=== PATIENT | female | born 1960 | race Caucasian/White ===

== ENCOUNTER → 2016-10-18 | Outpatient (CLI) | payer BC ==
[~2016-10-18] MED LIST: MULT-506 PO; PROZAC PO; RITALIN PO; WELLBUTRIN
--- NOTE | 2016-10-18 13:47 | DIAGNOSTIC IMAGING REPORT ---
PA CHEST WITH LEFT-SIDED RIB SERIES CLINICAL HISTORY: Left chest wall pain. FINDINGS: A PA chest radiograph with 4 additional views may left-sided rib series is obtained. No prior studies are available for comparison at the time of dictation. The cardiomediastinal silhouette is unremarkable. The lungs and pleural spaces are clear. No pneumothorax is seen. The skeletal structures are osteopenic. There is no radiographic evidence of left-sided rib fracture on the rib series. The remainder of the bony thorax is grossly intact. IMPRESSION: 1. The lungs are clear. 2. There is no radiographic evidence of left-sided rib fracture as clinically queried. Electronically signed by: Bradley Fuentes M.D. 10/18/2016 1:46 PM Dictated Date/Time: 10/18/2016 1:44 PM
== END | disposition home or self-care (01) ==
LOC: C.RAD1850 13:10
PROVIDERS: ATTEND Nurse Practitioner
DX: R07.81 Pleurodynia (principal)

== ENCOUNTER → 2016-11-17 | Outpatient (CLI) | payer BC ==
--- NOTE | 2016-11-17 12:23 | MAMMOGRAPHY REPORT ---
BILATERAL DIGITAL DIAGNOSTIC MAMMOGRAM TOMOSYNTHESIS WITH CAD: 11/17/2016 CLINICAL HISTORY: The patient reports that she had left inferior breast/rib pain a few weeks ago whic h has since resolved. She denies any palpable lump or other complaints. TECHNIQUE: Breast tomosynthesis in addition to standard 2D mammography was performed. Current study was also evaluated with a Computer Aided Detection (CAD) system. Bilateral CC and MLO 2-D and tomosy nthesis images were obtained. COMPARISON: Comparison is made to exams dated: 11/28/2013 mammogram - [facility], , and 05/11/2011 mammogram - [facility]. BREAST COMPOSITION: The tissue of both breasts is heterogeneously dense, which may obscure small mas ses. FINDINGS: There are no suspicious masses, calcifications, or areas of architectural distortion noted in either breast. There has been no significant interval change compared to prior exams. Scattered bilateral benign-appearing calcifications are not significantly changed. As the pain has resolved, u ltrasound was not performed. IMPRESSION: ACR BI-RADS CATEGORY 2: BENIGN There is no mammographic evidence of malignancy in either breast. A 1 year screening mammogram is rec ommended. Also recommend clinical follow-up for left breast/rib pain which has since resolved. The patient has been verbally notified of the results. Approximately 10% of breast cancers are not detected with mammography. A negative mammographic report should not delay biopsy if a clinically suggestive mass is present. Jazmine Calix M.D. /:11/17/2016 09:43:27 Coding Clerk: Danica MENDOZA(Rachel)([place]), [facility] letter sent: Normal 1/2 BI-RADS Code: ACR BI-RADS Category 2: Benign
== END | disposition home or self-care (01) ==
LOC: C.MAMM 09:04
PROVIDERS: ATTEND Nurse Practitioner
DX: Z12.31 Encounter for screening mammogram for malignant neoplasm of breast (principal); N64.4 Mastodynia

== ENCOUNTER 2017-05-19 09:25 | Emergency (ER) | payer OTHER ==
[~2017-05-19] VITALS: Ht 162.6 cm; Wt 91.2 kg
[2017-05-19 09:32] VITALS: Ht 162.6 cm; Wt 91.2 kg
[2017-05-19 09:58] VITALS: BP 147/97; PULSE 103; TEMP 36.3; O2SAT 97
[2017-05-19] MEDS ORDERED: WLLSR150 PO (10:02)
[2017-05-19] MEDS ORDERED: METH1TAB15 PO (10:02)
[2017-05-19] MEDS ORDERED: FLUO20CA36 PO (10:02)
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
== END 2017-05-19 09:55 | disposition home or self-care (01) ==
LOC: C.EDB 09:26 → C.EDA 09:55
DX: M54.5 Low back pain (principal); M25.562 Pain in left knee; V87.7XXA Person injured in collision between other specified motor vehicles (traffic), initial encounter; F32.9 Major depressive disorder, single episode, unspecified; Z79.899 Other long term (current) drug therapy

== ENCOUNTER 2022-05-12 07:39 | Inpatient (IN) ==
--- NOTE | 2022-05-12 14:35 | Surgery Consultation ---
Date of Consultation May 12, 2022 Assessment & Plan (1) Diffuse large B cell lymphoma: This is a 61yF with a PMH of depression, stress incontinence who presents to the [facility] on 05/12/22 as a direct admission from the [facility] to start inpatient chemotherapy. Of note she has been dealing with R shoulder pain over last year, then suddenly developed a R sided mass between her R neck and shoulder region, which was biopsied at [place] for diffuse large b cell lymphoma. We have been asked to place a port this admission for chemotherapy by Dr. Donahue at the [facility] who has been following the patient. Dr. Brar is planning on performing the procedure tomorrow morning. She is agreeable with the plan. Please keep NPO at midnight and hold blood thinners. Labs and Covid are all pending. Dr. Brar will obtain surgical consent tomorrow. Supervising Physician Co-Signing Physician Notes As per Gena Chávez physician speech language pathologist assistant I visited the patient this morning and discussed with her the procedure including risk and complication such as bleeding pneumothorax and longstanding care of the port she agrees to proceed with surgery we will have her sign her surgery permit in the preop area All question answered History of Present Illness Attending Physician: Sang Donahue MD History of Present Illness This is a 61yF with a PMH of depression, stress incontinence who presents to the [facility] on 05/12/22 as a direct admission from the [facility] to start inpatient chemotherapy. We have been consulted for placement of a port this admission. Of note the patient has been having R shoulder pain over the last year or so. In the beginning of April (04/12) she noted a sudden onset of a mass off to the R side of her neck/shoulder region. Since then she went to her PCP who ordered imaging which revealed a "large and heterogeneously enhancing mass lesion centered in the right shoulder musculature/supraclavicular region as detailed above. This causes permeative destruction of the adjacent scapula and there are enlarged surrounding nodules/lymph nodes. This is pathologically indeterminant, and could represent a primary soft tissue sarcoma, metastatic disease, or possibly lymphoma." Patient states she then went to [place] for tissue biopsy that revealed diffuse large B cell lymphoma. She has since been seen by our oncologist Dr. Donahue last week and yesterday, who ultimately referred her for admission to start inpatient chemotherapy. Patient denies any fevers/chills, n/v, change in bowel habits, or weight loss. Reports some night sweats since the mass appeared. Has some shoulder pain, no limitations to her range of motion. No previous history of port placement. Allergies Allergy/AdvReac Type Severity Reaction Status Date / Time No Known Drug Allergies Allergy Unknown Verified 04/14/22 15:56 Home Medications Medication Instructions Recorded Confirmed Type fexofenadine 180 mg tablet 180 mg PO DAILY 06/10/21 05/12/22 History (Gay Allergy) budesonide-formoterol HFA 160 2 puff inhalation BID PRN seasonal 09/10/21 05/12/22 History mcg-4.5 mcg/actuation aerosol allergies wheezing inhaler (Symbicort) hydrochlorothiazide 25 mg tablet 25 mg PO DAILY #90 tabs 11/13/21 05/12/22 Rx fluoxetine 40 mg capsule (Prozac) 40 mg PO DAILY #90 caps 11/16/21 05/12/22 Rx albuterol sulfate 90 mcg/actuation 2 puff inhalation .COMPLEX PRN 01/25/22 05/12/22 Rx aerosol inhaler (ProAir HFA) shortness of breath or wheezing #8.5 grams inhalational spacing device #1 ea 01/25/22 05/12/22 Rx mupirocin 2 % topical ointment 1 applic topical BID #15 grams 03/15/22 05/12/22 Rx Patient History Medical History Asthma Menopausal and perimenopausal disorder Vaginal wall prolapse Surgical History History of tonsillectomy and adenoidectomy History of wisdom tooth extraction Family History Mother Stroke Environmental allergies Grandmother (Maternal) Lung cancer smoker Brain cancer Brother Giant cell tumor Other Diabetes No family history of adverse response to anesthesia No family history of bleeding disorder Denies family history of Ovarian cancer Prostate cancer Myocardial infarction Breast cancer Colorectal cancer Social History Smoking Status: Never smoker Second Hand Exposure: No; Hx Alcohol Use: Yes Alcohol type: beer, wine and hard liquor Alcohol Intake Frequency: 2-3 x/Week Hx Substance Use: No Preferred Language: German Communication Ability: Effective Visual Impairment: No Limitations Hearing Ability: Normal Turn Out Worker Required: No Beliefs That Will Affect Care: None marital status: Current Living Situation: Spouse current occupational status: employed 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 How many Children do You have: 2 Other Information That Helps Us Care for You: No Feels Safe at Home: Yes Safety Concerns: Feels Safe At This Time Childhood Exposure to Second-Hand Smoke: No Diet Comment: regular caffeine: Yes Dental Care, Regularly: Yes Physical Activity Frequency: 1-2 Times per Week Seatbelt Use: always Sunscreen Use: Yes Assistive Devices: Glasses Assistive Devices Comment: reading glasses Review of Systems Constitutional: + sweats (some night sweats); no fever, no chills, no anorexia and no weight loss Respiratory: no dyspnea Gastrointestinal: no abdominal pain, no nausea, no vomiting and no change in bowel habits Musculoskeletal: mass at the base of the R neck/superior shoulder region Physical Exam Physical Exam: awake/alert, no distress Constitutional: well developed and well nourished; no acute distress Neck: large firm mass, non tender, at the base of the R neck and superior shoulder region. no overlying skin changes Respiratory: normal respiratory effort Results & Data ([facility]) Diagnostic Findings US soft tissue head and neck CLINICAL HISTORY: Right neck mass. COMPARISON STUDY: No previous studies for comparison. TECHNIQUE: Sonography of the right lower neck at site of palpable abnormality was performed pre- FINDINGS: There is a complex mixed echogenicity right supraclavicular mass-like abnormality which measures 8 x 6.4 x 4.2 cm and corresponds to the palpable abnormality. This is predominantly echogenic and contains multiple hypoechoic spaces. Color flow is noted within this finding. IMPRESSION: 8 x 6.4 x 4.2 cm complex right supraclavicular mass-like abnormality which corresponds to the palpable lump. This contains color flow and therefore a neoplastic etiology cannot be excluded. A CT of the neck with IV contrast is recommended for further evaluation. ACT 112: Positive. There are findings on this exam that require communication between the performing entity and the patient following Patient Test Result Information Act ([place] Act 112) guidelines. Electronically signed by: Andriy Guillory M.D. 04/14/2022 12:[address] SCAN OF THE NECK WITH IV CONTRAST CLINICAL HISTORY: Right-sided neck mass. COMPARISON STUDY: Ultrasound of the neck 04/14/2022. TECHNIQUE: Following the IV administration of 87 cc of Optiray 3 degenerative uptake, CT scan of the soft tissues of the neck was performed from the skull base to the upper chest. Images are reviewed in the axial, sagittal, and coronal planes. IV contrast was administered without complication. A dose lowering technique was utilized adhering to the principles of ALARA. CT DOSE: 501.04 mGy.cm FINDINGS: Soft tissues: There is a large and heterogeneously enhancing infiltrative soft tissue mass in the centered in the right shoulder musculature/supraclavicular region. This is best seen on image #286 and measures approximately 5 x 7 x 6.5 cm. This appears to invade the adjacent shoulder musculature, and causes permeative destruction of the right scapula. The inferior aspect of this lesion approaches the right axilla. There is an adjacent nodules/ component of the lesion within the right paraspinous musculature on image #316 measuring 4.0 x 2.9 cm. Pharynx: The pharyngeal soft tissues are normal as visualized. The pharyngeal airway is widely patent. There is no evidence of mass lesion. The vocal cords are symmetric. The parapharyngeal fat is well maintained. The prevertebral/retropharyngeal soft tissues are within normal limits. The epiglottis is normal. Lymphadenopathy: Enlarged left supraclavicular node adjacent to mass lesion seen on image #321 measures 1.5 x 1.2 cm. A prominent right axillary node on image #339 measures 1.4 x 0.8 cm. There are prominent right lower cervical chain nodes. A node on image #20 of 43 measures 1.1 x 0.6 cm. An enlarged right subpectoral node on image #382 measures 1.3 x 1.1 cm. Thyroid: Normal in size and attenuation. Salivary glands: The parotid and submandibular glands are within normal limits. Brain parenchyma: The visualized brain parenchyma at the skull base is normal in appearance. Vascular structures: The carotid arteries and jugular veins are patent. Skeletal structures: Imaged portions of the calvarium at the skull base are within normal limits. The cervical spine appears intact noting mild multilevel spondylosis. There is permeative destruction of the right scapula. No additional lytic or blastic lesions are seen. Orbits: The bony orbits are intact. Orbital contents are normal as visualized. Sinuses and mastoids: The paranasal sinuses are clear. The mastoid air cells are well pneumatized. Lung apices: Visualized apical lung parenchyma is clear. IMPRESSION: 1. There is a large and heterogeneously enhancing mass lesion centered in the right shoulder musculature/supraclavicular region as detailed above. This causes permeative destruction of the adjacent scapula and there are enlarged surrounding nodules/lymph nodes. This is pathologically indeterminant, and could represent a primary soft tissue sarcoma, metastatic disease, or possibly lymphoma. Tissue sampling is recommended. 2. The pharyngeal soft tissues are normal in appearance. 3. The upper lobe lung parenchyma is clear. ACT 112: Positive. There are findings on this exam that require communication between the performing entity and the patient following Patient Test Result Information Act ([place] Act 112) guidelines. Electronically signed by: Bradley Fuentes M.D. 04/14/2022 3:23 PM PG Care Time/CCT Total # of Minutes Spent Total Time Spent with Patient: Total time spent is greater than 50% in coordination of care (as documented) at patient's floor/unit and/or counseling patient: Coding Level of Care Code INP/OBS CONSULT LVL 3, 45 MIN Diagnoses Diffuse large B cell lymphoma C83.30
--- NOTE | 2022-05-12 15:24 | History & Physical Report ---
Date of Service May 12, 2022 Assessment & Plan (1) Diffuse large B cell lymphoma: Plan: Diffuse large B-cell lymphoma Diagnosed 1 month ago, patient with large palpable mass without ulceration/erythema overlying right superior shoulder. Patient has had night s weats, denies other B-cell symptoms - CT-H/N: 1. There is a large and heterogeneously enhancing mass lesion centered in the right shoulder musculature/supraclavicular region as detailed above. This causes permeative destruction of the adjacent scapula and there are enlarged surrounding nodules/lymph nodes. This is pathologically indeterminant, and could represent a primary soft tissue sarcoma, metastatic disease, or possibly lymphoma. Tissue sampling is recommended.2. The pharyngeal soft tissues are normal in appearance.3. The upper lobe lung parenchyma is clear. Biopsy pathology results not available in [facility], per discussion with oncology NHL: DLBCL Patient direct admitted for port placement and initiation of CHOP therapy Hematology oncology consulted and following. Anticipate CHOP therapy initiation tomorrow with every 4 hours labs for monitoring of tumor lysis Base labs ordered on admission including CBC, BMP, mag, Phos, uric acid, and coags No signs of vena cava syndrome - Echo: EF 60-65%, no valvular pathology Surgery consulted, anticipate port placement morning of 05/13. N.p.o. midnight. (2) Hypercalcemia: Plan: Calcium 12.2 on 05/11/2022, suspect 2/2 malignancy Zometa 4 mg ordered Continue Normosol IV FM Trend daily (3) Asthma: Plan: Seasonal, intermittent No daily inhalers, no wheezing on admission May use home inhalers as needed if wheezing develops, not indicated at this time (4) Depression: Plan: Continue home fluoxetine 40 mg (5) Anemia: Plan: Historic, patient denies any recent bleeding or symptoms of anemia including lightheadedness/dizziness/palpitations CBC yesterday with hemoglobin 13.5, MCV 92.3 No signs of active bleeding, coags pending Plan DVT prophylaxis: SCDs, pharmacal prophylaxis deferred pending port placement. May +Lovenox post procedure Diet: Heart healthy, n.p.o. at midnight. IV FM continued for hypercalcemia Disposition: Medical/surgical, no cardiac history, no arrhythmia. 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 In early April discovered cancer, diffuse large B cell lymphoma by Oncology. Advanced in several spots/mets. Has been seeing Dr. Donahue. Starting aggressive chemotherapy as soon as possible. Was direct admitted for port placing and for the first round of chemo and monitoring of tumor lysis syndrome. She is starting CHOP therapy 'without the R' the first time. Her presention symptoms were a large lump on the R shoulder in April. No other lumps. +night sweats, no fever or chills no shortness of breath, no cough, no sputum production Voiding normally, no burning with urination No nausea, vomiting, diarrhea, or constipation No history of heart disease. No chest pain. Easily go up at least 3 flights of stairs before getting winded at the office, no angina/chest pain/chest pressure. No hx of lung disease History of asthma, seasonal. Does not use daily inhaler. Symbicort + Albuterol seasonally PRN. Medical History: Reviewed. 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 On hydroxychloroquine which was stopped 1 day ago. Denies other medical history FHX: No FHX of [place], strokes. DM in PGM, MGM. No FHx thyroid disease, no first degree relatives with cancer. Medications: Reviewed Surgical History: Reviewed Allergies: Reviewed. NKDA Social History: No tobacco product use. Social alcohol use occasional, not daily. No medical/rec marijuana or recreational drugs Code Status: Jose Maria Bales [phone] would be surrogate DM. Full Code Allergies Allergy/AdvReac Type Severity Reaction Status Date / Time No Known Drug Allergies Allergy Unknown Verified 04/14/22 15:56 Home Medications Medication Instructions Recorded Confirmed Type fexofenadine 180 mg tablet 180 mg PO DAILY 06/10/21 05/12/22 History (Gay Allergy) budesonide-formoterol HFA 160 2 puff inhalation BID PRN seasonal 09/10/21 05/12/22 History mcg-4.5 mcg/actuation aerosol allergies wheezing inhaler (Symbicort) hydrochlorothiazide 25 mg tablet 25 mg PO DAILY #90 tabs 11/13/21 05/12/22 Rx fluoxetine 40 mg capsule (Prozac) 40 mg PO DAILY #90 caps 11/16/21 05/12/22 Rx albuterol sulfate 90 mcg/actuation 2 puff inhalation .COMPLEX PRN 01/25/22 05/12/22 Rx aerosol inhaler (ProAir HFA) shortness of breath or wheezing #8.5 grams inhalational spacing device #1 ea 01/25/22 05/12/22 Rx mupirocin 2 % topical ointment 1 applic topical BID #15 grams 03/15/22 05/12/22 Rx Past Med/Surg History Medical History Asthma Menopausal and perimenopausal disorder Vaginal wall prolapse Surgical History History of tonsillectomy and adenoidectomy History of wisdom tooth extraction Family History Mother Stroke Environmental allergies Grandmother (Maternal) Lung cancer smoker Brain cancer Brother Giant cell tumor Other Diabetes No family history of adverse response to anesthesia No family history of bleeding disorder Denies family history of Ovarian cancer Prostate cancer Myocardial infarction Breast cancer Colorectal cancer Social History Smoking Status: Never smoker Second Hand Exposure: No; Hx Alcohol Use: Yes Alcohol type: beer, wine and hard liquor Alcohol Intake Frequency: 2-3 x/Week Hx Substance Use: No Preferred Language: Czech Communication Ability: Effective Visual Impairment: No Limitations Hearing Ability: Normal Can Reconditioner Required: No Beliefs That Will Affect Care: None marital status: Current Living Situation: Spouse current occupational status: employed 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 NAD. Cooperative. HEENT: Atraumatic. No increased color/tone of head/neck Skin: Right superior medial shoulder with large diffuse swelling/mass, without erythema/tenderness/ulceration/discharge. Palpable right axillary lymph node is present. No left axillary node palpable. No cervical chain adenopathy palpable Pulm: CTAB A&P. -wheezes, -rales, -rhonchi. Symmetrical chest rise. No increased work of breathing. No respiratory distress. Cardiac: RRR, -mrg. Radial pulses intact and symmetrical. Abdominal: Nontender, nondistended, soft. BS present. Extremities: Warm, dry. No edema. Sensation to soft touch intact in hands and feet, moving all extremities equally and walking easily around the room Results & Data Results & [facility] ([facility]) Vital Signs (Past 12 Hours) Vital Signs Pulse Resp BP Pulse Ox O2 Del Method 05/12/22 14:49 89 18 129/86 97 Room Air 05/12/22 14:47 89 18 129/86 97 Room Air Code Status & VTE Plan VTE Prophylaxis Plan VTE Prophylaxis will be ordered: Yes PG Care Time/CCT Total # of Minutes Spent Total Time Spent with Patient: Total time spent is greater than 50% in coordination of care (as documented) at patient's floor/unit and/or counseling patient: Coding Level of Care Code 32188 INT INP/OBS CARE 2/55MIN Diagnoses Diffuse large B cell lymphoma C83.30 Hypercalcemia E83.52 Asthma J45.909 Depression F32.9 Anemia D64.9
[2022-05-12] MEDS ORDERED: ZOLEDRONIC ACID 4 MG in 0.9 % SODIUM CHLORIDE 100 ML IV ONE (15:30)
[2022-05-12] MEDS ORDERED: ALBUTEROL HFA 8 GM INHALER INH PRN ×2 (15:46→16:06)
[2022-05-12 15:54] LABS: Basophils # (auto) 0.03 K/uL (0-0.2); Basophils % (auto) 0.4 %; Eosinophils # (auto) 0.06 K/uL (0-0.50); Eosinophils % (auto) 0.7 %; Hematocrit (blood only) 43.6 % (37.0-47.0); Hemoglobin 14.8 g/dl (12.0-16.0); Immature Granulocytes # (auto) 0.06 K/uL (0.01-0.20); Immature Granulocytes % (auto) 0.7 %; Lymphocytes # (auto) 3.24 K/uL (1.2-3.4); Lymphocytes % (auto) 38.4 %; Mean Corpuscular Hemoglobin 31.5 pg (25.0-34.0); Mean Corpuscular Hgb Conc 33.9 g/dL (32.0-36.0); Mean Corpuscular Volume 92.8 fL (80.0-100.0); Mean Platelet Volume 9.1 fL (9.4-12.4); Monocytes # (auto) 0.64 K/uL (0.11-0.59); Monocytes % (auto) 7.6 %; Neutrophils # (auto) 4.41 K/uL (1.40-6.50); Neutrophils % (auto) 52.2 %; Platelet Count 369 K/uL (130-400); RDW Coefficient of Variation 12.9 % (11.5-14.5); RDW Standard Deviation 43.9 fL (36.4-46.3); White Blood Count 8.44 K/ul (4.8-10.8)
[2022-05-12 16:11] LABS: BUN Creatinine Ratio 23.2 (10-20); Creatinine Clr Calc Pharmacy 78.8 ml/min; Est GFR (African American) 90.8 ml/min; Est GFR (Non-African American) 78.3 ml/min; Magnesium 2.1 mg/dl (1.7-2.4); Phosphorus 3.4 mg/dl (2.5-4.9); Potassium 3.5 mmol/L (3.5-5.1); Uric Acid 7.8 mg/dl (2.6-7.2)
[2022-05-12] MEDS: NORMOSOL-R 1,000 ML IV SCH (16:11)
[2022-05-13] MEDS: NORMOSOL-R 1,000 ML IV SCH ×3 (00:32→20:10)
[2022-05-13] MEDS ORDERED: HYDROCORTISONE SOD SUCCINATE 100 MG/2 ML VIAL IV PRN (06:00)
[2022-05-13 06:47] LABS: Basophils # (auto) 0.03 K/uL (0-0.2); Basophils % (auto) 0.6 %; Eosinophils # (auto) 0.03 K/uL (0-0.50); Eosinophils % (auto) 0.6 %; Hematocrit (blood only) 36.3 % (37.0-47.0); Hemoglobin 12.2 g/dl (12.0-16.0); Immature Granulocytes # (auto) 0.02 K/uL (0.01-0.20); Immature Granulocytes % (auto) 0.4 %; Lymphocytes # (auto) 1.99 K/uL (1.2-3.4); Lymphocytes % (auto) 36.5 %; Mean Corpuscular Hemoglobin 31.1 pg (25.0-34.0); Mean Corpuscular Hgb Conc 33.6 g/dL (32.0-36.0); Mean Corpuscular Volume 92.6 fL (80.0-100.0); Monocytes # (auto) 0.55 K/uL (0.11-0.59); Monocytes % (auto) 10.1 %; Neutrophils # (auto) 2.83 K/uL (1.40-6.50); Neutrophils % (auto) 51.8 %; Platelet Count 285 K/uL (130-400); RDW Coefficient of Variation 13.2 % (11.5-14.5); RDW Standard Deviation 44.3 fL (36.4-46.3); Red Blood Count 3.92 M/uL (4.20-5.40); White Blood Count 5.45 K/ul (4.8-10.8)
--- NOTE | 2022-05-13 06:49 | History & Physical Bridge Note ---
Date of Service May 13, 2022 History & Physical Bridge Note I have examined the patient, reviewed the History & Physical and in the interval since the performance of the History & Physical I have noted the following changes of clinical significance: no changes noted As per my notes from the consultation that was done yesterday and completed this morning the patient is agreeable to proceed with port placement all question answered We will have her sign permit in the preop area
[2022-05-13 06:58] LABS: INR 1.1 (0.9-1.1); Partial Thromboplastin Ratio 0.9; Partial Thromboplastin Time 23.7 Seconds (21.0-31.0); Prothrombin Time 11.4 Seconds (9.0-12.0)
[2022-05-13] MEDS ORDERED: PALONOSETRON 0.25 MG in SYRINGE 0 ML IV SCH (08:00)
[2022-05-13] MEDS ORDERED: diphenhydrAMINE 50 MG/ML VIAL IV SCH (08:00)
[2022-05-13] MEDS ORDERED: ACETAMINOPHEN 325 MG TAB PO SCH (08:00)
[2022-05-13] MEDS ORDERED: FAMOTIDINE 20 MG in SYRINGE 3 ML IV PRN (08:00)
[2022-05-13] MEDS ORDERED: methylPREDNISolone 125 MG in SYRINGE 0 ML IV PRN (08:00)
[2022-05-13] MEDS ORDERED: FOSAPREPITANT DIMEGLUMINE 150 MG in SODIUM CHLORIDE 0.9% 145 ML IV SCH (08:00)
[2022-05-13] MEDS ORDERED: diphenhydrAMINE 50 MG/ML VIAL IV PRN (08:00)
[2022-05-13] MEDS ORDERED: EPINEPHrine INJ 1 MG/ML AMP IM PRN (08:00)
--- NOTE | 2022-05-13 08:00 | Consultation ---
Date of Consultation May 13, 2022 Assessment & Plan (1) Diffuse large B cell lymphoma: Aggressive onset diffuse large B-cell lymphoma with direct invasion of the right scapula and as well the thoracic spine. Pain is reasonably well controlled and she has no immediate neurological compromise. With the aggressive histology and large mass, she is at high risk for tumor lysis syndrome. She is also already showing some elements of hypercalcemia. 1. Because of the likelihood of high response just with chemotherapy we will be starting today with CHOP. This will transition as an outpatient to either [facility] or, if she proves to have a double hit lymphoma, possible [facility]. She has already received 5 days of prednisone leading up to this admission and will be administered doxorubicin/vincristine/cyclophosphamide later today. 2. Hypercalcemia - she received a dose of Zometa yesterday we will need to continue with good hydration and monitoring 3. She is on allopurinol and at high risk for TLS. She should continue with vigorous hydration and I will arrange for periodic checks of electrolytes and uric acid as soon as we know the scheduling of her actual chemotherapy 4. Port-A-Cath is to be placed this morning and accessed from the operating room 5. I requested consultations from both orthopedics and radiation oncology. In terms of cytoreduction, chemotherapy may be as or more effective than radiation but input from these disciplines will help assess both immediately and wrt the coming weeks any stability concerns and the need, if any, for supplemental intervention beyond chemotherapy to assure continued stability. 6. Even with this aggressive presentation, there is a very high rate of complete and durable remission with large B-cell lymphoma. Nevertheless, palliative care involvement both specifically to00 help in management of symptomatology but also more generally dealing with the emotional and logistical challenges the situation would be worthwhile. Plan As above -starting chemotherapy today with ongoing treatment for and monitoring of hypercalcemia tumor lysis syndrome. We will seek radiation oncology, orthopedics, and palliative care input. History of Present Illness Reason for Consultation: Patient with newly diagnosed aggressive diffuse large B-cell lymphoma with direct invasion of the right scapular and thoracic spine admitted with hypercalcemia and for acute chemotherapy and close monitoring for high risk for tumor lysis syndrome Attending Physician: Sang Donahue MD History of Present Illness I will have my office notes from May 06 and scanned to [facility] for more complete review. Patient with a longstanding history of moderate back pain with acute exacerbation recently and identification of a large right upper thoracic mass with an extension into the supraclavicular fossa and invasion of the scapula. Further imaging also shows a metastasis in the a thoracic spine and additional pathologic adenopathy in the chest and abdomen. She is admitted for initiation of chemotherapy and stabilization of acute hypercalcemia. Currently pain is reasonably well controlled and she has no neurological compromise in her lower extremities Allergies Allergy/AdvReac Type Severity Reaction Status Date / Time No Known Drug Allergies Allergy Unknown Verified 04/14/22 15:56 Home Medications Medication Instructions Recorded Confirmed Type fexofenadine 180 mg tablet 180 mg PO DAILY 06/10/21 05/12/22 History (Gay Allergy) budesonide-formoterol HFA 160 2 puff inhalation BID PRN seasonal 09/10/21 05/12/22 History mcg-4.5 mcg/actuation aerosol allergies wheezing inhaler (Symbicort) hydrochlorothiazide 25 mg tablet 25 mg PO DAILY #90 tabs 11/13/21 05/12/22 Rx fluoxetine 40 mg capsule (Prozac) 40 mg PO DAILY #90 caps 11/16/21 05/12/22 Rx albuterol sulfate 90 mcg/actuation 2 puff inhalation .COMPLEX PRN 01/25/22 05/12/22 Rx aerosol inhaler (ProAir HFA) shortness of breath or wheezing #8.5 grams inhalational spacing device #1 ea 01/25/22 05/12/22 Rx mupirocin 2 % topical ointment 1 applic topical BID #15 grams 03/15/22 05/12/22 Rx Patient History Medical History Asthma Menopausal and perimenopausal disorder Vaginal wall prolapse Surgical History History of tonsillectomy and adenoidectomy History of wisdom tooth extraction Family History Mother Stroke Environmental allergies Grandmother (Maternal) Lung cancer smoker Brain cancer Brother Giant cell tumor Other Diabetes No family history of adverse response to anesthesia No family history of bleeding disorder Denies family history of Ovarian cancer Prostate cancer Myocardial infarction Breast cancer Colorectal cancer Social History Smoking Status: Never smoker Second Hand Exposure: No; Hx Alcohol Use: Yes Alcohol type: beer, wine and hard liquor Alcohol Intake Frequency: 2-3 x/Week Hx Substance Use: No Preferred Language: Syriac Communication Ability: Effective Visual Impairment: No Limitations Hearing Ability: Normal Guidance Adviser Required: No Beliefs That Will Affect Care: None marital status: Current Living Situation: Spouse current occupational status: employed 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 How many Children do You have: 2 Other Information That Helps Us Care for You: No Feels Safe at Home: Yes Safety Concerns: Feels Safe At This Time Childhood Exposure to Second-Hand Smoke: No Diet Comment: regular caffeine: Yes Dental Care, Regularly: Yes Physical Activity Frequency: 1-2 Times per Week Seatbelt Use: always Sunscreen Use: Yes Assistive Devices: Glasses Assistive Devices Comment: reading glasses Physical Exam 2 Physical Exam: Persistent mass in the right supraclavicular fossa, otherwise relatively stable exam including good strength in lower extremities Results & Data ([facility]) Vital Signs (Past 12 Hours) Vital Signs Temp Pulse Resp BP Pulse Ox O2 Del Method 05/12/22 22:21 37.1 C 86 16 115/74 92 Room Air PG Care Time/CCT Total # of Minutes Spent Total Time Spent with Patient: Total time spent is greater than 50% in coordination of care (as documented) at patient's floor/unit and/or counseling patient: Coding Level of Care Code INP/OBS CONSULT LVL 3, 45 MIN Diagnoses Diffuse large B cell lymphoma C83.30
--- NOTE | 2022-05-13 08:09 | Radiation OncologyConsultation ---
Date of Consultation May 13, 2022 Assessment & Plan (1) Diffuse large B cell lymphoma: Assessment: Ms. Bales is a 61-year-old female who presented with right back and scapular pain. She was found to have a large enhancing lesion involving the scapula and supraclavicular regions with destruction as well as involvement of the T8 vertebral body. Biopsy at [place] confirmed large B-cell lymphoma. Patient is scheduled to initiate systemic chemotherapy and is admitted today for placement of a port and initiation of chemotherapy. Treatment Options: 1. Initiation of systemic chemotherapy as recommended by Dr. Donahue. 2. Role of radiation will potentially consist of consolidation as appropriate. Recommendations: The patient is to start systemic chemotherapy as recommended by Dr. Donahue. Plan: 1. Port placement scheduled for today. 2. Initiation of systemic chemotherapy. 3. Review of CT scan of the chest performed. 4. MRI to be placed into PACS for review. 5. No acute role for radiation at this time. Rationale/Explanation of Treatment: This patient has a B-cell lymphoma that is fairly extensive involving the right supraclavicular and scapular area with destruction of the scapula. There is also involvement of T8. I have reviewed the CT scan and MRI encompassing the T8 vertebral body. There is approximately 30 to 40% loss of height. There is evidence of some extra thoracic soft tissue extension greater on the left than right. There is also some posterior extension of tumor which is mild to moderate but no evidence of cord compression. The posterior elements are intact. Radiology felt that the stability of the vertebral body is well-maintained. For this reason I do not see any immediate role for radiation to the vertebral body at this time. The pa tient should respond well to systemic chemotherapy. The role of radiation will be consolidation as appropriate. Follow-up CT or PET CT scans will evaluate the response to systemic chemotherapy. We will continue to follow and be available to see the patient in the future as requested. The patient had multiple questions which were answered to her full satisfaction. Thank you for allowing us to participate in the care of this patient. This chart was completed in part utilizing [employer] Voice Recognition software. Grammatical errors, random word insertions, pronoun errors and incomplete sentences are occasional consequence of this system due to software limitations, ambient noise and hardware issues. Any formal questions or concerns about the content, text or information contained within the body of this dictation should be directly addressed to the provider for clarification. Hernando Ball MD Department of Radiation Oncology [facility] and [facility] History of Present Illness Reason for Consultation: Potential role of radiation. Requesting Physician: Dr. Sang Donahue. Attending Physician: Sang Donahue MD History of Present Illness Ms. Bales is a 61-year-old female with a history of diffuse large B-cell lymphoma. 04/14/2022. Patient undergoes CT of the neck following development of a acute swelling of the right supraclavicular fossa with increasing scapular area pain and discomfort. This showed a large and heterogeneously enhancing mass lesion centered in the right shoulder musculature/supraclavicular region. This was causing permeative destruction of the adjacent scapula with enlarged surrounding nodules/lymph nodes. These were felt to be pathologically indeterminate possibly representing a primary soft tissue sarcoma, metastatic disease or possibly thymoma. Biopsy was recommended. 04/14/2022. Labs were taken and patient was urgently transferred to [facility] for additional imaging and biopsy. 04/23/2022. Patient undergoes CT of the chest. This showed a large soft tissue mass deep to the right scapula and trapezius muscle measuring 7.2 x 7.1 cm. A 4.1 x 2.2 cm right axillary lymph node was noted consistent with metastatic disease. There is destruction of the right scapula from the lesion. An enlarged retroperitoneal lymph node was noted measuring 4.6 x 3.9 cm consistent with metastatic disease. A lytic lesion was noted at T8 vertebral body with mild compression deformity and a mild compression fracture of 30 to 40%. 04/23/2022. MRI of the chest with and without contrast was performed. This showed an infiltrative right scapular Lasch supraclavicular mass with characteristics favoring lymphoma measuring 9.6 x 11.7 x 12.3 cm with a separate subpectoral mass in the superior axilla measuring 3.4 x 4.1 x 4.3 cm. Again noted was metastatic involvement of T8 with associated pathologic fracture, soft tissue mass and left-sided spinal cord compression. Fine-needle aspiration biopsy was recommended. 04/27/2022. Patient undergoes FNA and core biopsy of the right supraclavicular node. This revealed atypical cells suspicious for lymphoma. Core biopsy was consistent with a diffuse large B-cell lymphoma non-germinal center B-cell type. The lesion was positive for CD20, BCL6 and MUM1. The lesion was negative for CD10, Bcl-2 and MYC. FISH studies for "double hit" were performed. Flow cytometry revealed a minor typical But positive B-cell population consistent with a B-cell lymphoma. 05/06/2022. Patient was seen in consultation by Dr. Jaren Jaquez (medical oncology) who evaluated the patient and recommended additional evaluation and discussed treatment options. He was concerned about the T8 vertebral body wanting to rule out potential structural instability. He started the patient on high-dose steroids with prednisone 100 mg daily for 5 days and plan work-up for cardiac status and placement of a port. 05/11/2022. Patient was seen in follow-up by Dr. Jaren Jaquez. He was noted to have tolerated and responded to the high-dose prednisone and her status remained stable. His recommendation was to proceed with 6 cycles of R-CHOP unless the patient was shown to have a double hit disease. 05/12/2022. Patient was admitted and seen by surgery for placement of a port. 05/13/2022. Dr. Brar has the patient scheduled for port placement. Patient was also seen by Dr. Donahue. He requested both orthopedic and radiation oncology referral. He felt the patient should respond well with cytoreduction to systemic chemotherapy and would likely respond more rapidly than with radiation. He was concerned about stability given the T8 lesion. 05/13/2022. Patient seen in referral by radiation oncology for evaluation and discussion of the role of radiation and evaluation of the T8 vertebral body stability. This chart was completed in part utilizing [employer] Voice Recognition software. Grammatical errors, random word insertions, pronoun errors and incomplete sentences are occasional consequence of this system due to software limitations, ambient noise and hardware issues. Any formal questions or concerns about the content, text or information contained within the body of this dictation should be directly addressed to the provider for clarification. Hernando Ball MD Department of Radiation Oncology [facility] Wilberto Garza [facility] Allergies Allergy/AdvReac Type Severity Reaction Status Date / Time No Known Drug Allergies Allergy Unknown Verified 04/14/22 15:56 Home Medications Medication Instructions Recorded Confirmed Type fexofenadine 180 mg tablet 180 mg PO DAILY 06/10/21 05/12/22 History (Gay Allergy) budesonide-formoterol HFA 160 2 puff inhalation BID PRN seasonal 09/10/21 05/12/22 History mcg-4.5 mcg/actuation aerosol allergies wheezing inhaler (Symbicort) hydrochlorothiazide 25 mg tablet 25 mg PO DAILY #90 tabs 11/13/21 05/12/22 Rx fluoxetine 40 mg capsule (Prozac) 40 mg PO DAILY #90 caps 11/16/21 05/12/22 Rx albuterol sulfate 90 mcg/actuation 2 puff inhalation .COMPLEX PRN 01/25/22 05/12/22 Rx aerosol inhaler (ProAir HFA) shortness of breath or wheezing #8.5 grams inhalational spacing device #1 ea 01/25/22 05/12/22 Rx mupirocin 2 % topical ointment 1 applic topical BID #15 grams 03/15/22 05/12/22 Rx Patient History Medical History Asthma Menopausal and perimenopausal disorder Vaginal wall prolapse Surgical History History of tonsillectomy and adenoidectomy History of wisdom tooth extraction Family History Mother Stroke Environmental allergies Grandmother (Maternal) Lung cancer smoker Brain cancer Brother Giant cell tumor Other Diabetes No family history of adverse response to anesthesia No family history of bleeding disorder Denies family history of Ovarian cancer Prostate cancer Myocardial infarction Breast cancer Colorectal cancer Social History Smoking Status: Never smoker Second Hand Exposure: No; Hx Alcohol Use: Yes Alcohol type: beer, wine and hard liquor Alcohol Intake Frequency: 2-3 x/Week Hx Substance Use: No Preferred Language: Spanish Communication Ability: Effective Visual Impairment: No Limitations Hearing Ability: Normal 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 Beam 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 Required: No Beliefs That Will Affect Care: None marital status: Current Living Situation: Spouse current occupational status: employed 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 This is negative other than chronic headache. She has had this for many years. This is typically at a low grade level and is unchanged. Physical Exam Constitutional: WD/WN, vitals as above Eyes: EOM intact bilaterally ENMT: Ears: no hearing impairment Neck: trachea midline, no thyromegaly Large raised mass of the right supraclavicular area. With palpation this is approximately 8 x 7 cm. It is raised 5 cm. There are no changes to overlying skin. This is nontender. Mass is firm and fixed. Respiratory: normal respiratory effort, lungs clear to auscultation Cardiovascular: RRR, no murmur, no edema Gastrointestinal (Abdomen): normal bowel sounds, soft, nontender, no hepatosplenomegaly Skin: no rashes, warm and dry Neurologic: Normal strength and coordination. Psychiatric: A+Ox3, euthymic affect Lymphatic: + subclavicular lymphadenopathy (Large supraclavicular mass on the right.) Results (Rad Onc) Laboratory Results: were reviewed and pertinent findings noted in HPI Pathology Results: were reviewed and pertinent findings noted in HPI Imaging Studies: were reviewed and pertinent findings noted in HPI Time Spent Attending This documentation has been prepared in full or in part by Cecelia JIMENEZ acting as a scribe under my direction. I, Dr. Ball personally reviewed the services described and have reviewed the documentation to ensure its accuracy. I spent 15 minutes with direct face to face interaction with the patient which included obtaining clinical information, recommending a plan of action and answering questions. I spent 30 minutes reviewing the patient's chart, scans with radiology and communication with Dr. Donahue and completion of this document. TAZ
[2022-05-13] MEDS ORDERED: DOXORUBICIN HCL IV SCH (08:30)
[2022-05-13 08:36] LABS: BUN Creatinine Ratio 20.6 (10-20); Est GFR (Non-African American) 95.7 ml/min; Potassium 3.5 mmol/L (3.5-5.1)
[2022-05-13] MEDS ORDERED: MIDAZOLAM HCL 1 MG/ML 2ML VIAL ONE (08:53)
[2022-05-13] MEDS ORDERED: ONDANSETRON INJ 2 MG/ML 2 ML VIAL ONE (08:53)
[2022-05-13] MEDS ORDERED: fentaNYL citrate 100 MCG/2 ML VIAL ONE (08:53)
[2022-05-13] MEDS ORDERED: PROPOFOL IV EMULSION 10 MG/ML 20 ML VIAL IV ONE (08:53)
[2022-05-13] MEDS ORDERED: LIDOCAINE 2% MPF LOCAL 5 ML VIAL INFIL ONE (08:53)
[2022-05-13] MEDS ORDERED: ENOXAPARIN INJ 40 MG/0.4 ML SYR SQ SCH (09:00)
[2022-05-13] MEDS ORDERED: LIDOCAINE 1% LOCAL 20 ML VIAL ONE (09:07)
[2022-05-13] MEDS ORDERED: HEPARIN 100 UNIT/ML 5ML FLUSH ONE (09:07)
--- NOTE | 2022-05-13 09:08 | Anesthesiology Consultation ---
Date of Service May 13, 2022 Assessment & Plan (1) Encounter for pre-operative examination: Chart Review Chart Review: Acceptable Risk for Surgery and Patient NOT seen in Pre Admission Testing Consults Requested none History Surgery Operation Date: 05/13/22 09:25 Proposed Procedures p Mediport Placement - Avery Brar MD, FACS Height/Weight Height: 5 ft 3 in Weight: 90.265 kg Allergies Allergy/AdvReac Type Severity Reaction Status Date / Time No Known Drug Allergies Allergy Unknown Verified 04/14/22 15:56 Medications Home Medications Medication Instructions Recorded Confirmed Last Taken fexofenadine 180 mg tablet 180 mg PO DAILY 06/10/21 05/12/22 05/12/22 (Gay Allergy) budesonide-formoterol HFA 160 2 puff inhalation BID PRN seasonal 09/10/21 05/12/22 Unknown mcg-4.5 mcg/actuation aerosol allergies wheezing inhaler (Symbicort) hydrochlorothiazide 25 mg tablet 25 mg PO DAILY #90 tabs 11/13/21 05/12/22 05/12/22 fluoxetine 40 mg capsule (Prozac) 40 mg PO DAILY #90 caps 11/16/21 05/12/22 0 05/12/22 albuterol sulfate 90 mcg/actuation 2 puff inhalation .COMPLEX PRN 01/25/22 05/12/22 Unknown aerosol inhaler (ProAir HFA) shortness of breath or wheezing #8.5 grams inhalational spacing device #1 ea 01/25/22 05/12/22 Unknown mupirocin 2 % topical ointment 1 applic topical BID #15 grams 03/15/22 05/12/22 05/10/22 Active Medications Generic Name Dose Route Start Last Admin Trade Name Freq PRN Reason Stop Dose Admin Parenteral Electrolytes 1,000 mls @ 120 mls/hr 05/12/22 15:00 05/13/22 00:32 Normosol-R IV 06/11/22 14:59 120 mls/hr .[id number] SHAYY Administration NPO Date Last Intake of Fluids: 05/12/22 Time Last Intake of Fluids: 23:00 Date Last Intake of Solids: 05/12/22 Past Medical History Medical History Asthma Menopausal and perimenopausal disorder Vaginal wall prolapse Past Family History Family History Mother Stroke Environmental allergies Grandmother (Maternal) Lung cancer smoker Brain cancer Brother Giant cell tumor Other Diabetes No family history of adverse response to anesthesia No family history of bleeding disorder Denies family history of Ovarian cancer Prostate cancer Myocardial infarction Breast cancer Colorectal cancer Past Surgical History Surgical History History of tonsillectomy and adenoidectomy History of wisdom tooth extraction Social History Smoking Status: Never smoker Hx Alcohol Use: Yes Alcohol type: beer, wine and hard liquor Hx Substance Use: No Physical Exam Vital Signs Last Vital Signs Temp 97.9 F 05/13/22 07:50 Pulse 99 H 05/13/22 07:50 Resp 17 05/13/22 07:50 BP 128/79 05/13/22 07:50 Pulse Ox 94 05/13/22 07:50 O2 Del Method 05/13/22 07:50 Testing Laboratory Results 05/13/22 06:30 05/13/22 06:30 PT 11.4 Seconds (9.0-12.0) 05/13/22 06:30 INR 1.1 (0.9-1.1) 05/13/22 06:30 APTT 23.7 Seconds (21.0-31.0) 05/13/22 06:30
[2022-05-13] MEDS ORDERED: ONDANSETRON INJ 2 MG/ML 2 ML VIAL IV PRN (09:23)
[2022-05-13] MEDS ORDERED: ePHEDrine sulfate 50 MG/ML AMP IV PRN (09:23)
[2022-05-13] MEDS ORDERED: ATROPINE SULFATE 0.1 MG/ML 10ML SYR IV PRN (09:23)
[2022-05-13] MEDS ORDERED: fentaNYL citrate 100 MCG/2 ML VIAL IV PRN (09:23)
[2022-05-13] MEDS ORDERED: CYCLOPHOSPHAMIDE IV SCH (09:30)
[2022-05-13] MEDS ORDERED: SODIUM CHLORIDE 0.9% IV SCH (09:30)
[2022-05-13] MEDS ORDERED: ceFAZolin 330 MG/ML 1 GM VIAL ONE (09:40)
[2022-05-13] MEDS ORDERED: ceFAZolin 2000MG 2,000 MG/15 ML SYR IV ONE (09:56)
--- NOTE | 2022-05-13 10:09 | Hospitalist Progress Note ---
Date of Service May 13, 2022 Assessment & Plan (1) Diffuse large B cell lymphoma: Plan: Diffuse large B-cell lymphoma Diagnosed 1 month ago, patient with large palpable mass without ulceration/erythema overlying right superior shoulder. Patient has had night s weats, denies other B-cell symptoms - CT-H/N: 1. There is a large and heterogeneously enhancing mass lesion centered in the right shoulder musculature/supraclavicular region as detailed above. This causes permeative destruction of the adjacent scapula and there are enlarged surrounding nodules/lymph nodes. This is pathologically indeterminant, and could represent a primary soft tissue sarcoma, metastatic disease, or possibly lymphoma. Tissue sampling is recommended.2. The pharyngeal soft tissues are normal in appearance.3. The upper lobe lung parenchyma is clear. Biopsy [facility], per discussion with oncology NHL: DLBCL Patient direct admitted for port placement and initiation of CHOP therapy this afternoon. May transition to R-CHOP or REPOCH as outpatient based on heme-onc review, appreciate recommendations Hematology oncology consulted and following. High risk for TLS. Currently sodium 141, potassium 3.5, uric acid 7.8, calcium normalized after Zometa/fluids to 9.0 on 05/13, Phos 3.4, mag 2.1. If uric acid uptrends and labs show developing TLS will +rasburicase 6mg IV at that time. Deferred for now. No hx g6pd Continue aggressive hydration Orthopedic/radiation oncology consulted given lesion involving scapula/supraclavicular region/T8 vertebral body. [facility] note reviewed, no role for radiation therapy today but will follow chemo response and continue to reassess Port in place, okay to use this afternoon per surgery (2) Hypercalcemia: Plan: Calcium 12.2 on 05/11/2022, suspect 2/2 malignancy Zometa 4 mg ordered 05/12 Continue Normosol IV FM Calcium normalized 2/2, continue to trend (3) Asthma: Plan: Seasonal, intermittent No daily inhalers, no wheezing on admission May use home inhalers as needed if wheezing develops, not indicated at this time (4) Depression: Plan: Continue home fluoxetine 40 mg (5) Anemia: Plan: Historic, patient denies any recent bleeding or symptoms of anemia including lightheadedness/dizziness/palpitations CBC prior to admission with hemoglobin 13.5, MCV 92.3 No signs of active bleeding, coags normal Plan DVT prophylaxis: SCDs, pharmacal prophylaxis deferred pending port placement. May +Lovenox post procedure Diet: Heart healthy, n.p.o. at midnight. IV FM continued for hypercalcemia Disposition: Medical/surgical, no cardiac history, no arrhythmia. May move to telemetry for close monitoring if concern for tumor lysis rises after initiation of chemotherapy CODE STATUS: Full code Admission and Anticipated Discharge Date Admission Date: May 12, 2022 Leslye Weaver is seen at the bedside following port placement. She feels well postprocedure. No fever, chills, sweats, chest pain, chest pressure, lightheadedness, dizziness, difficulty breathing, shortness of breath. She is eager to get the neck steps of her treatment started, and did see Dr. Donahue this morning who answered most of her questions, she reports she is only wondering what time her treatments will get started and is aware that they are being prepared for this afternoon. Otherwise no questions/concerns. Review of Systems Review of Systems: All systems reviewed & are unremarkable except as noted in Subjective Physical Exam Physical Exam: General: A&Ox3. NAD. Cooperative. HEENT: Atraumatic. No increased color/tone of head/neck Skin: Right superior medial shoulder with large diffuse swelling/mass, without erythema/tenderness/ulceration/discharge. Unchanged from prior. Left port in place, C/C/I, no surrounding swelling/hematoma/erythema/discharge Pulm: CTAB A&P. -wheezes, -rales, -rhonchi. Symmetrical chest rise. No increased work of breathing. No respiratory distress. Cardiac: RRR, -mrg. Radial pulses intact and symmetrical. Abdominal: Nontender, nondistended, soft. BS present. Extremities: Warm, dry. No edema. Sensation to soft touch intact in hands and feet, moving all extremities equally and walking easily around the room Results & Data Results & Data ([facility]) Vital Signs (Past 12 Hours) Vital Signs Temp Pulse Resp BP Pulse Ox O2 Del Method 05/13/22 09:14 36.9 C 100 H 20 147/93 H 96 Room Air 05/13/22 07:50 36.6 C 99 H 17 128/79 94 Room Air 05/12/22 22:21 37.1 C 86 16 115/74 92 Room Air PG Care Time/CCT Total # of Minutes Spent Total Time Spent with Patient: Total time spent is greater than 50% in coordination of care (as documented) at patient's floor/unit and/or counseling patient: Coding Level of Care Code 50327 SUB INP/OBS CARE 3/50MIN Diagnoses Diffuse large B cell lymphoma C83.30 Hypercalcemia E83.52 Asthma J45.909 Depression F32.9 Anemia D64.9
--- NOTE | 2022-05-13 10:18 | Post Operative Brief Note ---
Immediate Post Op Note v1 Date of Surgery May 13, 2022 Pre & Post Diagnosis Operation Date: 05/13/22 09:25 Pre-Op Diagnosis: Large B Cell Lyphoma Post-Op Diagnosis: Large B Cell Lyphoma I identified the patient and participated in the time-out.: Yes Procedure Operation Date: 05/13/22 09:25 Actual Procedures p Mediport Placement Left Internal Jugular(Left) - Avery Brar MD, FACS Surgeon Avery Brar MD, FACS Assembly Technician k walk Estimated Blood Loss 5 Findings Consistent with Post-Op Diagnosis
--- NOTE | 2022-05-13 10:37 | Operative Report ---
PG Post Operative Report Pre & Post Diagnosis Operation Date: 05/13/22 09:25 Pre-Op Diagnosis: Large B Cell Lyphoma Post-Op Diagnosis: Large B Cell Lyphoma I identified the patient and participated in the time-out.: Yes Procedure Operation Date: 05/13/22 09:25 Actual Procedures p Mediport Placement Left Internal Jugular(Left) with fluoroscopic guidance- Carlee Brar MD, FACS Patient was brought into the operating theater IV sedation given roll placed underneath her shoulder blades the left neck left chest was prepped Betadine scrub solution properly draped systemic antibiotics on board timeout was had patient identified this point Trendelenburg position use about 3 cc of 1% Xylocaine plain to infiltrate the angle of the left clavicle achieving anesthetic level followed by larger needle we were unable to access the vein on the single passage without withdrawn any air therefore I aborted this procedure more local was used between the 2 heads of sternocleidal muscle access the vein 19-gauge needle followed by larger needles followed by the guidewire fluoroscopically we are able to place superior vena cava right atrium at this point more local was used 2 fingerbreadths below the left clavicle incision about 3 cm long was made freeing up the subcutaneous tissue inferiorly dissected out that we could create a pocket that could accommodate the reservoir which we tested and it was easily palpable we at this point then enlarged the neck incision with 11 blade placed an introducer and fluoroscopically positioned the catheter in superior vena cava there was a little kink noted we withdrew the catheter back and then aligned up fine and went to the right atrial area without any difficulty at this point we then used a tunneler to pass the catheter to the previously made incision and pocket above the left breast we reimaged the system black bolster was placed the catheter was in the right superior vena cava right atrial area cut it appropriately and placed into the reservoir fashion the black bolster at this point aspirated and flushed quite easily and placed the catheter in the previously made pocket with 2-0 Prolene was used to suture the catheter to subcutaneous tissue once this was completed we aspirated and flushed again and without any difficulty we closed the pocket with 2-0 Vicryl sutures and 4-0 Monocryl reimaged the whole system there was no kinking and the catheter appeared to be in good position Steri-Strips was applied to the incision both in the neck and above the reservoir 2 x 2 was used to elevate the access needle with was placed without any difficulty and an OpSite was placed to cover the needle over the port and the 2 of 2 gauze we accessed and flushed the port without any difficulty patient tolerated procedure well was taken recovery in good condition estimated blood loss 5 cc addendum the reservoir was accessed and can be used today in anticipation for chemotherapy addendum spoke by phone to Ollie patient's spouse at [phone] Surgeon Avery Brar MD, FACS Tread Cutter joey rebollar Estimated Blood Loss 5 Findings Consistent with Post-Op Diagnosis Large B-cell lymphoma Specimens None Complications None Indications MRI port for chemo Description of Procedure merda I attest to the content of the Intraoperative Record and any orders documented therein. Any exceptions are noted below.
--- NOTE | 2022-05-13 10:44 | Anesthesiology Progress Note ---
Date of Service May 13, 2022 Anesthesia Post Procedure Vital Signs Vital Signs: Temp Pulse Pulse Resp BP Pulse Ox O2 Del Method 05/13/22 10:30 84 12 123/69 95 Room Air 05/13/22 10:40 97.5 F L 86 14 128/77 94 Room Air 05/13/22 10:24 96.8 F L 90 22 126/72 95 Room Air 05/13/22 09:14 98.4 F 100 H 20 147/93 H 96 Room Air 05/13/22 07:50 97.9 F 99 H 17 128/79 94 Room Air 05/12/22 22:21 98.8 F 86 16 115/74 92 Room Air 05/12/22 14:49 89 18 129/86 97 Room Air 05/12/22 14:47 89 18 129/86 97 Room Air Transfer of Care Handoff Completed per policy Notes Mental Status: alert / awake / arousable and participated in evaluation Patient Amnestic to Procedure: Yes Nausea / Vomiting: adequately controlled Pain: adequately controlled Airway Patency, RR, SpO2: stable & adequate BP & HR: stable & adequate Hydration State: stable & adequate Anesthetic Complications: no major complications apparent and Pt Satisfied with anesthetic care
--- NOTE | 2022-05-13 10:54 | XRay Report ---
XR chest 1V portable HISTORY: s/p mediport COMPARISON: Chest 07/31/2021. FINDINGS: Interval placement left-sided Port-A-Cath which terminates in the distal SVC. No pneumothor ax. No pleural effusions. The heart is normal in size. Small linear scarlike density within the left lower lobe. Otherwise, the lungs are clear. IMPRESSION: Left-sided Port-A-Cath which terminates at the distal SVC. No pneumothorax. ACT 112: Negative or not required by law. Electronically signed by: Andres Barry M.D. 05/13/2022 10:52 AM
[2022-05-13] MEDS ORDERED: ACETAMINOPHEN 325 MG TAB PO PRN (11:16)
[2022-05-13] MEDS: FLUoxetine HCL 20 MG CAP PO SCH (11:43)
[2022-05-13 21:49] LABS: BUN Creatinine Ratio 17.3 (10-20); Calcium 8.4 mg/dl (8.5-10.1); Creatinine Clr Calc Pharmacy 58.7 ml/min; Est GFR (African American) 63.6 ml/min; Est GFR (Non-African American) 54.9 ml/min; Potassium 3.6 mmol/L (3.5-5.1)
[2022-05-14] MEDS ORDERED: HEPARIN 100 UNIT/ML 5ML FLUSH FLUSH PRN (00:03)
[2022-05-14] MEDS: NORMOSOL-R 1,000 ML IV SCH ×3 (04:21→20:44)
[2022-05-14 06:30] LABS: Albumin Globulin Ratio 1.7 (0.9-2); Albumin Level 3.3 gm/dl (3.4-5.0); Bilirubin,Total 0.5 mg/dl (0.2-1.0); Calcium 8.2 mg/dl (8.5-10.1); Creatinine Clr Calc Pharmacy 99.4 ml/min; Est GFR (African American) 112.6 ml/min; Est GFR (Non-African American) 97.2 ml/min; Potassium 3.6 mmol/L (3.5-5.1); Total Protein 5.3 gm/dl (6.0-8.3); Uric Acid 6.1 mg/dl (2.6-7.2)
[2022-05-14] MEDS: ACETAMINOPHEN 325 MG TAB PO PRN ×3 (07:20→15:25)
[2022-05-14] MEDS: FLUoxetine HCL 20 MG CAP PO SCH (09:31)
--- NOTE | 2022-05-14 11:26 | Orthopedic Consultation ---
Date of Consultation May 14, 2022 Assessment & Plan (1) Diffuse large B cell lymphoma: At this time the patient is comfortable. We discussed possible kyphoplasty of the T8 vertebral body if she were struggling with pain. This point she would not be interested in any procedure she is undergoing chemotherapy. I agree with this plan. She understands if there is any change in her status neurologically she would require an urgent MRI of the thoracic spine. She is comfortable with observation. History of Present Illness Reason for Consultation: Metastasis to T8 vertebral body. Attending Physician: Jesus Yen MD History of Present Illness This is a very pleasant 61-year-old female that has been diagnosed with B-cell lymphoma. There is evidence of metastasis and bony involvement at T8. At this morning she denies any thoracic back pain she states she does have a history of some rib discomfort but this is improved over the course of the treatment. She denies any balance issues or neurologic deficits to the lower extremity. Allergies Allergy/AdvReac Type Severity Reaction Status Date / Time No Known Drug Allergies Allergy Unknown Verified 04/14/22 15:56 Home Medications Medication Instructions Recorded Confirmed Type fexofenadine 180 mg tablet 180 mg PO DAILY 06/10/21 05/12/22 History (Gay Allergy) budesonide-formoterol HFA 160 2 puff inhalation BID PRN seasonal 09/10/21 05/12/22 History mcg-4.5 mcg/actuation aerosol allergies wheezing inhaler (Symbicort) hydrochlorothiazide 25 mg tablet 25 mg PO DAILY #90 tabs 11/13/21 05/12/22 Rx fluoxetine 40 mg capsule (Prozac) 40 mg PO DAILY #90 caps 11/16/21 05/12/22 Rx albuterol sulfate 90 mcg/actuation 2 puff inhalation .COMPLEX PRN 01/25/22 05/12/22 Rx aerosol inhaler (ProAir HFA) shortness of breath or wheezing #8.5 grams inhalational spacing device #1 ea 01/25/22 05/12/22 Rx mupirocin 2 % topical ointment 1 applic topical BID #15 grams 03/15/22 05/12/22 Rx Patient History Medical History (Updated 05/13/22 @ 12:55 by Mary Grace Valencia RN) Asthma Menopausal and perimenopausal disorder Vaginal wall prolapse Surgical History (Updated 05/13/22 @ 12:55 by Mary Grace Valencia RN) History of tonsillectomy and adenoidectomy History of wisdom tooth extraction Port-A-Cath in place (05/13/22) Mediport Placement Left Internal Jugular(Left) with fluoroscopic guidance- Avery Brar MD, FACS Family History Mother Stroke Environmental allergies Grandmother (Maternal) Lung cancer smoker Brain cancer Brother Giant cell tumor Other Diabetes No family history of adverse response to anesthesia No family history of bleeding disorder Denies family history of Ovarian cancer Prostate cancer Myocardial infarction Breast cancer Colorectal cancer Social History Smoking Status: Never smoker Second Hand Exposure: No; Hx Alcohol Use: Yes Alcohol type: beer, wine and hard liquor Alcohol Intake Frequency: 2-3 x/Week Hx Substance Use: No Preferred Language: Brazilian Communication Ability: Effective Visual Impairment: No Limitations Hearing Ability: Normal Curriculum Developer Required: No Beliefs That Will Affect Care: None marital status: Current Living Situation: Spouse current occupational status: employed 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 She is comfortable. She has no pain to palpation or percussion across the thoracic spine. She is neurologically intact to testing. Results & Data ([facility]) Vital Signs (Past 12 Hours) Vital Signs Temp Pulse Resp BP Pulse Ox O2 Del Method 05/14/22 11:12 37 C 94 H 18 115/78 93 Room Air 05/14/22 04:20 37 C 87 16 119/76 93 Room Air
--- NOTE | 2022-05-14 12:54 | Hospitalist Progress Note ---
Date of Service May 14, 2022 Assessment & Plan (1) Diffuse large B cell lymphoma: Plan: Doing quite well. Modest increase in creatinine has already returned to her baseline, calcium and uric acid are both in good range. Headache seems to be a reawakening of a previous headache syndrome and does not really suggest meningeal or MEDICAL ADMINISTRATOR involvement. However, I have suggested that MEDICAL ADMINISTRATOR imaging should be performed today to be sure we do not see more concerning changes there. Otherwise, if MEDICAL ADMINISTRATOR imaging is stable she can probably be discharged with close follow-up at home. Emphasized the need to stay well-hydrated and reminded her that I am immediately available fire and explosion investigator throughout the weekend for any concerns or questions. We will arrange for allopurinol to continue for 6 more days after today with a prescription sent in for them to fill at home. I will plan to see her on May 20 in my office. Plan MEDICAL ADMINISTRATOR imaging as above and if that is stable she can be discharged with close follow-up at home. Admission and Anticipated Discharge Date Admission Date: May 12, 2022 Subjective Overall do quite well with chemotherapy though she has had some moderate to severe paroxysmal frontal headache. This is unassociated with vision or other neurological changes. Physical Exam Physical Exam: Vital signs are stable. She is completely alert without meningismus or any new/focal neurological changes Lung and cardiac exams seem stable. Right supraclavicular mass is unchanged. Continues with good strength in the lower extremities. Results & Data Results & Data ([facility]) Vital Signs (Past 12 Hours) Vital Signs Temp Pulse Resp BP Pulse Ox O2 Del Method 05/14/22 07:10 36.9 C 100 H 18 133/84 92 Room Air 05/14/22 11:12 37 C 94 H 18 115/78 93 Room Air 05/14/22 04:20 37 C 87 16 119/76 93 Room Air PG Care Time/CCT Total # of Minutes Spent Total Time Spent with Patient: Total time spent is greater than 50% in coordination of care (as documented) at patient's floor/unit and/or counseling patient: Coding Level of Care Code 68640 SUB INP/OBS CARE 25MIN Diagnoses Diffuse large B cell lymphoma C83.30
[2022-05-14] MEDS ORDERED: oxyCODONE HCL IR 5 MG TAB (IMMEDIATE RELEASE) PO STA (16:21)
[2022-05-14] MEDS ORDERED: GADOBUTROL 65ML VIAL IV ONE (16:58)
--- NOTE | 2022-05-14 17:41 | Magnetic Resonance Report ---
MR brain wo/w con HISTORY: 61 years-old Female New dx DLBCL, headache-rule out meningeal involve acute headache in a p atient currently on chemotherapy COMPARISON: CT soft tissue neck April 14, 2022 TECHNIQUE: Multiplanar multisequence MRI of the brain was obtained both with and without the use of 9 cc Gadavist FINDINGS: No restricted diffusion to suggest acute or subacute infarct. The midline structures are unremarkable . No acute intracranial hemorrhage, midline shift, abnormal extra-axial collection, hydrocephalus or intracranial mass. No pathologic blooming artifact on the T2 star series. The volume and signal of th e brain is within normal limits. No abnormal enhancement. Cerebral venous sinuses and major arterial flow voids appear patent. Skull, orbits and soft tissues a re unremarkable. The mastoid air cells and paranasal sinuses are generally clear. IMPRESSION: 1. No acute intracranial abnormality. 2. No abnormal enhancement. ACT 112: Negative or not required by law. The above report was generated using voice recognition software. It may contain grammatical, syntax o r spelling errors. Electronically signed by: Vimal Sheppard M.D. 05/14/2022 5:40 PM
[2022-05-15] MEDS: ACETAMINOPHEN 325 MG TAB PO PRN ×2 (03:44→07:56)
[2022-05-15] MEDS: NORMOSOL-R 1,000 ML IV SCH ×2 (04:41→11:51)
[2022-05-15] MEDS: FLUoxetine HCL 20 MG CAP PO SCH (07:57)
--- NOTE | 2022-05-15 12:18 | Discharge Summary ---
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 In early April discovered cancer, diffuse large B cell lymphoma by Oncology. Advanced in several spots/mets. Has been seeing Dr. Perez. Starting aggressive chemotherapy as soon as possible. Was direct admitted for port placing and for the first round of chemo and monitoring of tumor lysis syndrome. She is starting CHOP therapy 'without the R' the first time. Her presention symptoms were a large lump on the R shoulder in April. No other lumps. +night sweats, no fever or chills no shortness of breath, no cough, no sputum production Voiding normally, no burning with urination No nausea, vomiting, diarrhea, or constipation No history of heart disease. No chest pain. Easily go up at least 3 flights of stairs before getting winded at the office, no angina/chest pain/chest pressure. No hx of lung disease History of asthma, seasonal. Does not use daily inhaler. Symbicort + Albuterol seasonally PRN. Medical History: Reviewed. 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 On hydroxychloroquine which was stopped 1 day ago. Denies other medical history FHX: No FHX of [place], strokes. DM in PGM, MGM. No FHx thyroid disease, no first degree relatives with cancer. Medications: Reviewed Surgical History: Reviewed Allergies: Reviewed. NKDA Social History: No tobacco product use. Social alcohol use occasional, not daily. No medical/rec marijuana or recreational drugs Code Status: Jose Maria Bales [phone] would be surrogate DM. Full Code Principal Diagnosis Diffuse large B-cell lymphoma Discharge Exam Head and ENT no thyroid enlargement trachea midline Cardiovascular S1-S2 are normal no S3 Lungs bilateral air entry fair no wheezing Abdomen soft nondistended positive bowel sounds no rebound tenderness Extremity shows trace edema Neurologically no focal deficits Skin shows no rash no cyanosis Discharge Data Allergies Allergy/AdvReac Type Severity Reaction Status Date / Time No Known Drug Allergies Allergy Unknown Verified 04/14/22 15:56 Consultations 02/01/23 14:56 Consult Oncology Routine 05/13/22 07:34 Consult Orthopedic Surgery Routine 05/13/22 07:36 Consult Radiation Oncology Routine Procedures Performed Operation Date: 05/13/22 09:25 Actual Procedures p Mediport Placement Left Internal Jugular(Left) - Avery Brar MD, FACS Ordered Studies 05/13/22 09:25 FL fluoro (infusaport) to 1 hr Routine 05/14/22 16:04 MR brain wo/w con Urgent Hospital Course (1) Diffuse large B cell lymphoma: Diffuse large B-cell lymphoma Diagnosed 1 month ago, patient with large palpable mass without ulceration/erythema overlying right superior shoulder. Patient has had night sweats, denies other B-cell symptoms - CT-H/N: 1. There is a large and heterogeneously enhancing mass lesion centered in the right shoulder musculature/supraclavicular region as detailed above. This causes permeative destruction of the adjacent scapula and there are enlarged surrounding nodules/lymph nodes. This is pathologically indeterminant, and could represent a primary soft tissue sarcoma, metastatic disease, or possibly lymphoma. Tissue sampling is recommended.2. The pharyngeal soft tissues are normal in appearance.3. The upper lobe lung parenchyma is clear. Biopsy [email or web address] [place], per discussion with oncology NHL: DLBCL Patient direct admitted for port placement and initiation of CHOP therapy this afternoon. May transition to R-CHOP or REPOCH as outpatient based on heme-onc review, appreciate recommendations Hematology oncology consulted and following. High risk for TLS. Currently sodium 141, potassium 3.5, uric acid 7.8, calcium normalized after Zometa/fluids to 9.0 on 05/13, Phos 3.4, mag 2.1. If uric acid uptrends and labs show developing TLS will +rasburicase 6mg IV at that time. Deferred for now. No hx g6pd Continue aggressive hydration Orthopedic/radiation oncology consulted given lesion involving scapula/supraclavicular region/T8 vertebral body. [facility] note reviewed, no role for radiation therapy today but will follow chemo response and continue to reassess Port in place, okay to use this afternoon per surgery 2/3 - d/w dr perez who saw pt early and as per him pt can be d/c e once MRI results are back and headache and nausea resolved 2/4 - pt feels well and can be d/c ed and pt to f/u dr perez in 5 days (2) Hypercalcemia: Calcium 12.2 on 05/11/2022, suspect 2/2 malignancy Zometa 4 mg ordered 05/12 Continue Normosol IV FM Calcium normalized 2/2, continue to trend (3) Asthma: Seasonal, intermittent No daily inhalers, no wheezing on admission May use home inhalers as needed if wheezing develops, not indicated at this time (4) Depression: Continue home fluoxetine 40 mg (5) Anemia: Historic, patient denies any recent bleeding or symptoms of anemia including lightheadedness/dizziness/palpitations CBC prior to admission with hemoglobin 13.5, MCV 92.3 No signs of active bleeding, coags normal Plan DVT prophylaxis: SCDs, pharmacal prophylaxis deferred pending port placement. May +Lovenox post procedure Diet: Heart healthy, n.p.o. at midnight. IV FM continued for hypercalcemia Disposition: Medical/surgical, no cardiac history, no arrhythmia. May move to telemetry for close monitoring if concern for tumor lysis rises after initiation of chemotherapy CODE STATUS: Full code Total Time Total Time Spent Total Time Spent (In Minutes): 36 Discharge Plan Discharge Items Patient Disposition: Home - Self-Care Reason For Visit: INPATIENT CHEMOTHERAPY, STAY OF 48 HOURS Discharge Diagnosis: Diffuse large B cell lymphoma Activity: Per Instructions section Non-emergency contact: Primary Care Provider and Oncologist Call non-emergency contact if: your symptoms worsen Follow-up/Referrals: Avery Brar MD, FACS [Surgeon] - (You do not need to follow up in the office after your port placement. You may call anytime if you have questions/concerns) Fabiana Nina MD [Primary Care Provider] - Diet: Heart Healthy Addtl Attending Provider Instructions: Dr perez - 5 days Pending Studies at Discharge: No Stand-Alone Forms: My [employer], Smoking Cessation Medications and DC Order Prescriptions: Continued hydrochlorothiazide 25 mg tablet 25 mg PO DAILY Qty: 90 1RF fluoxetine [Prozac] 40 mg capsule 40 mg PO DAILY Qty: 90 1RF (DME) inhalational spacing device Spacer See Rx Instructions .ROUTE .MEDSUPPLY Qty: 1 0RF Rx Instructions: to be used with albuterol inh ICD10: J45.909 albuterol sulfate [ProAir HFA] 90 mcg/actuation HFA aerosol inhaler 2 puff inhalation .COMPLEX PRN (Reason: shortness of breath or wheezing) Qty: 8.5 3RF Rx Instructions: 2 puff inhalation q4-6 hrs PRN; mupirocin 2 % ointment 1 applic topical BID Qty: 15 6RF Rx Instructions: APPLY TO AFFECTED NOSTRIL TWICE DAILY FOR 1 month budesonide-formoterol [Symbicort] 160-4.5 mcg/actuation HFA aerosol inhaler 2 puff inhalation BID PRN (Reason: seasonal allergies wheezing) fexofenadine [Gay Allergy] 180 mg tablet 180 mg PO DAILY Discharge Orders: Discharge Order (Routine); Ordered 05/15/22 Ordered By: Jesus Alicea/Other Patient Handouts: Resources for People with Cancer, Immunocompromised Patients Dc, Asthma Admission Data Admit Date/Time: 05/12/22 14:29 Attending Provider: Jesus Yen Admit Provider: Sang Perez Primary Care Provider: Fabiana Nina Other Providers: Sang Perez ; Dino Russell Veeral B. Other Interventions: Discharge Summary Assessment (RN) Last Done: 05/15/22 11:53 Coding Level of Care Code HOSP INP/OBS DISCH >30 MIN Diagnoses Diffuse large B cell lymphoma C83.30 Hypercalcemia E83.52 Asthma J45.909 Depression F32.9 Anemia D64.9
== END 2022-05-15 13:33 | disposition home or self-care (01) | DRG 847 ==
LOC: 3E 14:29 → SUATTDRO 14:29

== ENCOUNTER 2022-12-01 19:28 | Inpatient (IN) ==
[2022-12-01] MEDS ORDERED: CEFEPIME 2,000 MG/20 ML VIAL IV STA (19:48)
--- NOTE | 2022-12-01 20:01 | Emergency Department Note ---
Impression & Plan Multifocal pneumonia, Hypoxia, Elevated troponin I level ED Provider Note NAME: LICHA VEGA AGE: 62 SEX: F : 1960 ARRIVES VIA: Walk-In INFORMANT: Patient, ED PROVIDER(S): Nikolas Harrison DO CHIEF COMPLAINT: Shortness of breath HPI: The patient is a 62-year-old female who presented to the emergency department for an evaluation of difficulty breathing. Patient's had approximately 1 month of shortness of breath with cough. She has been on 2 different antibiotics. Currently she is taking Augmentin. She did have a chest x-ray as well as a CT of the chest. She was felt to be suffering from pneumonia as she does have a cough as well as a fever. She denies having any lower extremity swelling. She has a history of B-cell lymphoma and was treated with radiation that ended at the end of October. The patient noticed that her pulse ox was very low this evening. She called her on-call physician and was instructed to go to the ER. ROS: See above HPI for pertinent positives & negatives. A total of 10 systems reviewed and were otherwise negative. PAST MEDICAL HISTORY: See Below PAST SURGICAL HISTORY: See Below FAMILY HISTORY: See Below SOCIAL HISTORY: See Below HOME MEDICATIONS: See Below ALLERGIES: See Below VITALS: See Below PHYSICAL EXAMINATION: GENERAL: Patient is awake alert in no acute distress patient is resting comfortably and showing no signs of anxiety EYES: The conjunctivae are clear. The pupils are round and reactive. EARS, NOSE, MOUTH AND THROAT: The nose is without any evidence of any deformity. NECK: The neck is nontender and supple. RESPIRATORY: Diminished breath sounds are noted throughout. There were rales at the right base. There was conversational dyspnea as well as tachypnea. CARDIOVASCULAR: Tachycardic and regular heart sounds were noted to auscultation. There is no definite murmur. GASTROINTESTINAL: The abdomen is soft. Abdomen is nontender. MUSCULOSKELETAL/EXTREMITIES: There is no evidence of gross deformity full range of motion is noted in the hips and shoulders. SKIN: There is no obvious evidence of any rash. There are no petechiae, pallor or cyanosis noted. NEUROLOGIC: Patient is awake alert and oriented x3 MEDICAL DECISION MAKING: The patient is a 62-year-old female who presented to the emergency department with cough and shortness of breath. The patient had a fever as well as a cough. She has had ongoing symptoms for approximately 1 month. The patient was started on antibiotic as an outpatient. She has been on 2 antibiotics for this but symptoms continue to worsen. The patient presented with abnormal lung sounds. She appeared to be very ill. The patient was started on IV antibiotics in the emergency department. Given her history of lymphoma blood cultures were obtained. I reassessed the patient multiple times. She was slowly improving. I discussed her condition with the on-call [facility]. It was unclear if this represented pulmonary edema. For this reason a large fluid bolus was avoided. Triage Nursing notes reviewed. Prior medical records reviewed Vital Signs: reviewed and remarkable for Hypoxia and tachycardia. Differential diagnosis: Reactive airway disease, pneumonia, pneumothorax, COPD, CHF, infections, cardiac ischemia, pulmonary embolism, musculoskeletal, gastrointestinal, as well as other pathologies. ER treatment provided: See below Diagnostics interpreted by me: ECG: EKG was obtained in the emergency department. My interpretation is sinus tachycardia at 131 bpm. There was no acute ST segment abnormalities noted. Early transition was noted. This was compared to a tracing from July 31, 2021. There is an increase in the rate otherwise no significant changes were noted. Cardiac Monitoring: An order was placed for continuous cardiac monitoring. The monitor shows a rate of 117 bpm with sinus tachycardia. Laboratory studies: As stated above and show below. Imaging studies: See below. Radiographic imaging was reviewed by myself Consultation(s): I discussed this case with Dr. Yoo who is on-call for the [facility] group. ED COURSE: Procedures: none Critical Care: I have personally spent greater than 45 minutes of critical care time in the direct management of this patient. This includes bedside care, interpretation of diagnostic studies, and testing, discussion with consultants, patient, and family members, and other required patient management activities. This 45 minutes is in excess of all separately billable procedures. Past Med/Surg History Medical History Anemia Asthma Depression Diffuse large B cell lymphoma Encounter for pre-operative examination Hypercalcemia Menopausal and perimenopausal disorder Vaginal wall prolapse Surgical History History of tonsillectomy and adenoidectomy History of wisdom tooth extraction Port-A-Cath in place (05/13/22) Mediport Placement Left Internal Jugular(Left) with fluoroscopic guidance- Avery Brar MD, FACS Family History Mother Stroke Environmental allergies Grandmother (Maternal) Lung cancer smoker Brain cancer Brother Giant cell tumor Other Diabetes No family history of adverse response to anesthesia No family history of bleeding disorder Denies family history of Ovarian cancer Prostate cancer Myocardial infarction Breast cancer Colorectal cancer Social History Smoking Status: Never smoker Second Hand Exposure: No; Do You Dip or Chew Tobacco: No; Hx Alcohol Use: Yes Alcohol type: beer, wine and hard liquor Alcohol Intake Frequency: 2-3 x/Week Hx Substance Use: No Preferred Language: Spanish Communication Ability: Effective Visual Impairment: No Limitations Hearing Ability: Normal [facility] Specialist Required: No Beliefs That Will Affect Care: None marital status: Current Living Situation: Spouse current occupational status: employed 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 How many Children do You have: 2 Feels Safe at Home: Yes Childhood Exposure to Second-Hand Smoke: No Diet: regular Diet Comment: regular caffeine: Yes Dental Care, Regularly: Yes Physical Activity Frequency: 1-2 Times per Week Seatbelt Use: always Sunscreen Use: Yes Assistive Devices: Glasses Allergies Allergies Allergy/AdvReac Type Severity Reaction Status Date / Time No Known Drug Allergies Allergy Unknown Verified 11/01/22 14:37 Home Meds Home Medications Medication Instructions Recorded Confirmed fexofenadine 180 mg tablet 180 mg PO QAM 06/10/21 12/01/22 (Gay Allergy) hydroxychloroquine 200 mg tablet 200 mg PO DAILY 09/27/22 12/01/22 (Plaquenil) amoxicillin 875 mg-potassium 1 tab PO Q12 12/01/22 12/01/22 clavulanate 125 mg tablet fluoxetine 40 mg capsule (Prozac) 40 mg PO QAM 12/01/22 12/01/22 hydrochlorothiazide 25 mg tablet 25 mg PO QAM 12/01/22 12/01/22 meloxicam 15 mg tablet 15 mg PO QAM 12/01/22 12/01/22 vibegron 75 mg tablet (Gemtesa) 75 mg PO QAM 12/01/22 12/01/22 Previous Rx's Medication Instructions Recorded albuterol sulfate 90 mcg/actuation 2 puff inhalation .COMPLEX PRN 01/25/22 aerosol inhaler (ProAir HFA) shortness of breath or wheezing #8.5 grams Results & Data (ED) Vital Signs Vital Signs - 24 hr 12/01/22 19:32 12/01/22 20:00 12/01/22 20:03 Temperature 38.2 C H Temperature Source Oral Pulse Rate 144 H Pulse Rate [Apical] 132 H Respiratory Rate 24 28 H Respiratory Effort / Characteristics Short of Breath Respiratory Depth Normal Blood Pressure 141/90 H Blood Pressure [Right Arm] 145/87 H Blood Pressure Mean 107 Blood Pressure Mean [Right Arm] 106 Pulse Oximetry 83 L 93 94 Oxygen Delivery Method Room Air Nasal Cannula Nasal Cannula Oxygen Flow Rate 6 6 Sepsis Recent Fever Within 48 Hours Yes Sepsis New/Unexplained Change in Mental Status No Sepsis Action Taken by Nursing No Action Required 12/01/22 20:09 12/01/22 20:14 12/01/22 21:00 Temperature Temperature Source Pulse Rate Pulse Rate [Apical] 126 H 124 H Respiratory Rate 22 24 Respiratory Effort / Characteristics Respiratory Depth Blood Pressure Blood Pressure [Right Arm] 135/81 142/92 H Blood Pressure Mean Blood Pressure Mean [Right Arm] 99 108 Pulse Oximetry 93 91 Oxygen Delivery Method Nasal Cannula Nasal Cannula Nebulizer Oxygen Flow Rate 6 6 7 Sepsis Recent Fever Within 48 Hours Sepsis New/Unexplained Change in Mental Status Sepsis Action Taken by Nursing 12/01/22 22:15 Temperature 37.3 C Temperature Source Oral Pulse Rate Pulse Rate [Apical] 117 H Respiratory Rate 28 H Respiratory Effort / Characteristics Respiratory Depth Blood Pressure Blood Pressure [Right Arm] 122/82 Blood Pressure Mean Blood Pressure Mean [Right Arm] 95 Pulse Oximetry 92 Oxygen Delivery Method Nasal Cannula Oxygen Flow Rate 6 Sepsis Recent Fever Within 48 Hours Sepsis New/Unexplained Change in Mental Status Sepsis Action Taken by Shelter Medications Current Medication List: was personally reviewed by me Laboratory Data Attestation: I reviewed the patient's lab results. 12/01/22 19:55 12/01/22 19:55 Lab Results 12/01/22 12/01/22 12/01/22 Range/Units 19:55 19:55 19:55 WBC 5.83 (4.8-10.8) K/ul RBC 4.72 (4.20-5.40) M/uL Hgb 14.6 (12.0-16.0) g/dl Hct 43.7 (37.0-47.0) % MCV 92.6 (80.0-100.0) fL MCH 30.9 (25.0-34.0) pg MCHC 33.4 (32.0-36.0) g/dL RDW Std Deviation 44.2 (36.4-46.3) fL RDW Coeff of Clarence 13.1 (11.5-14.5) % Plt Count 246 (130-400) K/uL MPV 9.3 L (9.4-12.4) fL Immature Gran % (Auto) 0.3 % Neut % (Auto) 78.8 % Lymph % (Auto) 9.6 % Chester % (Auto) 9.8 % Eos % (Auto) 1.2 % Baso % (Auto) 0.3 % Neut # (Auto) 4.59 (1.40-6.50) K/uL Lymph # (Auto) 0.56 L (1.20-3.40) K/uL Chester # (Auto) 0.57 (0.11-0.59) K/uL Eos # (Auto) 0.07 (0.00-0.50) K/uL Baso # (Auto) 0.02 (0.00-0.20) K/uL Immature Gran # (Auto) 0.02 (0.01-0.20) K/uL ESR (0-30) mm/hr PT 11.4 (9.0-12.0) Seconds INR 1.0 (0.9-1.1) APTT 29.3 (21.0-31.0) Seconds PTT Ratio 1.0 VBG pH (7.36-7.41) VBG pCO2 (38-50) mmHg VBG pO2 mmHg VBG HCO3 mmol/L VBG O2 Saturation % VBG Base Excess mEq/L Sodium 137 (136-145) mmol/L Potassium 3.5 (3.5-5.1) mmol/L Chloride 102 (98-107) mmol/L Carbon Dioxide 24 (21-32) mmol/L Anion Gap 11 (3-11) BUN 9 (6-23) mg/dl Creatinine 0.58 L (0.6-1.2) mg/dl Est Cr Clr Drug Dosing Not Reportable Est GFR ( Amer) 116.1 ml/min Est GFR (Non-Af Amer) 100.2 ml/min BUN/Creatinine Ratio 15.5 (10-20) Glucose 116 H (70-99(Fasting)) mg/dl Lactate (0.4-2.0) mmol/L Calcium 8.8 (8.6-10.3) mg/dl Magnesium 1.8 (1.7-2.4) mg/dl Total Bilirubin 0.4 (0.2-1.0) mg/dl Direct Bilirubin 0.0 (0-0.2) mg/dl AST 19 (13-39) U/L ALT 15 (7-52) U/L Alkaline Phosphatase 71 (34-104) U/L Troponin I High Sens 31.3 H (0-14) pg/ml C-Reactive Protein 8.07 H (0-0.5) mg/dl B-Natriuretic Peptide (0-100) pg/ml Total Protein 6.7 (6.0-8.3) gm/dl Albumin 3.8 (3.4-5.0) gm/dl Procalcitonin (0-0.5) ng/ml Urine Color Urine Appearance (Clear) Urine pH (4.5-7.5) Ur Specific [place] (1.000-1.030) Urine Protein (Negative) Urine Glucose (UA) (Negative) Urine Ketones (Negative) Urine Blood (Negative) Urine Nitrite (Negative) Urine Bilirubin (Negative) Urine Urobilinogen (Negative) Ur Leukocyte Esterase (Negative) Adenovirus (PCR) (NotDetected) B. pertussis DNA (PCR) (NotDetected) B.parapertussis DNA PCR (NotDetected) C. pneumoniae DNA (PCR) (NotDetected) Coronavirus OC43 (PCR) (NotDetected) Coronavirus HKU1 (PCR) (NotDetected) Coronavirus 229E (PCR) (NotDetected) SARS-CoV-2 (PCR) (NotDetected) Coronavirus NL63 (PCR) (NotDetected) Human Metapneumovir PCR (NotDetected) Influenza Type A (PCR) (NotDetected) Influenza Type B (PCR) (NotDetected) M. pneumoniae (PCR) (NotDetected) Parainfluenza 1 (PCR) (NotDetected) Parainfluenza 2 (PCR) (NotDetected) Parainfluenza 3 (PCR) (NotDetected) Parainfluenza 4 (PCR) (NotDetected) RSV (PCR) (NotDetected) Entero/Rhino (PCR) (NotDetected) 12/01/22 12/01/22 12/01/22 Range/Units 19:55 19:55 19:55 WBC (4.8-10.8) K/ul RBC (4.20-5.40) M/uL Hgb (12.0-16.0) g/dl Hct (37.0-47.0) % MCV (80.0-100.0) fL MCH (25.0-34.0) pg MCHC (32.0-36.0) g/dL RDW Std Deviation (36.4-46.3) fL RDW Coeff of Clarence (11.5-14.5) % Plt Count (130-400) K/uL MPV (9.4-12.4) fL Immature Gran % (Auto) % Neut % (Auto) % Lymph % (Auto) % Chester % (Auto) % Eos % (Auto) % Baso % (Auto) % Neut # (Auto) (1.40-6.50) K/uL Lymph # (Auto) (1.20-3.40) K/uL Chester # (Auto) (0.11-0.59) K/uL Eos # (Auto) (0.00-0.50) K/uL Baso # (Auto) (0.00-0.20) K/uL Immature Gran # (Auto) (0.01-0.20) K/uL ESR 54 H (0-30) mm/hr PT (9.0-12.0) Seconds INR (0.9-1.1) APTT (21.0-31.0) Seconds PTT Ratio VBG pH (7.36-7.41) VBG pCO2 (38-50) mmHg VBG pO2 mmHg VBG HCO3 mmol/L VBG O2 Saturation % VBG Base Excess mEq/L Sodium (136-145) mmol/L Potassium (3.5-5.1) mmol/L Chloride (98-107) mmol/L Carbon Dioxide (21-32) mmol/L Anion Gap (3-11) BUN (6-23) mg/dl Creatinine (0.6-1.2) mg/dl Est Cr Clr Drug Dosing Est GFR ( Amer) ml/min Est GFR (Non-Af Amer) ml/min BUN/Creatinine Ratio (10-20) Glucose (70-99(Fasting)) mg/dl Lactate 1.0 (0.4-2.0) mmol/L Calcium (8.6-10.3) mg/dl Magnesium (1.7-2.4) mg/dl Total Bilirubin (0.2-1.0) mg/dl Direct Bilirubin (0-0.2) mg/dl AST (13-39) U/L ALT (7-52) U/L Alkaline Phosphatase (34-104) U/L Troponin I High Sens (0-14) pg/ml C-Reactive Protein (0-0.5) mg/dl B-Natriuretic Peptide (0-100) pg/ml Total Protein (6.0-8.3) gm/dl Albumin (3.4-5.0) gm/dl Procalcitonin < 0.05 (0-0.5) ng/ml Urine Color Urine Appearance (Clear) Urine pH (4.5-7.5) Ur Specific Cl[place] (1.000-1.030) Urine Protein (Negative) Urine Glucose (UA) (Negative) Urine Ketones (Negative) Urine Blood (Negative) Urine Nitrite (Negative) Urine Bilirubin (Negative) Urine Urobilinogen (Negative) Ur Leukocyte Esterase (Negative) Adenovirus (PCR) (NotDetected) B. pertussis DNA (PCR) (NotDetected) B.parapertussis DNA PCR (NotDetected) C. pneumoniae DNA (PCR) (NotDetected) Coronavirus OC43 (PCR) (NotDetected) Coronavirus HKU1 (PCR) (NotDetected) Coronavirus 229E (PCR) (NotDetected) SARS-CoV-2 (PCR) (NotDetected) Coronavirus NL63 (PCR) (NotDetected) Human Metapneumovir PCR (NotDetected) Influenza Type A (PCR) (NotDetected) Influenza Type B (PCR) (NotDetected) M. pneumoniae (PCR) (NotDetected) Parainfluenza 1 (PCR) (NotDetected) Parainfluenza 2 (PCR) (NotDetected) Parainfluenza 3 (PCR) (NotDetected) Parainfluenza 4 (PCR) (NotDetected) RSV (PCR) (NotDetected) Entero/Rhino (PCR) (NotDetected) 12/01/22 12/01/22 12/01/22 Range/Units 19:55 20:05 20:16 WBC (4.8-10.8) K/ul RBC (4.20-5.40) M/uL Hgb (12.0-16.0) g/dl Hct (37.0-47.0) % MCV (80.0-100.0) fL MCH (25.0-34.0) pg MCHC (32.0-36.0) g/dL RDW Std Deviation (36.4-46.3) fL RDW Coeff of Clarence (11.5-14.5) % Plt Count (130-400) K/uL MPV (9.4-12.4) fL Immature Gran % (Auto) % Neut % (Auto) % Lymph % (Auto) % Chester % (Auto) % Eos % (Auto) % Baso % (Auto) % Neut # (Auto) (1.40-6.50) K/uL Lymph # (Auto) (1.20-3.40) K/uL Chester # (Auto) (0.11-0.59) K/uL Eos # (Auto) (0.00-0.50) K/uL Baso # (Auto) (0.00-0.20) K/uL Immature Gran # (Auto) (0.01-0.20) K/uL ESR (0-30) mm/hr PT (9.0-12.0) Seconds INR (0.9-1.1) APTT (21.0-31.0) Seconds PTT Ratio VBG pH 7.44 H (7.36-7.41) VBG pCO2 41 (38-50) mmHg VBG pO2 37 mmHg VBG HCO3 28 mmol/L VBG O2 Saturation < 60.0 % VBG Base Excess 3.3 mEq/L Sodium (136-145) mmol/L Potassium (3.5-5.1) mmol/L Chloride (98-107) mmol/L Carbon Dioxide (21-32) mmol/L Anion Gap (3-11) BUN (6-23) mg/dl Creatinine (0.6-1.2) mg/dl Est Cr Clr Drug Dosing Est GFR ( Amer) ml/min Est GFR (Non-Af Amer) ml/min BUN/Creatinine Ratio (10-20) Glucose (70-99(Fasting)) mg/dl Lactate (0.4-2.0) mmol/L Calcium (8.6-10.3) mg/dl Magnesium (1.7-2.4) mg/dl Total Bilirubin (0.2-1.0) mg/dl Direct Bilirubin (0-0.2) mg/dl AST (13-39) U/L ALT (7-52) U/L Alkaline Phosphatase (34-104) U/L Troponin I High Sens (0-14) pg/ml C-Reactive Protein (0-0.5) mg/dl B-Natriuretic Peptide 16 (0-100) pg/ml Total Protein (6.0-8.3) gm/dl Albumin (3.4-5.0) gm/dl Procalcitonin (0-0.5) ng/ml Urine Color Urine Appearance (Clear) Urine pH (4.5-7.5) Ur Specific [place] (1.000-1.030) Urine Protein (Negative) Urine Glucose (UA) (Negative) Urine Ketones (Negative) Urine Blood (Negative) Urine Nitrite (Negative) Urine Bilirubin (Negative) Urine Urobilinogen (Negative) Ur Leukocyte Esterase (Negative) Adenovirus (PCR) Not Detected (NotDetected) B. pertussis DNA (PCR) Not Detected (NotDetected) B.parapertussis DNA PCR Not Detected (NotDetected) C. pneumoniae DNA (PCR) Not Detected (NotDetected) Coronavirus OC43 (PCR) Not Detected (NotDetected) Coronavirus HKU1 (PCR) Not Detected (NotDetected) Coronavirus 229E (PCR) Not Detected (NotDetected) SARS-CoV-2 (PCR) Not Detected (NotDetected) Coronavirus NL63 (PCR) Not Detected (NotDetected) Human Metapneumovir PCR Not Detected (NotDetected) Influenza Type A (PCR) Not Detected (NotDetected) Influenza Type B (PCR) Not Detected (NotDetected) M. pneumoniae (PCR) Not Detected (NotDetected) Parainfluenza 1 (PCR) Not Detected (NotDetected) Parainfluenza 2 (PCR) Not Detected (NotDetected) Parainfluenza 3 (PCR) Not Detected (NotDetected) Parainfluenza 4 (PCR) Not Detected (NotDetected) RSV (PCR) Not Detected (NotDetected) Entero/Rhino (PCR) Not Detected (NotDetected) 12/01/22 Range/Units 22:15 WBC (4.8-10.8) K/ul RBC (4.20-5.40) M/uL Hgb (12.0-16.0) g/dl Hct (37.0-47.0) % MCV (80.0-100.0) fL MCH (25.0-34.0) pg MCHC (32.0-36.0) g/dL RDW Std Deviation (36.4-46.3) fL RDW Coeff of Clarence (11.5-14.5) % Plt Count (130-400) K/uL MPV (9.4-12.4) fL Immature Gran % (Auto) % Neut % (Auto) % Lymph % (Auto) % Chester % (Auto) % Eos % (Auto) % Baso % (Auto) % Neut # (Auto) (1.40-6.50) K/uL Lymph # (Auto) (1.20-3.40) K/uL Chester # (Auto) (0.11-0.59) K/uL Eos # (Auto) (0.00-0.50) K/uL Baso # (Auto) (0.00-0.20) K/uL Immature Gran # (Auto) (0.01-0.20) K/uL ESR (0-30) mm/hr PT (9.0-12.0) Seconds INR (0.9-1.1) APTT (21.0-31.0) Seconds PTT Ratio VBG pH (7.36-7.41) VBG pCO2 (38-50) mmHg VBG pO2 mmHg VBG HCO3 mmol/L VBG O2 Saturation % VBG Base Excess mEq/L Sodium (136-145) mmol/L Potassium (3.5-5.1) mmol/L Chloride (98-107) mmol/L Carbon Dioxide (21-32) mmol/L Anion Gap (3-11) BUN (6-23) mg/dl Creatinine (0.6-1.2) mg/dl Est Cr Clr Drug Dosing Est GFR ( Amer) ml/min Est GFR (Non-Af Amer) ml/min BUN/Creatinine Ratio (10-20) Glucose (70-99(Fasting)) mg/dl Lactate (0.4-2.0) mmol/L Calcium (8.6-10.3) mg/dl Magnesium (1.7-2.4) mg/dl Total Bilirubin (0.2-1.0) mg/dl Direct Bilirubin (0-0.2) mg/dl AST (13-39) U/L ALT (7-52) U/L Alkaline Phosphatase (34-104) U/L Troponin I High Sens (0-14) pg/ml C-Reactive Protein (0-0.5) mg/dl B-Natriuretic Peptide (0-100) pg/ml Total Protein (6.0-8.3) gm/dl Albumin (3.4-5.0) gm/dl Procalcitonin (0-0.5) ng/ml Urine Color Yellow Urine Appearance Clear (Clear) Urine pH 7.0 (4.5-7.5) Ur Specific [place] 1.011 (1.000-1.030) Urine Protein Negative (Negative) Urine Glucose (UA) Negative (Negative) Urine Ketones Negative (Negative) Urine Blood Negative (Negative) Urine Nitrite Negative (Negative) Urine Bilirubin Negative (Negative) Urine Urobilinogen Negative (Negative) Ur Leukocyte Esterase Negative (Negative) Adenovirus (PCR) (NotDetected) B. pertussis DNA (PCR) (NotDetected) B.parapertussis DNA PCR (NotDetected) C. pneumoniae DNA (PCR) (NotDetected) Coronavirus OC43 (PCR) (NotDetected) Coronavirus HKU1 (PCR) (NotDetected) Coronavirus 229E (PCR) (NotDetected) SARS-CoV-2 (PCR) (NotDetected) Coronavirus NL63 (PCR) (NotDetected) Human Metapneumovir PCR (NotDetected) Influenza Type A (PCR) (NotDetected) Influenza Type B (PCR) (NotDetected) M. pneumoniae (PCR) (NotDetected) Parainfluenza 1 (PCR) (NotDetected) Parainfluenza 2 (PCR) (NotDetected) Parainfluenza 3 (PCR) (NotDetected) Parainfluenza 4 (PCR) (NotDetected) RSV (PCR) (NotDetected) Entero/Rhino (PCR) (NotDetected) Administered Medications Azithromycin 500 mg/ Dextrose 255 mls @ 125 mls/hr IV ONE ONE Stop: 12/01/22 23:01 Last Admin: 12/01/22 22:11 Dose: 125 mls/hr Documented By: ODESSA Sodium Chloride (Nss 1000ml) 1,000 mls @ 999 mls/hr IV .Q1H1M ONE Stop: 12/01/22 23:29 Last Admin: 12/01/22 22:37 Dose: 999 mls/hr Documented By: ODESSA Discontinued Medications Acetaminophen (Acetaminophen 500 Mg Tab) 1,000 mg PO NOW STA Stop: 12/01/22 21:00 Last Admin: 12/01/22 21:14 Dose: 1,000 mg Documented By: ODESSA Albuterol (Albut/Ipratrop 3mg/0.5mg Neb 3 Ml Vial) 3 ml NEB NOW STA; Protocol Stop: 12/01/22 21:00 Last Admin: 12/01/22 21:16 Dose: 3 ml Documented By: ODESSA Cefepime HCl (Maxipime) 2,000 mg in 20 mls @ 5 mls/min IV NOW STA; Protocol Stop: 12/01/22 19:51 Last Admin: 12/01/22 20:18 Dose: 5 mls/min Documented By: ODESSA Ioversol (Ioversol 350 Mg 125ml Prefilled Syringe) 119 ml IV ONCE ONE Stop: 12/01/22 22:05 Last Admin: 12/01/22 22:05 Dose: 119 ml Documented By: ARUN Imaging Data Attestation: I personally reviewed and interpreted this imaging study as follows: My Impression: 1 view chest x-ray was obtained in the emergency department. My interpretation is no free air, extensive pulmonary infiltrate, final report pending. CT of the chest was obtained. My interpretation is no free air, diffuse infiltrate was noted, final report below. Radiologist's Impression: Chest CTA 12/01/22 20:59 Exam(s): CTA CHEST IV Amt: 119ml EXAM: CT Angiography Chest With Intravenous Contrast CLINICAL HISTORY: Reason for exam: PE. TECHNIQUE: Axial computed tomographic angiography images of the chest with intravenous contrast. CTDI is 11.87 mGy and DLP is 828.08 mGy-cm. Automated exposure control was utilized for the study. A dose lowering technique was utilized adhering to the principles of ALARA. MIP reconstructed images were created and reviewed. COMPARISON: CT chest 11/24/22 FINDINGS: There is a left chest wall port catheter with tip in the right atrium. There is no thoracic aortic aneurysm or dissection. There is adequate pulmonary artery opacification. Main pulmonary artery is normal in caliber. There is no evidence of acute pulmonary embolism. There is no mediastinal or hilar lymphadenopathy. Enlarged right axillary lymph node is stable from prior exam. Left axillary lymph nodes are normal. Heart size is normal. There is no pericardial effusion. Multifocal consolidative and ground-glass opacities are present, appearing somewhat progressed from prior exam. There is no visible pulmonary mass at this time. There is no pleural effusion or pneumothorax. There is a stable 6 mm hypervascular focus in the right hepatic dome. There is a lytic lesion of T8 with associated pathologic compression fracture. There is also a lytic lesion of the right scapular body with associated pathologic fracture. These findings are stable from prior. Regional skeleton appears otherwise intact. IMPRESSION: 1. No evidence of acute pulmonary embolism. 2. Multifocal ground-glass and consolidative opacities appear slightly progressed from prior exam and are concerning for pneumonia, to include viral pneumonia within the differential diagnosis. Imaging follow-up to resolution is recommended. 3. Stable right axillary lymphadenopathy. 4. 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 5. Stable 6 mm hypervascular focus in the right liver dome, nonspecific. Is recommended prior, six-month follow-up CT may be performed for re- characterization. Electronically signed by: Zahida Larry M.D. 12/01/22 22:43 PM Discharge Plan Visit Data Chief Complaint: Shortness of Breath/Dyspnea Stated Complaint: LOW OXYGEN, FINISHED CHEMO, FEVER ED Provider: Nikolas Harrison Discharge Problem: Multifocal pneumonia, Hypoxia, Elevated troponin I level Patient Disposition: Being Evaluated by Hospitalist Forms Stand Alone Forms: [facility] Prescriptions Prescriptions: No Action hydroxychloroquine [Plaquenil] 200 mg tablet 200 mg PO DAILY albuterol sulfate [ProAir HFA] 90 mcg/actuation HFA aerosol inhaler 2 puff inhalation .COMPLEX PRN (Reason: shortness of breath or wheezing) Qty: 8.5 3RF Rx Instructions: 2 puff inhalation q4-6 hrs PRN; fexofenadine [Gay Allergy] 180 mg tablet 180 mg PO QAM meloxicam 15 mg tablet 15 mg PO QAM amoxicillin-pot clavulanate 875-125 mg tablet 1 tab PO Q12 Rx Instructions: take for 10 days fluoxetine [Prozac] 40 mg capsule 40 mg PO QAM hydrochlorothiazide 25 mg tablet 25 mg PO QAM Gemtesa 75 mg tablet 75 mg PO QAM Referrals Referrals: Fabiana Nina MD [Primary Care Provider] -
[2022-12-01 20:31] LABS: Base Excess VBG 3.3 mEq/L; HCO3 VBG 28 mmol/L; Oxygen Saturation VBG < 60.0 %; PCO2 VBG 41 mmHg (38-50); PO2 VBG 37 mmHg; pH VBG 7.44 (7.36-7.41)
[2022-12-01 20:48] LABS: Basophils # (auto) 0.02 K/uL (0.00-0.20); Basophils % (auto) 0.3 %; Eosinophils # (auto) 0.07 K/uL (0.00-0.50); Eosinophils % (auto) 1.2 %; Hematocrit (blood only) 43.7 % (37.0-47.0); Hemoglobin 14.6 g/dl (12.0-16.0); Immature Granulocytes # (auto) 0.02 K/uL (0.01-0.20); Immature Granulocytes % (auto) 0.3 %; Lymphocytes # (auto) 0.56 K/uL (1.20-3.40); Lymphocytes % (auto) 9.6 %; Mean Corpuscular Hemoglobin 30.9 pg (25.0-34.0); Mean Corpuscular Hgb Conc 33.4 g/dL (32.0-36.0); Mean Corpuscular Volume 92.6 fL (80.0-100.0); Mean Platelet Volume 9.3 fL (9.4-12.4); Monocytes # (auto) 0.57 K/uL (0.11-0.59); Monocytes % (auto) 9.8 %; Neutrophils # (auto) 4.59 K/uL (1.40-6.50); Neutrophils % (auto) 78.8 %; Platelet Count 246 K/uL (130-400); RDW Coefficient of Variation 13.1 % (11.5-14.5); RDW Standard Deviation 44.2 fL (36.4-46.3); Red Blood Count 4.72 M/uL (4.20-5.40); White Blood Count 5.83 K/ul (4.8-10.8)
[2022-12-01] MEDS ORDERED: ALBUT/IPRATROP 3MG/0.5MG NEB 3 ML VIAL NEB STA (20:59)
[2022-12-01] MEDS ORDERED: AZITHROMYCIN 500 MG in DEXTROSE 5% 250 ML IV ONE (20:59)
[2022-12-01] MEDS ORDERED: ACETAMINOPHEN 500 MG TAB PO STA (20:59)
[2022-12-01 21:16] LABS: Alanine Aminotransferase 15 U/L (7-52); Albumin Level 3.8 gm/dl (3.4-5.0); Alkaline Phosphatase 71 U/L (34-104); Anion Gap 11 (3-11); Aspartate Aminotransferase 19 U/L (13-39); BUN Creatinine Ratio 15.5 (10-20); Bilirubin,Total 0.4 mg/dl (0.2-1.0); Blood Urea Nitrogen 9 mg/dl (6-23); C Reactive Protein 8.07 mg/dl (0-0.5); Calcium 8.8 mg/dl (8.6-10.3); Carbon Dioxide 24 mmol/L (21-32); Chloride 102 mmol/L (98-107); Est GFR (African American) 116.1 ml/min; Est GFR (Non-African American) 100.2 ml/min; Glucose 116 mg/dl (70-99(Fasting)); Magnesium 1.8 mg/dl (1.7-2.4); Potassium 3.5 mmol/L (3.5-5.1); Sodium 137 mmol/L (136-145); Total Protein 6.7 gm/dl (6.0-8.3)
[2022-12-01 21:22] LABS: Troponin I High Sensitivity 31.3 pg/ml (0-14)
[2022-12-01 21:24] LABS: Partial Thromboplastin Time 29.3 Seconds (21.0-31.0); Prothrombin Time 11.4 Seconds (9.0-12.0)
[2022-12-01 21:39] LABS: Adenovirus PCR Not Detected (NotDetected); Bordetella parapertussis PCR Not Detected (NotDetected); Bordetella pertussis PCR Not Detected (NotDetected); Chlamydia pneumoniae PCR Not Detected (NotDetected); Coronavirus 229E PCR Not Detected (NotDetected); Coronavirus CoV-2 (COVID19)PCR Not Detected (NotDetected); Coronavirus HKU1 PCR Not Detected (NotDetected); Coronavirus NL63 PCR Not Detected (NotDetected); Coronavirus OC43PCR Not Detected (NotDetected); Human Metapneumovirus PCR Not Detected (NotDetected); Influenza A PCR Not Detected (NotDetected); Influenza B PCR Not Detected (NotDetected); Mycoplasma pneumoniae PCR Not Detected (NotDetected); Parainfluenza Virus 1 PCR Not Detected (NotDetected); Parainfluenza Virus 2 PCR Not Detected (NotDetected); Parainfluenza Virus 3 PCR Not Detected (NotDetected); Parainfluenza Virus 4 PCR Not Detected (NotDetected); Respiratory Syncytial VirusPCR Not Detected (NotDetected); Rhinovirus/Enterovirus PCR Not Detected (NotDetected)
[2022-12-01] MEDS ORDERED: IOVERSOL 350 MG 125mL Prefilled Syringe IV ONE (22:04)
[2022-12-01] MEDS ORDERED: SODIUM CHLORIDE 0.9% 1,000 ML IV ONE (22:29)
[2022-12-01 22:41] LABS: Appearance Urine Clear (Clear); Bilirubin Urine Negative (Negative); Blood Urine Negative (Negative); Color Urine Yellow; Glucose Urine UA Negative (Negative); Ketones Urine Negative (Negative); Leukocyte Esterase Urine Negative (Negative); Nitrite Urine Negative (Negative); Protein Urine Negative (Negative); Specific Gravity Urine 1.011 (1.000-1.030); Urobilinogen Urine Negative (Negative)
--- NOTE | 2022-12-01 22:45 | History & Physical Report ---
Date of Service December 01, 2022 Assessment & Plan (1) Multifocal pneumonia: Plan: 62 y/o female with a PMHx of B-cell lymphoma s/p chemo and radiation therapy, HTN, OAB, and arthritis presented with hypoxia requiring 6L NC to maintain saturation admitted for further workup and IV abx. #Multifocal PNA #Hypoxia Differential broad as with patient's CA history she is at risk for atypical and uncommon organisms. DDX: fungal vs viral vs bacterial pneumonia, radiation pneumonitis, delayed chemotherapy pneumonitis. Will expand work up as below. Pulm consult - appreciate recs. Consider steroids if respiratory status worsens or fails to improve f/u legionella, MRSA nares, s. pneumo, sputum culture, fungitell BD glucan, PJP supplemental O2 as indicated, patient full code including intubation duonebs Q4H, IS Abx: Cefepime and Azithromycin in the ED, Zosyn and Doxy (start date: 12/01; end date: TBD) Pulm consult - appreciate recs #Elevated HsTrop Slightly elevated at 31.3. Will repeat. Trend to peak. Low likelihood of ACS at patient's symptoms appear to be pulmonary in nature f/u repeat HsTrop #Diffuse B Cell Lymphoma #History of chemoradiation therapy Stable. Follows with Dr. Donahue #Stress Urinary Incontinence Stable. Continue home med #Arthritis Stable on hydroxychloroquine - continue. Will do Tylenol while in patient. #HTN Patient on HCTZ. Will continue while inpatient Code status: full DVT ppx: Lovenox SQ QD FENGI: Regular Dispo: PCU (2) Hypoxia: (3) Elevated troponin I level: (4) Diffuse large B cell lymphoma: (5) RANDY (stress urinary incontinence, female): (6) History of radiation exposure: (7) Hypertension: (8) Arthritis: History of Present Illness Chief Complaint: hypoxia Primary Care Provider: Fabiana Nina MD 62 y/o female with a PMHx of B-cell lymphoma, HTN, OAB, arthritis on hydrochloroquine presents to the ED with progressively worsening SOB and hypox ia. Patient with 3 weeks of progressively worsening shortness of breath and intermittent fevers. Patient was treated for a presumed URI with 5 days of azithromycin prior to a vacation. CXR at that time did not reveal a pneumonia. At that time she had a cough and fevers. After her vacation her symptoms worsened and she was treated with Augmentin started 11/24. At that time a CT Chest was done which was consistent with pneumonia. In the ED: Patient was tachycardic 144, tachypneic 28, febrile at 38.2, and hypoxic to 83%. She was started on 6L NC and oxygenation improved to 92%. She met SIRs criteria thus fluid resuscitated and antibiotics were started. Labs notable for elevated ESR 54 and CRP 8.07. HsTrop slightly elevated at 31.3. Otherwise labs were mostly unremarkable. BioFire negative. Blood cultures pending. CTA without large change from CT Chest 11/24/22. Still concerning for pneumonia with slight progression of ground glass opacities. No signs of VTE. Of note patient has been undergoing treated for B-cell lymphoma. Patient was found to have lytic lesions in the right scapula and at the level of T8 with an associated compression fracture Patient was treated with chemotherapy and radiation therapy. Patient completed treatment in August 2022. Upon my interview patient is with continued SOB. She reports that it feels tight for her to take deep breaths. In addition she has difficulty catching her breath. Has been having intermittent fevers in addition to the progressively worsening shortness of breathin since this started three weeks ago. She denies any dysuria, change in bowel habits, CP, leg swelling, easy bruising, or other symptoms. Allergies Allergy/AdvReac Type Severity Reaction Status Date / Time No Known Drug Allergies Allergy Unknown Verified 11/01/22 14:37 Home Medications Medication Instructions Recorded Confirmed Type fexofenadine 180 mg tablet 180 mg PO QAM 06/10/21 12/01/22 History (Gay Allergy) albuterol sulfate 90 mcg/actuation 2 puff inhalation .COMPLEX PRN 01/25/22 12/01/22 Rx aerosol inhaler (ProAir HFA) shortness of breath or wheezing #8.5 grams hydroxychloroquine 200 mg tablet 200 mg PO DAILY 09/27/22 12/01/22 History (Plaquenil) amoxicillin 875 mg-potassium 1 tab PO Q12 12/01/22 12/01/22 History clavulanate 125 mg tablet fluoxetine 40 mg capsule (Prozac) 40 mg PO QAM 12/01/22 12/01/22 History hydrochlorothiazide 25 mg tablet 25 mg PO QAM 12/01/22 12/01/22 History meloxicam 15 mg tablet 15 mg PO QAM 12/01/22 12/01/22 History vibegron 75 mg tablet (Gemtesa) 75 mg PO QAM 12/01/22 12/01/22 History Past Med/Surg History Medical History (Updated 12/02/22 @ 00:02 by Vee Kim MD) Anemia Asthma Depression Diffuse large B cell lymphoma Menopausal and perimenopausal disorder Vaginal wall prolapse Surgical History History of tonsillectomy and adenoidectomy History of wisdom tooth extraction Port-A-Cath in place (05/13/22) Mediport Placement Left Internal Jugular(Left) with fluoroscopic guidance- Avery Brar MD, FACS Family History Mother Stroke Environmental allergies Grandmother (Maternal) Lung cancer smoker Brain cancer Brother Giant cell tumor Other Diabetes No family history of adverse response to anesthesia No family history of bleeding disorder Denies family history of Ovarian cancer Prostate cancer Myocardial infarction Breast cancer Colorectal cancer Social History Smoking Status: Never smoker Second Hand Exposure: No; Do You Dip or Chew Tobacco: No; Hx Alcohol Use: Yes Alcohol type: beer, wine and hard liquor Alcohol Intake Frequency: 2-3 x/Week Hx Substance Use: No Preferred Language: Wolof Communication Ability: Effective Visual Impairment: No Limitations Hearing Ability: Normal Flatwork Finisher Hand Required: No Beliefs That Will Affect Care: None marital status: Current Living Situation: Spouse current occupational status: employed 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 How many Children do You have: 2 Feels Safe at Home: Yes Childhood Exposure to Second-Hand Smoke: No Diet: regular Diet Comment: regular caffeine: Yes Dental Care, Regularly: Yes Physical Activity Frequency: 1-2 Times per Week Seatbelt Use: always Sunscreen Use: Yes Assistive Devices: Glasses Review of Systems Review of Systems: See HPI Physical Exam Physical Exam: Gen: non-toxic appearing female in NAD, mildly increased work of breathing on 6L NC, no accessory muscle usage HEENT: AT NC MMM EOMI PERRL Resp: diffusely decreased breath sounds with poor air movement - no audible wheezing or rhonchi, no accessory muscle use, breathing relatively comfortably on 6L, able to speak in full sentences CV: tachycardia, regular rhythm, no m/r/g clinically well perfused 2+ peripheral pulses Abd: soft, non-tender, non-distended, no palpable masses or HSM MSK: no obvious deformities Neuro: alert and oriented Psych: appropriate mood and affect Skin: no rashes or bruising noted Results & Data Results & Data Vital Signs (Past 12 Hours) Vital Signs Temp Pulse Pulse Resp BP BP Pulse Ox 12/01/22 22:15 37.3 C 117 H 28 H 122/82 92 12/01/22 21:00 124 H 24 142/92 H 91 12/01/22 20:14 126 H 22 135/81 93 12/01/22 20:09 12/01/22 20:03 94 12/01/22 20:00 132 H 28 H 145/87 H 93 12/01/22 19:32 38.2 C H 144 H 24 141/90 H 83 L O2 Del Method O2 Flow Rate 12/01/22 22:15 Nasal Cannula 6 12/01/22 21:00 Nebulizer 7 12/01/22 20:14 Nasal Cannula 6 12/01/22 20:09 Nasal Cannula 6 12/01/22 20:03 Nasal Cannula 6 12/01/22 20:00 Nasal Cannula 6 12/01/22 19:32 Room Air Laboratory Results 12/01/22 19:55 12/01/22 19:55 Diagnostic Findings Chest CTA 12/01/22 20:59 Exam(s): CTA CHEST IV Amt: 119ml EXAM: CT Angiography Chest With Intravenous Contrast CLINICAL HISTORY: Reason for exam: PE. TECHNIQUE: Axial computed tomographic angiography images of the chest with intravenous contrast. CTDI is 11.87 mGy and DLP is 828.08 mGy-cm. Automated exposure control was utilized for the study. A dose lowering technique was utilized adh ering to the principles of ALARA. MIP reconstructed images were created and reviewed. COMPARISON: CT chest 11/24/22 FINDINGS: There is a left chest wall port catheter with tip in the right atrium. There is no thoracic aortic aneurysm or dissection. There is adequate pulmonary artery opacification. Main pulmonary artery is normal in caliber. There is no evidence of acute pulmonary embolism. There is no mediastinal or hilar lymphadenopathy. Enlarged right axillary lymph node is stable from prior exam. Left axillary lymph nodes are normal. Heart size is normal. There is no pericardial effusion. Multifocal consolidative and ground-glass opacities are present, appearing somewhat progressed from prior exam. There is no visible pulmonary mass at this time. There is no pleural effusion or pneumothorax. There is a stable 6 mm hypervascular focus in the right hepatic dome. There is a lytic lesion of T8 with associated pathologic compression fracture. There is also a lytic lesion of the right scapular body with associated pathologic fracture. These findings are stable from prior. Regional skeleton appears otherwise intact. IMPRESSION: 1. No evidence of acute pulmonary embolism. 2. Multifocal ground-glass and consolidative opacities appear slightly progressed from prior exam and are concerning for pneumonia, to include viral pneumonia within the differential diagnosis. Imaging follow-up to resolution is recommended. 3. Stable right axillary lymphadenopathy. 4. 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 5. Stable 6 mm hypervascular focus in the right liver dome, nonspecific. Is recommended prior, six-month follow-up CT may be performed for re- characterization. Resident Activity Tracking Resident Involvement: Resident Care Provided Care Provided: [facility]
[2022-12-01] MEDS ORDERED: DOXYCYCLINE HYCLATE 100 MG in DEXTROSE 5% 100 ML IV STA (23:32)
[2022-12-01] MEDS ORDERED: PIPERACILLIN/TAZOBACTAM 4.5 GM/120 ML BAG IV STA (23:33)
[2022-12-02] MEDS ORDERED: LACTATED RINGER'S 1,000 ML IV STA (02:13)
[2022-12-02] MEDS: ALBUT/IPRATROP 3MG/0.5MG NEB 3 ML VIAL NEB SCH ×6 (03:14→23:17)
--- NOTE | 2022-12-02 06:50 | Hospitalist Progress Note ---
Date of Service December 02, 2022 Assessment & Plan (1) Multifocal pneumonia: Plan: 62 y/o female with a PMHx of B-cell lymphoma s/p chemo and radiation therapy, HTN, OAB, and arthritis presented with hypoxia requiring 6L NC to maintain saturation admitted for further workup and IV abx. #Multifocal PNA #Acute hypoxic respiratory failure CTA chest and x-ray favor pneumonia Strep, PJP, fungitell, and Legionella, pending. Viral BioFire negative, Pro-Jerry negative. Received cefepime and azithromycin in the ED. Started on Zosyn and Doxy at time of admission. Continue on Zosyn and Doxy at this time. Supplemental oxygen as needed, DuoNebs every 4 hours Pulmonology consulted: Recommend to continue antibiotics for atypical coverage. We will have a bronchoscopy tomorrow N.p.o. at midnight hold Lovenox, may consider steroids after bronchoscopy. #Anemia Initial hemoglobin of 14.6 in the ED. 10.9 on morning labs. Recheck H&H this afternoon showed a hemoglobin of 10.8. We will continue to monitor and daily labs most likely dilutional at this time. No signs and symptoms of bleed. #Demand ischemia Troponin peaked at 31.3. No signs and symptoms of ACS Hypokalemia 3.5 at time of admission. 2.8 this a.m. We will give 40meg KCl this am, will monitor with morning labs with #Diffuse B Cell Lymphoma #History of chemoradiation therapy Stable. Follows with Dr. Donahue #Stress Urinary Incontinence Stable. Continue home med #Arthritis Stable on hydroxychloroquine - continue. Will do Tylenol while in patient. #HTN Patient on HCTZ. Will continue while inpatient Code status: full DVT ppx: Lovenox SQ QD, hold for bronchoscopy in the a.m. FENGI: Regular, n.p.o. after midnight. Dispo: PCU (2) Hypoxia: (3) Elevated troponin I level: (4) Diffuse large B cell lymphoma: (5) RANDY (stress urinary incontinence, female): (6) History of radiation exposure: (7) Hypertension: (8) Arthritis: Admission and Anticipated Discharge Date Admission Date: December 01, 2022 Supervising Physician Co-Signing Physician Notes Resident Physician Supervision Note: I independently interviewed and examined the patient and verified the ward history and physical, reviewed labs and image studies and agree with resident findings and care plan. Subjective Patient was seen bedside this morning. Patient currently is on 6 L nasal cannula. Continues to have shortness of breath and cough. Review of Systems Review of Systems: All systems reviewed & are unremarkable except as noted in Subjective Physical Exam Physical Exam: Gen: non-toxic appearing female in NAD, mildly increased work of breathing on 6L NC, no accessory muscle usage HEENT: AT NC MMM EOMI PERRL Resp: Decreased breath sounds throughout, no audible wheezing or rhonchi, no accessory muscle use, breathing relatively comfortably on 6L, able to speak in full sentences CV: tachycardia, regular rhythm, no m/r/g clinically well perfused 2+ peripheral pulses Abd: soft, non-tender, non-distended, no palpable masses or HSM MSK: no obvious deformities Neuro: alert and oriented Psych: appropriate mood and affect Skin: no rashes or bruising noted Results & Data Results & Data Vital Signs (Past 12 Hours) Vital Signs Temp Pulse Pulse Resp BP BP Pulse Ox 12/02/22 05:00 96 H 24 100/72 96 12/02/22 04:30 95 H 20 95 12/02/22 04:30 106/68 12/02/22 04:00 92 H 24 95 12/02/22 04:00 108/71 12/02/22 03:30 97 H 25 H 96 12/02/22 03:30 110/73 12/02/22 03:01 109 H 12/02/22 02:30 92 H 26 H 117/84 93 12/02/22 02:00 94 H 22 92 12/02/22 05:21 94 H 26 H 94 12/02/22 05:21 12/02/22 00:00 12/02/22 03:15 86 18 92 12/02/22 01:30 97 H 22 85/68 L 91 12/02/22 01:00 96 H 21 92 12/02/22 00:32 102 H 22 116/76 12/02/22 00:21 90 12/02/22 00:00 103 H 22 110/72 91 12/01/22 23:57 105 H 32 H 104/71 91 12/01/22 23:30 108 H 31 H 91 12/01/22 23:56 105 H 12/01/22 23:00 112 H 21 92 12/01/22 22:15 37.3 C 117 H 28 H 122/82 92 12/01/22 21:00 124 H 24 142/92 H 91 12/01/22 20:14 126 H 22 135/81 93 12/01/22 20:09 12/01/22 20:03 94 12/01/22 20:00 132 H 28 H 145/87 H 93 12/01/22 19:32 38.2 C H 144 H 24 141/90 H 83 L Pulse Ox O2 Del Method O2 Del Method O2 Flow Rate O2 Flow Rate 12/02/22 05:00 Nasal Cannula 6 12/02/22 04:30 12/02/22 04:30 12/02/22 04:00 12/02/22 04:00 12/02/22 03:30 12/02/22 03:30 12/02/22 03:01 12/02/22 02:30 12/02/22 02:00 12/02/22 05:21 Nasal Cannula 6 12/02/22 05:21 Nasal Cannula 6 12/02/22 00:00 94 Nasal Cannula 6 12/02/22 03:15 Nasal Cannula 6 12/02/22 01:30 12/02/22 01:00 12/02/22 00:32 12/02/22 00:21 12/02/22 00:00 12/01/22 23:57 12/01/22 23:30 12/01/22 23:56 12/01/22 23:00 12/01/22 22:15 Nasal Cannula 6 12/01/22 21:00 Nebulizer 7 12/01/22 20:14 Nasal Cannula 6 12/01/22 20:09 Nasal Cannula 6 12/01/22 20:03 Nasal Cannula 6 12/01/22 20:00 Nasal Cannula 6 12/01/22 19:32 Room Air Resident Activity Tracking Resident Involvement: Resident Care Provided Care Provided: [facility] Hospital [facility]
[2022-12-02] MEDS: PIPERACILLIN/TAZOBACTAM 4.5 GM in DEXTROSE 5% 100 ML IV SCH ×3 (07:34→22:38)
--- NOTE | 2022-12-02 07:39 | XRay Report ---
XR chest 1V portable HISTORY: Sepsis COMPARISON: Chest 11/09/2022. FINDINGS: No pneumothorax. The cardiac silhouette remains mildly enlarged. A left Port-A-Cath termina sumeet in the distal SVC. This remains unchanged. Diffuse interstitial thickening and patchy multifocal airspace opacities have progressed in the interval. Lytic osseous lesions are better appreciated on t he same day chest CT. IMPRESSION: Interval progression of interstitial thickening and multifocal bilateral airspace opacities. This fav ors a pneumonia. ACT 112: Negative or not required by law. Electronically signed by: Andres Barry M.D. 12/02/2022 7:38 AM
--- NOTE | 2022-12-02 08:19 | Pulmonary Consultation ---
Date of Consultation December 02, 2022 Assessment & Plan (1) History of radiation exposure: (2) Multifocal pneumonia: (3) Diffuse large B cell lymphoma: (4) Abnormal chest CT: Plan CT chest 12/01/2022 personally reviewed: Dense consolidative process appreciated in the right upper lobe Patchy groundglass opacities appreciated bilaterally Elevated right hemidiaphragm No significant mediastinal lymphadenopathy 2D echo 05/12/2022: EF 60-65%, RV normal in size and function -- Acute hypoxic respiratory failure Secondary to multilobar pneumonia Respiratory bio fire negative for everything on 11/25/2022 as well as 12/01/2022 Procalcitonin negative CRP 8.07 Patient has a parakeet at home for 10 years Lymphoma itself can give similar finding Last chemo was in August 2022, would not consider to be immunosuppressed right now. PJP could present in similar way --History of B-cell lymphoma S/p R-CHOP and radiation Plan: Continue antibiotics with atypical coverage For bronchoscopy tomorrow. I did explain to the patient that she is high risk of intubation given the high requirement of oxygen at baseline. She understands and agrees to go ahead with the procedure. N.p.o. postmidnight, hold Lovenox I will consider steroids after bronchoscopy Please note the above document was generated using voice recognition software. It may contain grammatical, syntax or spelling errors.Any formal questions or concerns about the content, text or information contained within the body of this dictation should be directly addressed to the provider for clarification. History of Present Illness Attending Physician: Destiny Yoo DO History of Present Illness 62-year-old female present to the hospital with worsening shortness of breath Past medical history: B-cell lymphoma, arthritis on hydroxychloroquine, Hypertension, autoimmune disease with HLA-B27 positive Pulm consulted for normal chest CT At the time of examination patient was saturating 91-92% on 6 L nasal cannula. She was not in any respiratory distress. Patient has been having issues with shortness of breath going back to approximately 3-4 weeks She went to [place] she has been treated with azithromycin as well as amoxicillin with no improvement in her symptoms Was having subjective fever and chills. Diarrhea after taking amoxicillin coronary catheter. No recent sick contacts Does complain of cough and brings up clear phlegm. Denies any hemoptysis Strong family history of autoimmune disease. Personally she has HLA-B27 positive and she is on hydroxychloroquine for it Social history: Lifetime non-smoker. Works from home. Has a parakeet for approximately 10 years. Allergies Allergy/AdvReac Type Severity Reaction Status Date / Time No Known Drug Allergies Allergy Unknown Verified 11/01/22 14:37 Home Medications Medication Instructions Recorded Confirmed Type fexofenadine 180 mg tablet 180 mg PO QAM 06/10/21 12/01/22 History (Gay Allergy) albuterol sulfate 90 mcg/actuation 2 puff inhalation .COMPLEX PRN 01/25/22 12/01/22 Rx aerosol inhaler (ProAir HFA) shortness of breath or wheezing #8.5 grams hydroxychloroquine 200 mg tablet 200 mg PO DAILY 09/27/22 12/01/22 History (Plaquenil) amoxicillin 875 mg-potassium 1 tab PO Q12 12/01/22 12/01/22 History clavulanate 125 mg tablet fluoxetine 40 mg capsule (Prozac) 40 mg PO QAM 12/01/22 12/01/22 History hydrochlorothiazide 25 mg tablet 25 mg PO QAM 12/01/22 12/01/22 History meloxicam 15 mg tablet 15 mg PO QAM 12/01/22 12/01/22 History vibegron 75 mg tablet (Gemtesa) 75 mg PO QAM 12/01/22 12/01/22 History Patient History Medical History (Updated 12/02/22 @ 16:40 by Linh Bruce MD, [facility]) Anemia Asthma Depression Diffuse large B cell lymphoma Menopausal and perimenopausal disorder Vaginal wall prolapse Surgical History History of tonsillectomy and adenoidectomy History of wisdom tooth extraction Port-A-Cath in place (05/13/22) Mediport Placement Left Internal Jugular(Left) with fluoroscopic guidance- Avery Brar MD, FACS Family History Mother Stroke Environmental allergies Grandmother (Maternal) Lung cancer smoker Brain cancer Brother Giant cell tumor Other Diabetes No family history of adverse response to anesthesia No family history of bleeding disorder Denies family history of Ovarian cancer Prostate cancer Myocardial infarction Breast cancer Colorectal cancer Social History Smoking Status: Never smoker Second Hand Exposure: No; Do You Dip or Chew Tobacco: No; Hx Alcohol Use: Yes Alcohol type: beer, wine and hard liquor Alcohol Intake Frequency: 2-3 x/Week Hx Substance Use: No Preferred Language: Kinyarwanda Communication Ability: Effective Visual Impairment: No Limitations Hearing Ability: Normal Production Bow Maker Required: No Beliefs That Will Affect Care: None marital status: Current Living Situation: Spouse current occupational status: employed 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 How many Children do You have: 2 Feels Safe at Home: Yes Childhood Exposure to Second-Hand Smoke: No Diet: regular Diet Comment: regular caffeine: Yes Dental Care, Regularly: Yes Physical Activity Frequency: 1-2 Times per Week Seatbelt Use: always Sunscreen Use: Yes Assistive Devices: None Review of Systems Review of Systems: All systems reviewed & are unremarkable except as noted in HPI & below Physical Exam 2 Physical Exam: Constitutional: No acute distress HEENT: EOMI, PERRLA Respiratory system: Decreased air entry bilaterally, no wheeze, rhonchi, positive crackles appreciated bilaterally anterior and posterior CVS: S1-S2 positive, no murmurs or gallops, tachycardia Abdomen: Soft, nontender, nondistended, positive bowel sounds x4, obese Extremities: +2 pulses bilaterally radialis/ dorsalis pedis, no cyanosis, no edema Neuro: Awake alert oriented x3 Psych: Normal mood and affect G/U: No armendariz Skin: no rashes, warm and dry Lymphatic: no cervical or axillary lymphadenopathy Results & Data Results & Data Vital Signs (Past 12 Hours) Vital Signs Temp Pulse Pulse Resp BP BP Pulse Ox 12/02/22 07:31 106 H 25 H 115/77 95 12/02/22 07:00 98 H 24 95 12/02/22 07:00 107/72 12/02/22 06:30 97 H 24 96 12/02/22 06:30 103/72 12/02/22 06:00 96 H 26 H 96 12/02/22 06:00 97/55 L 12/02/22 05:30 95 H 22 93 12/02/22 05:30 111/76 12/02/22 02:40 12/02/22 05:00 96 H 24 100/72 96 12/02/22 04:30 95 H 20 95 12/02/22 04:30 106/68 12/02/22 04:00 92 H 24 95 12/02/22 04:00 108/71 12/02/22 03:30 97 H 25 H 96 12/02/22 03:30 110/73 12/02/22 03:01 109 H 12/02/22 02:30 92 H 26 H 117/84 93 12/02/22 02:00 94 H 22 92 12/02/22 05:21 94 H 26 H 94 12/02/22 05:21 12/02/22 00:00 12/02/22 03:15 86 18 92 12/02/22 01:30 97 H 22 85/68 L 91 12/02/22 01:00 96 H 21 92 12/02/22 00:32 102 H 22 116/76 12/02/22 00:21 90 12/02/22 00:00 103 H 22 110/72 91 12/01/22 23:57 105 H 32 H 104/71 91 12/01/22 23:30 108 H 31 H 91 12/01/22 23:56 105 H 12/01/22 23:00 112 H 21 92 12/01/22 22:15 37.3 C 117 H 28 H 122/82 92 12/01/22 21:00 124 H 24 142/92 H 91 Pulse Ox O2 Del Method O2 Del Method O2 Flow Rate O2 Flow Rate 12/02/22 07:31 Nasal Cannula 6 12/02/22 07:00 12/02/22 07:00 12/02/22 06:30 12/02/22 06:30 12/02/22 06:00 12/02/22 06:00 12/02/22 05:30 12/02/22 05:30 12/02/22 02:40 94 Nasal Cannula 6 12/02/22 05:00 Nasal Cannula 6 12/02/22 04:30 12/02/22 04:30 12/02/22 04:00 12/02/22 04:00 12/02/22 03:30 12/02/22 03:30 12/02/22 03:01 12/02/22 02:30 12/02/22 02:00 12/02/22 05:21 Nasal Cannula 6 12/02/22 05:21 Nasal Cannula 6 12/02/22 00:00 94 Nasal Cannula 6 12/02/22 03:15 Nasal Cannula 6 12/02/22 01:30 12/02/22 01:00 12/02/22 00:32 12/02/22 00:21 12/02/22 00:00 12/01/22 23:57 12/01/22 23:30 12/01/22 23:56 12/01/22 23:00 12/01/22 22:15 Nasal Cannula 6 12/01/22 21:00 Nebulizer 7 Laboratory Results 12/02/22 12:20 12/02/22 08:28 PG Care Time/CCT Total # of Minutes Spent Total Time Spent with Patient: Total time spent is greater than 50% in coordination of care (as documented) at patient's floor/unit and/or counseling patient: Coding Level of Care Code 52912 INT INP/OBS CARE 3/75MIN Diagnoses History of radiation exposure Z92.3 Multifocal pneumonia J18.9 Diffuse large B cell lymphoma C83.[address] R93.89
[2022-12-02] MEDS ORDERED: ENOXAPARIN INJ 40 MG/0.4 ML SYR SQ SCH (09:00)
[2022-12-02 09:12] LABS: Basophils # (auto) 0.03 K/uL (0.00-0.20); Basophils % (auto) 0.4 %; Eosinophils # (auto) 0.07 K/uL (0.00-0.50); Eosinophils % (auto) 0.8 %; Hematocrit (blood only) 33.4 % (37.0-47.0); Hemoglobin 10.9 g/dl (12.0-16.0); Immature Granulocytes # (auto) 0.03 K/uL (0.01-0.20); Immature Granulocytes % (auto) 0.4 %; Lymphocytes # (auto) 0.74 K/uL (1.20-3.40); Lymphocytes % (auto) 8.8 %; Mean Corpuscular Hemoglobin 30.7 pg (25.0-34.0); Mean Corpuscular Hgb Conc 32.6 g/dL (32.0-36.0); Mean Corpuscular Volume 94.1 fL (80.0-100.0); Mean Platelet Volume 9.4 fL (9.4-12.4); Monocytes # (auto) 0.78 K/uL (0.11-0.59); Monocytes % (auto) 9.3 %; Neutrophils # (auto) 6.75 K/uL (1.40-6.50); Neutrophils % (auto) 80.3 %; Platelet Count 261 K/uL (130-400); RDW Coefficient of Variation 13.5 % (11.5-14.5); RDW Standard Deviation 46.6 fL (36.4-46.3); Red Blood Count 3.55 M/uL (4.20-5.40)
[2022-12-02 09:32] LABS: Albumin Globulin Ratio 1.3 (0.9-2); Albumin Level 3.5 gm/dl (3.4-5.0); BUN Creatinine Ratio 9.5 (10-20); Bilirubin,Total 0.5 mg/dl (0.2-1.0); Calcium 8.2 mg/dl (8.6-10.3); Est GFR (Non-African American) 97.5 ml/min; Globulin 2.7 gm/dl (2.5-4.0); Potassium 2.8 mmol/L (3.5-5.1); Total Protein 6.2 gm/dl (6.0-8.3)
[2022-12-02] MEDS: hydroCHLOROthiazide 25 MG TAB PO SCH (09:34)
[2022-12-02] MEDS: FLUoxetine HCL 20 MG CAP PO SCH (09:35)
[2022-12-02] MEDS: FEXOFENADINE HCL 180 MG TAB PO SCH (09:35)
[2022-12-02] MEDS: HYDROXYCHLOROQUINE SULFATE 200 MG TAB PO SCH (09:35)
[2022-12-02] MEDS: VIBEGRON 75 MG TAB PO SCH (09:35)
[2022-12-02] MEDS ORDERED: POTASSIUM CHLORIDE CRTAB 20 MEQ TABCR PO STA ×2 (10:32→17:33)
[2022-12-02 11:12] LABS: Magnesium 1.8 mg/dl (1.7-2.4)
[2022-12-02] MEDS: DOXYCYCLINE HYCLATE 100 MG in DEXTROSE 5% 100 ML IV SCH ×2 (12:30→23:55)
[2022-12-02 13:27] LABS: Hematocrit (blood only) 32.8 % (37.0-47.0); Hemoglobin 10.8 g/dl (12.0-16.0)
--- NOTE | 2022-12-02 16:49 | Electrocardiogram Report ---
Test Reason : Blood Pressure : / mmHG Vent. Rate : 131 BPM Atrial Rate : 131 BPM P-R Int : 132 ms QRS Dur : 072 ms QT Int : 304 ms P-R-T Axes : 042 -41 039 degrees QTc Int : 448 ms Sinus tachycardia Left axis deviation Abnormal ECG When compared with ECG of 31-JUL-2021 18:30, Vent. rate has increased BY 51 BPM QRS axis Shifted left Criteria for Septal infarct are no longer Present Confirmed by Ayden Rios ([id number]) on 12/02/2022 4:49:01 PM Referred By: REFERRED SELF Confirmed By:Ayden Rios
[2022-12-02] MEDS: MAGNESIUM SULFATE / D5W 1 GM/100 ML BAG IV SCH ×2 (19:40→21:03)
[2022-12-03] MEDS: ALBUT/IPRATROP 3MG/0.5MG NEB 3 ML VIAL NEB SCH ×6 (03:19→23:23)
[2022-12-03] MEDS ORDERED: HEPARIN 100 UNIT/ML 5ML FLUSH ONE (05:24)
[2022-12-03] MEDS: PIPERACILLIN/TAZOBACTAM 4.5 GM in DEXTROSE 5% 100 ML IV SCH ×3 (05:31→22:45)
[2022-12-03 06:55] LABS: Basophils # (auto) 0.02 K/uL (0.00-0.20); Basophils % (auto) 0.2 %; Eosinophils # (auto) 0.06 K/uL (0.00-0.50); Eosinophils % (auto) 0.7 %; Hemoglobin 10.4 g/dl (12.0-16.0); Immature Granulocytes # (auto) 0.03 K/uL (0.01-0.20); Immature Granulocytes % (auto) 0.3 %; Lymphocytes # (auto) 0.39 K/uL (1.20-3.40); Lymphocytes % (auto) 4.4 %; Mean Corpuscular Hemoglobin 30.3 pg (25.0-34.0); Mean Corpuscular Hgb Conc 32.5 g/dL (32.0-36.0); Mean Corpuscular Volume 93.3 fL (80.0-100.0); Mean Platelet Volume 9.1 fL (9.4-12.4); Monocytes # (auto) 0.98 K/uL (0.11-0.59); Neutrophils # (auto) 7.45 K/uL (1.40-6.50); Neutrophils % (auto) 83.4 %; Platelet Count 255 K/uL (130-400); RDW Coefficient of Variation 13.7 % (11.5-14.5); RDW Standard Deviation 46.5 fL (36.4-46.3); Red Blood Count 3.43 M/uL (4.20-5.40); White Blood Count 8.93 K/ul (4.8-10.8)
--- NOTE | 2022-12-03 07:00 | Hospitalist Progress Note ---
Date of Service December 03, 2022 Assessment & Plan (1) Multifocal pneumonia: Plan: 62 y/o female with a PMHx of B-cell lymphoma s/p chemo and radiation therapy, HTN, OAB, and arthritis presented with hypoxia requiring 6L NC to maintain saturation admitted for further workup and IV abx. #Multifocal PNA #Acute hypoxic respiratory failure Strep, PJP, fungitell, and Legionella, pending. Viral BioFire negative, Pro-Jerry negative. Received cefepime and azithromycin in the ED. Started on Zosyn and Doxy at time of admission. Continue on Zosyn and Doxy at this time. Supplemental oxygen as needed, DuoNebs every 4 hours Pulmonology consulted: Recommend to continue antibiotics for atypical coverage. Bronchoscopy done on 12/03 Transfer to ICU after bronchoscopy for monitoring s/p bronchoscopy and being on high flow. #Anemia stable h/h. follow #Demand ischemia Troponin peaked at 31.3. No signs and symptoms of ACS #Diffuse B Cell Lymphoma #History of chemoradiation therapy Stable. Follows with Dr. Donahue #Stress Urinary Incontinence Stable. Continue home med #Arthritis Stable on hydroxychloroquine - continue. Will do Tylenol while in patient. #HTN Holding HCTZ due to hypotension. Code status: full DVT ppx: Lovenox SQ on hold for bronchoscopy, will restart on 12/03 PM FENGI: Regular Dispo: ICU (2) Hypoxia: (3) Elevated troponin I level: (4) Diffuse large B cell lymphoma: (5) RANDY (stress urinary incontinence, female): (6) History of radiation exposure: (7) Hypertension: (8) Arthritis: Admission and Anticipated Discharge Date Admission Date: December 01, 2022 Supervising Physician Co-Signing Physician Notes Resident Physician Supervision Note: I independently interviewed and examined the patient and verified the ward history and physical, reviewed labs and image studies and agree with resident findings and care plan. Subjective Patient was seen bedside this morning. She is currently status post bronchoscopy. She still complains of a cough at this time. She is currently on high flow oxygen. She is currently in the ICU Review of Systems Review of Systems: All systems reviewed & are unremarkable except as noted in Subjective Physical Exam Physical Exam: Gen: non-toxic appearing female in NAD, mildly increased work of breathing on 6L NC, no accessory muscle usage HEENT: AT NC MMM EOMI PERRL Resp: Decreased breath sounds throughout, no audible wheezing or rhonchi, no accessory muscle use, able to speak in full sentences, high flow nasal cannula CV: tachycardia, regular rhythm, no m/r/g clinically well perfused 2+ peripheral pulses Abd: soft, non-tender, non-distended, no palpable masses or HSM MSK: no obvious deformities Neuro: alert and oriented Psych: appropriate mood and affect Skin: no rashes or bruising noted Results & Data Results & Data Vital Signs (Past 12 Hours) Vital Signs Temp Pulse Pulse Resp BP Pulse Ox O2 Del Method 12/03/22 03:49 37.1 C 111 H 26 H 125/78 96 BiPAP 12/03/22 03:22 110 H 22 95 12/03/22 03:21 110 H 22 95 BiPAP 12/03/22 00:00 109 H 12/02/22 19:20 Other 12/02/22 23:37 37.1 C 112 H 28 H 111/74 95 BiPAP 12/02/22 23:24 30 H 95 BiPAP 12/02/22 23:22 110 H 30 H 95 12/02/22 21:20 109 H 33 H 95 12/02/22 20:24 115 H 20 92 High Flow Nasal Cannula 12/02/22 20:01 20 92 Other 12/02/22 19:31 36.9 C 115 H 25 H 115/75 93 High Flow Nasal Cannula O2 Flow Rate FiO2 12/03/22 03:49 21 12/03/22 03:22 45 12/03/22 03:21 45 12/03/22 00:00 12/02/22 19:20 35 60 12/02/22 23:37 21 12/02/22 23:24 45 12/02/22 23:22 12/02/22 21:20 70 12/02/22 20:24 35 60 12/02/22 20:01 35 60 12/02/22 19:31 60 Resident Activity Tracking Resident Involvement: Resident Care Provided Care Provided: Adult Hospital Medicine
[2022-12-03] MEDS ORDERED: MIDAZOLAM HCL 5 MG/ML 1 ML VIAL ONE (07:13)
[2022-12-03] MEDS ORDERED: fentaNYL citrate PF 100 MCG/2 ML VIAL ONE ×2 (07:13→08:32)
[2022-12-03 07:17] LABS: Albumin Globulin Ratio 1.3 (0.9-2); Albumin Level 3.6 gm/dl (3.4-5.0); BUN Creatinine Ratio 10.9 (10-20); Bilirubin,Total 0.6 mg/dl (0.2-1.0); Calcium 8.5 mg/dl (8.6-10.3); Creatinine Clr Calc Pharmacy 98.5 ml/min; Est GFR (African American) 118.2 ml/min; Est GFR (Non-African American) 101.9 ml/min; Globulin 2.8 gm/dl (2.5-4.0); Total Protein 6.4 gm/dl (6.0-8.3)
[2022-12-03] MEDS: FEXOFENADINE HCL 180 MG TAB PO SCH (07:37)
[2022-12-03] MEDS: FLUoxetine HCL 20 MG CAP PO SCH (07:37)
[2022-12-03] MEDS: hydroCHLOROthiazide 25 MG TAB PO SCH (07:39)
[2022-12-03] MEDS: HYDROXYCHLOROQUINE SULFATE 200 MG TAB PO SCH (07:40)
[2022-12-03] MEDS: VIBEGRON 75 MG TAB PO SCH (07:41)
--- NOTE | 2022-12-03 08:18 | Critical Care Progress Note ---
Date of Service December 03, 2022 Assessment & Plan (1) History of radiation exposure: (2) Multifocal pneumonia: (3) Diffuse large B cell lymphoma: (4) Abnormal chest CT: Plan CT chest 12/01/2022 personally reviewed: Dense consolidative process appreciated in the right upper lobe Patchy groundglass opacities appreciated bilaterally Elevated right hemidiaphragm No significant mediastinal lymphadenopathy 2D echo 05/12/2022: EF 60-65%, RV normal in size and function -- Acute hypoxic respiratory failure Secondary to multilobar pneumonia Respiratory bio fire negative for everything on 11/25/2022 as well as 12/01/2022 Procalcitonin negative CRP 8.07 Patient has a parakeet at home for 10 years Lymphoma itself can give similar finding Last chemo was in August 2022, would not consider to be immunosuppressed right now. PJP could present in similar way --History of B-cell lymphoma S/p R-CHOP and radiation Plan: Given the increased oxygen requirement and her being on high flow. I will transfer the patient to the ICU and do bronchoscopy there I did explain to the patient that she is high risk for intubation but bronchoscopy will help us get a diagnosis regarding what is going on with her lungs She understands the risk and the benefit of the procedure. She is willing to go ahead with it Consent signed, witnessed and put in the chart Please note the above document was generated using voice recognition software. It may contain grammatical, syntax or spelling errors.Any formal questions or concerns about the content, text or information contained within the body of this dictation should be directly addressed to the provider for clarification. Admission and Anticipated Discharge Date Admission Date: December 01, 2022 Subjective Patient seen and examined at bedside. No acute distress, notable since overnight Patient was on 35 L, 60% saturating 95%. Denied any chest pain She did use BiPAP overnight and slept well with it. No hemoptysis No dizziness has been having low-grade fever Review of Systems Review of Systems: All systems reviewed & are unremarkable except as noted in Subjective Physical Exam Physical Exam: Constitutional: No acute distress HEENT: EOMI, PERRLA Respiratory system: Decreased air entry bilaterally, no wheeze, rhonchi, positive crackles appreciated bilaterally anterior and posterior CVS: S1-S2 positive, no murmurs or gallops, tachycardia Abdomen: Soft, nontender, nondistended, positive bowel sounds x4, obese Extremities: +2 pulses bilaterally radialis/ dorsalis pedis, no cyanosis, no edema Neuro: Awake alert oriented x3 Psych: Normal mood and affect G/U: No Nair Skin: no rashes, warm and dry Lymphatic: no cervical or axillary lymphadenopathy Results & Data Results & Data Vital Signs (Past 12 Hours) Vital Signs Temp Pulse Pulse Resp BP Pulse Ox O2 Del Method 12/03/22 07:59 37.3 C 109 H 22 91/60 L 95 High Flow Nasal Cannula 12/03/22 07:21 109 H 20 95 High Flow Nasal Cannula 12/03/22 07:18 109 H 20 95 High Flow Nasal Cannula 12/03/22 03:49 37.1 C 111 H 26 H 125/78 96 BiPAP 12/03/22 03:22 110 H 22 95 12/03/22 03:21 110 H 22 95 BiPAP 12/03/22 00:00 109 H 12/02/22 23:37 37.1 C 112 H 28 H 111/74 95 BiPAP 12/02/22 23:24 30 H 95 BiPAP 12/02/22 23:22 110 H 30 H 95 12/02/22 21:20 109 H 33 H 95 12/02/22 20:24 115 H 20 92 High Flow Nasal Cannula O2 Flow Rate FiO2 12/03/22 07:59 12/03/22 07:21 35 60 12/03/22 07:18 35 60 12/03/22 03:49 21 12/03/22 03:22 45 12/03/22 03:21 45 12/03/22 00:00 12/02/22 23:37 21 12/02/22 23:24 45 12/02/22 23:22 12/02/22 21:20 70 12/02/22 20:24 35 60 Laboratory Results 12/03/22 05:26 12/03/22 05:26 Coding Level of Care Code 87447 SUB INP/OBS CARE 3/50MIN Diagnoses History of radiation exposure Z92.3 Multifocal pneumonia J18.9 Diffuse large B cell lymphoma C83.[address] R93.89
[2022-12-03] MEDS ORDERED: MIDAZOLAM HCL 5 MG/ML 2ML VIAL ONE (08:31)
[2022-12-03] MEDS ORDERED: RAPID SEQUENCE INDUCTION BAG ONE (08:33)
--- NOTE | 2022-12-03 09:30 | XRay Report ---
XR chest 1V portable HISTORY: 62 years-old Female hypoxia, s/p bronchoscopy COMPARISON: 12/01/2022 TECHNIQUE: AP view of the chest FINDINGS: Cardiac silhouette is enlarged. Left pectoral Utpcvv-p-Oalc catheter appears unchanged. No postproced ural pneumothorax. Mixed interstitial and alveolar opacities are redemonstrated it appears stable fro m prior. Degenerative changes of the shoulders and spine. Gaseous distention of the stomach. IMPRESSION: 1. No postprocedural pneumothorax identified. 2. Unchanged appearance of the mixed interstitial and alveolar opacities. ACT 112: Negative or not required by law. The above report was generated using voice recognition software. It may contain grammatical, syntax o r spelling errors. Electronically signed by: Vimal Sheppard M.D. 12/03/2022 9:29 AM
[2022-12-03 10:26] LABS: Magnesium 2.4 mg/dl (1.7-2.4); Phosphorus 2.7 mg/dl (2.5-4.9)
[2022-12-03 10:41] LABS: Basophil Body Fluid Man 1 %; Eosinophil Body Fluid Man 2 %; Fluid Mono/Macrophage 19 %; Lymphocyte Body Fluid Man 50 %; Neutrophil Body Fluid Man 28 %
--- NOTE | 2022-12-03 12:10 | Procedure Note ---
Procedure Note: Bronchoscopy Procedure PREOPERATIVE DIAGNOSIS: Multilobar pneumonia POSTOPERATIVE DIAGNOSIS: Multilobar pneumonia PROCEDURE PERFORMED: Flexible fiberoptic bronchoscopy with bronchoalveolar lavage and transbronchial biopsies COMPLICATIONS: None. INDICATION: Rule out infection/lymphoma PROCEDURE: After obtaining an informed consent, the patient was brought to the ICU. The patient had appropriate oxygen, blood pressure, heart rate, and respiratory rate monitoring applied and monitored continuously throughout the p rocedure. Supplemental oxygen via high flow, 40 L, 100% FiO2 as per nursing records was applied to the nasopharynx with adequate saturations achieved. Topical anesthesia with nebulized 1% lidocaine was achieved. Subsequent to this, the patient was premedicated with 4 mg of midazolam and 100 mcg of fentanyl. Sedation start 8:44 AM, procedure and 9 AM Upper Airway: The oropharynx and larynx were well visualized and showed dry oral mucosa but without any anatomical abnormalities. There was normal vocal cord motion without masses or lesions. Additional topical anesthesia with 1% lidocaine was applied to the trachea and gwyn. The trachea appeared normal. There were nodules appreciated on the anterior ring all throughout the trachea. The bronchoscope was then advanced through the gwyn, which was sharp. The scope was then advanced into the right main stem and each segment, subsegement in the right upper lobe, right middle lobe and right lower lobe were visualized. There were minimal amount of clear secretion which was suctioned out. There were no other findings including evidence of mass, anatomic distortions, or hemorrhage. The bronchoscope was subsequently withdrawn and advanced into the left mainstem. Again, each segment and subsegment was well visualized. No specific masses or other lesions were identified throughout the tracheobronchial tree on the left. There were minimal amount of clear secretion which was suctioned out The bronchoscope was then wedged in the right lower lobe anterior segment and bronchoalveolar lavage samples were obtained. 140 ml of saline was instilled and CT ml of fluid was aspirated back.The bronchoscope was withdrawn and the area was suctioned clear. The bronchoscope was then re-advanced into the right lower lobe anterior segment and multiple transbronchial biopsies were taken. Minimal hemorrhage was identified and suctioned clear without difficulty. The bronchoscope was then withdrawn to the mainstem. The area was suctioned clear. The bronchoscope was then withdrawn. The patient tolerated the procedure well without evidence of desaturation or complications. Bronchoalveolar lavage samples were sent for cell count, Gram stain and bacterial culture, AFB culture and smear, fungal culture and smear, flow cytometry and cytology. Transbronchial biopsies were sent for tissue culture (bacteria, AFB and fungal) and pathology. Recommendations: Follow-up micro, cytology and pathology Follow-up chest x-ray Patient will remain in the ICU given the significant oxygen requirement. Please note the above document was generated using voice recognition software. It may contain grammatical, syntax or spelling errors.Any formal questions or concerns about the content, text or information contained within the body of this dictation should be directly addressed to the provider for clarification. [facility] [place]odes (Charges) Pulmonary/Thoracic Procedure 1: Pulmonary and Thoracic: 19357 Dx bronchoscopy/BAL Procedure 2: Pulmonary and Thoracic: 78554 Bronchoscopy w/ transbronchial lung bx Sedation/Anesthesia Procedure 1: Sedation/Anesthesia: 18235 Mod Sedation by the same physician;Init15 Min Child Age 5 & Up
[2022-12-03] MEDS: DOXYCYCLINE HYCLATE 100 MG in DEXTROSE 5% 100 ML IV SCH (13:22)
--- NOTE | 2022-12-03 14:51 | Infectious Disease Consult ---
Date of Consultation December 03, 2022 Assessment & Plan (1) Abnormal chest CT: (2) Multifocal pneumonia: (3) Hypoxia: (4) Diffuse large B cell lymphoma: Plan 62 yo female with pmh of B-cell lymphoma, HTN, ? autoimmune arthritis on hydroxychloroquine to the Ed with progressive worsening of shortness of breath, dry cough and hypoxia She completed chemotherapy with RCHOP ( 6 cycles) on 08/27/2022 and completed consolidation radiation therapy right on 11/03/22. A few days post radiation therapy, she developed shortness of breath with fevers. She was evaluated by her PCP. A cxr showed patchy right upper lobe airspace opacity and bilateral lower lung reticulonodular interstitial thickening. She was treated with a 5 day course of azithromycin for presumed URI. She felt somewhat better and went on a 10 d vacation to [place]. Her dry cough and occasional fevers continued. Shortness of breath worsened after vacation. She complained in intermittent drenching sweats. A CT Chest was done on 11/24 which showed stable R axillary adenopathy, stable right scapular and T8 pathologic fractures and interval development of multifocal irregular airspace opacities most pronounced within the right lung apex and lung bases with mild interstitial thickening. Mild bronchiectasis also noted. There was no new or progressive lymphadenopathy within the chest. She was then treated with a course of with Augmentin. On Augmentin her symptoms progressed prompting evaluation in ED on 12/01/22. In Ed she was febrile with a tm 38.2, tachycardic, tachypneic and hypoxic on RA with o2 sat of 83%. O2 sats improved to 93% on 6L. Labs notable for an ESR 54, crp 8.07. MRSA nasal screen negative. Other labs unremarkable. A RVP is negative. Covid 19/influenza/rsv testing negative. A CTA chest showed no PE but revealed multifocal ground-glass and consolidative opacities that progressed concerning for viral pna. She denied travel outside the country or sick contacts. She was born in the and has never traveled outside the country. 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 She denies known exposure to TB. She has been on and off steroids but not currently. She has a parakeet at home for the last 6 years. She does not clean his cage. She has been exposed to her neighbors cat that lives outside. She denies nausea, rash, edema, change in urine or bowel habits. She is s/p bronchoscopy on 12/03. Findings noted for tracheal nodules (common per d/w pulmonary). There was minimal amount of clear secretion which was suctioned out. There were no evidence of mass, anatomic distortions, or hemorrhage. Bronchoalveolar lavage samples were sent for cell count, Gram stain and bacterial culture, AFB culture and smear, fungal culture and smear, flow cytometry and cytology. Transbronchial biopsies were sent for tissue culture (bacteria, AFB and fungal) and pathology. BAL fluid cell count noted for 50% lymphocytes. She is currently on zosyn and doxycycline and on BIPAP post procedure. She has not had sweats since admission. She feels she may have lost 5 lbs in the last 3 weeks. MICRO 12/01 BCx *2: NGTD 12/02 MRSA nares negative 12/03 BAL gram stain: Moderate WBCs Seen.No Organisms Seen 12/03 BAL cx: Pending 12/03 AFB Smear/cx: Pending 12/03 Fungal smear No Yeast or Hyphae Seen ; CX- Pending ABX Azith 12/01 cefepime 12/01 Zosyn 12/01- ongoing doxy 12/01-ongoing #Diffuse large B-cell lymphoma. sp RCHOP 08/27/2022. s/p XRT 11/03/2022. #Acute respiratory failure # Multilobar pneumonia # Parakeet exposure. She is immunocompromised 2/2 B cell lmphoma but has not received chemotherapy since 08/2022. He progressive SOb, cough, fever with occasion sweats started 3 weeks ago. She has a parakeet at home . She is on Plaquenil. She felt well initially after she recieved 5 d of azithromycin about 2 weeks ago. Procalcitonin in < 0.05. Differential for her presentation include PJP , fungal pna including crypto aspergillus, viral and bacterial pna, Chlamydia Psittaci infection in setting of parakeet exposure OR Pulmonary lymphoma. Discussed case with pulmonary and based on risk factors and Ct lung findings less likely mycobacterial process. Recommendation; Continue Zosyn 4.5g iv q8hrs Continue Doxycycline 100 mg po bid Start Bactrim 2 tabs po BID pending r/o PJP Start PO steroids 40 mg po q12 8 5 d, then 40 mg po daily for 5 d and then 20 mg daily for 11 d pending rule out PJP Follow-up BAL bacterial, fungal and AFB cx., cytology and pathology Follow up BD glucan, legionella cx, viral cx, PJP PCR/DFA, strep pna serology Followup serum crypto ag and aspergill ag ( ordered today) If she decompensates, would start voriconazole DW pulm Thank you for this consultation. ID will continue to follow. Karl Gonzales MD, MPH Infectious Disease [facility], [facility] Call [phone] with questions Consultation Information Consultation was provided via telemedicine using two-way real-time interactive telecommunication between the patient and the telemedicine provider. For the duration of the visit, the provider was performing the assessment from a different facility than the patient. This includesuse of bluetooth stethoscope forauscultationperformed by the telepresenter that the telemedicine provider can hear if described in the physical exam. Visitor Service Assistant contact information: Please call [facility] Call Center . (Phone Number For Physician Use Only) After establishing a telemedicine visit, patient was: Patient was verified with two unique identifiers, Patient/authorized rep acknowledged consent and understanding and Gave permission to continue telehealth session Time Spent with Patient: Initial => 75 min History of Present Illness Reason for Consultation: Multifocal pneumonia in pt with Bcell lymphoma Requesting Physician: Bradley Davis DO Attending Physician: Amairani Perdomo MD History of Present Illness 62 yo female with pmh of B-cell lymphoma, HTN, ? autoimmune arthritis on hydroxychloroquine to the Ed with progressive worsening of shortness of breath, dry cough and hypoxia She completed chemotherapy with RCHOP ( 6 cycles) on 08/27/2022 and completed consolidation radiation therapy right on 11/03/22. A few days post radiation therapy, she developed shortness of breath with fevers. She was evaluated by her PCP. A cxr showed patchy right upper lobe airspace opacity and bilateral lower lung reticulonodular interstitial thickening. She was treated with a 5 day course of azithromycin for presumed URI. She felt somewhat better and went on a 10 d vacation to [place]. Her dry cough and occasional fevers continued. Shortness of breath worsened after vacation. She complained in intermittent drenching sweats. A CT Chest was done on 11/24 which showed stable R axillary adenopathy, stable right scapular and T8 pathologic fractures and interval development of multifocal irregular airspace opacities most pronounced within the right lung apex and lung bases with mild interstitial thickening. Mild bronchiectasis also noted. There was no new or progressive lymphadenopathy within the chest. She was then treated with a course of with Augmentin. On Augmentin her symptoms progressed prompting evaluation in ED on 12/01/22. In Ed she was febrile with a tm 38.2, tachycardic, tachypneic and hypoxic on RA with o2 sat of 83%. O2 sats improved to 93% on 6L. Labs notable for an ESR 54, crp 8.07. MRSA nasal screen negative. Other labs unremarkable. A RVP is negative. Covid 19/influenza/rsv testing negative. A CTA chest showed no PE but revealed multifocal ground-glass and consolidative opacities that progressed concerning for viral pna. She denied travel outside the country or sick contacts. She was born in the and has never traveled outside the country. 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 She denies known exposure to TB. She has been on and off steroids but not currently. She has a parakeet at home for the last 6 years. She does not clean his cage. She has been exposed to her neighbors cat that lives outside. She denies nausea, rash, edema, change in urine or bowel habits. She is s/p bronchoccopy on 12/03. Findings noted for tracheal nodules (common per d/w pulmonary). There was minimal amount of clear secretion which was suctioned out. There were no evidence of mass, anatomic distortions, or hemorrhage. Bronchoalveolar lavage samples were sent for cell count, Gram stain and bacterial culture, AFB culture and smear, fungal culture and smear, flow cytometry and cytology. Transbronchial biopsies were sent for tissue culture (bacteria, AFB and fungal) and pathology. BAL fluid cell count noted for 50% lymphocytes. She is currently on zosyn and doxycycline and on BIPAP post procedure. She has not had sweats since admission. She feels she may have lost 5 lbs in the last 3 weeks Her is at bedside and provides additional information. Allergies Allergy/AdvReac Type Severity Reaction Status Date / Time No Known Drug Allergies Allergy Unknown Verified 11/01/22 14:37 Home Medications Medication Instructions Recorded Confirmed Type fexofenadine 180 mg tablet 180 mg PO QAM 06/10/21 12/01/22 History (Gay Allergy) albuterol sulfate 90 mcg/actuation 2 puff inhalation .COMPLEX PRN 01/25/22 12/01/22 Rx aerosol inhaler (ProAir HFA) shortness of breath or wheezing #8.5 grams hydroxychloroquine 200 mg tablet 200 mg PO DAILY 09/27/22 12/01/22 History (Plaquenil) amoxicillin 875 mg-potassium 1 tab PO Q12 12/01/22 12/01/22 History clavulanate 125 mg tablet fluoxetine 40 mg capsule (Prozac) 40 mg PO QAM 12/01/22 12/01/22 History hydrochlorothiazide 25 mg tablet 25 mg PO QAM 12/01/22 12/01/22 History meloxicam 15 mg tablet 15 mg PO QAM 12/01/22 12/01/22 History vibegron 75 mg tablet (Gemtesa) 75 mg PO QAM 12/01/22 12/01/22 History Patient History Medical History (Updated 12/02/22 @ 16:40 by Linh Bruce MD, [facility]) Anemia Asthma Depression Diffuse large B cell lymphoma Menopausal and perimenopausal disorder Vaginal wall prolapse Surgical History History of tonsillectomy and adenoidectomy History of wisdom tooth extraction Port-A-Cath in place (05/13/22) Mediport Placement Left Internal Jugular(Left) with fluoroscopic guidance- Avery Barr MD, FACS Family History Mother Stroke Environmental allergies Grandmother (Maternal) Lung cancer smoker Brain cancer Brother Giant cell tumor Other Diabetes No family history of adverse response to anesthesia No family history of bleeding disorder Denies family history of Ovarian cancer Prostate cancer Myocardial infarction Breast cancer Colorectal cancer Social History Smoking Status: Never smoker Second Hand Exposure: No; Do You Dip or Chew Tobacco: No; Tobacco Cessation Education Requested by Patient: No Hx Alcohol Use: No Hx Substance Use: No Preferred Language: German Communication Ability: Effective Visual Impairment: No Limitations Hearing Ability: Normal Middleware Systems Architect Required: No Beliefs That Will Affect Care: None marital status: Current Living Situation: Spouse current occupational status: employed 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 Pertinent positives as per HPI. Additional Comments: Physical Exam Constitutional: General- NAD, on bipap, some SOB, dry cough with talking Eyes: Anicteric sclera Neck: Supple Respiratory: decrease BS at bases BL . No rhonchi Cardiovascular: RRR Chest (Breasts): Additional Comments: No CW tenderness . Left chest port in place c/d/i- no insertion site erythema, warmth or tenderness. Gastrointestinal (Abdomen): soft, not tender, not distended Musculoskeletal: Moves all extremities Skin: NO skin breakdown or open wounds. Faint area of redness on R ant upper chest s/p XRT Neurologic: AAO*3 Psychiatric: Cooperative, appropriate Results & Data Vital Signs (Past 12 Hours) Vital Signs Temp Pulse Pulse Resp BP BP Pulse Ox 12/03/22 09:30 109 H 22 101/73 95 12/03/22 09:20 114 H 32 H 91 12/03/22 09:15 94/71 L 12/03/22 09:15 111 H 25 H 94/71 L 88 L 12/03/22 09:10 120 H 20 98/74 L 87 L 12/03/22 09:01 95 H 22 101/75 88 L 12/03/22 08:59 112 H 22 116/78 89 L 12/03/22 08:55 113 H 24 144/87 H 87 L 12/03/22 08:48 115 H 28 H 120/80 97 12/03/22 08:44 116 H 29 H 110/68 97 12/03/22 08:44 110/76 12/03/22 08:40 115 H 34 H 120/72 97 12/03/22 08:38 117 H 30 H 112/76 98 12/03/22 08:37 121 H 25 H 127/79 98 12/03/22 11:48 111 H 18 93 12/03/22 11:47 111 H 18 93 12/03/22 10:18 108 H 20 95 12/03/22 07:59 37.3 C 109 H 22 91/60 L 95 12/03/22 07:21 109 H 20 95 12/03/22 07:18 109 H 20 95 12/03/22 03:49 37.1 C 111 H 26 H 125/78 96 12/03/22 03:22 110 H 22 95 12/03/22 03:21 110 H 22 95 O2 Del Method O2 Flow Rate FiO2 12/03/22 09:30 12/03/22 09:20 12/03/22 09:15 12/03/22 09:15 12/03/22 09:10 12/03/22 09:01 12/03/22 08:59 12/03/22 08:55 12/03/22 08:48 12/03/22 08:44 12/03/22 08:44 12/03/22 08:40 12/03/22 08:38 12/03/22 08:37 12/03/22 11:48 High Flow Nasal Cannula 35 65 12/03/22 11:47 High Flow Nasal Cannula 35 65 12/03/22 10:18 High Flow Nasal Cannula 35 90 12/03/22 07:59 High Flow Nasal Cannula 12/03/22 07:21 High Flow Nasal Cannula 35 60 12/03/22 07:18 High Flow Nasal Cannula 35 60 12/03/22 03:49 BiPAP 21 12/03/22 03:22 45 12/03/22 03:21 BiPAP 45 Laboratory Results Laboratory Results - last 48 hr 12/01/22 12/01/22 12/01/22 19:55 19:55 19:55 WBC 5.83 RBC 4.72 Hgb 14.6 Hct 43.7 MCV 92.6 MCH 30.9 MCHC 33.4 RDW Std Deviation 44.2 RDW Coeff of Clarence 13.1 Plt Count 246 MPV 9.3 L Immature Gran % (Auto) 0.3 Neut % (Auto) 78.8 Lymph % (Auto) 9.6 [place] % (Auto) 9.8 Eos % (Auto) 1.2 Baso % (Auto) 0.3 Neut # (Auto) 4.59 Lymph # (Auto) 0.56 L [place] # (Auto) 0.57 Eos # (Auto) 0.07 Baso # (Auto) 0.02 Immature Gran # (Auto) 0.02 ESR PT 11.4 INR 1.0 APTT 29.3 PTT Ratio 1.0 VBG pH VBG pCO2 VBG pO2 VBG HCO3 VBG O2 Saturation VBG Base Excess Sodium 137 Potassium 3.5 Chloride 102 Carbon Dioxide 24 Anion Gap 11 BUN 9 Creatinine 0.58 L Est Cr Clr Drug Dosing Not Reportable Est GFR ( Amer) 116.1 Est GFR (Non-Af Amer) 100.2 BUN/Creatinine Ratio 15.5 Glucose 116 H Lactate Calcium 8.8 Phosphorus Magnesium 1.8 Total Bilirubin 0.4 Direct Bilirubin 0.0 AST 19 ALT 15 Alkaline Phosphatase 71 Troponin I High Sens 31.3 H C-Reactive Protein 8.07 H B-Natriuretic Peptide Total Protein 6.7 Albumin 3.8 Globulin Albumin/Globulin Ratio Procalcitonin Urine Color Urine Appearance Urine pH Ur Specific Fosters Urine Protein Urine Glucose (UA) Urine Ketones Urine Blood Urine Nitrite Urine Bilirubin Urine Urobilinogen Ur Leukocyte Esterase Fluid Neutrophils % Fluid Lymphocytes % Fluid Eosinophils % Fluid Basophils % Fl Monocyt/Macrophag % Fluid Comment Nasal Screen MRSA (PCR) Adenovirus (PCR) B. pertussis DNA (PCR) B.parapertussis DNA PCR C. pneumoniae DNA (PCR) Coronavirus OC43 (PCR) Coronavirus HKU1 (PCR) Coronavirus 229E (PCR) SARS-CoV-2 (PCR) Coronavirus NL63 (PCR) Human Metapneumovir PCR Influenza Type A (PCR) Influenza Type B (PCR) Urine Legionella Ag M. pneumoniae (PCR) Parainfluenza 1 (PCR) Parainfluenza 2 (PCR) Parainfluenza 3 (PCR) Parainfluenza 4 (PCR) RSV (PCR) Entero/Rhino (PCR) 12/01/22 12/01/22 12/01/22 19:55 19:55 19:55 WBC RBC Hgb Hct MCV MCH MCHC RDW Std Deviation RDW Coeff of Clarence Plt Count MPV Immature Gran % (Auto) Neut % (Auto) Lymph % (Auto) [place] % (Auto) Eos % (Auto) Baso % (Auto) Neut # (Auto) Lymph # (Auto) [place] # (Auto) Eos # (Auto) Baso # (Auto) Immature Gran # (Auto) ESR 54 H PT INR APTT PTT Ratio VBG pH VBG pCO2 VBG pO2 VBG HCO3 VBG O2 Saturation VBG Base Excess Sodium Potassium Chloride Carbon Dioxide Anion Gap BUN Creatinine Est Cr Clr Drug Dosing Est GFR ( Amer) Est GFR (Non-Af Amer) BUN/Creatinine Ratio Glucose Lactate 1.0 Calcium Phosphorus Magnesium Total Bilirubin Direct Bilirubin AST ALT Alkaline Phosphatase Troponin I High Sens C-Reactive Protein B-Natriuretic Peptide Total Protein Albumin Globulin Albumin/Globulin Ratio Procalcitonin < 0.05 Urine Color Urine Appearance Urine pH Ur Specific Fosters Urine Protein Urine Glucose (UA) Urine Ketones Urine Blood Urine Nitrite Urine Bilirubin Urine Urobilinogen Ur Leukocyte Esterase Fluid Neutrophils % Fluid Lymphocytes % Fluid Eosinophils % Fluid Basophils % Fl Monocyt/Macrophag % Fluid Comment Nasal Screen MRSA (PCR) Adenovirus (PCR) B. pertussis DNA (PCR) B.parapertussis DNA PCR C. pneumoniae DNA (PCR) Coronavirus OC43 (PCR) Coronavirus HKU1 (PCR) Coronavirus 229E (PCR) SARS-CoV-2 (PCR) Coronavirus NL63 (PCR) Human Metapneumovir PCR Influenza Type A (PCR) Influenza Type B (PCR) Urine Legionella Ag M. pneumoniae (PCR) Parainfluenza 1 (PCR) Parainfluenza 2 (PCR) Parainfluenza 3 (PCR) Parainfluenza 4 (PCR) RSV (PCR) Entero/Rhino (PCR) 12/01/22 12/01/22 12/01/22 19:55 20:05 20:16 WBC RBC Hgb Hct MCV MCH MCHC RDW Std Deviation RDW Coeff of Clarence Plt Count MPV Immature Gran % (Auto) Neut % (Auto) Lymph % (Auto) [place] % (Auto) Eos % (Auto) Baso % (Auto) Neut # (Auto) Lymph # (Auto) [place] # (Auto) Eos # (Auto) Baso # (Auto) Immature Gran # (Auto) ESR PT INR APTT PTT Ratio VBG pH 7.44 H VBG pCO2 41 VBG pO2 37 VBG HCO3 28 VBG O2 Saturation < 60.0 VBG Base Excess 3.3 Sodium Potassium Chloride Carbon Dioxide Anion Gap BUN Creatinine Est Cr Clr Drug Dosing Est GFR ( Amer) Est GFR (Non-Af Amer) BUN/Creatinine Ratio Glucose Lactate Calcium Phosphorus Magnesium Total Bilirubin Direct Bilirubin AST ALT Alkaline Phosphatase Troponin I High Sens C-Reactive Protein B-Natriuretic Peptide 16 Total Protein Albumin Globulin Albumin/Globulin Ratio Procalcitonin Urine Color Urine Appearance Urine pH Ur Specific Fosters Urine Protein Urine Glucose (UA) Urine Ketones Urine Blood Urine Nitrite Urine Bilirubin Urine Urobilinogen Ur Leukocyte Esterase Fluid Neutrophils % Fluid Lymphocytes % Fluid Eosinophils % Fluid Basophils % Fl Monocyt/Macrophag % Fluid Comment Nasal Screen MRSA (PCR) Adenovirus (PCR) Not Detected B. pertussis DNA (PCR) Not Detected B.parapertussis DNA PCR Not Detected C. pneumoniae DNA (PCR) Not Detected Coronavirus OC43 (PCR) Not Detected Coronavirus HKU1 (PCR) Not Detected Coronavirus 229E (PCR) Not Detected SARS-CoV-2 (PCR) Not Detected Coronavirus NL63 (PCR) Not Detected Human Metapneumovir PCR Not Detected Influenza Type A (PCR) Not Detected Influenza Type B (PCR) Not Detected Urine Legionella Ag M. pneumoniae (PCR) Not Detected Parainfluenza 1 (PCR) Not Detected Parainfluenza 2 (PCR) Not Detected Parainfluenza 3 (PCR) Not Detected Parainfluenza 4 (PCR) Not Detected RSV (PCR) Not Detected Entero/Rhino (PCR) Not Detected 12/01/22 12/02/22 12/02/22 22:15 00:10 07:28 WBC RBC Hgb Hct MCV MCH MCHC RDW Std Deviation RDW Coeff of Clarence Plt Count MPV Immature Gran % (Auto) Neut % (Auto) Lymph % (Auto) [place] % (Auto) Eos % (Auto) Baso % (Auto) Neut # (Auto) Lymph # (Auto) [place] # (Auto) Eos # (Auto) Baso # (Auto) Immature Gran # (Auto) ESR PT INR APTT PTT Ratio VBG pH VBG pCO2 VBG pO2 VBG HCO3 VBG O2 Saturation VBG Base Excess Sodium Potassium Chloride Carbon Dioxide Anion Gap BUN Creatinine Est Cr Clr Drug Dosing Est GFR ( Amer) Est GFR (Non-Af Amer) BUN/Creatinine Ratio Glucose Lactate Calcium Phosphorus Magnesium Total Bilirubin Direct Bilirubin AST ALT Alkaline Phosphatase Troponin I High Sens 25.8 H C-Reactive Protein B-Natriuretic Peptide Total Protein Albumin Globulin Albumin/Globulin Ratio Procalcitonin Urine Color Yellow Urine Appearance Clear Urine pH 7.0 Ur Specific Fosters 1.011 Urine Protein Negative Urine Glucose (UA) Negative Urine Ketones Negative Urine Blood Negative Urine Nitrite Negative Urine Bilirubin Negative Urine Urobilinogen Negative Ur Leukocyte Esterase Negative Fluid Neutrophils % Fluid Lymphocytes % Fluid Eosinophils % Fluid Basophils % Fl Monocyt/Macrophag % Fluid Comment Nasal Screen MRSA (PCR) Negative Adenovirus (PCR) B. pertussis DNA (PCR) B.parapertussis DNA PCR C. pneumoniae DNA (PCR) Coronavirus OC43 (PCR) Coronavirus HKU1 (PCR) Coronavirus 229E (PCR) SARS-CoV-2 (PCR) Coronavirus NL63 (PCR) Human Metapneumovir PCR Influenza Type A (PCR) Influenza Type B (PCR) Urine Legionella Ag M. pneumoniae (PCR) Parainfluenza 1 (PCR) Parainfluenza 2 (PCR) Parainfluenza 3 (PCR) Parainfluenza 4 (PCR) RSV (PCR) Entero/Rhino (PCR) 12/02/22 12/02/22 12/02/22 08:04 08:28 08:28 WBC 8.40 RBC 3.55 L Hgb 10.9 L D Hct 33.4 L MCV 94.1 MCH 30.7 MCHC 32.6 RDW Std Deviation 46.6 H RDW Coeff of Clarence 13.5 Plt Count 261 MPV 9.4 Immature Gran % (Auto) 0.4 Neut % (Auto) 80.3 Lymph % (Auto) 8.8 [place] % (Auto) 9.3 Eos % (Auto) 0.8 Baso % (Auto) 0.4 Neut # (Auto) 6.75 H Lymph # (Auto) 0.74 L [place] # (Auto) 0.78 H Eos # (Auto) 0.07 Baso # (Auto) 0.03 Immature Gran # (Auto) 0.03 ESR PT INR APTT PTT Ratio VBG pH VBG pCO2 VBG pO2 VBG HCO3 VBG O2 Saturation VBG Base Excess Sodium 139 Potassium 2.8 L Chloride 105 Carbon Dioxide 25 Anion Gap 9 BUN 6 Creatinine 0.63 Est Cr Clr Drug Dosing 86.0 Est GFR ( Amer) 113.0 Est GFR (Non-Af Amer) 97.5 BUN/Creatinine Ratio 9.5 L Glucose 181 H Lactate Calcium 8.2 L Phosphorus Magnesium 1.8 Total Bilirubin 0.5 Direct Bilirubin AST 15 ALT 12 Alkaline Phosphatase 63 Troponin I High Sens C-Reactive Protein B-Natriuretic Peptide Total Protein 6.2 Albumin 3.5 Globulin 2.7 Albumin/Globulin Ratio 1.3 Procalcitonin Urine Color Urine Appearance Urine pH Ur Specific Fosters Urine Protein Urine Glucose (UA) Urine Ketones Urine Blood Urine Nitrite Urine Bilirubin Urine Urobilinogen Ur Leukocyte Esterase Fluid Neutrophils % Fluid Lymphocytes % Fluid Eosinophils % Fluid Basophils % Fl Monocyt/Macrophag % Fluid Comment Nasal Screen MRSA (PCR) Adenovirus (PCR) B. pertussis DNA (PCR) B.parapertussis DNA PCR C. pneumoniae DNA (PCR) Coronavirus OC43 (PCR) Coronavirus HKU1 (PCR) Coronavirus 229E (PCR) SARS-CoV-2 (PCR) Coronavirus NL63 (PCR) Human Metapneumovir PCR Influenza Type A (PCR) Influenza Type B (PCR) Urine Legionella Ag SEE NOTE M. pneumoniae (PCR) Parainfluenza 1 (PCR) Parainfluenza 2 (PCR) Parainfluenza 3 (PCR) Parainfluenza 4 (PCR) RSV (PCR) Entero/Rhino (PCR) 12/02/22 12/03/22 12/03/22 12:20 05:26 05:26 WBC 8.93 RBC 3.43 L Hgb 10.8 L 10.4 L Hct 32.8 L 32.0 L MCV 93.3 MCH 30.3 MCHC 32.5 RDW Std Deviation 46.5 H RDW Coeff of Clarence 13.7 Plt Count 255 MPV 9.1 L Immature Gran % (Auto) 0.3 Neut % (Auto) 83.4 Lymph % (Auto) 4.4 [place] % (Auto) 11.0 Eos % (Auto) 0.7 Baso % (Auto) 0.2 Neut # (Auto) 7.45 H Lymph # (Auto) 0.39 L [place] # (Auto) 0.98 H Eos # (Auto) 0.06 Baso # (Auto) 0.02 Immature Gran # (Auto) 0.03 ESR PT INR APTT PTT Ratio VBG pH VBG pCO2 VBG pO2 VBG HCO3 VBG O2 Saturation VBG Base Excess Sodium Potassium Chloride Carbon Dioxide Anion Gap BUN Creatinine Est Cr Clr Drug Dosing Est GFR ( Amer) Est GFR (Non-Af Amer) BUN/Creatinine Ratio Glucose Lactate Calcium Phosphorus Magnesium Total Bilirubin Direct Bilirubin AST ALT Alkaline Phosphatase Troponin I High Sens C-Reactive Protein B-Natriuretic Peptide 34 Total Protein Albumin Globulin Albumin/Globulin Ratio Procalcitonin Urine Color Urine Appearance Urine pH Ur Specific Fosters Urine Protein Urine Glucose (UA) Urine Ketones Urine Blood Urine Nitrite Urine Bilirubin Urine Urobilinogen Ur Leukocyte Esterase Fluid Neutrophils % Fluid Lymphocytes % Fluid Eosinophils % Fluid Basophils % Fl Monocyt/Macrophag % Fluid Comment Nasal Screen MRSA (PCR) Adenovirus (PCR) B. pertussis DNA (PCR) B.parapertussis DNA PCR C. pneumoniae DNA (PCR) Coronavirus OC43 (PCR) Coronavirus HKU1 (PCR) Coronavirus 229E (PCR) SARS-CoV-2 (PCR) Coronavirus NL63 (PCR) Human Metapneumovir PCR Influenza Type A (PCR) Influenza Type B (PCR) Urine Legionella Ag M. pneumoniae (PCR) Parainfluenza 1 (PCR) Parainfluenza 2 (PCR) Parainfluenza 3 (PCR) Parainfluenza 4 (PCR) RSV (PCR) Entero/Rhino (PCR) 12/03/22 12/03/22 05:26 09:00 WBC RBC Hgb Hct MCV MCH MCHC RDW Std Deviation RDW Coeff of Clarence Plt Count MPV Immature Gran % (Auto) Neut % (Auto) Lymph % (Auto) [place] % (Auto) Eos % (Auto) Baso % (Auto) Neut # (Auto) Lymph # (Auto) [place] # (Auto) Eos # (Auto) Baso # (Auto) Immature Gran # (Auto) ESR PT INR APTT PTT Ratio VBG pH VBG pCO2 VBG pO2 VBG HCO3 VBG O2 Saturation VBG Base Excess Sodium 138 Potassium 4.0 D Chloride 103 Carbon Dioxide 29 Anion Gap 6 BUN 6 Creatinine 0.55 L Est Cr Clr Drug Dosing 98.5 Est GFR ( Amer) 118.2 Est GFR (Non-Af Amer) 101.9 BUN/Creatinine Ratio 10.9 Glucose 126 H Lactate Calcium 8.5 L Phosphorus 2.7 Magnesium 2.4 Total Bilirubin 0.6 Direct Bilirubin AST 14 ALT 12 Alkaline Phosphatase 64 Troponin I High Sens C-Reactive Protein B-Natriuretic Peptide Total Protein 6.4 Albumin 3.6 Globulin 2.8 Albumin/Globulin Ratio 1.3 Procalcitonin Urine Color Urine Appearance Urine pH Ur Specific Fosters Urine Protein Urine Glucose (UA) Urine Ketones Urine Blood Urine Nitrite Urine Bilirubin Urine Urobilinogen Ur Leukocyte Esterase Fluid Neutrophils % 28 Fluid Lymphocytes % 50 Fluid Eosinophils % 2 Fluid Basophils % 1 Fl Monocyt/Macrophag % 19 Fluid Comment Nasal Screen MRSA (PCR) Adenovirus (PCR) B. pertussis DNA (PCR) B.parapertussis DNA PCR C. pneumoniae DNA (PCR) Coronavirus OC43 (PCR) Coronavirus HKU1 (PCR) Coronavirus 229E (PCR) SARS-CoV-2 (PCR) Coronavirus NL63 (PCR) Human Metapneumovir PCR Influenza Type A (PCR) Influenza Type B (PCR) Urine Legionella Ag M. pneumoniae (PCR) Parainfluenza 1 (PCR) Parainfluenza 2 (PCR) Parainfluenza 3 (PCR) Parainfluenza 4 (PCR) RSV (PCR) Entero/Rhino (PCR) Diagnostic Findings Microbiology 12/03/22 09:00 Ba Lavage,Right Lower Lobe Fungal Smear - Final 12/03/22 09:00 Ba Lavage,Right Lower Lobe Gram Stain - Final 12/01/22 20:16 Blood Aerobic Blood Culture - Preliminary No growth in Aerobic bottle after 24 hours. 12/01/22 20:16 Blood Anaerobic Blood Culture - Final 12/01/22 19:55 Blood Aerobic Blood Culture - Preliminary No growth in Aerobic bottle after 24 hours. 12/01/22 19:55 Blood Anaerobic Blood Culture - Preliminary No growth in Anaerobic bottle after 24 hours. Chest X-Ray 12/01/22 19:48 XR chest 1V portable HISTORY: Sepsis COMPARISON: Chest 11/09/2022. FINDINGS: No pneumothorax. The cardiac silhouette remains mildly enlarged. A left Port-A-Cath terminates in the distal SVC. This remains unchanged. Diffuse interstitial thickening and patchy multifocal airspace opacities have progressed in the interval. Lytic osseous lesions are better appreciated on the same day chest CT. IMPRESSION: Interval progression of interstitial thickening and multifocal bilateral airspace opacities. This favors a pneumonia. ACT 112: Negative or not required by law. Electronically signed by: Andres Barry M.D. 12/02/2022 7:38 AM Chest CTA 12/01/22 20:59 Exam(s): CTA CHEST IV Amt: 119ml EXAM: CT Angiography Chest With Intravenous Contrast CLINICAL HISTORY: Reason for exam: PE. TECHNIQUE: Axial computed tomographic angiography images of the chest with intravenous contrast. CTDI is 11.87 mGy and DLP is 828.08 mGy-cm. Automated exposure control was utilized for the study. A dose lowering technique was utilized adhering to the principles of ALARA. MIP reconstructed images were created and reviewed. COMPARISON: CT chest 11/24/22 FINDINGS: There is a left chest wall port catheter with tip in the right atrium. There is no thoracic aortic aneurysm or dissection. There is adequate pulmonary artery opacification. Main pulmonary artery is normal in caliber. There is no evidence of acute pulmonary embolism. There is no mediastinal or hilar lymphadenopathy. Enlarged right axillary lymph node is stable from prior exam. Left axillary lymph nodes are normal. Heart size is normal. There is no pericardial effusion. Multifocal consolidative and ground-glass opacities are present, appearing somewhat progressed from prior exam. There is no visible pulmonary mass at this time. There is no pleural effusion or pneumothorax. There is a stable 6 mm hypervascular focus in the right hepatic dome. There is a lytic lesion of T8 with associated pathologic compression fracture. There is also a lytic lesion of the right scapular body with associated pathologic fracture. These findings are stable from prior. Regional skeleton appears otherwise intact. IMPRESSION: 1. No evidence of acute pulmonary embolism. 2. Multifocal ground-glass and consolidative opacities appear slightly progressed from prior exam and are concerning for pneumonia, to include viral pneumonia within the differential diagnosis. Imaging follow-up to resolution is recommended. 3. Stable right axillary lymphadenopathy. 4. 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 5. Stable 6 mm hypervascular focus in the right liver dome, nonspecific. Is recommended prior, six-month follow-up CT may be performed for re- characterization. Electronically signed by: Zahida Larry M.D. 12/01/22 22:43 PM Chest X-Ray 12/03/22 08:58 XR chest 1V portable HISTORY: 62 years-old Female hypoxia, s/p bronchoscopy COMPARISON: 12/01/2022 TECHNIQUE: AP view of the chest FINDINGS: Cardiac silhouette is enlarged. Left pectoral [id number] catheter appears unchanged. No postprocedural pneumothorax. Mixed interstitial and alveolar opacities are redemonstrated it appears stable from prior. Degenerative changes of the shoulders and spine. Gaseous distention of the stomach. IMPRESSION: 1. No postprocedural pneumothorax identified. 2. Unchanged appearance of the mixed interstitial and alveolar opacities. ACT 112: Negative or not required by law. The above report was generated using voice recognition software. It may contain grammatical, syntax or spelling errors. Electronically signed by: Vimal Sheppard M.D. 12/03/2022 9:29 AM Medications Administered Home Medications Medication Instructions Recorded Confirmed Last Taken fexofenadine 180 mg tablet 180 mg PO QAM 06/10/21 12/01/22 11/30/22 (Gay Allergy) albuterol sulfate 90 mcg/actuation 2 puff inhalation .COMPLEX PRN 01/25/22 12/01/22 Unknown aerosol inhaler (ProAir HFA) shortness of breath or wheezing #8.5 grams hydroxychloroquine 200 mg tablet 200 mg PO DAILY 09/27/22 12/01/22 11/30/22 (Plaquenil) amoxicillin 875 mg-potassium 1 tab PO Q12 12/01/22 12/01/22 12/01/22 clavulanate 125 mg tablet am fluoxetine 40 mg capsule (Prozac) 40 mg PO QAM 12/01/22 12/01/22 11/30/22 hydrochlorothiazide 25 mg tablet 25 mg PO QAM 12/01/22 12/01/22 11/30/22 meloxicam 15 mg tablet 15 mg PO QAM 12/01/22 12/01/22 11/30/22 vibegron 75 mg tablet (Gemtesa) 75 mg PO QAM 12/01/22 12/01/22 11/30/22 Active Medications Generic Name Dose Route Start Last Admin Trade Name Freq PRN Reason Stop Dose Admin Albuterol 3 ml 12/02/22 03:00 12/03/22 14:56 Albut/Ipratrop 3mg/0.5mg Neb 3 Ml Vial NEB 01/01/23 02:59 3 ml Q4R SHAYY Administration Protocol Fexofenadine HCl 180 mg 12/02/22 09:00 12/03/22 07:37 Fexofenadine Hcl 180 Mg Tab PO 01/01/23 08:59 Not Given QAM SHAYY Fluoxetine HCl 40 mg 12/02/22 09:00 12/03/22 07:37 Fluoxetine Hcl 20 Mg Cap PO 01/01/23 08:59 Not Given QAM SHAYY Hydrochlorothiazide 25 mg 12/02/22 09:00 12/03/22 07:39 Hydrochlorothiazide 25 Mg Tab PO 01/01/23 08:59 Not Given QAM SHAYY Hydroxychloroquine Sulfate 200 mg 12/02/22 09:00 12/03/22 07:40 Hydroxychloroquine Sulfate 200 Mg Tab PO 01/01/23 08:59 Not Given DAILY SHAYY Doxycycline Hyclate 100 mg/ 110 mls @ 50 mls/hr 12/02/22 12:00 12/03/22 13:22 Dextrose IV 12/09/22 11:59 50 mls/hr Q12H SHAYY Administration Piperacillin Sod/Tazobactam 120 mls @ 30 mls/hr 12/02/22 06:00 12/03/22 13:22 Sod 4.5 gm/ Dextrose IV 12/09/22 05:59 30 mls/hr Q8H SHAYY Administration Protocol Vibegron 75 mg 12/02/22 09:00 12/03/22 07:41 Vibegron 75 Mg Tab PO 01/01/23 08:59 Not Given QAM SHAYY
[2022-12-03] MEDS: ICU ELECTROLYTE REPLACEMENT PROTOCOL SCH (15:38)
[2022-12-03] MEDS: ENOXAPARIN INJ 40 MG/0.4 ML SYR SQ SCH (22:45)
[2022-12-03] MEDS: SULFAMETHOXAZOLE/TRIMETHOPRIM DS 800/160MG TAB PO SCH (22:46)
[2022-12-03] MEDS: ACETAMINOPHEN 325 MG TAB PO PRN (22:55)
[2022-12-04] MEDS: DOXYCYCLINE HYCLATE 100 MG in DEXTROSE 5% 100 ML IV SCH ×2 (00:16→11:56)
[2022-12-04] MEDS: ALBUT/IPRATROP 3MG/0.5MG NEB 3 ML VIAL NEB SCH ×6 (02:35→22:38)
[2022-12-04 05:28] LABS: Basophils # (auto) 0.02 K/uL (0.00-0.20); Basophils % (auto) 0.2 %; Eosinophils # (auto) 0.03 K/uL (0.00-0.50); Eosinophils % (auto) 0.3 %; Hematocrit (blood only) 31.9 % (37.0-47.0); Hemoglobin 10.4 g/dl (12.0-16.0); Immature Granulocytes # (auto) 0.05 K/uL (0.01-0.20); Immature Granulocytes % (auto) 0.6 %; Lymphocytes # (auto) 0.45 K/uL (1.20-3.40); Lymphocytes % (auto) 5.1 %; Mean Corpuscular Hemoglobin 30.5 pg (25.0-34.0); Mean Corpuscular Hgb Conc 32.6 g/dL (32.0-36.0); Mean Corpuscular Volume 93.5 fL (80.0-100.0); Mean Platelet Volume 9.2 fL (9.4-12.4); Monocytes # (auto) 0.77 K/uL (0.11-0.59); Monocytes % (auto) 8.8 %; Neutrophils # (auto) 7.46 K/uL (1.40-6.50); Platelet Count 241 K/uL (130-400); RDW Coefficient of Variation 13.4 % (11.5-14.5); RDW Standard Deviation 46.1 fL (36.4-46.3); Red Blood Count 3.41 M/uL (4.20-5.40); White Blood Count 8.78 K/ul (4.8-10.8)
[2022-12-04 06:21] LABS: Albumin Level 3.5 gm/dl (3.4-5.0); Bilirubin,Total 0.8 mg/dl (0.2-1.0); Calcium 8.4 mg/dl (8.6-10.3); Magnesium 2.4 mg/dl (1.7-2.4); Potassium 3.8 mmol/L (3.5-5.1)
[2022-12-04 06:29] LABS: Albumin Globulin Ratio 1.2 (0.9-2); BUN Creatinine Ratio 15.7 (10-20); Creatinine Clr Calc Pharmacy 106.2 ml/min; Est GFR (African American) 121.1 ml/min; Est GFR (Non-African American) 104.5 ml/min; Globulin 2.9 gm/dl (2.5-4.0); Phosphorus 2.8 mg/dl (2.5-4.9); Total Protein 6.4 gm/dl (6.0-8.3)
[2022-12-04] MEDS: SULFAMETHOXAZOLE/TRIMETHOPRIM DS 800/160MG TAB PO SCH ×3 (06:33→20:50)
[2022-12-04] MEDS: PIPERACILLIN/TAZOBACTAM 4.5 GM in DEXTROSE 5% 100 ML IV SCH ×3 (06:33→20:51)
--- NOTE | 2022-12-04 06:54 | Hospitalist Progress Note ---
Date of Service December 04, 2022 Assessment & Plan (1) Multifocal pneumonia: Plan: 62 y/o female with a PMHx of B-cell lymphoma s/p chemo and radiation therapy, HTN, OAB, and arthritis presented with hypoxia likely in the setting of multifocal pneumonia admitted for further workup and IV abx now s/p bronchoscopy with improvement of oxygenation status stable for de-escalation of care. #Multifocal PNA #Acute hypoxic respiratory failure #Sepsis POA CTA chest and x-ray favor pneumonia. Viral BioFire negative, Pro-Jerry negative. Patient is immunocompromised as she has B-cell lymphoma. Higher risk of abnormal pathogens - broad work up indicated. Pending s pneumo, PJP, legionella, crypto, aspergillosis, cytology/pathology from bronch etc. Abx: Azithromycin 12/01 x1 Cefepime 12/01 x1 Zosyn 12/01 - ongoing Doxy 12/01 - ongoing Bactrim 12/03 - ongoing Strep pneumo, PJP, fungitell, Legionella, crypto ag, aspergillosis ag pending f/u cytology/pathology BAL bacterial, fungal, AFB cx Pulm consult - upgraded to ICU status after bronchoscopy, now stable for de- escalation of care - pulm will continue to follow ID consult - rec adding Bactrim TID as well as steroid taper 40 BID 5 days 40 QD 5 days 20 QD 11 days pending PJP r/o Supplemental oxygen as needed, DuoNebs every 4 hours Will need outpatient pulm f/u #Diarrhea Patient on multiple abx. Will test for c. dif and add on probiotics. #Anemia Initial hemoglobin of 14.6 in the ED. 10.9 on 12/02. Hemoglobin remains stable at this time. Most likely dilutional effect. No signs or symptoms of an acute bleed. AM CBC #Demand ischemia Troponin peaked at 31.3. No signs and symptoms of ACS #Electrolyte Abnormalities Electrolytes monitored and repleted as indicated during hospital stay AM BMP #Diffuse B Cell Lymphoma #History of chemoradiation therapy Stable. Follows with Dr. Donahue #Arthritis Stable on hydroxychloroquine - continue. Will do Tylenol while inpatient. #HTN Patient on HCTZ at home. Was hypotensive during hospital stay and HCTZ was held. Restarted as patient HDS. Code status: full DVT ppx: Lovenox SQ QD GI ppx: added pantoprazole in setting of steroid taper FENGI: Regular Dispo: PCU (2) Hypoxia: (3) Elevated troponin I level: (4) Diffuse large B cell lymphoma: (5) RANDY (stress urinary incontinence, female): (6) History of radiation exposure: (7) Hypertension: (8) Arthritis: Admission and Anticipated Discharge Date Admission Date: December 01, 2022 Supervising Physician Co-Signing Physician Notes Resident Physician Supervision Note: I independently interviewed and examined the patient and verified the ward his tory and physical, reviewed labs and image studies and agree with resident findings and care plan. Subjective Patient seen at bedside. Reports continued dyspnea. On 13L and breathing comfortably. No other complaints - no f/c/n/v/abd pain/CP Having some diarrhea. Review of Systems Review of Systems: See HPI Physical Exam Physical Exam: Gen: non-toxic appearing female in NAD, breathing comfortably on 13L HEENT: AT NC MMM EOMI PERRL Resp: greatly improved air movement, diffuse crackles, rhonchi, and wheezing, breathing comfortably, no accessory muscle usage, able to speak in full sentences CV: tachycardia, regular rhythm, no m/r/g clinically well perfused 2+ peripheral pulses Abd: soft, non-tender, non-distended, no palpable masses or HSM MSK: no obvious deformities Neuro: alert and oriented Psych: appropriate mood and affect Skin: no rashes or bruising noted Results & Data Results & Data Vital Signs (Past 12 Hours) Last Vitals: BP 129/71 HR 115 RR 28 Temp 37.4 O2 Sat: 90 on 13L NC Laboratory Results 12/04/22 04:43 12/04/22 04:43 Resident Activity Tracking Resident Involvement: Resident Care Provided Care Provided: Adult Hospital Medicine
[2022-12-04] MEDS: ICU ELECTROLYTE REPLACEMENT PROTOCOL SCH (07:13)
--- NOTE | 2022-12-04 07:55 | Pulmonology Progress Note ---
Date of Service December 04, 2022 Assessment & Plan (1) History of radiation exposure: (2) Multifocal pneumonia: (3) Diffuse large B cell lymphoma: (4) Abnormal chest CT: Plan CT chest 12/01/2022 personally reviewed: Dense consolidative process appreciated in the right upper lobe Patchy groundglass opacities appreciated bilaterally Elevated right hemidiaphragm No significant mediastinal lymphadenopathy 2D echo 05/12/2022: EF 60-65%, RV normal in size and function -- Acute hypoxic respiratory failure Secondary to multilobar pneumonia Respiratory bio fire negative for everything on 11/25/2022 as well as 12/01/2022 Procalcitonin negative CRP 8.07 Patient has a parakeet at home for 10 years Lymphoma itself can give similar finding Last chemo was in August 2022, would consider to be immunosuppressed right now. PJP could present in similar way S/p bronchoscopy 12/03/2022, some anterior tracheal nodularity. Clear secretions. BAL 50% lymphocytes Follow-up cytology as well as micro BAL sent for coccidioidal, blastomycosis, cryptococcal as well as PJP PCR Case was discussed with Dr. Gonzales --History of B-cell lymphoma S/p R-CHOP and radiation Plan: In/out: +380 Continue with empirically treating the patient with Bactrim till we have negative PJP PCR I will add prednisone 40 mg twice daily for 5 followed by 40 mg for 5 followed by 20 mg for 11 days. Completing 21 days of prednisone Add pantoprazole 40 mg daily as patient will be on prednisone Okay to downgrade the patient to medical floor Please note the above document was generated using voice recognition software. It may contain grammatical, syntax or spelling errors.Any formal questions or concerns about the content, text or information contained within the body of this dictation should be directly addressed to the provider for clarification. Admission and Anticipated Discharge Date Admission Date: December 01, 2022 Subjective Patient seen and examined at bedside. No acute distress, no adverse events overnight She was saturating 95-96% on 13 L nasal cannula I went down to 11 L Does complain of shortness of breath on minimal exertion Denies any chest pain Bringing up clear phlegm. No hemoptysis no nausea or vomiting Fair appetite Review of Systems Review of Systems: All systems reviewed & are unremarkable except as noted in Subjective Physical Exam Physical Exam: Constitutional: No acute distress HEENT: EOMI, PERRLA Respiratory system: Decreased air entry bilaterally, no wheeze, rhonchi, positive crackles appreciated bilaterally lower lobes CVS: S1-S2 positive, no murmurs or gallops, tachycardia Abdomen: Soft, nontender, nondistended, positive bowel sounds x4, obese Extremities: +2 pulses bilaterally radialis/ dorsalis pedis, no cyanosis, no edema Neuro: Awake alert oriented x3 Psych: Normal mood and affect G/U: No Nair Skin: no rashes, warm and dry Lymphatic: no cervical or axillary lymphadenopathy Results & Data Results & Data Vital Signs (Past 12 Hours) Vital Signs Temp Pulse Pulse Resp BP BP Pulse Ox 12/04/22 07:34 111 H 20 12/04/22 02:34 95 H 28 H 12/04/22 02:34 95 H 28 H 92 12/04/22 00:22 106 H 12/03/22 23:30 113 H 31 H 95 12/03/22 23:15 117 H 32 H 96 12/03/22 23:10 119/72 12/03/22 23:10 114 H 28 H 91 12/03/22 23:00 127 H 29 H 12/03/22 23:00 127/80 12/03/22 22:45 100 H 33 H 93 12/03/22 22:30 106 H 34 H 94 12/03/22 22:15 102 H 33 H 94 12/03/22 22:00 107 H 93 12/03/22 22:00 117/72 12/03/22 21:45 103 H 34 H 93 12/03/22 21:30 107 H 34 H 93 12/03/22 21:15 107 H 34 H 92 12/03/22 21:00 108 H 93 12/03/22 21:00 118/67 12/03/22 20:45 110 H 91 12/03/22 20:30 106 H 94 12/03/22 20:15 113 H 95 12/03/22 20:00 113 H 32 H 96 12/03/22 20:00 126/73 12/03/22 23:00 12/03/22 20:00 37.4 C 114 H 23 126/73 95 12/03/22 23:22 110 H 18 96 O2 Del Method O2 Flow Rate FiO2 12/04/22 07:34 Nasal Cannula 13 12/04/22 02:34 BiPAP 50 12/04/22 02:34 50 12/04/22 00:22 12/03/22 23:30 12/03/22 23:15 12/03/22 23:10 12/03/22 23:10 12/03/22 23:00 12/03/22 23:00 12/03/22 22:45 12/03/22 22:30 12/03/22 22:15 12/03/22 22:00 12/03/22 22:00 12/03/22 21:45 12/03/22 21:30 12/03/22 21:15 12/03/22 21:00 12/03/22 21:00 12/03/22 20:45 12/03/22 20:30 12/03/22 20:15 12/03/22 20:00 12/03/22 20:00 12/03/22 23:00 BiPAP, High Flow Nasal Cannula 12/03/22 20:00 High Flow Nasal Cannula 12 12/03/22 23:22 Nasal Cannula 11 Laboratory Results 12/04/22 04:43 12/04/22 04:43 PG Care Time/CCT Total # of Minutes Spent Total Time Spent with Patient: Total time spent is greater than 50% in coordination of care (as documented) at patient's floor/unit and/or counseling patient: Coding Level of Care Code 83367 SUB INP/OBS CARE 3/50MIN Diagnoses History of radiation exposure Z92.3 Multifocal pneumonia J18.9 Diffuse large B cell lymphoma C83.[address] R93.89
[2022-12-04] MEDS: FEXOFENADINE HCL 180 MG TAB PO SCH (08:49)
[2022-12-04] MEDS: HYDROXYCHLOROQUINE SULFATE 200 MG TAB PO SCH (08:50)
[2022-12-04] MEDS: FLUoxetine HCL 20 MG CAP PO SCH (08:50)
[2022-12-04] MEDS: VIBEGRON 75 MG TAB PO SCH (08:50)
[2022-12-04] MEDS: predniSONE 20 MG TAB PO SCH ×2 (08:51→20:50)
[2022-12-04] MEDS: PANTOprazole 40 MG TAB PO SCH (08:56)
[2022-12-04] MEDS: POTASSIUM CHLORIDE / WTR 10 MEQ/100 ML PLCT IV SCH ×2 (08:59→10:13)
--- NOTE | 2022-12-04 10:46 | XRay Report ---
XR chest 1V portable CLINICAL HISTORY: f/u COMPARISON STUDY: Chest CT December 01, 2022. Chest radiograph December 03, 2022. FINDINGS: A left internal jugular [id number] remains in place. There is no pneumothorax or pleural effusion. Cardiomediastinal silhouette is stable. Interstitial thickening and multifocal airspace op acities persist. There is been no significant change in appearance of the chest. IMPRESSION: Interstitial thickening multifocal airspace opacities, similar to prior exam. The findin gs remain nonspecific, multifocal pneumonia is favored. ACT 112: Negative or not required by law. Electronically signed by: Andriy Guillory M.D. 12/04/2022 10:43 AM
[2022-12-04] MEDS: ADVANCED PROBIOTIC 1250 MG CAPSULE PO SCH (10:47)
[2022-12-04] MEDS: ENOXAPARIN INJ 40 MG/0.4 ML SYR SQ SCH (20:50)
[2022-12-05] MEDS: DOXYCYCLINE HYCLATE 100 MG in DEXTROSE 5% 100 ML IV SCH ×3 (00:45→23:30)
[2022-12-05] MEDS: ALBUT/IPRATROP 3MG/0.5MG NEB 3 ML VIAL NEB SCH ×6 (03:16→22:42)
[2022-12-05 05:09] LABS: Hematocrit (blood only) 33.3 % (37.0-47.0); Hemoglobin 10.8 g/dl (12.0-16.0); Mean Corpuscular Hemoglobin 30.3 pg (25.0-34.0); Mean Corpuscular Hgb Conc 32.4 g/dL (32.0-36.0); Mean Corpuscular Volume 93.3 fL (80.0-100.0); Mean Platelet Volume 9.3 fL (9.4-12.4); Platelet Count 273 K/uL (130-400); RDW Coefficient of Variation 13.3 % (11.5-14.5); RDW Standard Deviation 45.8 fL (36.4-46.3); Red Blood Count 3.57 M/uL (4.20-5.40); White Blood Count 12.81 K/ul (4.8-10.8)
[2022-12-05 05:40] LABS: BUN Creatinine Ratio 23.4 (10-20); Calcium 8.8 mg/dl (8.6-10.3); Creatinine Clr Calc Pharmacy 114.1 ml/min; Est GFR (African American) 124.4 ml/min; Est GFR (Non-African American) 107.4 ml/min; Magnesium 2.5 mg/dl (1.7-2.4); Phosphorus 2.1 mg/dl (2.5-4.9); Potassium 3.9 mmol/L (3.5-5.1)
[2022-12-05] MEDS: PIPERACILLIN/TAZOBACTAM 4.5 GM in DEXTROSE 5% 100 ML IV SCH ×3 (06:38→20:12)
[2022-12-05] MEDS: SULFAMETHOXAZOLE/TRIMETHOPRIM DS 800/160MG TAB PO SCH ×3 (06:38→20:11)
--- NOTE | 2022-12-05 07:04 | Hospitalist Progress Note ---
Date of Service December 05, 2022 Assessment & Plan (1) Multifocal pneumonia: Plan: 62 y/o female with a PMHx of B-cell lymphoma s/p chemo and radiation therapy, HTN, OAB, and arthritis presented with hypoxia likely in the setting of multifocal pneumonia admitted for further workup and IV abx now s/p bronchoscopy with slight subjective improvement, but continued significant oxygen requirement. #Multifocal PNA #Sepsis POA CTA chest and x-ray favor pneumonia. Viral BioFire negative, Pro-Jerry negative. Patient is immunocompromised as she has B-cell lymphoma. Higher risk of abnormal pathogens - broad work up indicated. Blood cultures negative x 48H. Legionella u rine ab negative. BAL with rare danelle species. More likely to be a contaminant. Will order fungal blood cultures. If positive will begin antifungal treatment. Patient is not neutropenic so treatment with an echinocandin such as caspofungin would be appropriate. Abx: Azithromycin 12/01 x1 Cefepime 12/01 x1 Zosyn 12/01 - ongoing Doxy 12/01 - ongoing Bactrim 12/03 - ongoing Consults: Pulm consult - upgraded to ICU status after bronchoscopy, downgraded to PCU 12/04 ID consult - rec adding Bactrim TID as well as steroid taper 40 BID 5 days 40 QD 5 days 20 QD 11 days pending PJP r/o [12/04 - 12/24] Plan: f/u fungal blood cultures Strep pneumo, PJP, fungitell, crypto ag, aspergillosis ag pending f/u cytology/pathology BAL bacterial, fungal, AFB cx #Acute hypoxic respiratory failure Patient with significant oxygen requirement. Patient on 35L HFNC with 100% FiO2. Patient may end up intubated if she begins to experience respiratory fatigue. No signs of accessory muscle usage or nasal flaring at present. Discussed with patient. Amenable to intubation. Recommend that she remain on the ICU floor at this time even though she is PCU status. High flow O2, DuoNebs every 4 hours #Diarrhea Patient on multiple abx. Added probiotics. No stool since yesterday hence c. diff test not done. #Anemia Initial hemoglobin of 14.6 in the ED. 10.9 on 12/02. Hemoglobin remains stable at this time. Most likely dilutional effect. No signs or symptoms of an acute bleed. Continue to monitor #Demand ischemia Troponin peaked at 31.3. No signs and symptoms of ACS #Electrolyte Abnormalities Electrolytes monitored and repleted as indicated during hospital stay #Diffuse B Cell Lymphoma #History of chemoradiation therapy Stable. Follows with Dr. Donahue #Arthritis Stable on hydroxychloroquine - continue. Will do Tylenol instead of NSAIDs while inpatient. #HTN Patient on HCTZ at home. Was hypotensive during hospital stay and HCTZ was held. Restarted as patient HDS. Code status: full DVT ppx: Lovenox SQ QD GI ppx: added pantoprazole in setting of steroid use FENGI: Regular Dispo: PCU (2) Hypoxia: (3) Elevated troponin I level: (4) Diffuse large B cell lymphoma: (5) RANDY (stress urinary incontinence, female): (6) History of radiation exposure: (7) Hypertension: (8) Arthritis: (9) Sepsis: Admission and Anticipated Discharge Date Admission Date: December 01, 2022 Supervising Physician Co-Signing Physician Notes Resident Physician Supervision Note: I independently interviewed and examined the patient and verified the ward history and physical, reviewed labs and image studies and agree with resident findings and care plan. Subjective Patient reports feeling slightly better today. Continues to require HFNC during the day and BiPAP at night. No new issues. No fevers or chills. No CP or abdominal pain. Review of Systems Review of Systems: See HPI Physical Exam Physical Exam: Gen: non-toxic appearing female in NAD, breathing comfortably on 13L HEENT: AT NC MMM EOMI PERRL Resp: continued decreased air movement improved from admission, diffuse crackles and rhonchi, breathing comfortably, no accessory muscle usage, able to speak in full sentences CV: tachycardia, regular rhythm, no m/r/g clinically well perfused 2+ peripheral pulses Abd: non-distended, MSK: no obvious deformities Neuro: alert and oriented Psych: appropriate mood and affect Skin: no rashes or bruising noted Results & Data Results & Data Vital Signs (Past 12 Hours) Last Vitals: 122/79 HR 100 RR 22 Temp 36.6C SpO2 93% on 35L HFNC at 100% FiO2 Laboratory Results 12/05/22 04:31 12/05/22 04:31 Resident Activity Tracking Resident Involvement: Resident Care Provided Care Provided: Adult Hospital Medicine
[2022-12-05] MEDS: FLUoxetine HCL 20 MG CAP PO SCH (07:57)
[2022-12-05] MEDS: PANTOprazole 40 MG TAB PO SCH (07:58)
[2022-12-05] MEDS: FEXOFENADINE HCL 180 MG TAB PO SCH (07:58)
[2022-12-05] MEDS: ADVANCED PROBIOTIC 1250 MG CAPSULE PO SCH (07:58)
[2022-12-05] MEDS: VIBEGRON 75 MG TAB PO SCH (07:58)
[2022-12-05] MEDS: predniSONE 20 MG TAB PO SCH ×2 (07:58→20:11)
[2022-12-05] MEDS: HYDROXYCHLOROQUINE SULFATE 200 MG TAB PO SCH (07:58)
[2022-12-05] MEDS: hydroCHLOROthiazide 25 MG TAB PO SCH (07:58)
--- NOTE | 2022-12-05 08:07 | XRay Report ---
XR chest 1V portable HISTORY: Respiratory failure. COMPARISON: Chest 12/04/2022. FINDINGS: A left Port-A-Cath terminates in the distal SVC. The cardiac silhouette remains mildly enla rged. No pneumothorax. There is diffuse interstitial thickening with multifocal airspace opacities ag ain noted. This is most pronounced at the lung bases. There is chronic elevation of the right hemidia phragm. IMPRESSION: No change in the diffuse interstitial thickening with multifocal airspace opacities. ACT 112: Negative or not required by law. Electronically signed by: Andres Barry M.D. 12/05/2022 8:05 AM
--- NOTE | 2022-12-05 08:10 | Pulmonology Progress Note ---
Date of Service December 05, 2022 Assessment & Plan (1) History of radiation exposure: (2) Multifocal pneumonia: (3) Diffuse large B cell lymphoma: (4) Abnormal chest CT: Plan CT chest 12/01/2022 personally reviewed: Dense consolidative process appreciated in the right upper lobe Patchy groundglass opacities appreciated bilaterally Elevated right hemidiaphragm No significant mediastinal lymphadenopathy 2D echo 05/12/2022: EF 60-65%, RV normal in size and function -- Acute hypoxic respiratory failure Secondary to multilobar pneumonia Respiratory bio fire negative for everything on 11/25/2022 as well as 12/01/2022 Procalcitonin negative CRP 8.07 Patient has a parakeet at home for 10 years Lymphoma itself can give similar finding Last chemo was in August 2022, would consider to be immunosuppressed right now. PJP could present in similar way S/p bronchoscopy 12/03/2022, some anterior tracheal nodularity. Clear secretions. BAL 50% lymphocytes Follow-up cytology as well as micro BAL sent for coccidioidal, blastomycosis, cryptococcal as well as PJP PCR Case was discussed with Dr. Gonzales --History of B-cell lymphoma S/p R-CHOP and radiation Plan: In/out: +1140, no good urine output measurement Chest x-ray from today does not show any significant change compared to before. Continue with empirically treating the patient with Bactrim till we have negative PJP PCR Continue with prednisone 40 mg twice daily for 5 followed by 40 mg for 5 followed by 20 mg for 11 days. Completing 21 days of prednisone Continue with pantoprazole 40 mg daily as patient will be on prednisone For her anxiety as well as tachycardia may be low-dose beta-jessica could be thought of. Will defer to primary care. Consideration of Lasix 20 mg IV will be made later. Patient is requiring a lot of oxygen right now. She is already maxed out on 100% FiO2. She is not in any respiratory distress her respirate is still in the high teens to low 20s. If there is any worsening respite distress then intubation could be thought of. Would recommend to keep her on the ICU floor I have personally spent 38 minutes of critical care time in the direct management of this patient. This is a life/limb threatening event. This includes time spent evaluating patient, direct bedside care, chart review, placing orders, interpretation of diagnostic studies, discussion with consultants, patient, and family members, as well as other required patient management activities. This time is exclusive of all separately billable procedures, and teaching time and separate from and in addition to any other critical care service time. Please note the above document was generated using voice recognition software. It may contain grammatical, syntax or spelling errors. Admission and Anticipated Discharge Date Admission Date: December 01, 2022 Subjective Patient seen and examined at bedside. No acute distress, no adverse events overnight She was saturating 91-92% on 30 L high flow, 100% FiO2 Subjectively patient says that she is feeling better compared to yesterday. She is able to take deep breaths She was able to tolerate BiPAP overnight. Coughing up clear phlegm. No hemoptysis Denies any chest pain. Does complain of some anxiety which is understandable given her current situation Review of Systems Review of Systems: All systems reviewed & are unremarkable except as noted in Subjective Physical Exam Physical Exam: Constitutional: No acute distress HEENT: EOMI, PERRLA Respiratory system: Decreased air entry bilaterally, no wheeze, rhonchi, positive crackles appreciated bilaterally lower lobes CVS: S1-S2 positive, no murmurs or gallops, tachycardia Abdomen: Soft, nontender, nondistended, positive bowel sounds x4, obese Extremities: +2 pulses bilaterally radialis/ dorsalis pedis, no cyanosis, no edema Neuro: Awake alert oriented x3 Psych: Normal mood and affect G/U: No Nair Skin: no rashes, warm and dry Lymphatic: no cervical or axillary lymphadenopathy Results & Data Results & Data Vital Signs (Past 12 Hours) Vital Signs Pulse Pulse Resp BP Pulse Ox O2 Del Method O2 Flow Rate 12/05/22 07:00 95 H 26 H 89 L 12/05/22 06:45 99 H 28 H 92 12/05/22 07:43 High Flow Nasal Cannula 12/05/22 07:42 90 12/05/22 07:35 100 H 20 91 High Flow Nasal Cannula 30 12/05/22 07:37 100 H 20 91 High Flow Nasal Cannula 30 12/05/22 05:11 103 H 26 H 93 High Flow Nasal Cannula 30 12/05/22 03:16 90 27 H 94 BiPAP 12/05/22 03:16 90 37 H 95 12/05/22 00:03 96 H 12/04/22 22:48 102 H 32 H 95 BiPAP 12/04/22 22:48 102 H 32 H 95 12/04/22 21:45 97 H 29 H 94 12/04/22 21:30 95 H 28 H 92 12/04/22 21:15 102 H 27 H 92 12/04/22 21:00 97 H 14 87 L 12/04/22 21:00 122/79 12/04/22 20:45 101 H 28 H 93 12/04/22 20:30 102 H 26 H 93 12/04/22 20:15 102 H 27 H 88 L 12/04/22 22:05 BiPAP, High Flow Nasal Cannula, Other 12/04/22 21:15 32 H 90 12/04/22 20:22 98 H 26 H 92 High Flow Nasal Cannula 30 FiO2 12/05/22 07:00 12/05/22 06:45 12/05/22 07:43 100 12/05/22 07:42 12/05/22 07:35 100 12/05/22 07:37 100 12/05/22 05:11 100 12/05/22 03:16 60 12/05/22 03:16 60 12/05/22 00:03 12/04/22 22:48 70 12/04/22 22:48 70 12/04/22 21:45 12/04/22 21:30 12/04/22 21:15 12/04/22 21:00 12/04/22 21:00 12/04/22 20:45 12/04/22 20:30 12/04/22 20:15 12/04/22 22:05 12/04/22 21:15 70 12/04/22 20:22 100 Laboratory Results 12/05/22 04:31 12/05/22 04:31 PG Care Time/CCT Total # of Minutes Spent Total Time Spent with Patient: Total time spent is greater than 50% in coordination of care (as documented) at patient's floor/unit and/or counseling patient: Coding Level of Care Code 99743 CRITICAL CARE 1ST 30-74M Diagnoses History of radiation exposure Z92.3 Multifocal pneumonia J18.9 Diffuse large B cell lymphoma C83.[address] R93.89 Time Spent (min) 38
[2022-12-05] MEDS ORDERED: FLUTICASONE PROPIONATE NA SPR 16 GM BTL PRN (12:52)
[2022-12-05] MEDS ORDERED: SODIUM CHLORIDE 0.65% NA SOLN 45 ML (OCEAN) PRN (13:00)
[2022-12-05 16:54] LABS: BUN Creatinine Ratio 23.1 (10-20); Calcium 9.2 mg/dl (8.6-10.3); Creatinine Clr Calc Pharmacy 117.4 ml/min; Est GFR (African American) 120.4 ml/min; Est GFR (Non-African American) 103.9 ml/min; Potassium 3.3 mmol/L (3.5-5.1)
[2022-12-05] MEDS ORDERED: POTASSIUM CHLORIDE CRTAB 20 MEQ TABCR PO STA (17:15)
[2022-12-05] MEDS: ENOXAPARIN INJ 40 MG/0.4 ML SYR SQ SCH (20:11)
[2022-12-06] MEDS: ALBUT/IPRATROP 3MG/0.5MG NEB 3 ML VIAL NEB SCH ×6 (02:48→22:49)
[2022-12-06 04:28] LABS: Hematocrit (blood only) 32.5 % (37.0-47.0); Hemoglobin 10.9 g/dl (12.0-16.0); Mean Corpuscular Hemoglobin 31.1 pg (25.0-34.0); Mean Corpuscular Hgb Conc 33.5 g/dL (32.0-36.0); Mean Corpuscular Volume 92.6 fL (80.0-100.0); Mean Platelet Volume 9.1 fL (9.4-12.4); Platelet Count 312 K/uL (130-400); RDW Coefficient of Variation 13.4 % (11.5-14.5); RDW Standard Deviation 45.4 fL (36.4-46.3); Red Blood Count 3.51 M/uL (4.20-5.40); White Blood Count 14.97 K/ul (4.8-10.8)
[2022-12-06 04:46] LABS: BUN Creatinine Ratio 20.3 (10-20); Calcium 9.1 mg/dl (8.6-10.3); Creatinine Clr Calc Pharmacy 103.5 ml/min; Est GFR (African American) 115.5 ml/min; Est GFR (Non-African American) 99.6 ml/min; Magnesium 1.9 mg/dl (1.7-2.4); Phosphorus 2.6 mg/dl (2.5-4.9); Potassium 3.7 mmol/L (3.5-5.1)
[2022-12-06] MEDS: PIPERACILLIN/TAZOBACTAM 4.5 GM in DEXTROSE 5% 100 ML IV SCH ×3 (05:54→21:09)
[2022-12-06] MEDS: SULFAMETHOXAZOLE/TRIMETHOPRIM DS 800/160MG TAB PO SCH ×3 (05:55→21:08)
--- NOTE | 2022-12-06 06:41 | Hospitalist Progress Note ---
Date of Service December 06, 2022 Assessment & Plan (1) Multifocal pneumonia: Plan: 62 y/o female with a PMHx of B-cell lymphoma s/p chemo and radiation therapy, HTN, OAB, and arthritis presented with hypoxia likely in the setting of multifocal pneumonia admitted for further workup and IV abx now s/p bronchoscopy with slight subjective improvement, but continued significant oxygen requirement. #Multifocal PNA #Sepsis POA CTA chest and x-ray favor pneumonia. Viral BioFire negative, Pro-Jerry negative. Patient is immunocompromised as she has B-cell lymphoma. Higher risk of abnormal pathogens - broad work up indicated. Blood cultures negative x 48H. Legionella urine ab negative. BAL with rare danelle species. More likely to be a contaminant. Fungal blood cultures, pendingiIf positive will begin antifungal treatment. Patient is not neutropenic so treatment with an echinocandin such as caspofungin would be appropriate. Abx: Azithromycin 12/01 x1 Cefepime 12/01 x1 Zosyn 12/01 - ongoing Doxy 12/01 - ongoing Bactrim 12/03 - ongoing Consults: Pulm consult - upgraded to ICU status after bronchoscopy, downgraded to PCU 12/04 ID consult - rec adding Bactrim TID as well as steroid taper 40 BID 5 days 40 QD 5 days 20 QD 11 days pending PJP r/o [12/04 - 12/24] Plan: fungal blood cultures pending Strep pneumo, PJP, fungitell, crypto ag, aspergillosis ag pending f/u cytology/pathology BAL bacterial, fungal, AFB cx #Acute hypoxic respiratory failure Patient with significant oxygen requirement. Patient on 40L HFNC with 100% FiO2. Patient may end up intubated if she begins to experience respiratory fatigue. No signs of accessory muscle usage or nasal flaring at present. Discussed with patient. Amenable to intubation. Recommend that she remain on the ICU floor at this time even though she is PCU status. Supplemental oxygen as needed, DuoNebs every 4 hours Outpatient pulm f/u #Diarrhea Patient on multiple abx. Will test for c. dif and add on probiotics. #Anemia Initial hemoglobin of 14.6 in the ED. 10.9 on 12/02. Hemoglobin remains stable at this time. Most likely dilutional effect. No signs or symptoms of an acute bleed. Continue to monitor #Demand ischemia Troponin peaked at 31.3. No signs and symptoms of ACS #Electrolyte Abnormalities Electrolytes monitored and repleted as indicated during hospital stay #Diffuse B Cell Lymphoma #History of chemoradiation therapy Stable. Follows with Dr. Donahue #Arthritis Stable on hydroxychloroquine - continue. Will do Tylenol instead of NSAIDs while inpatient. #HTN Patient on HCTZ at home. Was hypotensive during hospital stay and HCTZ was held. Restarted as patient HDS. Code status: full DVT ppx: Lovenox SQ QD GI ppx: added pantoprazole in setting of steroid use FENGI: Regular Dispo: PCU (2) Hypoxia: (3) Elevated troponin I level: (4) Diffuse large B cell lymphoma: (5) RANDY (stress urinary incontinence, female): (6) History of radiation exposure: (7) Hypertension: (8) Arthritis: (9) Sepsis: Admission and Anticipated Discharge Date Admission Date: December 01, 2022 Supervising Physician Co-Signing Physician Notes I personally examined the patient and verified all ward points of history and exam, discussed case, and agree with decision making with Dr [].Fabian feeling okay, just had an episode of shortness of breath. Nursing notes that she was trying to cough up mucus and then became fatigued. Remedied with BiPAP. Vitals noted, in general she is awake and alert appears fatigued but fort unately no distress although she is wearing BiPAP. Lungs are surprisingly clear, although difficult exam, no rales rhonchi or wheezes noted good effort no accessory muscle use again on BiPAP. No focal neurodeficits. Pneumonia, severe hypoxiacontinue antibiotics and supportive care. DVT prophylaxisLovenox otherwise as above Subjective Pt seen at bedside this morning. Doing well. Bipap overnight, high flow NC this morning. Looks comfortable, states that she feels like her breathing is better from yesterday. Review of Systems Review of Systems: As per above Physical Exam Physical Exam: Gen: non-toxic appearing female in NAD, breathing comfortably on 40L high flow NC Resp: continued decreased air movement improved from admission, diffuse crackles, breathing comfortably, no accessory muscle usage, able to speak in full sentences CV: tachycardia, regular rhythm, no m/r/g clinically well perfused Abd: non-distended MSK: no obvious deformities Neuro: alert and oriented Psych: appropriate mood and affect Skin: no rashes or bruising noted Results & Data Results & Data Vital Signs (Past 12 Hours) Vital Signs Temp Pulse Pulse Resp BP Pulse Ox O2 Del Method 12/06/22 04:00 36.9 C 97 H 22 95 12/06/22 04:00 123/75 12/06/22 03:00 36.9 C 96 H 29 H 97 12/06/22 03:00 121/69 12/06/22 02:00 37.0 C 100 H 28 H 96 12/06/22 02:00 121/77 12/06/22 01:00 36.9 C 95 H 27 H 98 12/06/22 01:00 119/79 12/06/22 02:50 102 H 31 H 92 BiPAP 12/06/22 02:48 102 H 31 H 92 12/06/22 00:00 36.9 C 99 H 23 98 12/06/22 00:00 123/80 12/05/22 23:00 36.8 C 96 H 29 H 97 12/05/22 23:00 130/74 12/05/22 22:00 36.8 C 99 H 31 H 98 12/05/22 22:00 131/74 12/05/22 22:42 99 H 26 H 98 BiPAP 12/05/22 22:42 99 H 26 H 99 12/05/22 21:00 36.9 C 98 H 27 H 99 12/05/22 21:00 120/82 12/05/22 20:00 37.1 C 108 H 29 H 93 12/05/22 20:00 126/75 12/05/22 19:00 100 H 30 H 90 12/05/22 19:00 127/82 12/05/22 20:00 BiPAP 12/05/22 19:07 113 H 32 H 93 BiPAP 12/05/22 19:07 113 H 32 H 93 FiO2 12/06/22 04:00 12/06/22 04:00 12/06/22 03:00 12/06/22 03:00 12/06/22 02:00 12/06/22 02:00 12/06/22 01:00 12/06/22 01:00 12/06/22 02:50 80 12/06/22 02:48 80 12/06/22 00:00 12/06/22 00:00 12/05/22 23:00 12/05/22 23:00 12/05/22 22:00 12/05/22 22:00 12/05/22 22:42 80 12/05/22 22:42 80 12/05/22 21:00 12/05/22 21:00 12/05/22 20:00 12/05/22 20:00 12/05/22 19:00 12/05/22 19:00 12/05/22 20:00 12/05/22 19:07 12/05/22 19:07 Resident Activity Tracking Resident Involvement: Resident Care Provided Care Provided: Adult Hospital Medicine
[2022-12-06] MEDS: ACETAMINOPHEN 325 MG TAB PO PRN ×2 (07:29→18:24)
[2022-12-06] MEDS: ONDANSETRON INJ 2 MG/ML 2 ML VIAL IV PRN ×2 (07:30→21:14)
[2022-12-06] MEDS: FEXOFENADINE HCL 180 MG TAB PO SCH (08:37)
[2022-12-06] MEDS: predniSONE 20 MG TAB PO SCH ×2 (08:38→21:08)
[2022-12-06] MEDS: ADVANCED PROBIOTIC 1250 MG CAPSULE PO SCH (08:38)
[2022-12-06] MEDS: FLUoxetine HCL 20 MG CAP PO SCH (08:38)
[2022-12-06] MEDS: PANTOprazole 40 MG TAB PO SCH (08:38)
[2022-12-06] MEDS: HYDROXYCHLOROQUINE SULFATE 200 MG TAB PO SCH (08:38)
[2022-12-06] MEDS: VIBEGRON 75 MG TAB PO SCH (08:39)
[2022-12-06] MEDS: DOXYCYCLINE HYCLATE 100 MG in DEXTROSE 5% 100 ML IV SCH (11:58)
[2022-12-06] MEDS ORDERED: POTASSIUM CHLORIDE CRTAB 20 MEQ TABCR PO STA (12:50)
[2022-12-06] MEDS ORDERED: MAGNESIUM SULFATE / D5W 1 GM/100 ML BAG IV ONE (13:00)
--- NOTE | 2022-12-06 17:19 | Billing Data ---
Date of Service December 06, 2022 Coding Level of Care Code 02341 SUB INP/OBS CARE
--- NOTE | 2022-12-06 18:37 | Critical Care Progress Note ---
Date of Service December 06, 2022 Assessment & Plan (1) History of radiation exposure: (2) Multifocal pneumonia: (3) Diffuse large B cell lymphoma: (4) Abnormal chest CT: Plan CT chest 12/01/2022 personally reviewed: Dense consolidative process appreciated in the right upper lobe Patchy groundglass opacities appreciated bilaterally Elevated right hemidiaphragm No significant mediastinal lymphadenopathy 2D echo 05/12/2022: EF 60-65%, RV normal in size and function -- Acute hypoxic respiratory failure Secondary to multilobar pneumonia Respiratory bio fire negative for everything on 11/25/2022 as well as 12/01/2022 Procalcitonin negative CRP 8.07 Patient has a parakeet at home for 10 years Lymphoma itself can give similar finding Last chemo was in August 2022, would consider to be immunosuppressed right now. PJP could present in similar way S/p bronchoscopy 12/03/2022, some anterior tracheal nodularity. Clear secretions. BAL 50% lymphocytes Follow-up cytology as well as micro BAL sent for coccidioidal, blastomycosis, cryptococcal as well as PJP PCR Case was discussed with Dr. Gonzales --History of B-cell lymphoma S/p R-CHOP and radiation Plan: In/out: 1220ml/6305ml Chest x-ray from today does not show any significant change compared to before. Continue with empirically treating the patient with Bactrim till we have negative PJP PCR Continue with prednisone 40 mg twice daily for 5 followed by 40 mg for 5 followed by 20 mg for 11 days. Completing 21 days of prednisone Continue with pantoprazole 40 mg daily as patient will be on prednisone For her anxiety as well as tachycardia may be low-dose beta-jessica could be thought of. Will defer to primary care. Patient is requiring a lot of oxygen right now. She is already maxed out on 100% FiO2. She is not in any respiratory distress her respirate is still in the high teens to low 20s. Will continue to follow cautiously with low threshold for intubation Would recommend to keep her on the ICU floor I have personally spent 42 minutes of critical care time in the direct management of this patient. This is a life/limb threatening event. This includes time spent evaluating patient, direct bedside care, chart review, placing orders, interpretation of diagnostic studies, discussion with consultants, patient, and family members, as well as other required patient management activities. This time is exclusive of all separately billable procedures, and teaching time and separate from and in addition to any other critical care service time. Please note the above document was generated using voice recognition software. It may contain grammatical, syntax or spelling errors. Admission and Anticipated Discharge Date Admission Date: December 01, 2022 Subjective Patient resting comfortably on high flow for majority of the day but has had persistent coughing episodes with associated oxygen desaturation now requiring BiPAP usage. She has no new complaints this afternoon. Review of Systems Review of Systems: All systems reviewed & are unremarkable except as noted in Subjective Physical Exam Constitutional: She appears comfortable although requiring high flow oxygen and increased FiO2. No acute distress Eyes: PERRL, conjunctivae normal, anicteric sclerae ENMT: external ear and nose normal, oropharynx normal Neck: trachea midline, no thyromegaly Full range of motion Respiratory: Diminished breath sounds to the bases with coarse bilateral rhonchi. Some occasional crackles also noted to the lower lobe. Cardiovascular: RRR, no murmur, no edema S1 and S2 within normal limits Gastrointestinal (Abdomen): normal bowel sounds, soft, nontender, no hepatosplenomegaly Musculoskeletal: no cyanosis or clubbing, extremities motor strength 5/5 Skin: Dry and frail. No new skin abrasions tears or lesions Neurologic: patellar DTR's 2+ bilat, sensation intact and PERRL, EOMI, accommodation nl, no face palsy, no dysarthria Psychiatric: A+Ox3, euthymic affect Results & Data Results & Data Vital Signs (Past 12 Hours) Vital Signs Temp Pulse Pulse Resp BP Pulse Ox O2 Del Method 12/06/22 16:00 103 H 12/06/22 08:00 101 H 12/06/22 17:00 36.9 C 93 H 35 H 137/75 91 BiPAP 12/06/22 16:00 36.9 C 97 H 25 H 122/74 94 High Flow Nasal Cannula 12/06/22 15:00 36.9 C 86 29 H 113/71 95 High Flow Nasal Cannula 12/06/22 14:00 36.9 C 94 H 21 118/77 96 High Flow Nasal Cannula 12/06/22 15:37 94 H 23 92 High Flow Nasal Cannula 12/06/22 13:00 36.9 C 86 34 H 110/71 94 High Flow Nasal Cannula 12/06/22 12:00 36.9 C 99 H 29 H 109/79 93 High Flow Nasal Cannula 12/06/22 11:21 92 H 25 H 92 High Flow Nasal Cannula 12/06/22 11:00 36.9 C 105 H 25 H 109/69 94 High Flow Nasal Cannula 12/06/22 10:00 36.9 C 91 H 18 105/64 94 High Flow Nasal Cannula 12/06/22 09:00 36.9 C 95 H 24 112/71 100 High Flow Nasal Cannula 12/06/22 08:00 36.8 C 103 H 21 106/62 95 High Flow Nasal Cannula 12/06/22 09:08 37.0 C 12/06/22 07:00 High Flow Nasal Cannula 12/06/22 08:07 97 H 28 H 92 High Flow Nasal Cannula 12/06/22 07:00 36.7 C 98 H 30 H 115/76 93 High Flow Nasal Cannula O2 Flow Rate FiO2 12/06/22 16:00 12/06/22 08:00 12/06/22 17:00 80 12/06/22 16:00 40 100 12/06/22 15:00 40 100 12/06/22 14:00 40 100 12/06/22 15:37 40 100 12/06/22 13:00 40 100 12/06/22 12:00 40 100 12/06/22 11:21 40 100 12/06/22 11:00 40 100 12/06/22 10:00 50 100 12/06/22 09:00 50 100 12/06/22 08:00 50 100 12/06/22 09:08 12/06/22 07:00 40 100 12/06/22 08:07 40 100 12/06/22 07:00 50 100 Critical Care Results & Data Vital Signs (Past 12 Hours) Vital Signs Temp Pulse Pulse Resp BP Pulse Ox O2 Del Method 12/06/22 16:00 103 H 12/06/22 08:00 101 H 12/06/22 17:00 36.9 C 93 H 35 H 137/75 91 BiPAP 12/06/22 16:00 36.9 C 97 H 25 H 122/74 94 High Flow Nasal Cannula 12/06/22 15:00 36.9 C 86 29 H 113/71 95 High Flow Nasal Cannula 12/06/22 14:00 36.9 C 94 H 21 118/77 96 High Flow Nasal Cannula 12/06/22 15:37 94 H 23 92 High Flow Nasal Cannula 12/06/22 13:00 36.9 C 86 34 H 110/71 94 High Flow Nasal Cannula 12/06/22 12:00 36.9 C 99 H 29 H 109/79 93 High Flow Nasal Cannula 12/06/22 11:21 92 H 25 H 92 High Flow Nasal Cannula 12/06/22 11:00 36.9 C 105 H 25 H 109/69 94 High Flow Nasal Cannula 12/06/22 10:00 36.9 C 91 H 18 105/64 94 High Flow Nasal Cannula 12/06/22 09:00 36.9 C 95 H 24 112/71 100 High Flow Nasal Cannula 12/06/22 08:00 36.8 C 103 H 21 106/62 95 High Flow Nasal Cannula 12/06/22 09:08 37.0 C 12/06/22 07:00 High Flow Nasal Cannula 12/06/22 08:07 97 H 28 H 92 High Flow Nasal Cannula 12/06/22 07:00 36.7 C 98 H 30 H 115/76 93 High Flow Nasal Cannula O2 Flow Rate FiO2 12/06/22 16:00 12/06/22 08:00 12/06/22 17:00 80 12/06/22 16:00 40 100 12/06/22 15:00 40 100 12/06/22 14:00 40 100 12/06/22 15:37 40 100 12/06/22 13:00 40 100 12/06/22 12:00 40 100 12/06/22 11:21 40 100 12/06/22 11:00 40 100 12/06/22 10:00 50 100 12/06/22 09:00 50 100 12/06/22 08:00 50 100 12/06/22 09:08 12/06/22 07:00 40 100 12/06/22 08:07 40 100 12/06/22 07:00 50 100 Lab & Micro Results (Past 24 Hours) RBC 3.51 M/uL (4.20-5.40) L 12/06/22 WBC 14.97 K/ul (4.8-10.8) H 12/06/22 Hgb 10.9 g/dl (12.0-16.0) L 12/06/22 Hct 32.5 % (37.0-47.0) L 12/06/22 MCV 92.6 fL (80.0-100.0) 12/06/22 MCH 31.1 pg (25.0-34.0) 12/06/22 MCHC 33.5 g/dL (32.0-36.0) 12/06/22 RDW Standard Deviation 45.4 fL (36.4-46.3) 12/06/22 RDW Coefficient of Variation 13.4 % (11.5-14.5) 12/06/22 Plt Count 312 K/uL (130-400) 12/06/22 MPV 9.1 fL (9.4-12.4) L 12/06/22 Na 137 mmol/L (136-145) 12/06/22 K 3.7 mmol/L (3.5-5.1) 12/06/22 Cl 102 mmol/L (98-107) 12/06/22 CO2 26 mmol/L (21-32) 12/06/22 Anion Gap 9 (3-11) 12/06/22 BUN 12 mg/dl (6-23) 12/06/22 Creatinine 0.59 mg/dl (0.6-1.2) L 12/06/22 Estimated GFR ( Amer) 115.5 ml/min 12/06/22 Estimated GFR (Non-Af Amer) 99.6 ml/min 12/06/22 BUN/Creatinine Ratio 20.3 (10-20) H 12/06/22 Glu 146 mg/dl (70-99(Fasting)) H 12/06/22 Ca 9.1 mg/dl (8.6-10.3) 12/06/22 Phosphorus Level 2.6 mg/dl (2.5-4.9) 12/06/22 Mg 1.9 mg/dl (1.7-2.4) 12/06/22 04:12 Calcium Level 9.1 mg/dl (8.6-10.3) 12/06/22 04:12 Microbiology 12/03/22 09:00 Gram Stain - Final Ba Lavage,Right Lower Lobe Bronchial Culture - Final Light normal thor. I & O Totals 24 Hours 12/05/22 12/06/22 12/07/22 06:59 06:59 06:59 Intake Total 1250 / 1250 750 / 750 850 / 850 Output Total 450 / 450 6250 / 6250 1605 / 1605 Balance 800 / 800 -5500 / -5500 -755 / -755 Cumulative 12/01/22 19:28 thru 12/06/22 18:10 Intake Total 6744.334 Output Total 83145 Balance -3731.666 RT Ventilator Mngmt (Last Documented) Ventilator Ordered Settings Respiratory Rate 35 12/06/22 17:00 Fraction of Inspired Oxygen 80 12/06/22 17:00 Ventilator - PT Measurements Respiratory Rate 35 Coding Level of Care Code 29884 CRITICAL CARE 1ST 30-74M Diagnoses History of radiation exposure Z92.3 Multifocal pneumonia J18.9 Diffuse large B cell lymphoma C83.[address] R93.89
[2022-12-06] MEDS: ENOXAPARIN INJ 40 MG/0.4 ML SYR SQ SCH (21:08)
[2022-12-07] MEDS: DOXYCYCLINE HYCLATE 100 MG in DEXTROSE 5% 100 ML IV SCH ×2 (00:30→11:53)
[2022-12-07] MEDS: ALBUT/IPRATROP 3MG/0.5MG NEB 3 ML VIAL NEB SCH ×6 (03:08→22:58)
[2022-12-07] MEDS: PIPERACILLIN/TAZOBACTAM 4.5 GM in DEXTROSE 5% 100 ML IV SCH ×3 (05:27→20:37)
[2022-12-07] MEDS: SULFAMETHOXAZOLE/TRIMETHOPRIM DS 800/160MG TAB PO SCH ×3 (05:27→20:37)
[2022-12-07 06:01] LABS: Hemoglobin 10.7 g/dl (12.0-16.0); Mean Corpuscular Hemoglobin 30.6 pg (25.0-34.0); Mean Corpuscular Hgb Conc 33.4 g/dL (32.0-36.0); Mean Corpuscular Volume 91.4 fL (80.0-100.0); Mean Platelet Volume 9.3 fL (9.4-12.4); Platelet Count 333 K/uL (130-400); RDW Coefficient of Variation 13.7 % (11.5-14.5); RDW Standard Deviation 46.1 fL (36.4-46.3); White Blood Count 11.22 K/ul (4.8-10.8)
[2022-12-07 06:08] LABS: BUN Creatinine Ratio 24.5 (10-20); Calcium 8.9 mg/dl (8.6-10.3); Creatinine Clr Calc Pharmacy 115.2 ml/min; Est GFR (African American) 119.6 ml/min; Est GFR (Non-African American) 103.2 ml/min; Magnesium 2.2 mg/dl (1.7-2.4); Phosphorus 2.8 mg/dl (2.5-4.9); Potassium 4.4 mmol/L (3.5-5.1)
[2022-12-07 06:25] LABS: Basophils # (auto) 0.01 K/uL (0.00-0.20); Basophils % (auto) 0.1 %; Hypersegmented Neutrophils 1+; Immature Granulocytes # (auto) 0.04 K/uL (0.01-0.20); Immature Granulocytes % (auto) 0.4 %; Lymphocytes # (auto) 0.26 K/uL (1.20-3.40); Lymphocytes % (auto) 2.3 %; Monocytes % (auto) 6.2 %; Neutrophils # (auto) 10.21 K/uL (1.40-6.50)
--- NOTE | 2022-12-07 06:41 | Hospitalist Progress Note ---
Date of Service December 07, 2022 Assessment & Plan (1) Multifocal pneumonia: Plan: 62 y/o female with a PMHx of B-cell lymphoma s/p chemo and radiation therapy, HTN, OAB, and arthritis presented with hypoxia likely in the setting of multifocal pneumonia admitted for further workup and IV abx now s/p bronchoscopy with slight subjective improvement, but continued significant oxygen requirement. #Multifocal PNA #Sepsis POA CTA chest and x-ray favor pneumonia. Viral BioFire negative, Pro-Jerry negative. Patient is immunocompromised as she has B-cell lymphoma. Higher risk of abnormal pathogens - broad work up indicated. Blood cultures negative x 48H. Legionella urine ab negative. BAL with rare danelle species. More likely to be a contaminant. Fungal blood cultures, pending if positive will begin antifungal treatment. Patient is not neutropenic so treatment with an echinocandin such as caspofungin would be appropriate. Cytology from bronchoscopy with Moderate chronic active pneumonitis with many histiocytes, no malignant cells. Pathology without fungal organisms, mycobacterial organisms. Abx: Azithromycin 12/01 x1 Cefepime 12/01 x1 Zosyn 12/01 - ongoing Doxy 12/01 - ongoing Bactrim 12/03 - ongoing Consults: Pulm consult - upgraded to ICU status after bronchoscopy, downgraded to PCU 12/04 ID consult - rec adding Bactrim TID as well as steroid taper 40 BID 5 days 40 QD 5 days 20 QD 11 days pending PJP r/o [12/04 - 12/24] Plan: fungal blood cultures pending- continue to remain without growth to date Strep pneumo, PJP, fungitell, crypto ag, aspergillosis ag pending Continue #Acute hypoxic respiratory failure Patient with significant oxygen requirement. Patient on 40L HFNC with 100% FiO2. If worsening respiratory status, patient has stated that she would want intubation if needed. Recommend that she remain on the ICU floor at this time even though she is PCU status. Supplemental oxygen as needed, DuoNebs every 4 hours Continue prednisone 40 mg twice daily for 5 followed by 40 mg for 5 followed by 20 mg for 11 days. Completing 21 days of prednisone (today is day 4) Continue with pantoprazole 40 mg daily while on prednisone Outpatient pulm f/u #Diarrhea Patient on multiple abx. c. dif pending. Continue probiotics. #Anemia Initial hemoglobin of 14.6 in the ED. 10.9 on 12/02. Hemoglobin remains stable at this time. Most likely dilutional effect. No signs or symptoms of an acute bleed. Continue to monitor #Demand ischemia Troponin peaked at 31.3. No signs and symptoms of ACS #Electrolyte Abnormalities Electrolytes monitored and repleted as indicated during hospital stay #Diffuse B Cell Lymphoma #History of chemoradiation therapy Stable. Follows with Dr. Donahue #Arthritis Stable on hydroxychloroquine - continue. Will do Tylenol instead of NSAIDs while inpatient. #HTN Patient on HCTZ at home. Was hypotensive during hospital stay and HCTZ was held. Restarted as patient HDS. Code status: full DVT ppx: Lovenox SQ QD GI ppx: added pantoprazole in setting of steroid use FENGI: Regular Dispo: PCU (2) Diffuse large B cell lymphoma: (3) Abnormal chest CT: (4) RANDY (stress urinary incontinence, female): (5) Hypertension: (6) Arthritis: (7) Sepsis: (8) History of radiation exposure: Admission and Anticipated Discharge Date Admission Date: December 01, 2022 Supervising Physician Co-Signing Physician Notes I personally examined the patient and verified all ward points of history and exam, discussed case, and agree with decision making with Dr Peralta feels OK still needing high flow / high FiO2. Vitals noted, in general she is awake and alert appears and despite high flow NC @ 90% she looks surprisingly NAD. breathing unlabored no conversational dyspnea good effort no accessory muscle use again on BiPAP. No focal neurodeficits. Pneumonia, severe hypoxiacontinue antibiotics and supportive care. still requiring significant FiO2, appreciate pulmonary input DVT prophylaxisLovenox otherwise as above Subjective Pt resting comfortably this morning. She feels her breathing has improved from yesterday. Otherwise no complaints. Review of Systems Review of Systems: As per above Physical Exam Physical Exam: Constitutional: well-appearing, no acute distress HEENT: NCAT, no conjunctival injection CV: regular rhythm, no murmur appreciated, extremities well-perfused Resp: CTABL, no wheezes/rales/rhonchi appreciated, no increased work of breathing MSK: no gross deformities appreciated Skin: warm, dry, no rash appreciated Neuro: alert, oriented, no focal neurologic deficit appreciated Results & Data Results & Data Vital Signs (Past 12 Hours) Vital Signs Temp Pulse Pulse Resp BP Pulse Ox O2 Del Method 12/07/22 06:00 36.6 C 97 H 22 92 12/07/22 06:00 126/80 12/07/22 05:00 36.5 C 100 H 24 96 12/07/22 05:00 108/84 12/07/22 04:00 36.6 C 93 H 25 H 95 12/07/22 04:00 102/75 12/07/22 03:00 36.6 C 87 27 H 96 12/07/22 03:00 116/73 12/07/22 02:00 36.6 C 85 20 92 12/07/22 02:00 126/79 12/07/22 03:08 94 H 26 H 97 BiPAP 12/07/22 03:08 88 26 H 97 12/07/22 01:00 36.6 C 87 29 H 94 12/07/22 01:00 117/70 12/07/22 00:00 36.6 C 86 27 H 95 12/07/22 00:00 123/71 12/06/22 23:00 36.7 C 99 H 23 96 12/06/22 23:00 121/78 12/06/22 22:00 36.9 C 88 25 H 93 12/06/22 22:00 108/75 12/06/22 21:00 36.9 C 95 H 24 94 12/06/22 21:00 117/72 12/06/22 20:00 37.0 C 103 H 29 H 93 12/06/22 20:00 122/83 12/06/22 19:00 37.0 C 98 H 28 H 95 12/06/22 19:00 118/82 12/06/22 22:54 97 H 23 95 BiPAP 12/06/22 22:54 97 H 23 95 12/06/22 20:00 BiPAP 12/06/22 19:22 106 H 26 H 91 BiPAP 12/06/22 19:22 106 H 26 H 92 O2 Flow Rate FiO2 12/07/22 06:00 12/07/22 06:00 12/07/22 05:00 12/07/22 05:00 12/07/22 04:00 12/07/22 04:00 12/07/22 03:00 12/07/22 03:00 12/07/22 02:00 12/07/22 02:00 12/07/22 03:08 80 12/07/22 03:08 80 12/07/22 01:00 12/07/22 01:00 12/07/22 00:00 12/07/22 00:00 12/06/22 23:00 12/06/22 23:00 12/06/22 22:00 12/06/22 22:00 12/06/22 21:00 12/06/22 21:00 12/06/22 20:00 12/06/22 20:00 12/06/22 19:00 12/06/22 19:00 12/06/22 22:54 80 12/06/22 22:54 80 12/06/22 20:00 80 12/06/22 19:22 80 12/06/22 19:22 80 Resident Activity Tracking Resident Involvement: Resident Care Provided Care Provided: Adult Hospital Medicine
[2022-12-07] MEDS: FEXOFENADINE HCL 180 MG TAB PO SCH (08:38)
[2022-12-07] MEDS: FLUoxetine HCL 20 MG CAP PO SCH (08:38)
[2022-12-07] MEDS: HYDROXYCHLOROQUINE SULFATE 200 MG TAB PO SCH (08:38)
[2022-12-07] MEDS: ADVANCED PROBIOTIC 1250 MG CAPSULE PO SCH (08:38)
[2022-12-07] MEDS: PANTOprazole 40 MG TAB PO SCH (08:38)
[2022-12-07] MEDS: VIBEGRON 75 MG TAB PO SCH (08:39)
[2022-12-07] MEDS: predniSONE 20 MG TAB PO SCH ×2 (08:39→20:36)
--- NOTE | 2022-12-07 11:34 | Critical Care Progress Note ---
Date of Service December 07, 2022 Assessment & Plan (1) History of radiation exposure: (2) Multifocal pneumonia: (3) Diffuse large B cell lymphoma: (4) Abnormal chest CT: Plan CT chest 12/01/2022 personally reviewed: Dense consolidative process appreciated in the right upper lobe Patchy groundglass opacities appreciated bilaterally Elevated right hemidiaphragm No significant mediastinal lymphadenopathy 2D echo 05/12/2022: EF 60-65%, RV normal in size and function -- Acute hypoxic respiratory failure Secondary to multilobar pneumonia Respiratory bio fire negative for everything on 11/25/2022 as well as 12/01/2022 Procalcitonin negative CRP 8.07 Patient has a parakeet at home for 10 years Lymphoma itself can give similar finding Last chemo was in August 2022, would consider to be immunosuppressed right now. PJP could present in similar way S/p bronchoscopy 12/03/2022, some anterior tracheal nodularity. Clear secretions. BAL 50% lymphocytes Follow-up cytology as well as micro BAL sent for coccidioidal, blastomycosis, cryptococcal as well as PJP PCR Case was discussed with Dr. Gonzales --History of B-cell lymphoma S/p R-CHOP and radiation Plan: In/out: 1220ml/6305ml Chest x-ray from today does not show any significant change compared to before. Continue with empirically treating the patient with Bactrim till we have negative PJP PCR. All other cultures negative except for related sputum growing Summer. Continue with prednisone 40 mg twice daily for 5 followed by 40 mg for 5 followed by 20 mg for 11 days. Completing 21 days of prednisone Continue with pantoprazole 40 mg daily as patient will be on prednisone For her anxiety as well as tachycardia may be low-dose beta-jessica could be thought of. Will defer to primary care. Patient is requiring a lot of oxygen right now. She is already maxed out on 100% FiO2. She is not in any respiratory distress her respirate is still in the high teens to low 20s. Will continue to follow cautiously with low threshold for intubation Would recommend to keep her on the ICU floor I have personally spent 39 minutes of critical care time in the direct management of this patient today on 12/07/2022. This is a life/limb threatening event. This includes time spent evaluating patient, direct bedside care, chart review, placing orders, interpretation of diagnostic studies, discussion with consultants, patient, and family members, as well as other required patient management activities. This time is exclusive of all separately billable procedures, and teaching time and separate from and in addition to any other critical care service time. Please note the above document was generated using voice recognition software. It may contain grammatical, syntax or spelling errors. Admission and Anticipated Discharge Date Admission Date: December 01, 2022 Subjective Patient switched from BiPAP to high flow this morning. Feels that her coughing has improved. And she is able to eat breakfast this morning. Respiratory rate still at 20 with oxygen saturation close to 100%. Patient examined this morning with nursing personnel and Enrique Lucio PA-C Review of Systems Review of Systems: All systems reviewed & are unremarkable except as noted in Subjective Physical Exam Constitutional: No acute distress at this time Eyes: PERRL, conjunctivae normal, anicteric sclerae ENMT: external ear and nose normal, oropharynx normal Neck: trachea midline, no thyromegaly Respiratory: Less coughing. Some crackles to the right posterior thorax. Poor inspiratory and expiratory effort. Cardiovascular: RRR, no murmur, no edema Gastrointestinal (Abdomen): normal bowel sounds, soft, nontender, no hepatosplenomegaly Musculoskeletal: no cyanosis or clubbing, extremities motor strength 5/5 Skin: no rashes, warm and dry Neurologic: patellar DTR's 2+ bilat, sensation intact and PERRL, EOMI, accommodation nl, no face palsy, no dysarthria Psychiatric: A+Ox3, euthymic affect Results & Data Results & Data Vital Signs (Past 12 Hours) Vital Signs Temp Pulse Pulse Resp BP Pulse Ox O2 Del Method 12/07/22 09:00 36.6 C 101 H 22 118/70 98 High Flow Nasal Cannula 12/07/22 08:00 36.6 C 102 H 24 112/75 90 BiPAP 12/07/22 07:00 36.6 C 96 H 24 121/77 95 BiPAP 12/07/22 07:00 BiPAP 12/07/22 06:00 36.6 C 97 H 22 92 12/07/22 06:00 126/80 12/07/22 05:00 36.5 C 100 H 24 96 12/07/22 05:00 108/84 08/29/23 04:00 36.6 C 93 H 25 H 95 12/07/22 04:00 102/75 12/07/22 03:00 36.6 C 87 27 H 96 12/07/22 03:00 116/73 12/07/22 02:00 36.6 C 85 20 92 12/07/22 02:00 126/79 12/07/22 03:08 94 H 26 H 97 BiPAP 12/07/22 03:08 88 26 H 97 12/07/22 01:00 36.6 C 87 29 H 94 12/07/22 01:00 117/70 12/07/22 00:00 36.6 C 86 27 H 95 12/07/22 00:00 123/71 O2 Flow Rate FiO2 12/07/22 09:00 40 100 12/07/22 08:00 80 12/07/22 07:00 80 12/07/22 07:00 80 12/07/22 06:00 12/07/22 06:00 12/07/22 05:00 12/07/22 05:00 12/07/22 04:00 12/07/22 04:00 12/07/22 03:00 12/07/22 03:00 12/07/22 02:00 12/07/22 02:00 12/07/22 03:08 80 12/07/22 03:08 80 12/07/22 01:00 12/07/22 01:00 12/07/22 00:00 12/07/22 00:00 Critical Care Results & Data Vital Signs (Past 12 Hours) Vital Signs Temp Pulse Pulse Resp BP Pulse Ox O2 Del Method 12/07/22 09:00 36.6 C 101 H 22 118/70 98 High Flow Nasal Cannula 12/07/22 08:00 36.6 C 102 H 24 112/75 90 BiPAP 12/07/22 07:00 36.6 C 96 H 24 121/77 95 BiPAP 12/07/22 07:00 BiPAP 12/07/22 06:00 36.6 C 97 H 22 92 12/07/22 06:00 126/80 12/07/22 05:00 36.5 C 100 H 24 96 12/07/22 05:00 108/84 12/07/22 04:00 36.6 C 93 H 25 H 95 12/07/22 04:00 102/75 12/07/22 03:00 36.6 C 87 27 H 96 12/07/22 03:00 116/73 12/07/22 02:00 36.6 C 85 20 92 12/07/22 02:00 126/79 12/07/22 03:08 94 H 26 H 97 BiPAP 12/07/22 03:08 88 26 H 97 12/07/22 01:00 36.6 C 87 29 H 94 12/07/22 01:00 117/70 12/07/22 00:00 36.6 C 86 27 H 95 12/07/22 00:00 123/71 O2 Flow Rate FiO2 12/07/22 09:00 40 100 12/07/22 08:00 80 12/07/22 07:00 80 12/07/22 07:00 80 12/07/22 06:00 12/07/22 06:00 12/07/22 05:00 12/07/22 05:00 12/07/22 04:00 12/07/22 04:00 12/07/22 03:00 12/07/22 03:00 12/07/22 02:00 12/07/22 02:00 12/07/22 03:08 80 12/07/22 03:08 80 12/07/22 01:00 12/07/22 01:00 12/07/22 00:00 12/07/22 00:00 Lab & Micro Results (Past 24 Hours) RBC 3.50 M/uL (4.20-5.40) L 12/07/22 WBC 11.22 K/ul (4.8-10.8) H 12/07/22 Hgb 10.7 g/dl (12.0-16.0) L 12/07/22 Hct 32.0 % (37.0-47.0) L 12/07/22 MCV 91.4 fL (80.0-100.0) 12/07/22 MCH 30.6 pg (25.0-34.0) 12/07/22 MCHC 33.4 g/dL (32.0-36.0) 12/07/22 RDW Standard Deviation 46.1 fL (36.4-46.3) 12/07/22 RDW Coefficient of Variation 13.7 % (11.5-14.5) 12/07/22 Plt Count 333 K/uL (130-400) 12/07/22 MPV 9.3 fL (9.4-12.4) L 12/07/22 Neutrophils (%) (Auto) 91.0 % 12/07/22 Lymphocytes (%) (Auto) 2.3 % 12/07/22 Monocytes # (Auto) 0.70 K/uL (0.11-0.59) H 12/07/22 Eosinophils # (Auto) 0.00 K/uL (0.00-0.50) 12/07/22 Immature Granulocyte % (Auto) 0.4 % 12/07/22 Neutrophils # (Auto) 10.21 K/uL (1.40-6.50) H 12/07/22 Lymphocytes # (Auto) 0.26 K/uL (1.20-3.40) L 12/07/22 Monocytes # (Auto) 0.70 K/uL (0.11-0.59) H 12/07/22 Eosinophils # (Auto) 0.00 K/uL (0.00-0.50) 12/07/22 Basophils # (Auto) 0.01 K/uL (0.00-0.20) 12/07/22 Immature Granulocyte # (Auto) 0.04 K/uL (0.01-0.20) 3 Hypersegmented Neutrophils 1+ 12/07/22 Na 137 mmol/L (136-145) 12/07/22 K 4.4 mmol/L (3.5-5.1) 12/07/22 Cl 102 mmol/L (98-107) 12/07/22 CO2 26 mmol/L (21-32) 12/07/22 Anion Gap 9 (3-11) 12/07/22 BUN 13 mg/dl (6-23) 12/07/22 Creatinine 0.53 mg/dl (0.6-1.2) L 12/07/22 Estimated GFR ( Amer) 119.6 ml/min 12/07/22 Estimated GFR (Non-Af Amer) 103.2 ml/min 12/07/22 BUN/Creatinine Ratio 24.5 (10-20) H 12/07/22 Glu 140 mg/dl (70-99(Fasting)) H 12/07/22 Ca 8.9 mg/dl (8.6-10.3) 12/07/22 Phosphorus Level 2.8 mg/dl (2.5-4.9) 12/07/22 Mg 2.2 mg/dl (1.7-2.4) 12/07/22 05:21 Calcium Level 8.9 mg/dl (8.6-10.3) 12/07/22 05:21 Microbiology 12/01/22 19:55 Aerobic Blood Culture - Final Blood No growth in Aerobic bottle after 5 days. Anaerobic Blood Culture - Final No growth in Anaerobic bottle after 5 days. 12/01/22 20:16 Aerobic Blood Culture - Final Blood No growth in Aerobic bottle after 5 days. Anaerobic Blood Culture - Final 12/03/22 09:00 Gram Stain - Final Ba Lavage,Right Lower Lobe Bronchial Culture - Final Light normal thor. I & O Totals 24 Hours 12/06/22 12/07/22 12/08/22 06:59 06:59 06:59 Intake Total 750 / 750 1200 / 1200 660 / 660 Output Total 6250 / 6250 3705 / 3705 825 / 825 Balance -5500 / -5500 -2505 / -2505 -165 / -165 Cumulative 12/01/22 19:28 thru 12/07/22 10:31 Intake Total 7754.334 Output Total 71668 Balance -5646.666 RT Ventilator Mngmt (Last Documented) Ventilator Ordered Settings Respiratory Rate 22 12/07/22 09:00 Fraction of Inspired Oxygen 100 12/07/22 09:00 Ventilator - PT Measurements Respiratory Rate 22 Coding Level of Care Code 43389 CRITICAL CARE 1ST 30-74M Diagnoses History of radiation exposure Z92.3 Multifocal pneumonia J18.9 Diffuse large B cell lymphoma C83.[address] R93.89
--- NOTE | 2022-12-07 13:03 | Billing Data ---
Date of Service December 07, 2022 Coding Level of Care Code 74154 SUB INP/OBS CARE
--- NOTE | 2022-12-07 15:54 | Infectious Disease Progress Nt ---
Date of Service December 07, 2022 Assessment & Plan (1) Abnormal chest CT: (2) Multifocal pneumonia: (3) Hypoxia: (4) Diffuse large B cell lymphoma: Plan 62 yo female with pmh of B-cell lymphoma, HTN, ? autoimmune arthritis on hydroxychloroquine to the Ed with progressive worsening of shortness of breath, dry cough and hypoxia She completed chemotherapy with RCHOP ( 6 cycles) on 08/27/2022 and completed consolidation radiation therapy right on 11/03/22. A few days post radiation therapy, she developed shortness of breath with fevers. She was evaluated by her PCP. A cxr showed patchy right upper lobe airspace opacity and bilateral lower lung reticulonodular interstitial thickening. She was treated with a 5 day course of azithromycin for presumed URI. She felt somewhat better and went on a 10 d vacation to [place]. Her dry cough and occasional fevers continued. Shortness of breath worsened after vacation. She complained in intermittent drenching sweats. A CT Chest was done on 11/24 which showed stable R axillary adenopathy, stable right scapular and T8 pathologic fractures and interval development of multifocal irregular airspace opacities most pronounced within the right lung apex and lung bases with mild interstitial thickening. Mild bronchiectasis also noted. There was no new or progressive lymphadenopathy within the chest. She was then treated with a course of with Augmentin. On Augmentin her symptoms progressed prompting evaluation in ED on 12/01/22. In Ed she was febrile with a tm 38.2, tachycardic, tachypneic and hypoxic on RA with o2 sat of 83%. O2 sats improved to 93% on 6L. Labs notable for an ESR 54, crp 8.07. MRSA nasal screen negative. Other labs unremarkable. A RVP is negative. Covid 19/influenza/rsv testing negative. A CTA chest showed no PE but revealed multifocal ground-glass and consolidative opacities that progressed concerning for viral pna. She denied travel outside the country or sick contacts. [place] was [place] in the and has never traveled outside the country. 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 She denies known exposure to TB. She has been on and off steroids but not currently. She has a parakeet at home for the last 6 years. She does not clean his cage. She has been exposed to her neighbors cat that lives outside. She denies nausea, rash, edema, change in urine or bowel habits. She is s/p bronchoscopy on 12/03. Findings noted for tracheal nodules (common per d/w pulmonary). There was minimal amount of clear secretion which was suctioned out. There were no evidence of mass, anatomic distortions, or hemorrhage. Bronchoalveolar lavage samples were sent for cell count, Gram stain and bacterial culture, AFB culture and smear, fungal culture and smear, flow cytometry and cytology. Transbronchial biopsies were sent for tissue culture (bacteria, AFB and fungal) and pathology. BAL fluid cell count noted for 50% lymphocytes. She is currently on zosyn and doxycycline and on BIPAP post procedure. She has not had sweats since admission. She feels she may have lost 5 lbs in the last 3 weeks. MICRO 12/01 BCx *2: NGTD 12/02 MRSA nares negative 12/03 BAL gram stain: Moderate WBCs Seen.No Organisms Seen 12/03 BAL cx: Pending 12/03 AFB Smear/cx: Pending 12/03 Fungal smear No Yeast or Hyphae Seen ; CX- Pending ABX Azith 12/01 cefepime 12/01 Zosyn 12/01- ongoing doxy 12/01-ongoing #Diffuse large B-cell lymphoma. sp RCHOP 08/27/2022. s/p XRT 11/03/2022. #Acute respiratory failure # Multilobar pneumonia # Parakeet exposure. She is immunocompromised 2/2 B cell lmphoma but has not received chemotherapy since 08/2022. He progressive SOb, cough, fever with occasion sweats started 3 weeks ago. She has a parakeet at home . She is on Plaquenil. She felt well initially after she recieved 5 d of azithromycin about 2 weeks ago. Procalcitonin in < 0.05. Differential for her presentation include PJP , fungal pna including crypto aspergillus, viral and bacterial pna, Chlamydia Psittaci infection in setting of parakeet exposure OR Pulmonary lymphoma. Discussed case with pulmonary and based on risk factors and Ct lung findings less likely mycobacterial process. Recommendation; Continue Zosyn 4.5g iv q8hrs Continue Doxycycline 100 mg po bid Start Bactrim 2 tabs po BID pending r/o PJP Start PO steroids 40 mg po q12 8 5 d, then 40 mg po daily for 5 d and then 20 mg daily for 11 d pending rule out PJP Follow-up BAL bacterial, fungal and AFB cx., cytology and pathology Follow up BD glucan, legionella cx, viral cx, PJP PCR/DFA, strep pna serology Followup serum crypto ag and aspergill ag ID following Carleen Hurtado MD Admission and Anticipated Discharge Date Admission Date: December 01, 2022 Subjective This patient recommendation is based on a telemedicine consult request which was completed asynchronously through chart review and information provided by the primary physician. The patient was not seen or examined today. The evaluation is consultative in nature and all patient care and treatment decisions can either be accepted or rejected by the patient's primary hospital-based treating physician using their own independent medical judgment for their patient. Time Spent Reviewing Chart: 21 - 30 minutes Results & Data Vital Signs (Past 12 Hours) Vital Signs Temp Pulse Pulse Resp BP Pulse Ox O2 Del Method 12/07/22 14:52 102 H 20 94 High Flow Nasal Cannula 12/07/22 12:00 36.9 C 107 H 27 H 116/71 95 High Flow Nasal Cannula 12/07/22 12:09 100 H 18 90 High Flow Nasal Cannula 12/07/22 07:01 96 H 18 94 High Flow Nasal Cannula 12/07/22 11:00 36.8 C 100 H 27 H 125/75 94 High Flow Nasal Cannula 12/07/22 10:00 36.8 C 108 H 35 H 123/80 92 High Flow Nasal Cannula 12/07/22 09:00 36.6 C 101 H 22 118/70 98 High Flow Nasal Cannula 12/07/22 08:00 36.6 C 102 H 24 112/75 90 BiPAP 12/07/22 07:00 36.6 C 96 H 24 121/77 95 BiPAP 12/07/22 07:00 BiPAP 12/07/22 06:00 36.6 C 97 H 22 92 12/07/22 06:00 126/80 12/07/22 05:00 36.5 C 100 H 24 96 12/07/22 05:00 108/84 12/07/22 04:00 36.6 C 93 H 25 H 95 12/07/22 04:00 102/75 O2 Flow Rate FiO2 12/07/22 14:52 40 90 12/07/22 12:00 40 100 12/07/22 12:09 40 90 12/07/22 07:01 40 90 12/07/22 11:00 40 100 12/07/22 10:00 40 100 12/07/22 09:00 40 100 12/07/22 08:00 80 12/07/22 07:00 80 12/07/22 07:00 80 12/07/22 06:00 12/07/22 06:00 12/07/22 05:00 12/07/22 05:00 12/07/22 04:00 12/07/22 04:00 Laboratory Results Laboratory Results - last 48 hr 12/05/22 12/05/22 12/06/22 16:13 16:13 04:12 WBC RBC Hgb Hct MCV MCH MCHC RDW Std Deviation RDW Coeff of Clarence Plt Count MPV Immature Gran % (Auto) Neut % (Auto) Lymph % (Auto) [place] % (Auto) Eos % (Auto) Baso % (Auto) Neut # (Auto) Lymph # (Auto) [place] # (Auto) Eos # (Auto) Baso # (Auto) Immature Gran # (Auto) Hypersegmented Neuts Sodium 137 137 Potassium 3.3 L 3.7 Chloride 101 102 Carbon Dioxide 25 26 Anion Gap 11 9 BUN 12 12 Creatinine 0.52 L 0.59 L Est Cr Clr Drug Dosing 117.4 103.5 Est GFR ( Amer) 120.4 115.5 Est GFR (Non-Af Amer) 103.9 99.6 BUN/Creatinine Ratio 23.1 H 20.3 H Glucose 148 H 146 H POC Glucose Calcium 9.2 9.1 Phosphorus 2.6 Magnesium 2.3 1.9 12/06/22 12/06/22 12/06/22 04:12 07:24 11:30 WBC 14.97 H RBC 3.51 L Hgb 10.9 L Hct 32.5 L MCV 92.6 MCH 31.1 MCHC 33.5 RDW Std Deviation 45.4 RDW Coeff of Clarence 13.4 Plt Count 312 MPV 9.1 L Immature Gran % (Auto) Neut % (Auto) Lymph % (Auto) [place] % (Auto) Eos % (Auto) Baso % (Auto) Neut # (Auto) Lymph # (Auto) [place] # (Auto) Eos # (Auto) Baso # (Auto) Immature Gran # (Auto) Hypersegmented Neuts Sodium Potassium Chloride Carbon Dioxide Anion Gap BUN Creatinine Est Cr Clr Drug Dosing Est GFR ( Amer) Est GFR (Non-Af Amer) BUN/Creatinine Ratio Glucose POC Glucose 156 H 156 H Calcium Phosphorus Magnesium 12/06/22 12/07/22 12/07/22 16:25 05:21 05:21 WBC 11.22 H RBC 3.50 L Hgb 10.7 L Hct 32.0 L MCV 91.4 MCH 30.6 MCHC 33.4 RDW Std Deviation 46.1 RDW Coeff of Clarence 13.7 Plt Count 333 MPV 9.3 L Immature Gran % (Auto) 0.4 Neut % (Auto) 91.0 Lymph % (Auto) 2.3 [place] % (Auto) 6.2 Eos % (Auto) 0.0 Baso % (Auto) 0.1 Neut # (Auto) 10.21 H Lymph # (Auto) 0.26 L [place] # (Auto) 0.70 H Eos # (Auto) 0.00 Baso # (Auto) 0.01 Immature Gran # (Auto) 0.04 Hypersegmented Neuts 1+ Sodium 137 Potassium 4.4 Chloride 102 Carbon Dioxide 26 Anion Gap 9 BUN 13 Creatinine 0.53 L Est Cr Clr Drug Dosing 115.2 Est GFR ( Amer) 119.6 Est GFR (Non-Af Amer) 103.2 BUN/Creatinine Ratio 24.5 H Glucose 140 H POC Glucose 142 H Calcium 8.9 Phosphorus 2.8 Magnesium 2.2 12/07/22 12/07/22 07:20 11:51 WBC RBC Hgb Hct MCV MCH MCHC RDW Std Deviation RDW Coeff of Clarence Plt Count MPV Immature Gran % (Auto) Neut % (Auto) Lymph % (Auto) [place] % (Auto) Eos % (Auto) Baso % (Auto) Neut # (Auto) Lymph # (Auto) [place] # (Auto) Eos # (Auto) Baso # (Auto) Immature Gran # (Auto) Hypersegmented Neuts Sodium Potassium Chloride Carbon Dioxide Anion Gap BUN Creatinine Est Cr Clr Drug Dosing Est GFR ( Amer) Est GFR (Non-Af Amer) BUN/Creatinine Ratio Glucose POC Glucose 136 H 142 H Calcium Phosphorus Magnesium Medications Administered Current Inpatient Medications Acetaminophen (Acetaminophen 325 Mg Tab) 650 mg PO Q4H PRN PRN Reason: Pain or Fever Stop: 01/01/23 02:39 Last Admin: 12/06/22 18:24 Dose: 650 mg Albuterol (Albut/Ipratrop 3mg/0.5mg Neb 3 Ml Vial) 3 ml NEB Q4R [facility]; Protocol Stop: 01/01/23 02:59 Last Admin: 12/07/22 14:51 Dose: 3 ml Enoxaparin Sodium (Enoxaparin Inj 40 Mg/0.4 Ml Syr) 40 mg SQ HS [facility] Stop: 01/02/23 20:59 Last Admin: 12/06/22 21:08 Dose: 40 mg Fexofenadine HCl (Fexofenadine Hcl 180 Mg Tab) 180 mg PO QAM [facility] Stop: 01/01/23 08:59 Last Admin: 12/07/22 08:38 Dose: 180 mg Fluoxetine HCl (Fluoxetine Hcl 20 Mg Cap) 40 mg PO QAM [facility] Stop: 01/01/23 08:59 Last Admin: 12/07/22 08:38 Dose: 40 mg Fluticasone Propionate (Fluticasone Propionate Na Spr 16 Gm Btl) 1 sprays NA DAILY PRN PRN Reason: Allergy Symptoms Stop: 01/04/23 12:59 Hydrochlorothiazide (Hydrochlorothiazide 25 Mg Tab) 25 mg PO QAM [facility] Stop: 01/01/23 08:59 Last Admin: 12/05/22 07:58 Dose: 25 mg Hydroxychloroquine Sulfate (Hydroxychloroquine Sulfate 200 Mg Tab) 200 mg PO DAILY [facility] Stop: 01/01/23 08:59 Last Admin: 12/07/22 08:38 Dose: 200 mg Doxycycline Hyclate 100 mg/ (Dextrose) 110 mls @ 50 mls/hr IV Q12H [facility] Stop: 12/09/22 11:59 Last Infusion: 12/07/22 14:23 Dose: Infused Piperacillin Sod/Tazobactam (Sod 4.5 gm/ Dextrose) 120 mls @ 30 mls/hr IV Q8H [facility]; Protocol Stop: 12/09/22 05:59 Last Admin: 12/07/22 14:16 Dose: 30 mls/hr Lactobacillus Acidophilus (Advanced Probiotic 1250 Mg Capsule) 2 cap PO DAILY [facility] Stop: 01/03/23 10:44 Last Admin: 12/07/22 08:38 Dose: 2 cap Ondansetron HCl (Ondansetron Inj 2 Mg/Ml 2 Ml Vial) 4 mg IV Q6H PRN PRN Reason: Nausea Stop: 01/01/23 02:39 Last Admin: 12/06/22 21:14 Dose: 4 mg Pantoprazole Sodium (Pantoprazole 40 Mg Tab) 40 mg PO DAILY [facility] Stop: 12/24/22 09:01 Last Admin: 12/07/22 08:38 Dose: 40 mg Polyethylene Glycol (Polyethylene (Miralax) 17 Gm Pack) 17 gm PO DAILY PRN PRN Reason: Constipation Stop: 01/01/23 02:39 Prednisone (Prednisone 20 Mg Tab) 40 mg PO BID [facility] Stop: 12/08/22 21:01 Last Admin: 12/07/22 08:39 Dose: 40 mg Prednisone (Prednisone 20 Mg Tab) 40 mg PO DAILY [facility] Stop: 12/13/22 09:01 Prednisone (Prednisone 20 Mg Tab) 20 mg PO DAILY [facility] Stop: 12/24/22 09:01 Sodium Chloride (Sodium Chloride 0.65% Na Soln 45 Ml (Mitchell)) 1 sprays NA Q4H PRN PRN Reason: Allergy Symptoms Stop: 01/04/23 12:59 Trimethoprim/Sulfamethoxazole (Sulfamethoxazole/Trimethoprim Ds 800/160mg Tab) 2 tab PO Q8 [facility] Stop: 12/10/22 21:59 Last Admin: 12/07/22 14:17 Dose: 2 tab Vibegron (Vibegron 75 Mg Tab) 75 mg PO QAM [facility] Stop: 01/01/23 08:59 Last Admin: 12/07/22 08:39 Dose: 75 mg
[2022-12-07] MEDS: ACETAMINOPHEN 325 MG TAB PO PRN (19:18)
[2022-12-07] MEDS: ENOXAPARIN INJ 40 MG/0.4 ML SYR SQ SCH (20:33)
[2022-12-07] MEDS: ONDANSETRON INJ 2 MG/ML 2 ML VIAL IV PRN (20:35)
[2022-12-07 23:28] LABS: Pneumocystis jirovecii PCRQual NOT DETECTED; Pneumocystis jirovecii Source BRONCH LAVAGE
[2022-12-08] MEDS: DOXYCYCLINE HYCLATE 100 MG in DEXTROSE 5% 100 ML IV SCH ×3 (00:41→23:15)
[2022-12-08] MEDS: ALBUT/IPRATROP 3MG/0.5MG NEB 3 ML VIAL NEB SCH ×6 (04:08→22:47)
[2022-12-08] MEDS: SULFAMETHOXAZOLE/TRIMETHOPRIM DS 800/160MG TAB PO SCH (05:36)
[2022-12-08] MEDS: PIPERACILLIN/TAZOBACTAM 4.5 GM in DEXTROSE 5% 100 ML IV SCH ×3 (05:40→22:07)
[2022-12-08 06:05] LABS: Hematocrit (blood only) 33.4 % (37.0-47.0); Hemoglobin 10.7 g/dl (12.0-16.0); Mean Corpuscular Hemoglobin 30.1 pg (25.0-34.0); Mean Corpuscular Volume 93.8 fL (80.0-100.0); Mean Platelet Volume 9.2 fL (9.4-12.4); Platelet Count 316 K/uL (130-400); RDW Coefficient of Variation 13.8 % (11.5-14.5); RDW Standard Deviation 47.2 fL (36.4-46.3); Red Blood Count 3.56 M/uL (4.20-5.40); White Blood Count 10.14 K/ul (4.8-10.8)
[2022-12-08 06:21] LABS: BUN Creatinine Ratio 26.8 (10-20); Creatinine Clr Calc Pharmacy 108.3 ml/min; Est GFR (African American) 117.5 ml/min; Est GFR (Non-African American) 101.3 ml/min; Magnesium 2.1 mg/dl (1.7-2.4); Phosphorus 3.1 mg/dl (2.5-4.9); Potassium 4.6 mmol/L (3.5-5.1)
--- NOTE | 2022-12-08 06:35 | Hospitalist Progress Note ---
Date of Service December 08, 2022 Assessment & Plan (1) Multifocal pneumonia: Plan: 62 y/o female with a PMHx of B-cell lymphoma s/p chemo and radiation therapy, HTN, OAB, and arthritis presented with hypoxia likely in the setting of multifocal pneumonia admitted for further workup and IV abx now s/p bronchoscopy with slight subjective improvement, but continued significant oxygen requirement. #Multifocal PNA #Sepsis POA CTA chest and x-ray favor pneumonia. Viral BioFire negative, Pro-Jerry negative. Patient is immunocompromised as she has B-cell lymphoma. Higher risk of abnormal pathogens - broad work up indicated. Blood cultures negative x 48H. Legionella urine ab negative. BAL with rare danelle species. More likely to be a contaminant. Fungal blood cultures, pending if positive will begin antifungal treatment. Patient is not neutropenic so treatment with an echinocandin such as caspofungin would be appropriate. Cytology from bronchoscopy with Moderate chronic active pneumonitis with many histiocytes, no malignant cells. Pathology without fungal organisms, mycobacterial organisms. Abx: Azithromycin 12/01 x1 Cefepime 12/01 x1 Zosyn 12/01 - ongoing Doxy 12/01 - ongoing Bactrim 12/03 - stopped on 12/08/22 PJP PCR negative Consults: Pulm consult - upgraded to ICU status after bronchoscopy, downgraded to PCU 12/04 ID consult - rec adding Bactrim TID as well as steroid taper 40 BID 5 days 40 QD 5 days 20 QD 11 days pending PJP r/o [12/04 - 12/24] Plan: fungal blood cultures pending- continue to remain without growth to date Strep pneumo, fungitell, crypto ag, aspergillosis ag pending Continue #Acute hypoxic respiratory failure Patient with significant oxygen requirement. Patient on 40L HFNC with 100% FiO2. If worsening respiratory status, patient has stated that she would want intub ation if needed. Recommend that she remain on the ICU floor at this time even though she is PCU status. Supplemental oxygen as needed, DuoNebs every 4 hours Continue prednisone 40 mg twice daily for 5 followed by 40 mg for 5 followed by 20 mg for 11 days. Completing 21 days of prednisone Continue with pantoprazole 40 mg daily while on prednisone Outpatient pulm f/u #Diarrhea Patient on multiple abx. c. dif pending. Continue probiotics. #Anemia Initial hemoglobin of 14.6 in the ED. 10.9 on 12/02. Hemoglobin remains stable at this time. Most likely dilutional effect. No signs or symptoms of an acute bleed. Continue to monitor #Demand ischemia Troponin peaked at 31.3. No signs and symptoms of ACS #Electrolyte Abnormalities Electrolytes monitored and repleted as indicated during hospital stay #Diffuse B Cell Lymphoma #History of chemoradiation therapy Stable. Follows with Dr. Donahue #Arthritis Stable on hydroxychloroquine - continue. Will do Tylenol instead of NSAIDs while inpatient. #HTN Patient on HCTZ at home. Was hypotensive during hospital stay and HCTZ was held. Restarted as patient HDS. Code status: full DVT ppx: Lovenox SQ QD GI ppx: added pantoprazole in setting of steroid use FENGI: Regular (2) Diffuse large B cell lymphoma: (3) Abnormal chest CT: (4) RANDY (stress urinary incontinence, female): (5) Hypertension: (6) Arthritis: (7) Sepsis: (8) History of radiation exposure: Admission and Anticipated Discharge Date Admission Date: December 01, 2022 Supervising Physician Co-Signing Physician Notes I personally examined the patient and verified all ward points of history and exam, discussed case, and agree with decision making with Dr Peralta feels OK still needing high flow / high FiO2 but slightly less than yesterday. Vitals noted, in general she is awake and alert appears and despite high flow NC @ 85% she looks surprisingly NAD. breathing unlabored no conversational dyspnea good effort no accessory muscle use again on BiPAP. No focal neurodeficits. Pneumonia, severe hypoxiacontinue antibiotics and supportive care. still requiring significant FiO2, appreciate pulmonary input, encouraged p.o. intake DVT prophylaxisLovenox otherwise as above Subjective Pt seen at bedside this morning. States that she continues to feel better slowly daily. No complaints this morning. Appetite, is ok and has been supplementing with Boost. Review of Systems Review of Systems: As per above Physical Exam Physical Exam: Constitutional: well-appearing, no acute distress HEENT: NCAT, no conjunctival injection CV: regular rhythm, no murmur appreciated, extremities well-perfused Resp: CTABL, no wheezes/rales/rhonchi appreciated, no increased work of breathing MSK: no gross deformities appreciated Skin: warm, dry, no rash appreciated Neuro: alert, oriented, no focal neurologic deficit appreciated Results & Data Results & Data Vital Signs (Past 12 Hours) Vital Signs Temp Pulse Pulse Resp BP Pulse Ox O2 Del Method 12/08/22 06:00 36.8 C 87 25 H 95 12/08/22 06:00 109/75 12/08/22 05:00 36.7 C 109 H 23 96 12/08/22 05:00 142/83 H 12/08/22 04:00 36.7 C 98 H 32 H 97 12/08/22 04:00 124/80 12/08/22 03:00 36.8 C 98 H 29 H 96 12/08/22 03:00 119/79 12/08/22 02:00 36.8 C 95 H 27 H 96 12/08/22 02:00 117/75 12/08/22 01:00 36.7 C 91 H 21 96 12/08/22 01:00 110/76 12/08/22 04:47 BiPAP 12/08/22 04:10 92 H 26 H 96 BiPAP 12/08/22 04:08 92 H 26 H 96 12/08/22 00:00 101 H 12/08/22 00:45 BiPAP 12/08/22 00:00 36.6 C 99 H 24 96 12/08/22 00:00 121/76 12/07/22 23:00 36.8 C 94 H 29 H 98 12/07/22 23:00 126/78 12/07/22 23:31 91 H 22 96 12/07/22 23:30 90 22 96 BiPAP 12/07/22 22:00 36.9 C 104 H 20 96 12/07/22 22:00 111/76 12/07/22 21:00 37.0 C 104 H 24 97 12/07/22 21:00 122/78 12/07/22 20:00 37.1 C 109 H 28 H 96 12/07/22 20:00 123/84 12/07/22 19:00 37.1 C 105 H 26 H 90 12/07/22 19:00 125/78 12/07/22 20:00 High Flow Nasal Cannula 12/07/22 19:49 104 H 24 96 BiPAP 12/07/22 19:49 110 H 24 95 O2 Flow Rate FiO2 12/08/22 06:00 12/08/22 06:00 08/30/23 05:00 12/08/22 05:00 12/08/22 04:00 12/08/22 04:00 12/08/22 03:00 12/08/22 03:00 12/08/22 02:00 12/08/22 02:00 12/08/22 01:00 12/08/22 01:00 12/08/22 04:47 90 12/08/22 04:10 80 12/08/22 04:08 80 12/08/22 00:00 12/08/22 00:45 90 12/08/22 00:00 12/08/22 00:00 12/07/22 23:00 12/07/22 23:00 12/07/22 23:31 80 12/07/22 23:30 90 12/07/22 22:00 12/07/22 22:00 12/07/22 21:00 12/07/22 21:00 12/07/22 20:00 12/07/22 20:00 12/07/22 19:00 12/07/22 19:00 12/07/22 20:00 40 100 12/07/22 19:49 90 12/07/22 19:49 80 Resident Activity Tracking Resident Involvement: Resident Care Provided Care Provided: Adult Hospital Medicine
[2022-12-08 06:38] LABS: Basophils # (auto) 0.01 K/uL (0.00-0.20); Basophils % (auto) 0.1 %; Immature Granulocytes # (auto) 0.06 K/uL (0.01-0.20); Immature Granulocytes % (auto) 0.6 %; Lymphocytes # (auto) 0.23 K/uL (1.20-3.40); Lymphocytes % (auto) 2.3 %; Monocytes # (auto) 0.51 K/uL (0.11-0.59); Neutrophils # (auto) 9.33 K/uL (1.40-6.50)
[2022-12-08] MEDS: FLUoxetine HCL 20 MG CAP PO SCH (08:17)
[2022-12-08] MEDS: HYDROXYCHLOROQUINE SULFATE 200 MG TAB PO SCH (08:17)
[2022-12-08] MEDS: VIBEGRON 75 MG TAB PO SCH (08:17)
[2022-12-08] MEDS: predniSONE 20 MG TAB PO SCH ×2 (08:17→20:26)
[2022-12-08] MEDS: FEXOFENADINE HCL 180 MG TAB PO SCH (08:18)
[2022-12-08] MEDS: ADVANCED PROBIOTIC 1250 MG CAPSULE PO SCH (08:18)
[2022-12-08] MEDS: PANTOprazole 40 MG TAB PO SCH (08:18)
--- NOTE | 2022-12-08 12:34 | Critical Care Progress Note ---
Date of Service December 08, 2022 Assessment & Plan (1) History of radiation exposure: (2) Multifocal pneumonia: (3) Diffuse large B cell lymphoma: (4) Abnormal chest CT: Plan CT chest 12/01/2022 personally reviewed: Dense consolidative process appreciated in the right upper lobe Patchy groundglass opacities appreciated bilaterally Elevated right hemidiaphragm No significant mediastinal lymphadenopathy 2D echo 05/12/2022: EF 60-65%, RV normal in size and function -- Acute hypoxic respiratory failure Secondary to multilobar pneumonia Respiratory bio fire negative for everything on 11/25/2022 as well as 12/01/2022 Procalcitonin negative CRP 8.07 Patient has a parakeet at home for 10 years Lymphoma itself can give similar finding Last chemo was in August 2022, would consider to be immunosuppressed right now. PJP could present in similar way S/p bronchoscopy 12/03/2022, some anterior tracheal nodularity. Clear secretions. BAL 50% lymphocytes Follow-up cytology as well as micro BAL sent for coccidioidal, blastomycosis, cryptococcal as well as PJP PCR Case was discussed with Dr. Gonzales --History of B-cell lymphoma S/p R-CHOP and radiation Plan: In/out: 580ml/1360ml Chest x-ray from today does not show any significant change compared to before. Continue with empirically treating the patient with Bactrim till we have negative PJP PCR. All other cultures negative except for related sputum growing Summer. Continue with prednisone 40 mg twice daily for 5 followed by 40 mg for 5 followed by 20 mg for 11 days. Completing 21 days of prednisone Continue with pantoprazole 40 mg daily as patient will be on prednisone For her anxiety as well as tachycardia may be low-dose beta-jessica could be t hought of. Will defer to primary care. Patient is requiring a lot of oxygen right now. She has been weaned to FiO2 of 85 to 90% She is not in any respiratory distress her respirate is still in the high teens to low 20s. Will continue to follow cautiously with low threshold for intubation Would recommend to keep her on the ICU floor due to the tenuous nature of her respiratory status. I have personally spent 37 minutes of critical care time in the direct management of this patient today on 12/07/2022. This is a life/limb threatening event. This includes time spent evaluating p atient, direct bedside care, chart review, placing orders, interpretation of diagnostic studies, discussion with consultants, patient, and family members, as well as other required patient management activities. This time is exclusive of all separately billable procedures, and teaching time and separate from and in addition to any other critical care service time. Please note the above document was generated using voice recognition software. It may contain grammatical, syntax or spelling errors. Admission and Anticipated Discharge Date Admission Date: December 01, 2022 Subjective Patient in good spirits today switched over from BiPAP to high flow oxygen which we were able to wean from 90 to 85% maintaining oxygen saturation of 90 to 92% at this time. She feels that her cough has improved and she was able to get some rest and actual sleep overnight. She reports no new problems overnight or this morning. Review of Systems Review of Systems: All systems reviewed & are unremarkable except as noted in Subjective Physical Exam Constitutional: Appears to be resting comfortably without significant respiratory or cardiac distress Eyes: PERRL, conjunctivae normal, anicteric sclerae ENMT: external ear and nose normal, oropharynx normal Neck: trachea midline, no thyromegaly Respiratory: Good inspiratory and expiratory effort although poor airflow mostly focused to the lower posterior left and right thoraces. No coughing at this time. No wheezing. Occasional crackles heard most pronounced to the right posterior thorax. Cardiovascular: RRR, no murmur, no edema Gastrointestinal (Abdomen): normal bowel sounds, soft, nontender, no hepatosplenomegaly Musculoskeletal: no cyanosis or clubbing, extremities motor strength 5/5 Skin: no rashes, warm and dry Neurologic: patellar DTR's 2+ bilat, sensation intact and PERRL, EOMI, accommodation nl, no face palsy, no dysarthria Psychiatric: A+Ox3, euthymic affect Results & Data Results & Data Vital Signs (Past 12 Hours) Vital Signs Temp Pulse Pulse Resp BP Pulse Ox O2 Del Method 12/08/22 11:20 101 H 20 90 High Flow Nasal Cannula 12/08/22 08:00 36.9 C 101 H 20 93 High Flow Nasal Cannula 12/08/22 08:00 114/81 12/08/22 07:00 36.9 C 93 H 24 97 12/08/22 07:00 118/84 12/08/22 07:46 High Flow Nasal Cannula 12/08/22 07:37 93 H 18 95 High Flow Nasal Cannula 12/08/22 06:00 36.8 C 87 25 H 95 12/08/22 06:00 109/75 12/08/22 05:00 36.7 C 109 H 23 96 12/08/22 05:00 142/83 H 12/08/22 04:00 36.7 C 98 H 32 H 97 12/08/22 04:00 124/80 12/08/22 03:00 36.8 C 98 H 29 H 96 12/08/22 03:00 119/79 12/08/22 02:00 36.8 C 95 H 27 H 96 12/08/22 02:00 117/75 12/08/22 01:00 36.7 C 91 H 21 96 12/08/22 01:00 110/76 12/08/22 04:47 BiPAP 12/08/22 04:10 92 H 26 H 96 BiPAP 12/08/22 04:08 92 H 26 H 96 12/08/22 00:45 BiPAP O2 Flow Rate FiO2 12/08/22 11:20 40 85 12/08/22 08:00 40 0.9 12/08/22 08:00 12/08/22 07:00 12/08/22 07:00 12/08/22 07:46 40 0.9 12/08/22 07:37 40 90 12/08/22 06:00 12/08/22 06:00 12/08/22 05:00 12/08/22 05:00 12/08/22 04:00 12/08/22 04:00 12/08/22 03:00 12/08/22 03:00 12/08/22 02:00 12/08/22 02:00 12/08/22 01:00 12/08/22 01:00 12/08/22 04:47 90 12/08/22 04:10 80 12/08/22 04:08 80 12/08/22 00:45 90 Laboratory Results Laboratory Results WBC 10.14 K/ul (4.8-10.8) 12/08/22 05:29 RBC 3.56 M/uL (4.20-5.40) L 12/08/22 05:29 Hgb 10.7 g/dl (12.0-16.0) L 12/08/22 05:29 Hct 33.4 % (37.0-47.0) L 12/08/22 05:29 MCV 93.8 fL (80.0-100.0) 12/08/22 05:29 MCH 30.1 pg (25.0-34.0) 12/08/22 05:29 MCHC 32.0 g/dL (32.0-36.0) 12/08/22 05:29 RDW Std Deviation 47.2 fL (36.4-46.3) H 12/08/22 05:29 RDW Coeff of Clarence 13.8 % (11.5-14.5) 12/08/22 05:29 Plt Count 316 K/uL (130-400) 12/08/22 05:29 MPV 9.2 fL (9.4-12.4) L 12/08/22 05:29 Immature Gran % (Auto) 0.6 % 12/08/22 05:29 Neut % (Auto) 92.0 % 12/08/22 05:29 Lymph % (Auto) 2.3 % 12/08/22 05:29 [place] % (Auto) 5.0 % 12/08/22 05:29 Eos % (Auto) 0.0 % 12/08/22 05:29 Baso % (Auto) 0.1 % 12/08/22 05:29 Neut # (Auto) 9.33 K/uL (1.40-6.50) H 12/08/22 05:29 Lymph # (Auto) 0.23 K/uL (1.20-3.40) L 12/08/22 05:29 [place] # (Auto) 0.51 K/uL (0.11-0.59) 12/08/22 05:29 Eos # (Auto) 0.00 K/uL (0.00-0.50) 12/08/22 05:29 Baso # (Auto) 0.01 K/uL (0.00-0.20) 12/08/22 05:29 Immature Gran # (Auto) 0.06 K/uL (0.01-0.20) 12/08/22 05:29 Hypersegmented Neuts 1+ 12/07/22 05:21 ESR 54 mm/hr (0-30) H 12/01/22 19:55 PT 11.4 Seconds (9.0-12.0) 12/01/22 19:55 INR 1.0 (0.9-1.1) 12/01/22 19:55 APTT 29.3 Seconds (21.0-31.0) 12/01/22 19:55 PTT Ratio 1.0 12/01/22 19:55 VBG pH 7.44 (7.36-7.41) H 12/01/22 20:16 VBG pCO2 41 mmHg (38-50) 12/01/22 20:16 VBG pO2 37 mmHg 12/01/22 20:16 VBG HCO3 28 mmol/L 12/01/22 20:16 VBG O2 Saturation < 60.0 % 12/01/22 20:16 VBG Base Excess 3.3 mEq/L 12/01/22 20:16 Sodium 135 mmol/L (136-145) L 12/08/22 05:29 Potassium 4.6 mmol/L (3.5-5.1) 12/08/22 05:29 Chloride 101 mmol/L (98-107) 12/08/22 05:29 Carbon Dioxide 27 mmol/L (21-32) 12/08/22 05:29 Anion Gap 7 (3-11) 12/08/22 05:29 BUN 15 mg/dl (6-23) 12/08/22 05:29 Creatinine 0.56 mg/dl (0.6-1.2) L 12/08/22 05:29 Est Cr Clr Drug Dosing 108.3 ml/min 12/08/22 05:29 Est GFR ( Amer) 117.5 ml/min 12/08/22 05:29 Est GFR (Non-Af Amer) 101.3 ml/min 12/08/22 05:29 BUN/Creatinine Ratio 26.8 (10-20) H 12/08/22 05:29 Glucose 136 mg/dl (70-99(Fasting)) H 12/08/22 05:29 POC Glucose 142 mg/dl (70-99) H 12/07/22 11:51 Lactate 1.0 mmol/L (0.4-2.0) 12/01/22 19:55 Calcium 9.0 mg/dl (8.6-10.3) 12/08/22 05:29 Phosphorus 3.1 mg/dl (2.5-4.9) 12/08/22 05:29 Magnesium 2.1 mg/dl (1.7-2.4) 12/08/22 05:29 Total Bilirubin 0.8 mg/dl (0.2-1.0) 12/04/22 04:43 Direct Bilirubin 0.0 mg/dl (0-0.2) 12/01/22 19:55 AST 16 U/L (13-39) 12/04/22 04:43 ALT 12 U/L (7-52) 12/04/22 04:43 Alkaline Phosphatase 67 U/L (34-104) 12/04/22 04:43 Troponin I High Sens 25.8 pg/ml (0-14) H 12/02/22 00:10 C-Reactive Protein 8.07 mg/dl (0-0.5) H 12/01/22 19:55 B-Natriuretic Peptide 34 pg/ml (0-100) 12/03/22 05:26 Total Protein 6.4 gm/dl (6.0-8.3) 12/04/22 04:43 Albumin 3.5 gm/dl (3.4-5.0) 12/04/22 04:43 Globulin 2.9 gm/dl (2.5-4.0) 12/04/22 04:43 Albumin/Globulin Ratio 1.2 (0.9-2) 12/04/22 04:43 Procalcitonin < 0.05 ng/ml (0-0.5) 12/01/22 19:55 Urine Color Yellow 12/01/22 22:15 Urine Appearance Clear (Clear) 12/01/22 22:15 Urine pH 7.0 (4.5-7.5) 12/01/22 22:15 Ur Specific [place] 1.011 (1.000-1.030) 12/01/22 22:15 Urine Protein Negative (Negative) 12/01/22 22:15 Urine Glucose (UA) Negative (Negative) 12/01/22 22:15 Urine Ketones Negative (Negative) 12/01/22 22:15 Urine Blood Negative (Negative) 12/01/22 22:15 Urine Nitrite Negative (Negative) 12/01/22 22:15 Urine Bilirubin Negative (Negative) 12/01/22 22:15 Urine Urobilinogen Negative (Negative) 12/01/22 22:15 Ur Leukocyte Esterase Negative (Negative) 12/01/22 22:15 Fluid Neutrophils % 28 % 12/03/22 09:00 Fluid Lymphocytes % 50 % 12/03/22 09:00 Fluid Eosinophils % 2 % 12/03/22 09:00 Fluid Basophils % 1 % 12/03/22 09:00 Fl Monocyt/Macrophag % 19 % 12/03/22 09:00 Fluid Comment 12/03/22 09:00 Nasal Screen MRSA (PCR) Negative (Negative) 12/02/22 07:28 BAL CD4/CD8 Ratio See Comment 12/03/22 09:00 Adenovirus (PCR) Not Detected (NotDetected) 12/01/22 20:05 B. pertussis DNA (PCR) Not Detected (NotDetected) 12/01/22 20:05 B.parapertussis DNA PCR Not Detected (NotDetected) 12/01/22 20:05 C. pneumoniae DNA (PCR) Not Detected (NotDetected) 12/01/22 20:05 Coronavirus OC43 (PCR) Not Detected (NotDetected) 12/01/22 20:05 Coronavirus HKU1 (PCR) Not Detected (NotDetected) 12/01/22 20:05 Coronavirus 229E (PCR) Not Detected (NotDetected) 12/01/22 20:05 SARS-CoV-2 (PCR) Not Detected (NotDetected) 12/01/22 20:05 Coronavirus NL63 (PCR) Not Detected (NotDetected) 12/01/22 20:05 Human Metapneumovir PCR Not Detected (NotDetected) 12/01/22 20:05 Influenza Type A (PCR) Not Detected (NotDetected) 12/01/22 20:05 Influenza Type B (PCR) Not Detected (NotDetected) 12/01/22 20:05 Urine Legionella Ag SEE NOTE 12/02/22 08:04 M. pneumoniae (PCR) Not Detected (NotDetected) 12/01/22 20:05 Parainfluenza 1 (PCR) Not Detected (NotDetected) 12/01/22 20:05 Parainfluenza 2 (PCR) Not Detected (NotDetected) 12/01/22 20:05 Parainfluenza 3 (PCR) Not Detected (NotDetected) 12/01/22 20:05 Parainfluenza 4 (PCR) Not Detected (NotDetected) 12/01/22 20:05 Pneumocystis Source BRONCH [place]AV[place] 12/03/22 09:00 Pneumocyst jirovecii PCR NOT DETECTED 12/03/22 09:00 RSV (PCR) Not Detected (NotDetected) 12/01/22 20:05 Entero/Rhino (PCR) Not Detected (NotDetected) 12/01/22 20:05 Miscellaneous Test 2 Cancelled 12/03/22 09:00 Miscellaneous Test 3 Cancelled 12/03/22 09:00 Miscellaneous Test 4 Cancelled 12/03/22 09:00 Ref Lab Test Result Cancelled 12/03/22 09:00 Impressions Chest CTA 12/01/22 20:59 Exam(s): CTA CHEST IV Amt: 119ml EXAM: CT Angiography Chest With Intravenous Contrast CLINICAL HISTORY: Reason for exam: PE. TECHNIQUE: Axial computed tomographic angiography images of the chest with intravenous contrast. CTDI is 11.87 mGy and DLP is 828.08 mGy-cm. Automated exposure control was utilized for the study. A dose lowering technique was utilized adhering to the principles of ALARA. MIP reconstructed images were created and reviewed. COMPARISON: CT chest 11/24/22 FINDINGS: There is a left chest wall port catheter with tip in the right atrium. There is no thoracic aortic aneurysm or dissection. There is adequate pulmonary artery opacification. Main pulmonary artery is normal in caliber. There is no evidence of acute pulmonary embolism. There is no mediastinal or hilar lymphadenopathy. Enlarged right axillary lymph node is stable from prior exam. Left axillary lymph nodes are normal. Heart size is normal. There is no pericardial effusion. Multifocal consolidative and ground-glass opacities are present, appearing somewhat progressed from prior exam. There is no visible pulmonary mass at this time. There is no pleural effusion or pneumothorax. There is a stable 6 mm hypervascular focus in the right hepatic dome. There is a lytic lesion of T8 with associated pathologic compression fracture. There is also a lytic lesion of the right scapular body with associated pathologic fracture. These findings are stable from prior. Regional skeleton appears otherwise intact. IMPRESSION: 1. No evidence of acute pulmonary embolism. 2. Multifocal ground-glass and consolidative opacities appear slightly progressed from prior exam and are concerning for pneumonia, to include viral pneumonia within the differential diagnosis. Imaging follow-up to resolution is recommended. 3. Stable right axillary lymphadenopathy. 4. 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 5. Stable 6 mm hypervascular focus in the right liver dome, nonspecific. Is recommended prior, six-month follow-up CT may be performed for re- characterization. Electronically signed by: Zahida Larry M.D. 12/01/22 22:43 PM Chest X-Ray 12/05/22 07:00 XR chest 1V portable HISTORY: Respiratory failure. COMPARISON: Chest 12/04/2022. FINDINGS: A left Port-A-Cath terminates in the distal SVC. The cardiac silhouette remains mildly enlarged. No pneumothorax. There is diffuse interstitial thickening with multifocal airspace opacities again noted. This is most pronounced at the lung bases. There is chronic elevation of the right hemidiaphragm. IMPRESSION: No change in the diffuse interstitial thickening with multifocal airspace opacities. ACT 112: Negative or not required by law. Electronically signed by: Andres Barry M.D. 12/05/2022 8:05 AM Medications Administered Home Medications Medication Instructions Recorded Confirmed Last Taken fexofenadine 180 mg tablet 180 mg PO QAM 06/10/21 12/01/22 11/30/22 (Gay Allergy) albuterol sulfate 90 mcg/actuation 2 puff inhalation .COMPLEX PRN 01/25/22 12/01/22 Unknown aerosol inhaler (ProAir HFA) shortness of breath or wheezing #8.5 grams hydroxychloroquine 200 mg tablet 200 mg PO DAILY 09/27/22 12/01/22 11/30/22 (Plaquenil) amoxicillin 875 mg-potassium 1 tab PO Q12 12/01/22 12/01/22 12/01/22 clavulanate 125 mg tablet am fluoxetine 40 mg capsule (Prozac) 40 mg PO QAM 12/01/22 12/01/22 11/30/22 hydrochlorothiazide 25 mg tablet 25 mg PO QAM 12/01/22 12/01/22 11/30/22 meloxicam 15 mg tablet 15 mg PO QAM 12/01/22 12/01/22 11/30/22 vibegron 75 mg tablet (Gemtesa) 75 mg PO QAM 12/01/22 12/01/22 11/30/22 Active Medications Generic Name Dose Route Start Last Admin Trade Name Freq PRN Reason Stop Dose Admin Acetaminophen 650 mg 12/02/22 02:40 12/07/22 19:18 Acetaminophen 325 Mg Tab PO 01/01/23 02:39 650 mg Q4H PRN Administration Pain or Fever Albuterol 3 ml 12/02/22 03:00 12/08/22 11:20 Albut/Ipratrop 3mg/0.5mg Neb 3 Ml Vial NEB 01/01/23 02:59 3 ml Q4R SHAYY Administration Protocol Enoxaparin Sodium 40 mg 12/03/22 21:00 12/07/22 20:33 Enoxaparin Inj 40 Mg/0.4 Ml Syr SQ 01/02/23 20:59 40 mg HS SHAYY Administration Fexofenadine HCl 180 mg 12/02/22 09:00 12/08/22 08:18 Fexofenadine Hcl 180 Mg Tab PO 01/01/23 08:59 180 mg QAM SHAYY Administration Fluoxetine HCl 40 mg 12/02/22 09:00 12/08/22 08:17 Fluoxetine Hcl 20 Mg Cap PO 01/01/23 08:59 40 mg QAM SHAYY Administration Hydrochlorothiazide 25 mg 12/02/22 09:00 12/05/22 07:58 Hydrochlorothiazide 25 Mg Tab PO 01/01/23 08:59 25 mg QAM SHAYY Administration Hydroxychloroquine Sulfate 200 mg 12/02/22 09:00 12/08/22 08:17 Hydroxychloroquine Sulfate 200 Mg Tab PO 01/01/23 08:59 200 mg DAILY SHAYY Administration Doxycycline Hyclate 100 mg/ 110 mls @ 50 mls/hr 12/02/22 12:00 12/08/22 11:58 Dextrose IV 12/09/22 11:59 50 mls/hr Q12H SHAYY Administration Piperacillin Sod/Tazobactam 120 mls @ 30 mls/hr 12/02/22 06:00 12/08/22 12:02 Sod 4.5 gm/ Dextrose IV 12/09/22 05:59 Infused Q8H SHAYY Infusion Protocol Lactobacillus Acidophilus 2 cap 12/04/22 10:45 12/08/22 08:18 Advanced Probiotic 1250 Mg Capsule PO 01/03/23 10:44 2 cap DAILY SHAYY Administration Ondansetron HCl 4 mg 12/02/22 02:40 12/07/22 20:35 Ondansetron Inj 2 Mg/Ml 2 Ml Vial IV 01/01/23 02:39 4 mg Q6H PRN Administration Nausea Pantoprazole Sodium 40 mg 12/04/22 09:00 12/08/22 08:18 Pantoprazole 40 Mg Tab PO 12/24/22 09:01 40 mg DAILY SHAYY Administration Prednisone 40 mg 12/04/22 09:00 12/08/22 08:17 Prednisone 20 Mg Tab PO 12/08/22 21:01 40 mg BID SHAYY Administration Trimethoprim/Sulfamethoxazole 2 tab 12/03/22 22:00 12/08/22 05:36 Sulfamethoxazole/Trimethoprim Ds 800/160mg Tab PO 12/10/22 21:59 2 tab Q8 SHAYY Administration Vibegron 75 mg 12/02/22 09:00 12/08/22 08:17 Vibegron 75 Mg Tab PO 01/01/23 08:59 75 mg QAM SHAYY Administration Coding Level of Care Code 40864 CRITICAL CARE 1ST 30-74M Diagnoses History of radiation exposure Z92.3 Multifocal pneumonia J18.9 Diffuse large B cell lymphoma C83.[address] R93.89
--- NOTE | 2022-12-08 19:03 | Billing Data ---
Date of Service December 08, 2022 Coding Level of Care Code 56944 SUB INP/OBS CARE
[2022-12-08 19:14] LABS: Aspergillus Ag Index 0.05 (<0.50); Aspergillus Antigen, Serum Not Detected (Not Detected); Cryptococcal Antigen Not Detected (Not Detected); Source Serum
[2022-12-08] MEDS: ENOXAPARIN INJ 40 MG/0.4 ML SYR SQ SCH (20:26)
[2022-12-08 20:47] LABS: Fungitell (1-3)-B-D-Glucan 40 pg/mL; Pneumococcal IgG Type 1 <0.3; Pneumococcal IgG Type 12 (12F) <0.3; Pneumococcal IgG Type 14 2.2; Pneumococcal IgG Type 19 (19F) 10.4; Pneumococcal IgG Type 23 (23F) 1.9; Pneumococcal IgG Type 26 (6B) <0.3; Pneumococcal IgG Type 3 <0.3; Pneumococcal IgG Type 4 0.4; Pneumococcal IgG Type 5 <0.3; Pneumococcal IgG Type 51 (7F) <0.3; Pneumococcal IgG Type 56 (18C) 2.7; Pneumococcal IgG Type 68 (9V) <0.3; Pneumococcal IgG Type 8 <0.3; Pneumococcal IgG Type 9 (9N) <0.3
[2022-12-08] MEDS: ACETAMINOPHEN 325 MG TAB PO PRN (23:16)
[2022-12-09] MEDS: ALBUT/IPRATROP 3MG/0.5MG NEB 3 ML VIAL NEB SCH ×6 (02:21→22:02)
[2022-12-09 04:36] LABS: Hematocrit (blood only) 33.8 % (37.0-47.0); Hemoglobin 10.9 g/dl (12.0-16.0); Mean Corpuscular Hemoglobin 30.1 pg (25.0-34.0); Mean Corpuscular Hgb Conc 32.2 g/dL (32.0-36.0); Mean Corpuscular Volume 93.4 fL (80.0-100.0); Mean Platelet Volume 9.3 fL (9.4-12.4); Platelet Count 330 K/uL (130-400); RDW Coefficient of Variation 13.8 % (11.5-14.5); RDW Standard Deviation 47.6 fL (36.4-46.3); Red Blood Count 3.62 M/uL (4.20-5.40); White Blood Count 12.75 K/ul (4.8-10.8)
[2022-12-09 04:51] LABS: BUN Creatinine Ratio 29.3 (10-20); Calcium 8.9 mg/dl (8.6-10.3); Creatinine Clr Calc Pharmacy 104.6 ml/min; Est GFR (African American) 116.1 ml/min; Est GFR (Non-African American) 100.2 ml/min; Phosphorus 3.4 mg/dl (2.5-4.9); Potassium 4.7 mmol/L (3.5-5.1)
[2022-12-09 04:54] LABS: Immature Granulocytes # (auto) 0.07 K/uL (0.01-0.20); Immature Granulocytes % (auto) 0.5 %; Lymphocytes # (auto) 0.24 K/uL (1.20-3.40); Lymphocytes % (auto) 1.9 %; Monocytes # (auto) 0.57 K/uL (0.11-0.59); Monocytes % (auto) 4.5 %; Neutrophils # (auto) 11.87 K/uL (1.40-6.50); Neutrophils % (auto) 93.1 %
--- NOTE | 2022-12-09 06:43 | Hospitalist Progress Note ---
Date of Service December 09, 2022 Assessment & Plan (1) Multifocal pneumonia: Plan: 62 y/o female with a PMHx of B-cell lymphoma s/p chemo and radiation therapy, HTN, OAB, and arthritis presented with hypoxia likely in the setting of multifocal pneumonia admitted for further workup and IV abx now s/p bronchoscopy with slight subjective improvement, but continued significant oxygen requirement. #Multifocal PNA #Sepsis POA CTA chest and x-ray favor pneumonia. Viral BioFire negative, Pro-Jerry negative. Patient is immunocompromised as she has B-cell lymphoma. Higher risk of abnormal pathogens - broad work up indicated. Blood cultures negative x 48H. Legionella urine ab negative. BAL with rare danelle species. More likely to be a contaminant. Fungal blood cultures, pending if positive will begin antifungal treatment. Patient is not neutropenic so treatment with an echinocandin such as caspofungin would be appropriate. Cytology from bronchoscopy with Moderate chronic active pneumonitis with many histiocytes, no malignant cells. Pathology without fungal organisms, mycobacterial organisms. Abx: Azithromycin 12/01 x1 Cefepime 12/01 x1 Zosyn 12/01 - ongoing Doxy 12/01 - ongoing Bactrim 12/03 - stopped on 12/08/22 PJP PCR negative Consults: Pulm consult - upgraded to ICU status after bronchoscopy, downgraded to PCU 12/04 ID consulted Plan: fungal blood cultures - continue to remain without growth to date crypto ag, aspergillosis ag pending Plan to trend CRP, procal- if continue to remain stable would consider stopping antibiotics in the next few days. If questionable would consider repeat CT. #Acute hypoxic respiratory failure Patient with significant oxygen requirement. Patient on 40L HFNC with 100% FiO2. If worsening respiratory status, patient has stated that she would want intubation if needed. Recommend that she remain on the ICU floor at this time even though she is PCU status. Supplemental oxygen as needed, DuoNebs every 4 hours Continue prednisone 40 mg twice daily for 5 followed by 40 mg for 5 followed by 20 mg for 11 days. Completing 21 days of prednisone Continue with pantoprazole 40 mg daily while on prednisone Outpatient pulm f/u Continue to wean oxygen as tolerated #Diarrhea Resolved #Anemia Initial hemoglobin of 14.6 in the ED. 10.9 on 12/09. Hemoglobin remains stable at this time. Most likely dilutional effect. No signs or symptoms of an acute bleed. Continue to monitor #Demand ischemia Troponin peaked at 31.3. No signs and symptoms of ACS #Electrolyte Abnormalities Electrolytes monitored and repleted as indicated during hospital stay #Diffuse B Cell Lymphoma #History of chemoradiation therapy Stable. Follows with Dr. Donahue #Arthritis Stable on hydroxychloroquine - continue. Will do Tylenol instead of NSAIDs while inpatient. #HTN Patient on HCTZ at home. Was hypotensive during hospital stay and HCTZ was held. Restarted as patient HDS. Code status: full DVT ppx: Lovenox SQ QD GI ppx: added pantoprazole in setting of steroid use FENGI: Regular (2) Diffuse large B cell lymphoma: (3) Abnormal chest CT: (4) RANDY (stress urinary incontinence, female): (5) Hypertension: (6) Arthritis: (7) Sepsis: (8) History of radiation exposure: Admission and Anticipated Discharge Date Admission Date: December 01, 2022 Supervising Physician Co-Signing Physician Notes I personally examined the patient and verified all ward points of history and exam, discussed case, and agree with decision making with Dr Peralta feeljarek about the same, for LTAC. Vitals noted, in general she is awake and alert appears and despite high flow NC @ 85% she looks surprisingly NAD. breathing unlabored no conversational dyspnea good effort no accessory muscle use again on BiPAP. No focal neurodeficits. Pneumonia, severe hypoxiacontinue antibiotics and supportive care. still requiring significant FiO2, appreciate pulmonary input, doing better w PO, for LTAC tomorrow DVT prophylaxisLovenox otherwise as above Subjective Pt seen at bedside today. Continues to do well. Appetite slowly improving. Review of Systems Review of Systems: As per above Physical Exam Physical Exam: Constitutional: well-appearing, no acute distress HEENT: NCAT, no conjunctival injection CV: regular rhythm, no murmur appreciated, extremities well-perfused Resp: CTABL, no wheezes/rales/rhonchi appreciated, no increased work of breathing MSK: no gross deformities appreciated Skin: warm, dry, no rash appreciated Neuro: alert, oriented, no focal neurologic deficit appreciated Results & Data Results & Data Vital Signs (Past 12 Hours) Vital Signs Temp Pulse Pulse Resp BP Pulse Ox O2 Del Method 12/09/22 06:00 37.0 C 91 H 22 125/85 94 12/09/22 05:00 37.0 C 99 H 24 96 12/09/22 04:00 37.0 C 86 28 H 120/75 91 12/09/22 02:00 37.1 C 95 H 20 125/74 12/09/22 01:00 37.1 C 95 H 25 H 95 12/09/22 00:00 37.2 C 100 H 25 H 130/75 95 12/08/22 23:00 37.2 C 104 H 24 94 12/08/22 23:00 124/74 12/09/22 02:21 90 27 H 95 BiPAP 12/09/22 02:18 90 27 H 95 12/09/22 00:00 37.2 C 102 H 22 130/75 95 BiPAP 12/08/22 22:48 102 H 24 92 BiPAP 12/08/22 22:00 37.3 C 95 H 24 121/71 94 BiPAP 12/08/22 22:05 120 H 27 H 91 12/08/22 21:00 37.4 C 104 H 25 H 115/83 91 BiPAP 12/08/22 20:00 37.5 C 99 H 25 H 125/81 94 BiPAP 12/08/22 19:00 37.6 C H 101 H 31 H 114/81 90 High Flow Nasal Cannula 12/08/22 20:00 BiPAP 12/08/22 19:59 99 H 26 H 94 BiPAP 12/08/22 19:59 99 H 26 H 94 O2 Flow Rate FiO2 12/09/22 06:00 12/09/22 05:00 12/09/22 04:00 12/09/22 02:00 12/09/22 01:00 12/09/22 00:00 12/08/22 23:00 12/08/22 23:00 12/09/22 02:21 75 12/09/22 02:18 75 12/09/22 00:00 80 12/08/22 22:48 80 12/08/22 22:00 80 12/08/22 22:05 80 12/08/22 21:00 80 12/08/22 20:00 80 12/08/22 19:00 85 12/08/22 20:00 80 12/08/22 19:59 80 12/08/22 19:59 80 Resident Activity Tracking Resident Involvement: Resident Care Provided Care Provided: Adult Hospital Medicine
[2022-12-09] MEDS: SULFAMETHOXAZOLE/TRIMETHOPRIM DS 800/160MG TAB PO SCH (07:25)
[2022-12-09] MEDS: ADVANCED PROBIOTIC 1250 MG CAPSULE PO SCH (08:28)
[2022-12-09] MEDS: FLUoxetine HCL 20 MG CAP PO SCH (08:28)
[2022-12-09] MEDS: predniSONE 20 MG TAB PO SCH (08:28)
[2022-12-09] MEDS: FEXOFENADINE HCL 180 MG TAB PO SCH (08:29)
[2022-12-09] MEDS: PANTOprazole 40 MG TAB PO SCH (08:29)
[2022-12-09] MEDS: HYDROXYCHLOROQUINE SULFATE 200 MG TAB PO SCH (08:29)
[2022-12-09] MEDS: VIBEGRON 75 MG TAB PO SCH (08:29)
[2022-12-09] MEDS ORDERED: PIPERACILLIN/TAZOBACTAM 4.5 GM in DEXTROSE 5% 100 ML IV ONE (11:00)
[2022-12-09] MEDS: POLYETHYLENE (MIRALAX) 17 GM PACK PO PRN (11:35)
--- NOTE | 2022-12-09 14:26 | Infectious Disease Progress Nt ---
Date of Service December 09, 2022 oxygenation status unchanged Assessment & Plan (1) Abnormal chest CT: (2) Multifocal pneumonia: (3) Hypoxia: (4) Diffuse large B cell lymphoma: Plan 62 yo female with pmh of B-cell lymphoma, HTN, ? autoimmune arthritis on hydroxychloroquine to the Ed with progressive worsening of shortness of breath, dry cough and hypoxia She completed chemotherapy with RCHOP ( 6 cycles) on 08/27/2022 and completed consolidation radiation therapy right on 11/03/22. A few days post radiation therapy, she developed shortness of breath with fevers. She was evaluated by her PCP. A cxr showed patchy right upper lobe airspace opacity and bilateral lower lung reticulonodular interstitial thickening. She was treated with a 5 day course of azithromycin for presumed URI. She felt somewhat better and went on a 10 d vacation to [place]. Her dry cough and occasional fevers continued. Shortness of breath worsened after vacation. She complained in intermittent drenching sweats. A CT Chest was done on 11/24 which showed stable R axillary adenopathy, stable right scapular and T8 pathologic fractures and interval development of multifocal irregular airspace opacities most pronounced within the right lung apex and lung bases with mild interstitial thickening. Mild bronchiectasis also noted. There was no new or progressive lymphadenopathy within the chest. She was then treated with a course of with Augmentin. On Augmentin her symptoms progressed prompting evaluation in ED on 12/01/22. In Ed she was febrile with a tm 38.2, tachycardic, tachypneic and hypoxic on RA with o2 sat of 83%. O2 sats improved to 93% on 6L. Labs notable for an ESR 54, crp 8.07. MRSA nasal screen negative. Other labs unremarkable. A RVP is negative. Covid 19/influenza/rsv testing negative. A CTA chest showed no PE but revealed multifocal ground-glass and consolidative opacities that progressed concerning for viral pna. She denied travel outside the country or sick contacts. She was [place] in the and has never traveled outside the country. 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 She denies known exposure to TB. She has been on and off steroids but not currently. She has a parakeet at home for the last 6 years. She does not clean his cage. She has been exposed to her neighbors cat that lives outside. She denies nausea, rash, edema, change in urine or bowel habits. She is s/p bronchoscopy on 12/03. Findings noted for tracheal nodules (common per d/w pulmonary). There was minimal amount of clear secretion which was suctioned out. There were no evidence of mass, anatomic distortions, or hemorrhage. Bronchoalveolar lavage samples were sent for cell count, Gram stain and bacterial culture, AFB culture and smear, fungal culture and smear, flow cytometry and cytology. Transbronchial biopsies were sent for tissue culture (bacteria, AFB and fungal) and pathology. BAL fluid cell count noted for 50% lymphocytes. She is currently on zosyn and doxycycline and on BIPAP post procedure. She has not had sweats since admission. She feels she may have lost 5 lbs in the last 3 weeks. MICRO 12/01 BCx *2: NGTD 12/02 MRSA nares negative 12/03 BAL gram stain: Moderate WBCs Seen.No Organisms Seen 12/03 BAL cx: Pending 12/03 AFB Smear/cx: Pending 12/03 Fungal smear No Yeast or Hyphae Seen ; CX- Pending ABX Azith 12/01 cefepime 12/01 Zosyn 12/01- ongoing doxy 12/01-ongoing #Diffuse large B-cell lymphoma. sp RCHOP 08/27/2022. s/p XRT 11/03/2022. #Acute respiratory failure # Multilobar pneumonia # Parakeet exposure. She is immunocompromised 2/2 B cell lmphoma but has not received chemotherapy since 08/2022. He progressive SOb, cough, fever with occasion sweats started 3 weeks ago. She has a parakeet at home . She is on Plaquenil. She felt well initially after she recieved 5 d of azithromycin about 2 weeks ago. Procalcitonin in < 0.05. Differential for her presentation include PJP , fungal pna including crypto aspergillus, viral and bacterial pna, Chlamydia Psittaci infection in setting of parakeet exposure OR Pulmonary lymphoma. Discussed case with pulmonary and based on risk factors and Ct lung findings less likely mycobacterial process. Recommendation; Continue Zosyn 4.5g iv q8hrs will plan for 10 day course Continue Doxycycline 100 mg po bid, plan for 10-14 day course Start Bactrim 2 tabs po BID pending r/o PJP Start PO steroids 40 mg po q12 8 5 d, then 40 mg po daily for 5 d and then 20 mg daily for 11 d pending rule out PJP Follow-up BAL bacterial, fungal and AFB cx., cytology and pathology Follow up BD glucan, legionella cx, viral cx, PJP PCR/DFA, strep pna serology Followup serum crypto ag and aspergill ag ID following Carleen Hurtado MD Admission and Anticipated Discharge Date Admission Date: December 01, 2022 Subjective This patient recommendation is based on a telemedicine consult request which was completed asynchronously through chart review and information provided by the primary physician. The patient was not seen or examined today. The evaluation is consultative in nature and all patient care and treatment decisions can either be accepted or rejected by the patient's primary hospital-based treating physician using their own independent medical judgment for their patient. Time Spent Reviewing Chart: 21 - 30 minutes Results & Data Vital Signs (Past 12 Hours) Vital Signs Temp Pulse Pulse Resp BP Pulse Ox O2 Del Method 12/09/22 12:10 37.0 C 22 12/09/22 08:00 104 H 12/09/22 10:46 36.8 C 102 H 22 129/82 96 High Flow Nasal Cannula 12/09/22 10:35 18 94 High Flow Nasal Cannula 12/09/22 09:14 High Flow Nasal Cannula 12/09/22 07:40 108 H 18 90 High Flow Nasal Cannula 12/09/22 06:00 37.0 C 91 H 22 125/85 94 12/09/22 05:00 37.0 C 99 H 24 96 12/09/22 04:00 37.0 C 86 28 H 120/75 91 O2 Flow Rate FiO2 12/09/22 12:10 12/09/22 08:00 12/09/22 10:46 40 85 12/09/22 10:35 40 85 12/09/22 09:14 40 100 12/09/22 07:40 40 85 12/09/22 06:00 12/09/22 05:00 12/09/22 04:00
--- NOTE | 2022-12-09 16:51 | Critical Care Progress Note ---
Date of Service December 09, 2022 Assessment & Plan (1) History of radiation exposure: (2) Multifocal pneumonia: (3) Diffuse large B cell lymphoma: (4) Abnormal chest CT: Plan CT chest 12/01/2022 personally reviewed: Dense consolidative process appreciated in the right upper lobe Patchy groundglass opacities appreciated bilaterally Elevated right hemidiaphragm No significant mediastinal lymphadenopathy 2D echo 05/12/2022: EF 60-65%, RV normal in size and function -- Acute hypoxic respiratory failure Secondary to multilobar pneumonia Respiratory bio fire negative for everything on 11/25/2022 as well as 12/01/2022 Procalcitonin negative CRP 8.07 Patient has a parakeet at home for 10 years Lymphoma itself can give similar finding Last chemo was in August 2022, would consider to be immunosuppressed right now. PJP could present in similar way S/p bronchoscopy 12/03/2022, some anterior tracheal nodularity. Clear secretions. BAL 50% lymphocytes Follow-up cytology as well as micro BAL sent for coccidioidal, blastomycosis, cryptococcal as well as PJP PCR Case was discussed with Dr. Gonzales --History of B-cell lymphoma S/p R-CHOP and radiation Plan: In/out: 1720ml/3650ml Chest x-ray from today does not show any significant change compared to before. We will repeat chest x-ray tomorrow. Continue with empirically treating the patient with Bactrim till we have negative PJP PCR. All other cultures negative except for related sputum growing Summer. Continue with prednisone 40 mg twice daily for 5 followed by 40 mg for 5 followed by 20 mg for 11 days. Completing 21 days of prednisone Continue with pantoprazole 40 mg daily as patient will be on prednisone For her anxiety as well as tachycardia may be low-dose beta-jessica could be thought of. Will defer to primary care. Patient is requiring a lot of oxygen right now. She has been weaned to FiO2 of 85 to 90% She is not in any respiratory distress her respirate is still in the high teens to low 20s. Will continue to follow cautiously with low threshold for intubation Would recommend to keep her on the ICU floor due to the tenuous nature of her respiratory status. I have personally spent 38 minutes of critical care time in the direct management of this patient today on 12/09/2022. This is a life/limb threatening event. This includes time spent evaluating patient, direct bedside care, chart review, placing orders, interpretation of diagnostic studies, discussion with consultants, patient, and family members, as well as other required patient management activities. This time is exclusive of all separately billable procedures, and teaching time and separate from and in addition to any other critical care service time. Please note the above document was generated using voice recognition software. It may contain grammatical, syntax or spelling errors. Admission and Anticipated Discharge Date Admission Date: December 01, 2022 Subjective No changes overnight patient continues BiPAP nocturnally and Vapotherm during the daytime remaining in an FiO2 of 100%. She did speak to retail representative from the LT[facility] in [facility] and has accepted transfer which will transpire in the next 24 to 36 hours. No acute changes overnight or this morning. Review of Systems Review of Systems: All systems reviewed & are unremarkable except as noted in Subjective Physical Exam Constitutional: WD/WN, vitals as above Eyes: PERRL, conjunctivae normal, anicteric sclerae ENMT: external ear and nose normal, oropharynx normal Neck: trachea midline, no thyromegaly Respiratory: Finding right basilar crackles with poor airflow although good inspiratory and expiratory effort. Patient did not appear to be in any acute respiratory distress with respiratory rate in the low 20s. No cough or wheezing observed. Cardiovascular: RRR, no murmur, no edema Gastrointestinal (Abdomen): normal bowel sounds, soft, nontender, no hepatosplenomegaly Musculoskeletal: no cyanosis or clubbing, extremities motor strength 5/5 Skin: no rashes, warm and dry Neurologic: patellar DTR's 2+ bilat, sensation intact and PERRL, EOMI, accommodation nl, no face palsy, no dysarthria Psychiatric: A+Ox3, euthymic affect Results & Data Results & Data Vital Signs (Past 12 Hours) Vital Signs Temp Pulse Pulse Resp BP Pulse Ox O2 Del Method 12/09/22 15:11 112 H 18 90 High Flow Nasal Cannula 12/09/22 12:10 37.0 C 22 12/09/22 08:00 104 H 12/09/22 10:46 36.8 C 102 H 22 129/82 96 High Flow Nasal Cannula 12/09/22 10:35 18 94 High Flow Nasal Cannula 12/09/22 09:14 High Flow Nasal Cannula 12/09/22 07:40 108 H 18 90 High Flow Nasal Cannula 12/09/22 06:00 37.0 C 91 H 22 125/85 94 12/09/22 05:00 37.0 C 99 H 24 96 O2 Flow Rate FiO2 12/09/22 15:11 40 85 12/09/22 12:10 12/09/22 08:00 12/09/22 10:46 40 85 12/09/22 10:35 40 85 12/09/22 09:14 40 100 12/09/22 07:40 40 85 12/09/22 06:00 12/09/22 05:00 Laboratory Results Laboratory Results WBC 12.75 K/ul (4.8-10.8) H 12/09/22 04:19 RBC 3.62 M/uL (4.20-5.40) L 12/09/22 04:19 Hgb 10.9 g/dl (12.0-16.0) L 12/09/22 04:19 Hct 33.8 % (37.0-47.0) L 12/09/22 04:19 MCV 93.4 fL (80.0-100.0) 12/09/22 04:19 MCH 30.1 pg (25.0-34.0) 12/09/22 04:19 MCHC 32.2 g/dL (32.0-36.0) 12/09/22 04:19 RDW Std Deviation 47.6 fL (36.4-46.3) H 12/09/22 04:19 RDW Coeff of Clarence 13.8 % (11.5-14.5) 12/09/22 04:19 Plt Count 330 K/uL (130-400) 12/09/22 04:19 MPV 9.3 fL (9.4-12.4) L 12/09/22 04:19 Immature Gran % (Auto) 0.5 % 12/09/22 04:19 Neut % (Auto) 93.1 % 12/09/22 04:19 Lymph % (Auto) 1.9 % 12/09/22 04:19 Dewey % (Auto) 4.5 % 12/09/22 04:19 Eos % (Auto) 0.0 % 12/09/22 04:19 Baso % (Auto) 0.0 % 12/09/22 04:19 Neut # (Auto) 11.87 K/uL (1.40-6.50) H 12/09/22 04:19 Lymph # (Auto) 0.24 K/uL (1.20-3.40) L 12/09/22 04:19 Dewey # (Auto) 0.57 K/uL (0.11-0.59) 12/09/22 04:19 Eos # (Auto) 0.00 K/uL (0.00-0.50) 12/09/22 04:19 Baso # (Auto) 0.00 K/uL (0.00-0.20) 12/09/22 04:19 Immature Gran # (Auto) 0.07 K/uL (0.01-0.20) 12/09/22 04:19 Hypersegmented Neuts 1+ 12/07/22 05:21 ESR 54 mm/hr (0-30) H 12/01/22 19:55 PT 11.4 Seconds (9.0-12.0) 12/01/22 19:55 INR 1.0 (0.9-1.1) 12/01/22 19:55 APTT 29.3 Seconds (21.0-31.0) 12/01/22 19:55 PTT Ratio 1.0 12/01/22 19:55 VBG pH 7.44 (7.36-7.41) H 12/01/22 20:16 VBG pCO2 41 mmHg (38-50) 12/01/22 20:16 VBG pO2 37 mmHg 12/01/22 20:16 VBG HCO3 28 mmol/L 12/01/22 20:16 VBG O2 Saturation < 60.0 % 12/01/22 20:16 VBG Base Excess 3.3 mEq/L 12/01/22 20:16 Sodium 134 mmol/L (136-145) L 12/09/22 04:19 Potassium 4.7 mmol/L (3.5-5.1) 12/09/22 04:19 Chloride 99 mmol/L (98-107) 12/09/22 04:19 Carbon Dioxide 28 mmol/L (21-32) 12/09/22 04:19 Anion Gap 7 (3-11) 12/09/22 04:19 BUN 17 mg/dl (6-23) 12/09/22 04:19 Creatinine 0.58 mg/dl (0.6-1.2) L 12/09/22 04:19 Est Cr Clr Drug Dosing 104.6 ml/min 12/09/22 04:19 Est GFR ( Amer) 116.1 ml/min 12/09/22 04:19 Est GFR (Non-Af Amer) 100.2 ml/min 12/09/22 04:19 BUN/Creatinine Ratio 29.3 (10-20) H 12/09/22 04:19 Glucose 148 mg/dl (70-99(Fasting)) H 12/09/22 04:19 POC Glucose 142 mg/dl (70-99) H 12/07/22 11:51 Lactate 1.0 mmol/L (0.4-2.0) 12/01/22 19:55 Calcium 8.9 mg/dl (8.6-10.3) 12/09/22 04:19 Phosphorus 3.4 mg/dl (2.5-4.9) 12/09/22 04:19 Magnesium 2.0 mg/dl (1.7-2.4) 12/09/22 04:19 Total Bilirubin 0.8 mg/dl (0.2-1.0) 12/04/22 04:43 Direct Bilirubin 0.0 mg/dl (0-0.2) 12/01/22 19:55 AST 16 U/L (13-39) 12/04/22 04:43 ALT 12 U/L (7-52) 12/04/22 04:43 Alkaline Phosphatase 67 U/L (34-104) 12/04/22 04:43 Troponin I High Sens 25.8 pg/ml (0-14) H 12/02/22 00:10 C-Reactive Protein 1.03 mg/dl (0-0.5) H 12/09/22 10:56 B-Natriuretic Peptide 34 pg/ml (0-100) 12/03/22 05:26 Total Protein 6.4 gm/dl (6.0-8.3) 12/04/22 04:43 Albumin 3.5 gm/dl (3.4-5.0) 12/04/22 04:43 Globulin 2.9 gm/dl (2.5-4.0) 12/04/22 04:43 Albumin/Globulin Ratio 1.2 (0.9-2) 12/04/22 04:43 Procalcitonin < 0.05 ng/ml (0-0.5) 12/09/22 10:56 Urine Color Yellow 12/01/22 22:15 Urine Appearance Clear (Clear) 12/01/22 22:15 Urine pH 7.0 (4.5-7.5) 12/01/22 22:15 Ur Specific [place] 1.011 (1.000-1.030) 12/01/22 22:15 Urine Protein Negative (Negative) 12/01/22 22:15 Urine Glucose (UA) Negative (Negative) 12/01/22 22:15 Urine Ketones Negative (Negative) 12/01/22 22:15 Urine Blood Negative (Negative) 12/01/22 22:15 Urine Nitrite Negative (Negative) 12/01/22 22:15 Urine Bilirubin Negative (Negative) 12/01/22 22:15 Urine Urobilinogen Negative (Negative) 12/01/22 22:15 Ur Leukocyte Esterase Negative (Negative) 12/01/22 22:15 Fluid Neutrophils % 28 % 12/03/22 09:00 Fluid Lymphocytes % 50 % 12/03/22 09:00 Fluid Eosinophils % 2 % 12/03/22 09:00 Fluid Basophils % 1 % 12/03/22 09:00 Fl Monocyt/Macrophag % 19 % 12/03/22 09:00 Fluid Comment 12/03/22 09:00 Nasal Screen MRSA (PCR) Negative (Negative) 12/02/22 07:28 BAL CD4/CD8 Ratio See Comment 12/03/22 09:00 Adenovirus (PCR) Not Detected (NotDetected) 12/01/22 20:05 B. pertussis DNA (PCR) Not Detected (NotDetected) 12/01/22 20:05 B.parapertussis DNA PCR Not Detected (NotDetected) 12/01/22 20:05 C. pneumoniae DNA (PCR) Not Detected (NotDetected) 12/01/22 20:05 Coronavirus OC43 (PCR) Not Detected (NotDetected) 12/01/22 20:05 Coronavirus HKU1 (PCR) Not Detected (NotDetected) 12/01/22 20:05 Coronavirus 229E (PCR) Not Detected (NotDetected) 12/01/22 20:05 SARS-CoV-2 (PCR) Not Detected (NotDetected) 12/01/22 20:05 Coronavirus NL63 (PCR) Not Detected (NotDetected) 12/01/22 20:05 Cryptococcus Source Serum 12/04/22 04:43 Cryptococcal Ag (Latex) Not Detected (Not Detected) 12/04/22 04:43 Human Metapneumovir PCR Not Detected (NotDetected) 12/01/22 20:05 Influenza Type A (PCR) Not Detected (NotDetected) 12/01/22 20:05 Influenza Type B (PCR) Not Detected (NotDetected) 12/01/22 20:05 Urine Legionella Ag SEE NOTE 12/02/22 08:04 M. pneumoniae (PCR) Not Detected (NotDetected) 12/01/22 20:05 Parainfluenza 1 (PCR) Not Detected (NotDetected) 12/01/22 20:05 Parainfluenza 2 (PCR) Not Detected (NotDetected) 12/01/22 20:05 Parainfluenza 3 (PCR) Not Detected (NotDetected) 12/01/22 20:05 Parainfluenza 4 (PCR) Not Detected (NotDetected) 12/01/22 20:05 Pneumocystis Source BRONCH LAVAGE 12/03/22 09:00 Pneumocyst jirovecii PCR NOT DETECTED 12/03/22 09:00 A. galactomannan Ag Not Detected (Not Detected) 12/04/22 04:43 A. galactomannan Ag Idx 0.05 (<0.50) 12/04/22 04:43 RSV (PCR) Not Detected (NotDetected) 12/01/22 20:05 Entero/Rhino (PCR) Not Detected (NotDetected) 12/01/22 20:05 S.pneumoniae Type 1 IgG <0.3 12/02/22 00:05 S.pneumoniae Type 3 IgG <0.3 12/02/22 00:05 S.pneumoniae Type 4 IgG 0.4 12/02/22 00:05 S.pneumoniae Type 5 IgG <0.3 12/02/22 00:05 S.pneumoniae Type 8 IgG <0.3 12/02/22 00:05 S.pneumoniae 9 (9N) IgG <0.3 12/02/22 00:05 S.pneumon 12 (12F) IgG <0.3 12/02/22 00:05 S.pneumoniae Typ 14 IgG 2.2 12/02/22 00:05 S.pneumon 19 (19F) IgG 10.4 12/02/22 00:05 S.pneumon 23 (23F) IgG 1.9 12/02/22 00:05 S.pneumon 26 (6B) IgG <0.3 12/02/22 00:05 S.pneumon 51 (7F) IgG <0.3 12/02/22 00:05 S.pneumon 56 (18C) IgG 2.7 12/02/22 00:05 S.pneumon 68 (9V) IgG <0.3 12/02/22 00:05 Beta-(1,3)-D-Glucan 40 pg/mL 12/02/22 00:05 B-(1,3)-D-Glucan Intrp NEGATIVE 12/02/22 00:05 Miscellaneous Test 2 Cancelled 12/03/22 09:00 Miscellaneous Test 3 Cancelled 12/03/22 09:00 Miscellaneous Test 4 Cancelled 12/03/22 09:00 Ref Lab Test Result Cancelled 12/03/22 09:00 Impressions Chest CTA 12/01/22 20:59 Exam(s): CTA CHEST IV Amt: 119ml EXAM: CT Angiography Chest With Intravenous Contrast CLINICAL HISTORY: Reason for exam: PE. TECHNIQUE: Axial computed tomographic angiography images of the chest with intravenous contrast. CTDI is 11.87 mGy and DLP is 828.08 mGy-cm. Automated exposure control was utilized for the study. A dose lowering technique was utilized adhering to the principles of ALARA. MIP reconstructed images were created and reviewed. COMPARISON: CT chest 11/24/22 FINDINGS: There is a left chest wall port catheter with tip in the right atrium. There is no thoracic aortic aneurysm or dissection. There is adequate pulmonary artery opacification. Main pulmonary artery is normal in caliber. There is no evidence of acute pulmonary embolism. There is no mediastinal or hilar lymphadenopathy. Enlarged right axillary lymph node is stable from prior exam. Left axillary lymph nodes are normal. Heart size is normal. There is no pericardial effusion. Multifocal consolidative and ground-glass opacities are present, appearing somewhat progressed from prior exam. There is no visible pulmonary mass at this time. There is no pleural effusion or pneumothorax. There is a stable 6 mm hypervascular focus in the right hepatic dome. There is a lytic lesion of T8 with associated pathologic compression fracture. There is also a lytic lesion of the right scapular body with associated pathologic fracture. These findings are stable from prior. Regional skeleton appears otherwise intact. IMPRESSION: 1. No evidence of acute pulmonary embolism. 2. Multifocal ground-glass and consolidative opacities appear slightly progressed from prior exam and are concerning for pneumonia, to include viral pneumonia within the differential diagnosis. Imaging follow-up to resolution is recommended. 3. Stable right axillary lymphadenopathy. 4. 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 5. Stable 6 mm hypervascular focus in the right liver dome, nonspecific. Is recommended prior, six-month follow-up CT may be performed for re- characterization. Electronically signed by: Zahida aLrry M.D. 12/01/22 22:43 PM Chest X-Ray 12/05/22 07:00 XR chest 1V portable HISTORY: Respiratory failure. COMPARISON: Chest 12/04/2022. FINDINGS: A left Port-A-Cath terminates in the distal SVC. The cardiac silhouette remains mildly enlarged. No pneumothorax. There is diffuse interstitial thickening with multifocal airspace opacities again noted. This is most pronounced at the lung bases. There is chronic elevation of the right hemidiaphragm. IMPRESSION: No change in the diffuse interstitial thickening with multifocal airspace opacities. ACT 112: Negative or not required by law. Electronically signed by: Andres Barry M.D. 12/05/2022 8:05 AM Medications Administered Home Medications Medication Instructions Recorded Confirmed Last Taken fexofenadine 180 mg tablet 180 mg PO QAM 06/10/21 12/01/22 11/30/22 (Gay Allergy) albuterol sulfate 90 mcg/actuation 2 puff inhalation .COMPLEX PRN 01/25/2212/01 Unknown aerosol inhaler (ProAir HFA) shortness of breath or wheezing #8.5 grams hydroxychloroquine 200 mg tablet 200 mg PO DAILY 09/27/22 12/01/22 11/30/22 (Plaquenil) amoxicillin 875 mg-potassium 1 tab PO Q12 12/01/22 12/01/22 12/01/22 clavulanate 125 mg tablet am fluoxetine 40 mg capsule (Prozac) 40 mg PO QAM 12/01/22 12/01/22 11/30/22 hydrochlorothiazide 25 mg tablet 25 mg PO QAM 12/01/22 12/01/22 11/30/22 meloxicam 15 mg tablet 15 mg PO QAM 12/01/22 12/01/22 11/30/22 vibegron 75 mg tablet (Gemtesa) 75 mg PO QAM 12/01/22 12/01/22 11/30/22 Active Medications Generic Name Dose Route Start Last Admin Trade Name Freq PRN Reason Stop Dose Admin Acetaminophen 650 mg 12/02/22 02:40 12/08/22 23:16 Acetaminophen 325 Mg Tab PO 01/01/23 02:39 650 mg Q4H PRN Administration Pain or Fever Albuterol 3 ml 12/02/22 03:00 12/09/22 15:07 Albut/Ipratrop 3mg/0.5mg Neb 3 Ml Vial NEB 01/01/23 02:59 3 ml Q4R SHAYY Administration Protocol Enoxaparin Sodium 40 mg 12/03/22 21:00 12/08/22 20:26 Enoxaparin Inj 40 Mg/0.4 Ml Syr SQ 01/02/23 20:59 40 mg HS SHAYY Administration Fexofenadine HCl 180 mg 12/02/22 09:00 12/09/22 08:29 Fexofenadine Hcl 180 Mg Tab PO 01/01/23 08:59 180 mg QAM SHAYY Administration Fluoxetine HCl 40 mg 12/02/22 09:00 12/09/22 08:28 Fluoxetine Hcl 20 Mg Cap PO 01/01/23 08:59 40 mg QAM SHAYY Administration Hydrochlorothiazide 25 mg 12/02/22 09:00 12/05/22 07:58 Hydrochlorothiazide 25 Mg Tab PO 01/01/23 08:59 25 mg QAM SHAYY Administration Hydroxychloroquine Sulfate 200 mg 12/02/22 09:00 12/09/22 08:29 Hydroxychloroquine Sulfate 200 Mg Tab PO 01/01/23 08:59 200 mg DAILY SHAYY Administration Lactobacillus Acidophilus 2 cap 12/04/22 10:45 12/09/22 08:28 Advanced Probiotic 1250 Mg Capsule PO 01/03/23 10:44 2 cap DAILY SHAYY Administration Ondansetron HCl 4 mg 12/02/22 02:40 12/07/22 20:35 Ondansetron Inj 2 Mg/Ml 2 Ml Vial IV 01/01/23 02:39 4 mg Q6H PRN Administration Nausea Pantoprazole Sodium 40 mg 12/04/22 09:00 12/09/22 08:29 Pantoprazole 40 Mg Tab PO 12/24/22 09:01 40 mg DAILY SHAYY Administration Polyethylene Glycol 17 gm 12/02/22 02:40 12/09/22 11:35 Polyethylene (Miralax) 17 Gm Pack PO 01/01/23 02:39 17 gm DAILY PRN Administration Constipation Prednisone 40 mg 12/09/22 09:00 12/09/22 08:28 Prednisone 20 Mg Tab PO 12/13/22 09:01 40 mg DAILY SHAYY Administration Vibegron 75 mg 12/02/22 09:00 12/09/22 08:29 Vibegron 75 Mg Tab PO 01/01/23 08:59 75 mg QAM SHAYY Administration Coding Level of Care Code 78298 CRITICAL CARE 1ST 30-74M Diagnoses History of radiation exposure Z92.3 Multifocal pneumonia J18.9 Diffuse large B cell lymphoma C83.[address] R93.89
--- NOTE | 2022-12-09 17:58 | Billing Data ---
Date of Service December 09, 2022 Coding Level of Care Code 52934 SUB INP/OBS CARE
[2022-12-09] MEDS: ACETAMINOPHEN 325 MG TAB PO PRN (18:31)
[2022-12-09] MEDS: PIPERACILLIN/TAZOBACTAM 4.5 GM in DEXTROSE 5% 100 ML IV SCH (19:50)
[2022-12-09] MEDS: ENOXAPARIN INJ 40 MG/0.4 ML SYR SQ SCH (20:24)
[2022-12-10] MEDS: ALBUT/IPRATROP 3MG/0.5MG NEB 3 ML VIAL NEB SCH ×6 (02:34→22:16)
[2022-12-10 05:19] LABS: Basophils # (auto) 0.01 K/uL (0.00-0.20); Basophils % (auto) 0.1 %; Eosinophils # (auto) 0.17 K/uL (0.00-0.50); Eosinophils % (auto) 1.7 %; Hematocrit (blood only) 35.9 % (37.0-47.0); Hemoglobin 11.5 g/dl (12.0-16.0); Immature Granulocytes # (auto) 0.07 K/uL (0.01-0.20); Immature Granulocytes % (auto) 0.7 %; Lymphocytes # (auto) 0.59 K/uL (1.20-3.40); Lymphocytes % (auto) 5.8 %; Mean Corpuscular Hemoglobin 30.1 pg (25.0-34.0); Mean Platelet Volume 9.3 fL (9.4-12.4); Monocytes # (auto) 0.88 K/uL (0.11-0.59); Monocytes % (auto) 8.6 %; Neutrophils # (auto) 8.53 K/uL (1.40-6.50); Neutrophils % (auto) 83.1 %; Platelet Count 324 K/uL (130-400); RDW Coefficient of Variation 13.9 % (11.5-14.5); RDW Standard Deviation 46.9 fL (36.4-46.3); Red Blood Count 3.82 M/uL (4.20-5.40); White Blood Count 10.25 K/ul (4.8-10.8)
[2022-12-10 05:26] LABS: BUN Creatinine Ratio 39.2 (10-20); C Reactive Protein 0.63 mg/dl (0-0.5); Calcium 8.6 mg/dl (8.6-10.3); Creatinine Clr Calc Pharmacy 118.6 ml/min; Est GFR (African American) 121.1 ml/min; Est GFR (Non-African American) 104.5 ml/min; Magnesium 1.9 mg/dl (1.7-2.4); Phosphorus 2.7 mg/dl (2.5-4.9); Potassium 3.9 mmol/L (3.5-5.1)
--- NOTE | 2022-12-10 06:41 | Hospitalist Progress Note ---
Date of Service December 10, 2022 Assessment & Plan (1) Multifocal pneumonia: Plan: 62 y/o female with a PMHx of B-cell lymphoma s/p chemo and radiation therapy, HTN, OAB, and arthritis presented with hypoxia likely in the setting of multifocal pneumonia admitted for further workup and IV abx now s/p bronchoscopy with slight subjective improvement, but continued significant oxygen requirement. #Multifocal PNA #Sepsis POA CTA chest and x-ray favor pneumonia. Viral BioFire negative, Pro-Jerry negative. Patient is immunocompromised as she has B-cell lymphoma. Higher risk of abnormal pathogens - broad work up indicated. Blood cultures negative x 48H. Legionella urine ab negative. BAL with rare danelle species. More likely to be a contaminant. Fungal blood cultures, pending if positive will begin antifungal treatment. Patient is not neutropenic so treatment with an echinocandin such as caspofungin would be appropriate. Cytology from bronchoscopy with Moderate chronic active pneumonitis with many histiocytes, no malignant cells. Pathology without fungal organisms, mycobacterial organisms. Abx: Azithromycin 12/01 x1 Cefepime 12/01 x1 Zosyn 12/01 - ongoing Doxy 12/01 - ongoing Bactrim 12/03 - stopped on 12/08/22 PJP PCR negative Consults: Pulm consult - upgraded to ICU status after bronchoscopy, downgraded to PCU 12/04 ID consulted Plan: fungal blood cultures - continue to remain without growth to date crypto ag, aspergillosis ag pending Plan to trend CRP, procal- if continue to remain stable would consider stopping antibiotics in the next few days. If questionable would consider repeat CT. Oxygen requirement has remained stable, plan for transfer to LTAC pending insurance #Acute hypoxic respiratory failure Patient with significant oxygen requirement. Patient on 40L HFNC with 100% FiO2. If worsening respiratory status, patient has stated that she would want intubation if needed. Recommend that she remain on the ICU floor at this time even though she is PCU status. Supplemental oxygen as needed, DuoNebs every 4 hours Continue prednisone 40 mg twice daily for 5 followed by 40 mg for 5 followed by 20 mg for 11 days. Completing 21 days of prednisone Continue with pantoprazole 40 mg daily while on prednisone Outpatient pulm f/u Continue to wean oxygen as tolerated #Diarrhea Resolved #Anemia Initial hemoglobin of 14.6 in the ED. 10.9 on 12/09. Hemoglobin remains stable at this time. Most likely dilutional effect. No signs or symptoms of an acute bleed. Continue to monitor #Demand ischemia Troponin peaked at 31.3. No signs and symptoms of ACS #Electrolyte Abnormalities Electrolytes monitored and repleted as indicated during hospital stay #Diffuse B Cell Lymphoma #History of chemoradiation therapy Stable. Follows with Dr. Donahue #Arthritis Stable on hydroxychloroquine - continue. Will do Tylenol instead of NSAIDs while inpatient. #HTN Patient on HCTZ at home. Was hypotensive during hospital stay and HCTZ was held. Restarted as patient HDS. Code status: full DVT ppx: Lovenox SQ QD GI ppx: added pantoprazole in setting of steroid use FENGI: Regular (2) Diffuse large B cell lymphoma: (3) Abnormal chest CT: (4) RANDY (stress urinary incontinence, female): (5) Hypertension: (6) Arthritis: (7) Sepsis: (8) History of radiation exposure: Admission and Anticipated Discharge Date Admission Date: December 01, 2022 Supervising Physician Co-Signing Physician Notes I personally examined the patient and verified all ward points of history and exam, discussed case, and agree with decision making with Dr Peralta feeling ok. far less desaturations. Vitals noted, in general she is awake and alert appears and despite high flow NC @ 85% she looks surprisingly NAD. breathing unlabored no conversational dyspnea good effort no accessory muscle use again on BiPAP. No focal neurodeficits. Pneumonia, severe hypoxiacontinue antibiotics and supportive care. still requiring significant FiO2, appreciate pulmonary input, doing better w PO, for LTAC once approved. appreciate ID input - stop zosyn tomorrow DVT prophylaxisLovenox otherwise as above Subjective Pt seen at bedside this morning. Doing well. Appetite continues to improve. Oxygen requirement remains stable. Review of Systems Review of Systems: As per above Physical Exam Physical Exam: Constitutional: well-appearing, no acute distress HEENT: NCAT, no conjunctival injection CV: regular rhythm, no murmur appreciated, extremities well-perfused Resp: CTABL, no wheezes/rales/rhonchi appreciated, no increased work of breathing MSK: no gross deformities appreciated Skin: warm, dry, no rash appreciated Neuro: alert, oriented, no focal neurologic deficit appreciated Results & Data Results & Data Vital Signs (Past 12 Hours) Vital Signs Temp Pulse Pulse Resp BP Pulse Ox O2 Del Method 12/10/22 06:00 37.4 C 105 H 26 H 97 12/10/22 06:00 115/74 12/10/22 05:00 37.5 C 108 H 31 H 94 12/10/22 04:00 37.4 C 106 H 22 98 12/10/22 04:00 121/62 12/10/22 03:00 37.4 C 106 H 25 H 95 12/10/22 02:00 37.3 C 103 H 25 H 94 12/10/22 02:00 114/74 12/10/22 01:00 37.4 C 104 H 24 95 12/10/22 04:16 121 H 28 H 90 High Flow Nasal Cannula 12/10/22 02:41 108 H 27 H 97 BiPAP 12/10/22 02:40 107 H 27 H 97 12/10/22 00:00 37.4 C 104 H 27 H 95 12/10/22 00:00 101 H 12/09/22 23:00 37.6 C H 108 H 25 H 95 12/09/22 22:00 37.6 C H 109 H 23 91 12/09/22 22:00 118/71 12/09/22 21:00 37.8 C H 105 H 23 91 12/09/22 20:00 37.8 C H 119 H 28 H 90 12/09/22 23:22 High Flow Nasal Cannula 12/09/22 22:15 109 H 25 H 96 12/09/22 22:15 107 H 26 H 94 BiPAP 12/09/22 20:04 114 H 20 94 High Flow Nasal Cannula 12/09/22 19:00 37.8 C H 115 H 14 89 L O2 Flow Rate FiO2 12/10/22 06:00 12/10/22 06:00 12/10/22 05:00 12/10/22 04:00 12/10/22 04:00 12/10/22 03:00 12/10/22 02:00 12/10/22 02:00 12/10/22 01:00 12/10/22 04:16 40 85 12/10/22 02:41 70 12/10/22 02:40 70 12/10/22 00:00 12/10/22 00:00 12/09/22 23:00 12/09/22 22:00 12/09/22 22:00 12/09/22 21:00 12/09/22 20:00 12/09/22 23:22 40 85 12/09/22 22:15 80 12/09/22 22:15 80 12/09/22 20:04 40 85 12/09/22 19:00 Resident Activity Tracking Resident Involvement: Resident Care Provided Care Provided: Adult Hospital Medicine
[2022-12-10] MEDS: PIPERACILLIN/TAZOBACTAM 4.5 GM in DEXTROSE 5% 100 ML IV SCH ×2 (07:46→16:47)
[2022-12-10] MEDS: HYDROXYCHLOROQUINE SULFATE 200 MG TAB PO SCH (08:11)
[2022-12-10] MEDS: FEXOFENADINE HCL 180 MG TAB PO SCH (08:12)
[2022-12-10] MEDS: FLUoxetine HCL 20 MG CAP PO SCH (08:12)
[2022-12-10] MEDS: PANTOprazole 40 MG TAB PO SCH (08:12)
[2022-12-10] MEDS: VIBEGRON 75 MG TAB PO SCH (08:12)
[2022-12-10] MEDS: predniSONE 20 MG TAB PO SCH (08:12)
[2022-12-10] MEDS: POLYETHYLENE (MIRALAX) 17 GM PACK PO PRN (08:13)
[2022-12-10] MEDS: ADVANCED PROBIOTIC 1250 MG CAPSULE PO SCH (08:13)
--- NOTE | 2022-12-10 15:08 | Pulmonology Progress Note ---
Date of Service December 10, 2022 Assessment & Plan (1) History of radiation exposure: (2) Multifocal pneumonia: (3) Diffuse large B cell lymphoma: (4) Abnormal chest CT: Plan CT chest 12/01/2022 personally reviewed: Dense consolidative process appreciated in the right upper lobe Patchy groundglass opacities appreciated bilaterally Elevated right hemidiaphragm No significant mediastinal lymphadenopathy 2D echo 05/12/2022: EF 60-65%, RV normal in size and function -- Acute hypoxic respiratory failure Secondary to multilobar pneumonia Respiratory bio fire negative for everything on 11/25/2022 as well as 12/01/2022 Procalcitonin negative CRP 8.07 Patient has a parakeet at home for 10 years Lymphoma itself can give similar finding Last chemo was in August 2022, would consider to be immunosuppressed right now. PJP could present in similar way S/p bronchoscopy 12/03/2022, some anterior tracheal nodularity. Clear secretions. BAL 50% lymphocytes Follow-up cytology as well as micro BAL sent for coccidioidal, blastomycosis, cryptococcal as well as PJP PCR Case was discussed with Dr. Gonzales --History of B-cell lymphoma S/p R-CHOP and radiation Plan: In/out: 690ml/850ml We will repeat chest x-ray tomorrow. Continue with empirically treating the patient with Bactrim till we have negative PJP PCR. All other cultures negative except for related sputum growing Summer. Continue with prednisone 40 mg twice daily for 5 followed by 40 mg for 5 followed by 20 mg for 11 days. Completing 21 days of prednisone Continue with pantoprazole 40 mg daily as patient will be on prednisone For her anxiety as well as tachycardia may be low-dose beta-jessica could be thought of. Will defer to primary care. Patient is requiring a lot of oxygen right now. She has been weaned to FiO2 of 85 to 90% of the Vapotherm Nalocet FiO2 of 85%. She is not in any respiratory distress her respirate is still in the high teens to low 20s. Will continue to follow cautiously with low threshold for intubation Would recommend to keep her on the ICU floor due to the tenuous nature of her respiratory status. I have personally spent 34 minutes of critical care time in the direct management of this patient today on 12/10/2022. This is a life/limb threatening event. This includes time spent evaluating patie nt, direct bedside care, chart review, placing orders, interpretation of diagnostic studies, discussion with consultants, patient, and family members, as well as other required patient management activities. This time is exclusive of all separately billable procedures, and teaching time and separate from and in addition to any other critical care service time. Please note the above document was generated using voice recognition software. It may contain grammatical, syntax or spelling errors. Admission and Anticipated Discharge Date Admission Date: December 01, 2022 Subjective Patient currently on Vapotherm with FiO2 now at 85%, no problems overnight she was able to get some sleep and still continues to use the BiPAP nocturnally. She was seen by the senior customer service representative from the LTAC facility in [place] and has accepted transfer therefore we are awaiting further documentation in regards to being able to transfer her to LTAC facility in [place] once bed becomes available. Review of Systems Review of Systems: All systems reviewed & are unremarkable except as noted in Subjective Physical Exam Constitutional: WD/WN, vitals as above Eyes: PERRL, conjunctivae normal, anicteric sclerae ENMT: external ear and nose normal, oropharynx normal Neck: trachea midline, no thyromegaly Respiratory: Better bilateral airflow although still diminished particularly to the bases, pa tient without significant coughing and no wheezing. We will order portable chest x-ray for tomorrow Cardiovascular: RRR, no murmur, no edema Gastrointestinal (Abdomen): normal bowel sounds, soft, nontender, no hepatosplenomegaly Musculoskeletal: no cyanosis or clubbing, extremities motor strength 5/5 Skin: no rashes, warm and dry Neurologic: patellar DTR's 2+ bilat, sensation intact and PERRL, EOMI, accommodation nl, no face palsy, no dysarthria Psychiatric: A+Ox3, euthymic affect Results & Data Results & Data Vital Signs (Past 12 Hours) Vital Signs Temp Pulse Pulse Resp BP Pulse Ox O2 Del Method 12/10/22 13:13 37.7 C H 120 H 24 93 12/10/22 13:13 109/68 12/10/22 13:00 37.6 C H 123 H 24 95 12/10/22 12:00 37.6 C H 120 H 18 97 12/10/22 11:00 37.6 C H 116 H 19 93 12/10/22 10:00 37.5 C 116 H 31 H 97 12/10/22 09:00 37.4 C 117 H 26 H 100 12/10/22 08:00 37.5 C 105 H 22 92 12/10/22 07:00 37.5 C 105 H 25 H 95 12/10/22 11:28 88 20 94 High Flow Nasal Cannula 12/10/22 11:06 High Flow Nasal Cannula 12/10/22 08:08 103 H 18 90 High Flow Nasal Cannula 12/10/22 07:26 101 H 12/10/22 06:00 37.4 C 105 H 26 H 97 12/10/22 06:00 115/74 12/10/22 05:00 37.5 C 108 H 31 H 94 12/10/22 04:00 37.4 C 106 H 22 98 12/10/22 04:00 121/62 12/10/22 04:16 121 H 28 H 90 High Flow Nasal Cannula O2 Flow Rate FiO2 12/10/22 13:13 12/10/22 13:13 12/10/22 13:00 12/10/22 12:00 12/10/22 11:00 12/10/22 10:00 12/10/22 09:00 12/10/22 08:00 12/10/22 07:00 12/10/22 11:28 40 85 12/10/22 11:06 40 85 12/10/22 08:08 40 85 12/10/22 07:26 12/10/22 06:00 12/10/22 06:00 12/10/22 05:00 12/10/22 04:00 12/10/22 04:00 12/10/22 04:16 40 85 Laboratory Results Laboratory Results WBC 10.25 K/ul (4.8-10.8) 12/10/22 03:57 RBC 3.82 M/uL (4.20-5.40) L 12/10/22 03:57 Hgb 11.5 g/dl (12.0-16.0) L 12/10/22 03:57 Hct 35.9 % (37.0-47.0) L 12/10/22 03:57 MCV 94.0 fL (80.0-100.0) 12/10/22 03:57 MCH 30.1 pg (25.0-34.0) 12/10/22 03:57 MCHC 32.0 g/dL (32.0-36.0) 12/10/22 03:57 RDW Std Deviation 46.9 fL (36.4-46.3) H 12/10/22 03:57 RDW Coeff of Clarence 13.9 % (11.5-14.5) 12/10/22 03:57 Plt Count 324 K/uL (130-400) 12/10/22 03:57 MPV 9.3 fL (9.4-12.4) L 12/10/22 03:57 Immature Gran % (Auto) 0.7 % 12/10/22 03:57 Neut % (Auto) 83.1 % 12/10/22 03:57 Lymph % (Auto) 5.8 % 12/10/22 03:57 [place] % (Auto) 8.6 % 12/10/22 03:57 Eos % (Auto) 1.7 % 12/10/22 03:57 Baso % (Auto) 0.1 % 12/10/22 03:57 Neut # (Auto) 8.53 K/uL (1.40-6.50) H 12/10/22 03:57 Lymph # (Auto) 0.59 K/uL (1.20-3.40) L 12/10/22 03:57 [place] # (Auto) 0.88 K/uL (0.11-0.59) H 12/10/22 03:57 Eos # (Auto) 0.17 K/uL (0.00-0.50) 12/10/22 03:57 Baso # (Auto) 0.01 K/uL (0.00-0.20) 12/10/22 03:57 Immature Gran # (Auto) 0.07 K/uL (0.01-0.20) 12/10/22 03:57 Hypersegmented Neuts 1+ 12/07/22 05:21 ESR 54 mm/hr (0-30) H 12/01/22 19:55 PT 11.4 Seconds (9.0-12.0) 12/01/22 19:55 INR 1.0 (0.9-1.1) 12/01/22 19:55 APTT 29.3 Seconds (21.0-31.0) 12/01/22 19:55 PTT Ratio 1.0 12/01/22 19:55 VBG pH 7.44 (7.36-7.41) H 12/01/22 20:16 VBG pCO2 41 mmHg (38-50) 12/01/22 20:16 VBG pO2 37 mmHg 12/01/22 20:16 VBG HCO3 28 mmol/L 12/01/22 20:16 VBG O2 Saturation < 60.0 % 12/01/22 20:16 VBG Base Excess 3.3 mEq/L 12/01/22 20:16 Sodium 136 mmol/L (136-145) 12/10/22 03:57 Potassium 3.9 mmol/L (3.5-5.1) 12/10/22 03:57 Chloride 101 mmol/L (98-107) 12/10/22 03:57 Carbon Dioxide 28 mmol/L (21-32) 12/10/22 03:57 Anion Gap 7 (3-11) 12/10/22 03:57 BUN 20 mg/dl (6-23) 12/10/22 03:57 Creatinine 0.51 mg/dl (0.6-1.2) L 12/10/22 03:57 Est Cr Clr Drug Dosing 118.6 ml/min 12/10/22 03:57 Est GFR ( Amer) 121.1 ml/min 12/10/22 03:57 Est GFR (Non-Af Amer) 104.5 ml/min 12/10/22 03:57 BUN/Creatinine Ratio 39.2 (10-20) H 12/10/22 03:57 Glucose 103 mg/dl (70-99(Fasting)) H 12/10/22 03:57 POC Glucose 142 mg/dl (70-99) H 12/07/22 11:51 Lactate 1.0 mmol/L (0.4-2.0) 12/01/22 19:55 Calcium 8.6 mg/dl (8.6-10.3) 12/10/22 03:57 Phosphorus 2.7 mg/dl (2.5-4.9) 12/10/22 03:57 Magnesium 1.9 mg/dl (1.7-2.4) 12/10/22 03:57 Total Bilirubin 0.8 mg/dl (0.2-1.0) 12/04/22 04:43 Direct Bilirubin 0.0 mg/dl (0-0.2) 12/01/22 19:55 AST 16 U/L (13-39) 12/04/22 04:43 ALT 12 U/L (7-52) 12/04/22 04:43 Alkaline Phosphatase 67 U/L (34-104) 12/04/22 04:43 Troponin I High Sens 25.8 pg/ml (0-14) H 12/02/22 00:10 C-Reactive Protein 0.63 mg/dl (0-0.5) H 12/10/22 03:57 B-Natriuretic Peptide 34 pg/ml (0-100) 12/03/22 05:26 Total Protein 6.4 gm/dl (6.0-8.3) 12/04/22 04:43 Albumin 3.5 gm/dl (3.4-5.0) 12/04/22 04:43 Globulin 2.9 gm/dl (2.5-4.0) 12/04/22 04:43 Albumin/Globulin Ratio 1.2 (0.9-2) 12/04/22 04:43 Procalcitonin < 0.05 ng/ml (0-0.5) 12/10/22 03:57 Urine Color Yellow 12/01/22 22:15 Urine Appearance Clear (Clear) 12/01/22 22:15 Urine pH 7.0 (4.5-7.5) 12/01/22 22:15 Ur Specific [place] 1.011 (1.000-1.030) 12/01/22 22:15 Urine Protein Negative (Negative) 12/01/22 22:15 Urine Glucose (UA) Negative (Negative) 12/01/22 22:15 Urine Ketones Negative (Negative) 12/01/22 22:15 Urine Blood Negative (Negative) 12/01/22 22:15 Urine Nitrite Negative (Negative) 12/01/22 22:15 Urine Bilirubin Negative (Negative) 12/01/22 22:15 Urine Urobilinogen Negative (Negative) 12/01/22 22:15 Ur Leukocyte Esterase Negative (Negative) 12/01/22 22:15 Fluid Neutrophils % 28 % 12/03/22 09:00 Fluid Lymphocytes % 50 % 12/03/22 09:00 Fluid Eosinophils % 2 % 12/03/22 09:00 Fluid Basophils % 1 % 12/03/22 09:00 Fl Monocyt/Macrophag % 19 % 12/03/22 09:00 Fluid Comment 12/03/22 09:00 Nasal Screen MRSA (PCR) Negative (Negative) 12/02/22 07:28 BAL CD4/CD8 Ratio See Comment 12/03/22 09:00 BAL A.galactomannan Ag Not Detected (Not Detected) 12/03/22 09:00 BAL A.galactomann Index 0.13 (<0.50) 12/03/22 09:00 Stl C. diff Tox B Gene Negative Cdiff Gene (Neg) 12/10/22 13:05 Adenovirus (PCR) Not Detected (NotDetected) 12/01/22 20:05 B. pertussis DNA (PCR) Not Detected (NotDetected) 12/01/22 20:05 B.parapertussis DNA PCR Not Detected (NotDetected) 12/01/22 20:05 C. pneumoniae DNA (PCR) Not Detected (NotDetected) 12/01/22 20:05 Coronavirus OC43 (PCR) Not Detected (NotDetected) 12/01/22 20:05 Coronavirus HKU1 (PCR) Not Detected (NotDetected) 12/01/22 20:05 Coronavirus 229E (PCR) Not Detected (NotDetected) 12/01/22 20:05 SARS-CoV-2 (PCR) Not Detected (NotDetected) 12/01/22 20:05 Coronavirus NL63 (PCR) Not Detected (NotDetected) 12/01/22 20:05 Cryptococcus Source Serum 12/04/22 04:43 Cryptococcal Ag (Latex) Not Detected (Not Detected) 12/04/22 04:43 Human Metapneumovir PCR Not Detected (NotDetected) 12/01/22 20:05 Influenza Type A (PCR) Not Detected (NotDetected) 12/01/22 20:05 Influenza Type B (PCR) Not Detected (NotDetected) 12/01/22 20:05 Urine Legionella Ag SEE NOTE 12/02/22 08:04 M. pneumoniae (PCR) Not Detected (NotDetected) 12/01/22 20:05 Parainfluenza 1 (PCR) Not Detected (NotDetected) 12/01/22 20:05 Parainfluenza 2 (PCR) Not Detected (NotDetected) 12/01/22 20:05 Parainfluenza 3 (PCR) Not Detected (NotDetected) 12/01/22 20:05 Parainfluenza 4 (PCR) Not Detected (NotDetected) 12/01/22 20:05 Pneumocystis Source [place] 12/03/22 09:00 Pneumocyst jirovecii PCR NOT DETECTED 12/03/22 09:00 A. galactomannan Ag Not Detected (Not Detected) 12/04/22 04:43 A. galactomannan Ag Idx 0.05 (<0.50) 12/04/22 04:43 RSV (PCR) Not Detected (NotDetected) 12/01/22 20:05 Entero/Rhino (PCR) Not Detected (NotDetected) 12/01/22 20:05 S.pneumoniae Type 1 IgG <0.3 12/02/22 00:05 S.pneumoniae Type 3 IgG <0.3 12/02/22 00:05 S.pneumoniae Type 4 IgG 0.4 12/02/22 00:05 S.pneumoniae Type 5 IgG <0.3 12/02/22 00:05 S.pneumoniae Type 8 IgG <0.3 12/02/22 00:05 S.pneumoniae 9 (9N) IgG <0.3 12/02/22 00:05 S.pneumon 12 (12F) IgG <0.3 12/02/22 00:05 S.pneumoniae Typ 14 IgG 2.2 12/02/22 00:05 S.pneumon 19 (19F) IgG 10.4 12/02/22 00:05 S.pneumon 23 (23F) IgG 1.9 12/02/22 00:05 S.pneumon 26 (6B) IgG <0.3 12/02/22 00:05 S.pneumon 51 (7F) IgG <0.3 12/02/22 00:05 S.pneumon 56 (18C) IgG 2.7 12/02/22 00:05 S.pneumon 68 (9V) IgG <0.3 12/02/22 00:05 Beta-(1,3)-D-Glucan 40 pg/mL 12/02/22 00:05 B-(1,3)-D-Glucan Intrp NEGATIVE 12/02/22 00:05 Miscellaneous Test See Scanned Report 12/03/22 09:00 Miscellaneous Test See Scanned Report 12/03/22 09:00 Miscellaneous Test 2 Cancelled 12/03/22 09:00 Miscellaneous Test 3 Cancelled 12/03/22 09:00 Miscellaneous Test 4 Cancelled 12/03/22 09:00 Ref Lab Test Result Cancelled 12/03/22 09:00 Impressions Chest CTA 12/01/22 20:59 Exam(s): CTA CHEST IV Amt: 119ml EXAM: CT Angiography Chest With Intravenous Contrast CLINICAL HISTORY: Reason for exam: PE. TECHNIQUE: Axial computed tomographic angiography images of the chest with intravenous contrast. CTDI is 11.87 mGy and DLP is 828.08 mGy-cm. Automated exposure control was utilized for the study. A dose lowering technique was utilized adhering to the principles of ALARA. MIP reconstructed images were created and reviewed. COMPARISON: CT chest 11/24/22 FINDINGS: There is a left chest wall port catheter with tip in the right atrium. There is no thoracic aortic aneurysm or dissection. There is adequate pulmonary artery opacification. Main pulmonary artery is normal in caliber. There is no evidence of acute pulmonary embolism. There is no mediastinal or hilar lymphadenopathy. Enlarged right axillary lymph node is stable from prior exam. Left axillary lymph nodes are normal. Heart size is normal. There is no pericardial effusion. Multifocal consolidative and ground-glass opacities are present, appearing somewhat progressed from prior exam. There is no visible pulmonary mass at this time. There is no pleural effusion or pneumothorax. There is a stable 6 mm hypervascular focus in the right hepatic dome. There is a lytic lesion of T8 with associated pathologic compression fracture. There is also a lytic lesion of the right scapular body with associated pathologic fracture. These findings are stable from prior. Regional skeleton appears otherwise intact. IMPRESSION: 1. No evidence of acute pulmonary embolism. 2. Multifocal ground-glass and consolidative opacities appear slightly progressed from prior exam and are concerning for pneumonia, to include viral pneumonia within the differential diagnosis. Imaging follow-up to resolution is recommended. 3. Stable right axillary lymphadenopathy. 4. 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 5. Stable 6 mm hypervascular focus in the right liver dome, nonspecific. Is recommended prior, six-month follow-up CT may be performed for re- characterization. Electronically signed by: Zahida Larry M.D. 12/01/22 22:43 PM Chest X-Ray 12/05/22 07:00 XR chest 1V portable HISTORY: Respiratory failure. COMPARISON: Chest 12/04/2022. FINDINGS: A left Port-A-Cath terminates in the distal SVC. The cardiac silhouette remains mildly enlarged. No pneumothorax. There is diffuse interstitial thickening with multifocal airspace opacities again noted. This is most pronounced at the lung bases. There is chronic elevation of the right hemidiaphragm. IMPRESSION: No change in the diffuse interstitial thickening with multifocal airspace opacities. ACT 112: Negative or not required by law. Electronically signed by: Andres Barry M.D. 12/05/2022 8:05 AM Medications Administered Home Medications Medication Instructions Recorded Confirmed Last Taken fexofenadine 180 mg tablet 180 mg PO QAM 06/10/21 12/01/22 11/30/22 (Gay Allergy) albuterol sulfate 90 mcg/actuation 2 puff inhalation .COMPLEX PRN 01/25/22 12/01/22 Unknown aerosol inhaler (ProAir HFA) shortness of breath or wheezing #8.5 grams hydroxychloroquine 200 mg tablet 200 mg PO DAILY 09/27/22 12/01/22 11/30/22 (Plaquenil) amoxicillin 875 mg-potassium 1 tab PO Q12 12/01/22 12/01/22 12/01/22 clavulanate 125 mg tablet am fluoxetine 40 mg capsule (Prozac) 40 mg PO QAM 12/01/22 12/01/22 11/30/22 hydrochlorothiazide 25 mg tablet 25 mg PO QAM 12/01/22 12/01/22 11/30/22 meloxicam 15 mg tablet 15 mg PO QAM 12/01/22 12/01/22 11/30/22 vibegron 75 mg tablet (Gemtesa) 75 mg PO QAM 12/01/22 12/01/22 11/30/22 Active Medications Generic Name Dose Route Start Last Admin Trade Name Freq PRN Reason Stop Dose Admin Acetaminophen 650 mg 12/02/22 02:40 12/09/22 18:31 Acetaminophen 325 Mg Tab PO 01/01/23 02:39 650 mg Q4H PRN Administration Pain or Fever Albuterol 3 ml 12/02/22 03:00 12/10/22 11:25 Albut/Ipratrop 3mg/0.5mg Neb 3 Ml Vial NEB 01/01/23 02:59 3 ml Q4R SHAYY Administration Protocol Enoxaparin Sodium 40 mg 12/03/22 21:00 12/09/22 20:24 Enoxaparin Inj 40 Mg/0.4 Ml Syr SQ 01/02/23 20:59 40 mg HS SHAYY Administration Fexofenadine HCl 180 mg 12/02/22 09:00 12/10/22 08:12 Fexofenadine Hcl 180 Mg Tab PO 01/01/23 08:59 180 mg QAM SHAYY Administration Fluoxetine HCl 40 mg 12/02/22 09:00 12/10/22 08:12 Fluoxetine Hcl 20 Mg Cap PO 01/01/23 08:59 40 mg QAM SHAYY Administration Hydrochlorothiazide 25 mg 12/02/22 09:00 12/05/22 07:58 Hydrochlorothiazide 25 Mg Tab PO 01/01/23 08:59 25 mg QAM SHAYY Administration Hydroxychloroquine Sulfate 200 mg 12/02/22 09:00 12/10/22 08:11 Hydroxychloroquine Sulfate 200 Mg Tab PO 01/01/23 08:59 200 mg DAILY SHAYY Administration Piperacillin Sod/Tazobactam 120 mls @ 30 mls/hr 12/09/22 16:00 12/10/22 12:17 Sod 4.5 gm/ Dextrose IV 12/16/22 15:59 Infused Q8H SHAYY Infusion Protocol Lactobacillus Acidophilus 2 cap 12/04/22 10:45 12/10/22 08:13 Advanced Probiotic 1250 Mg Capsule PO 01/03/23 10:44 2 cap DAILY SHAYY Administration Ondansetron HCl 4 mg 12/02/22 02:40 12/07/22 20:35 Ondansetron Inj 2 Mg/Ml 2 Ml Vial IV 01/01/23 02:39 4 mg Q6H PRN Administration Nausea Pantoprazole Sodium 40 mg 12/04/22 09:00 12/10/22 08:12 Pantoprazole 40 Mg Tab PO 12/24/22 09:01 40 mg DAILY SHAYY Administration Polyethylene Glycol 17 gm 12/02/22 02:40 12/10/22 08:13 Polyethylene (Miralax) 17 Gm Pack PO 01/01/23 02:39 17 gm DAILY PRN Administration Constipation Prednisone 40 mg 12/09/22 09:00 12/10/22 08:12 Prednisone 20 Mg Tab PO 12/13/22 09:01 40 mg DAILY SHAYY Administration Vibegron 75 mg 12/02/22 09:00 12/10/22 08:12 Vibegron 75 Mg Tab PO 01/01/23 08:59 75 mg QAM SHAYY Administration PG Care Time/CCT Total # of Minutes Spent Total Time Spent with Patient: Total time spent is greater than 50% in coordination of care (as documented) at patient's floor/unit and/or counseling patient: Coding Level of Care Code 78875 CRITICAL CARE 1ST 30-74M Diagnoses History of radiation exposure Z92.3 Multifocal pneumonia J18.9 Diffuse large B cell lymphoma C83.[address] R93.89
--- NOTE | 2022-12-10 17:18 | Infectious Disease Progress Nt ---
Date of Service December 10, 2022 Assessment & Plan (1) Abnormal chest CT: (2) Multifocal pneumonia: (3) Hypoxia: (4) Diffuse large B cell lymphoma: Plan 62 yo female with pmh of B-cell lymphoma, HTN, ? autoimmune arthritis on hydroxychloroquine to the Ed with progressive worsening of shortness of breath, dry cough and hypoxia She completed chemotherapy with RCHOP ( 6 cycles) on 08/27/2022 and completed consolidation radiation therapy right on 11/03/22. A few days post radiation therapy, she developed shortness of breath with fevers. She was evaluated by her PCP. A cxr showed patchy right upper lobe airspace opacity and bilateral lower lung reticulonodular interstitial thickening. She was treated with a 5 day course of azithromycin for presumed URI. She felt somewhat better and went on a 10 d vacation to [place]. Her dry cough and occasional fevers continued. Shortness of breath worsened after vacation. She complained in intermittent drenching sweats. A CT Chest was done on 11/24 which showed stable R axillary adenopathy, stable right scapular and T8 pathologic fractures and interval development of multifocal irregular airspace opacities most pronounced within the right lung apex and lung bases with mild interstitial thickening. Mild bronchiectasis also noted. There was no new or progressive lymphadenopathy within the chest. She was then treated with a course of with Augmentin. On Augmentin her symptoms progressed prompting evaluation in ED on 12/01/22. In Ed she was febrile with a tm 38.2, tachycardic, tachypneic and hypoxic on RA with o2 sat of 83%. O2 sats improved to 93% on 6L. Labs notable for an ESR 54, crp 8.07. MRSA nasal screen negative. Other labs unremarkable. A RVP is negative. Covid 19/influenza/rsv testing negative. A CTA chest showed no PE but revealed multifocal ground-glass and consolidative opacities that progressed concerning for viral pna. She denied travel outside the country or sick contacts. [place] was [place] and has never traveled outside the country. 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 She denies known exposure to TB. She has been on and off steroids but not currently. She has a parakeet at home for the last 6 years. She does not clean his cage. She has been exposed to her neighbors cat that lives outside. She denies nausea, rash, edema, change in urine or bowel habits. She is s/p bronchoscopy on 12/03. Findings noted for tracheal nodules (common per d/w pulmonary). There was minimal amount of clear secretion which was suctioned out. There were no evidence of mass, anatomic distortions, or hemorrhage. Bronchoalveolar lavage samples were sent for cell count, Gram stain and bacterial culture, AFB culture and smear, fungal culture and smear, flow cytometry and cytology. Transbronchial biopsies were sent for tissue culture (bacteria, AFB and fungal) and pathology. BAL fluid cell count noted for 50% lymphocytes. She is currently on zosyn and doxycycline and on high flow oxygen. She has not had sweats since admission. She feels she may have lost 5 lbs in the last 3 weeks. MICRO 12/01 BCx *2: NGTD 12/02 MRSA nares negative 12/03 BAL gram stain: Moderate WBCs Seen.No Organisms Seen 12/03 BAL cx: Pending 12/03 AFB Smear/cx: Pending 12/03 Fungal smear No Yeast or Hyphae Seen ; CX- Pending PJP PCR not detected Aspergillus antigen not detected Coccidiodes, Histo/blast PCR not detected 12/01 Resp Viral panel negative ABX Azith 12/01 cefepime 12/01 Zosyn 12/01- ongoing doxy 12/01-ongoing Bactrim 11/29-12/09 #Diffuse large B-cell lymphoma. sp RCHOP 08/27/2022. s/p XRT 11/03/2022. #Acute respiratory failure # Multilobar pneumonia # Parakeet exposure. She is immunocompromised 2/2 B cell lmphoma but has not received chemotherapy since 08/2022. He progressive SOb, cough, fever with occasion sweats started 3 weeks ago. She has a parakeet at home . She is on Plaquenil. She felt well initially after she recieved 5 d of azithromycin about 2 weeks ago. Procalcitonin in < 0.05. Differential for her presentation include PJP , fungal pna including crypto aspergillus, viral and bacterial pna, Chlamydia Psittaci infection in setting of parakeet exposure OR Pulmonary lymphoma. Discussed case with pulmonary and based on risk factors and Ct lung findings less likely mycobacterial process. Recommendation; Continue Zosyn 4.5g iv q8hrs will plan for 10 day course, please dc Zosyn after tomorrows dose (10 days total) would not treat longer than this Continue Doxycycline 100 mg po bid, plan for 14 day course through 12/15/22 Follow up BD glucan, legionella cx, viral cx Pending Please page ID [email or web address] with questions. Dr. Gonzales to start service on Tuesday. Carleen Hurtado MD Admission and Anticipated Discharge Date Admission Date: December 01, 2022 Subjective This patient recommendation is based on a telemedicine consult request which was completed asynchronously through chart review and information provided by the primary physician. The patient was not seen or examined today. The evaluation is consultative in nature and all patient care and treatment decisions can either be accepted or rejected by the patient's primary hospital-based treating physician using their own independent medical judgment for their patient. Time Spent Reviewing Chart: 21 - 30 minutes Fi02 85% No new micro Results & Data Vital Signs (Past 12 Hours) Vital Signs Temp Pulse Pulse Resp BP Pulse Ox O2 Del Method 12/10/22 15:22 115 H 18 95 High Flow Nasal Cannula 12/10/22 13:13 37.7 C H 120 H 24 93 12/10/22 13:13 109/68 12/10/22 13:00 37.6 C H 123 H 24 95 12/10/22 12:00 37.6 C H 120 H 18 97 12/10/22 11:00 37.6 C H 116 H 19 93 12/10/22 10:00 37.5 C 116 H 31 H 97 12/10/22 09:00 37.4 C 117 H 26 H 100 12/10/22 08:00 37.5 C 105 H 22 92 12/10/22 07:00 37.5 C 105 H 25 H 95 12/10/22 11:28 88 20 94 High Flow Nasal Cannula 12/10/22 11:06 High Flow Nasal Cannula 12/10/22 08:08 103 H 18 90 High Flow Nasal Cannula 12/10/22 07:26 101 H 12/10/22 06:00 37.4 C 105 H 26 H 97 12/10/22 06:00 115/74 O2 Flow Rate FiO2 12/10/22 15:22 40 85 12/10/22 13:13 12/10/22 13:13 12/10/22 13:00 12/10/22 12:00 12/10/22 11:00 12/10/22 10:00 12/10/22 09:00 12/10/22 08:00 12/10/22 07:00 12/10/22 11:28 40 85 12/10/22 11:06 40 85 12/10/22 08:08 40 85 12/10/22 07:26 12/10/22 06:00 12/10/22 06:00 Laboratory Results Laboratory Results - last 48 hr 12/02/22 12/03/22 12/03/22 00:05 09:00 09:00 WBC RBC Hgb Hct MCV MCH MCHC RDW Std Deviation RDW Coeff of Clarence Plt Count MPV Immature Gran % (Auto) Neut % (Auto) Lymph % (Auto) [place] % (Auto) Eos % (Auto) Baso % (Auto) Neut # (Auto) Lymph # (Auto) [place] # (Auto) Eos # (Auto) Baso # (Auto) Immature Gran # (Auto) Sodium Potassium Chloride Carbon Dioxide Anion Gap BUN Creatinine Est Cr Clr Drug Dosing Est GFR ( Amer) Est GFR (Non-Af Amer) BUN/Creatinine Ratio Glucose Calcium Phosphorus Magnesium C-Reactive Protein Procalcitonin BAL A.galactomannan Ag BAL A.galactomann Index Stl C. diff Tox B Gene Cryptococcus Source Cryptococcal Ag (Latex) A. galactomannan Ag A. galactomannan Ag Idx S.pneumoniae Type 1 IgG <0.3 S.pneumoniae Type 3 IgG <0.3 S.pneumoniae Type 4 IgG 0.4 S.pneumoniae Type 5 IgG <0.3 S.pneumoniae Type 8 IgG <0.3 S.pneumoniae 9 (9N) IgG <0.3 S.pneumon 12 (12F) IgG <0.3 S.pneumoniae Typ 14 IgG 2.2 S.pneumon 19 (19F) IgG 10.4 S.pneumon 23 (23F) IgG 1.9 S.pneumon 26 (6B) IgG <0.3 S.pneumon 51 (7F) IgG <0.3 S.pneumon 56 (18C) IgG 2.7 S.pneumon 68 (9V) IgG <0.3 Beta-(1,3)-D-Glucan 40 B-(1,3)-D-Glucan Intrp NEGATIVE Miscellaneous Test See Scanned Report See Scanned Report 12/03/22 12/04/22 12/09/22 09:00 04:43 04:19 WBC RBC Hgb Hct MCV MCH MCHC RDW Std Deviation RDW Coeff of Clarence Plt Count MPV Immature Gran % (Auto) Neut % (Auto) Lymph % (Auto) [place] % (Auto) Eos % (Auto) Baso % (Auto) Neut # (Auto) Lymph # (Auto) [place] # (Auto) Eos # (Auto) Baso # (Auto) Immature Gran # (Auto) Sodium 134 L Potassium 4.7 Chloride 99 Carbon Dioxide 28 Anion Gap 7 BUN 17 Creatinine 0.58 L Est Cr Clr Drug Dosing 104.6 Est GFR ( Amer) 116.1 Est GFR (Non-Af Amer) 100.2 BUN/Creatinine Ratio 29.3 H Glucose 148 H Calcium 8.9 Phosphorus 3.4 Magnesium 2.0 C-Reactive Protein Procalcitonin BAL A.galactomannan Ag Not Detected BAL A.galactomann Index 0.13 Stl C. diff Tox B Gene Cryptococcus Source Serum Cryptococcal Ag (Latex) Not Detected A. galactomannan Ag Not Detected A. galactomannan Ag Idx 0.05 S.pneumoniae Type 1 IgG S.pneumoniae Type 3 IgG S.pneumoniae Type 4 IgG S.pneumoniae Type 5 IgG S.pneumoniae Type 8 IgG S.pneumoniae 9 (9N) IgG S.pneumon 12 (12F) IgG S.pneumoniae Typ 14 IgG S.pneumon 19 (19F) IgG S.pneumon 23 (23F) IgG S.pneumon 26 (6B) IgG S.pneumon 51 (7F) IgG S.pneumon 56 (18C) IgG S.pneumon 68 (9V) IgG Beta-(1,3)-D-Glucan B-(1,3)-D-Glucan Intrp Miscellaneous Test 12/09/22 12/09/22 12/09/22 04:19 10:56 10:56 WBC 12.75 H RBC 3.62 L Hgb 10.9 L Hct 33.8 L MCV 93.4 MCH 30.1 MCHC 32.2 RDW Std Deviation 47.6 H RDW Coeff of Clarence 13.8 Plt Count 330 MPV 9.3 L Immature Gran % (Auto) 0.5 Neut % (Auto) 93.1 Lymph % (Auto) 1.9 [place] % (Auto) 4.5 Eos % (Auto) 0.0 Baso % (Auto) 0.0 Neut # (Auto) 11.87 H Lymph # (Auto) 0.24 L [place] # (Auto) 0.57 Eos # (Auto) 0.00 Baso # (Auto) 0.00 Immature Gran # (Auto) 0.07 Sodium Potassium Chloride Carbon Dioxide Anion Gap BUN Creatinine Est Cr Clr Drug Dosing Est GFR ( Amer) Est GFR (Non-Af Amer) BUN/Creatinine Ratio Glucose Calcium Phosphorus Magnesium C-Reactive Protein 1.03 H Procalcitonin < 0.05 BAL A.galactomannan Ag BAL A.galactomann Index Stl C. diff Tox B Gene Cryptococcus Source Cryptococcal Ag (Latex) A. galactomannan Ag A. galactomannan Ag Idx S.pneumoniae Type 1 IgG S.pneumoniae Type 3 IgG S.pneumoniae Type 4 IgG S.pneumoniae Type 5 IgG S.pneumoniae Type 8 IgG S.pneumoniae 9 (9N) IgG S.pneumon 12 (12F) IgG S.pneumoniae Typ 14 IgG S.pneumon 19 (19F) IgG S.pneumon 23 (23F) IgG S.pneumon 26 (6B) IgG S.pneumon 51 (7F) IgG S.pneumon 56 (18C) IgG S.pneumon 68 (9V) IgG Beta-(1,3)-D-Glucan B-(1,3)-D-Glucan Intrp Miscellaneous Test 12/10/22 12/10/22 12/10/22 03:57 03:57 03:57 WBC 10.25 RBC 3.82 L Hgb 11.5 L Hct 35.9 L MCV 94.0 MCH 30.1 MCHC 32.0 RDW Std Deviation 46.9 H RDW Coeff of Clarence 13.9 Plt Count 324 MPV 9.3 L Immature Gran % (Auto) 0.7 Neut % (Auto) 83.1 Lymph % (Auto) 5.8 [place] % (Auto) 8.6 Eos % (Auto) 1.7 Baso % (Auto) 0.1 Neut # (Auto) 8.53 H Lymph # (Auto) 0.59 L [place] # (Auto) 0.88 H Eos # (Auto) 0.17 Baso # (Auto) 0.01 Immature Gran # (Auto) 0.07 Sodium 136 Potassium 3.9 Chloride 101 Carbon Dioxide 28 Anion Gap 7 BUN 20 Creatinine 0.51 L Est Cr Clr Drug Dosing 118.6 Est GFR ( Amer) 121.1 Est GFR (Non-Af Amer) 104.5 BUN/Creatinine Ratio 39.2 H Glucose 103 H Calcium 8.6 Phosphorus 2.7 Magnesium 1.9 C-Reactive Protein 0.63 H Procalcitonin < 0.05 BAL A.galactomannan Ag BAL A.galactomann Index Stl C. diff Tox B Gene Cryptococcus Source Cryptococcal Ag (Latex) A. galactomannan Ag A. galactomannan Ag Idx S.pneumoniae Type 1 IgG S.pneumoniae Type 3 IgG S.pneumoniae Type 4 IgG S.pneumoniae Type 5 IgG S.pneumoniae Type 8 IgG S.pneumoniae 9 (9N) IgG S.pneumon 12 (12F) IgG S.pneumoniae Typ 14 IgG S.pneumon 19 (19F) IgG S.pneumon 23 (23F) IgG S.pneumon 26 (6B) IgG S.pneumon 51 (7F) IgG S.pneumon 56 (18C) IgG S.pneumon 68 (9V) IgG Beta-(1,3)-D-Glucan B-(1,3)-D-Glucan Intrp Miscellaneous Test 12/10/22 13:05 WBC RBC Hgb Hct MCV MCH MCHC RDW Std Deviation RDW Coeff of Clarence Plt Count MPV Immature Gran % (Auto) Neut % (Auto) Lymph % (Auto) [place] % (Auto) Eos % (Auto) Baso % (Auto) Neut # (Auto) Lymph # (Auto) [place] # (Auto) Eos # (Auto) Baso # (Auto) Immature Gran # (Auto) Sodium Potassium Chloride Carbon Dioxide Anion Gap BUN Creatinine Est Cr Clr Drug Dosing Est GFR ( Amer) Est GFR (Non-Af Amer) BUN/Creatinine Ratio Glucose Calcium Phosphorus Magnesium C-Reactive Protein Procalcitonin BAL A.galactomannan Ag BAL A.galactomann Index Stl C. diff Tox B Gene Negative Cdiff Gene Cryptococcus Source Cryptococcal Ag (Latex) A. galactomannan Ag A. galactomannan Ag Idx S.pneumoniae Type 1 IgG S.pneumoniae Type 3 IgG S.pneumoniae Type 4 IgG S.pneumoniae Type 5 IgG S.pneumoniae Type 8 IgG S.pneumoniae 9 (9N) IgG S.pneumon 12 (12F) IgG S.pneumoniae Typ 14 IgG S.pneumon 19 (19F) IgG S.pneumon 23 (23F) IgG S.pneumon 26 (6B) IgG S.pneumon 51 (7F) IgG S.pneumon 56 (18C) IgG S.pneumon 68 (9V) IgG Beta-(1,3)-D-Glucan B-(1,3)-D-Glucan Intrp Miscellaneous Test Microbiology 12/01/22 19:55 Blood Aerobic Blood Culture - Final No growth in Aerobic bottle after 5 days. 12/01/22 19:55 Blood Anaerobic Blood Culture - Final No growth in Anaerobic bottle after 5 days. 12/01/22 20:16 Blood Aerobic Blood Culture - Final No growth in Aerobic bottle after 5 days. 12/01/22 20:16 Blood Anaerobic Blood Culture - Final 12/03/22 09:00 Ba Lavage,Right Lower Lobe Gram Stain - Final 12/03/22 09:00 Ba Lavage,Right Lower Lobe Bronchial Culture - Final Light normal thor. 12/05/22 12:01 Blood Fungal Smear - Final 12/03/22 09:00 Ba Lavage,Right Lower Lobe Fungal Smear - Final 12/03/22 09:00 Ba Lavage,Right Lower Lobe Fungal Culture - Preliminary Summer albicans/dubliniensis 12/03/22 09:00 Ba Lavage,Right Lower Lobe Acid Fast Bacilli Smear - Final Medications Administered Current Inpatient Medications Acetaminophen (Acetaminophen 325 Mg Tab) 650 mg PO Q4H PRN PRN Reason: Pain or Fever Stop: 01/01/23 02:39 Last Admin: 12/09/22 18:31 Dose: 650 mg Albuterol (Albut/Ipratrop 3mg/0.5mg Neb 3 Ml Vial) 3 ml NEB Q4R SHAYY; Protocol Stop: 01/01/23 02:59 Last Admin: 12/10/22 15:15 Dose: 3 ml Enoxaparin Sodium (Enoxaparin Inj 40 Mg/0.4 Ml Syr) 40 mg SQ HS [facility] Stop: 01/02/23 20:59 Last Admin: 12/09/22 20:24 Dose: 40 mg Fexofenadine HCl (Fexofenadine Hcl 180 Mg Tab) 180 mg PO QAM [facility] Stop: 01/01/23 08:59 Last Admin: 12/10/22 08:12 Dose: 180 mg Fluoxetine HCl (Fluoxetine Hcl 20 Mg Cap) 40 mg PO QAM [facility] Stop: 01/01/23 08:59 Last Admin: 12/10/22 08:12 Dose: 40 mg Fluticasone Propionate (Fluticasone Propionate Na Spr 16 Gm Btl) 1 sprays NA DAILY PRN PRN Reason: Allergy Symptoms Stop: 01/04/23 12:59 Hydrochlorothiazide (Hydrochlorothiazide 25 Mg Tab) 25 mg PO QAM [facility] Stop: 01/01/23 08:59 Last Admin: 12/05/22 07:58 Dose: 25 mg Hydroxychloroquine Sulfate (Hydroxychloroquine Sulfate 200 Mg Tab) 200 mg PO DAILY [facility] Stop: 01/01/23 08:59 Last Admin: 12/10/22 08:11 Dose: 200 mg Piperacillin Sod/Tazobactam (Sod 4.5 gm/ Dextrose) 120 mls @ 30 mls/hr IV Q8H [facility]; Protocol Stop: 12/16/22 15:59 Last Admin: 12/10/22 16:47 Dose: 30 mls/hr Lactobacillus Acidophilus (Advanced Probiotic 1250 Mg Capsule) 2 cap PO DAILY [facility] Stop: 01/03/23 10:44 Last Admin: 12/10/22 08:13 Dose: 2 cap Ondansetron HCl (Ondansetron Inj 2 Mg/Ml 2 Ml Vial) 4 mg IV Q6H PRN PRN Reason: Nausea Stop: 01/01/23 02:39 Last Admin: 12/07/22 20:35 Dose: 4 mg Pantoprazole Sodium (Pantoprazole 40 Mg Tab) 40 mg PO DAILY [facility] Stop: 12/24/22 09:01 Last Admin: 12/10/22 08:12 Dose: 40 mg Polyethylene Glycol (Polyethylene (Miralax) 17 Gm Pack) 17 gm PO DAILY PRN PRN Reason: Constipation Stop: 01/01/23 02:39 Last Admin: 12/10/22 08:13 Dose: 17 gm Prednisone (Prednisone 20 Mg Tab) 40 mg PO DAILY [facility] Stop: 12/13/22 09:01 Last Admin: 12/10/22 08:12 Dose: 40 mg Prednisone (Prednisone 20 Mg Tab) 20 mg PO DAILY [facility] Stop: 12/24/22 09:01 Sodium Chloride (Sodium Chloride 0.65% Na Soln 45 Ml (Clint)) 1 sprays NA Q4H PRN PRN Reason: Allergy Symptoms Stop: 01/04/23 12:59 Vibegron (Vibegron 75 Mg Tab) 75 mg PO [facility] Stop: 01/01/23 08:59 Last Admin: 12/10/22 08:12 Dose: 75 mg
--- NOTE | 2022-12-10 17:57 | Billing Data ---
Date of Service December 10, 2022 Coding Level of Care Code 58202 SUB INP/OBS CARE
[2022-12-10] MEDS: ACETAMINOPHEN 325 MG TAB PO PRN (18:22)
[2022-12-10] MEDS: MELATONIN 3 MG TAB PO PRN (21:36)
[2022-12-10] MEDS: ENOXAPARIN INJ 40 MG/0.4 ML SYR SQ SCH (21:36)
[2022-12-11] MEDS: PIPERACILLIN/TAZOBACTAM 4.5 GM in DEXTROSE 5% 100 ML IV SCH ×2 (00:41→08:20)
[2022-12-11] MEDS: ALBUT/IPRATROP 3MG/0.5MG NEB 3 ML VIAL NEB SCH ×6 (03:20→22:18)
[2022-12-11 05:15] LABS: Eosinophils # (auto) 0.33 K/uL (0.00-0.50); Eosinophils % (auto) 3.3 %; Hematocrit (blood only) 36.5 % (37.0-47.0); Hemoglobin 12.3 g/dl (12.0-16.0); Immature Granulocytes # (auto) 0.06 K/uL (0.01-0.20); Immature Granulocytes % (auto) 0.6 %; Lymphocytes # (auto) 0.51 K/uL (1.20-3.40); Lymphocytes % (auto) 5.1 %; Mean Corpuscular Hemoglobin 30.9 pg (25.0-34.0); Mean Corpuscular Hgb Conc 33.7 g/dL (32.0-36.0); Mean Corpuscular Volume 91.7 fL (80.0-100.0); Mean Platelet Volume 9.2 fL (9.4-12.4); Monocytes # (auto) 0.81 K/uL (0.11-0.59); Monocytes % (auto) 8.2 %; Neutrophils # (auto) 8.21 K/uL (1.40-6.50); Neutrophils % (auto) 82.8 %; Platelet Count 285 K/uL (130-400); RDW Coefficient of Variation 13.8 % (11.5-14.5); RDW Standard Deviation 46.4 fL (36.4-46.3); Red Blood Count 3.98 M/uL (4.20-5.40); White Blood Count 9.92 K/ul (4.8-10.8)
[2022-12-11 05:28] LABS: Albumin Globulin Ratio 1.6 (0.9-2); Albumin Level 3.3 gm/dl (3.4-5.0); Bilirubin,Total 0.4 mg/dl (0.2-1.0); C Reactive Protein 2.6 mg/dl (0-0.5); Calcium 8.8 mg/dl (8.6-10.3); Creatinine Clr Calc Pharmacy 121.2 ml/min; Est GFR (African American) 121.9 ml/min; Est GFR (Non-African American) 105.2 ml/min; Globulin 2.1 gm/dl (2.5-4.0); Magnesium 2.1 mg/dl (1.7-2.4); Potassium 3.7 mmol/L (3.5-5.1); Total Protein 5.4 gm/dl (6.0-8.3)
--- NOTE | 2022-12-11 07:02 | Hospitalist Progress Note ---
Date of Service December 11, 2022 Assessment & Plan (1) Multifocal pneumonia: Plan: 62 y/o female with a PMHx of B-cell lymphoma s/p chemo and radiation therapy, HTN, OAB, and arthritis presented with hypoxia likely in the setting of multifocal pneumonia admitted for further workup and IV abx now s/p bronchoscopy with slight subjective improvement, but continued significant oxygen requirement. #Multifocal PNA #Sepsis POA CTA chest and x-ray favor pneumonia. Viral BioFire negative, Pro-Jerry negative. Patient is immunocompromised as she has B-cell lymphoma. Higher risk of abnormal pathogens - broad work up indicated. Blood cultures negative x 48H. Legionella urine ab negative. BAL with rare danelle species. More likely to be a contaminant. Fungal blood cultures, pending if positive will begin antifungal treatment. Patient is not neutropenic so treatment with an echinocandin such as caspofungin would be appropriate. Cytology from bronchoscopy with Moderate chronic active pneumonitis with many histiocytes, no malignant cells. Pathology without fungal organisms, mycobacterial organisms. * Elevated temp of 38 C yesterday evening, temperature has ranged from 37.6-37.8 this afternoon * Will continue trending CRP, Procal for now * Considering patient is not clinically worsening with this temp, will continue to monitor but would consider repeat CT chest if respiratory status worsens in addition to fever Abx: Azithromycin 12/01 x1 Cefepime 12/01 x1 +Zosyn 12/01 - will receive last dose today (12/11) +Doxy 12/01 - ongoing Bactrim 12/03 - stopped on 12/08/22 PJP PCR negative Consults: Pulm consult - upgraded to ICU status after bronchoscopy, downgraded to PCU 12/04 ID consulted Plan: Fungal blood cultures - continue to remain without growth to date Crypto ag, aspergillosis ag pending Plan to trend CRP, procal- if continue to remain stable would consider stopping antibiotics in the next few days. If questionable would consider repeat CT. Oxygen requirement has remained stable, plan for transfer to LTAC pending insurance #Acute hypoxic respiratory failure Patient with significant oxygen requirement. Patient on 40L HFNC with 100% FiO2. If worsening respiratory status, patient has stated that she would want intubation if needed. Recommend that she remain on the ICU floor at this time even though she is PCU status. Supplemental oxygen as needed, DuoNebs every 4 hours Continue prednisone 40 mg twice daily for 5 followed by 40 mg for 5 followed by 20 mg for 11 days. Completing 21 days of prednisone Continue with pantoprazole 40 mg daily while on prednisone Outpatient pulm f/u Continue to wean oxygen as tolerated #Diarrhea Resolved #Anemia Initial hemoglobin of 14.6 in the ED. 10.9 on 12/09. Hemoglobin remains stable at this time. Most likely dilutional effect. No signs or symptoms of an acute bleed. Continue to monitor #Demand ischemia Troponin peaked at 31.3. No signs and symptoms of ACS #Electrolyte Abnormalities Electrolytes monitored and repleted as indicated during hospital stay #Diffuse B Cell Lymphoma #History of chemoradiation therapy Stable. Follows with Dr. Donahue #Arthritis Stable on hydroxychloroquine - continue. Will do Tylenol instead of NSAIDs while inpatient. #HTN Patient on HCTZ at home. Was hypotensive during hospital stay and HCTZ was held. Restarted as patient HDS. Code status: full DVT ppx: Lovenox SQ QD GI ppx: Pantoprazole in setting of steroid use FENGI: Regular (2) Diffuse large B cell lymphoma: (3) Abnormal chest CT: (4) RANDY (stress urinary incontinence, female): (5) Hypertension: (6) Arthritis: (7) Sepsis: (8) History of radiation exposure: Admission and Anticipated Discharge Date Admission Date: December 01, 2022 Supervising Physician Co-Signing Physician Notes I personally examined the patient and verified all ward points of history and exam, discussed case, and agree with decision making with Dr Peralta Feeling good and generally brighter, down to 80% FiO2, low-grade fevers discussedshe notes she feels better, she did note that nursing wondered if it was a probe issue, given that checking with a different device usually lead to a normal temperature. Vitals noted, in general she is awake and alert appears and despite high flow NC @ 85% she looks surprisingly NAD. breathing unlabored no conversational dyspnea good effort no accessory muscle use. No focal neurodeficits. To clarify she has not been on BiPAP for several days whenever I examined herrather on high flow nasal cannula, I apologize for the error Pneumonia, severe hypoxiacontinue antibiotics and supportive care. still requiring significant FiO2, appreciate pulmonary input, doing better w PO, for LTAC once approved. appreciate ID input - stop Zosyn, low-grade temps noted, but the fact that she is feeling better and brighter looks better, her FiO2 is coming down are all reassuring, continue to trend CRP which is reassuringly low right now. DVT prophylaxisLovenox otherwise as above Subjective Patient seen and examined at bedside. No acute events overnight, patient states she slept well last night for the first time in days. Had a temp of 38 C yesterday afternoon, denies feeling feverish or having body aches/chills. Review of Systems Review of Systems: As per above Physical Exam Eyes: + anicteric sclerae; no conjunctival abnormality ENMT: Ears: no external ear abnormality Nose: no external nose abnormality Musculoskeletal: Moves all limbs independently Skin: no rashes, warm and dry Psychiatric: A+Ox3, euthymic affect Results & Data Results & Data Vital Signs (Past 12 Hours) Vital Signs Temp Pulse Pulse Resp BP Pulse Ox O2 Del Method 12/11/22 03:22 106 H 24 96 12/11/22 03:21 106 H 24 96 BiPAP 12/11/22 00:00 37.4 C 111 H 24 95 12/11/22 00:00 109/78 12/10/22 23:00 37.3 C 112 H 21 95 12/11/22 00:00 108 H 12/10/22 23:00 103 H 26 H 95 BiPAP 12/10/22 22:58 104 H 26 H 95 12/10/22 22:00 37.5 C 108 H 20 97 12/10/22 22:00 109/75 12/10/22 21:00 37.7 C H 109 H 22 96 12/10/22 20:00 37.9 C H 117 H 28 H 95 12/10/22 20:00 113/78 12/10/22 19:00 37.8 C H 120 H 18 94 12/10/22 22:44 High Flow Nasal Cannula 12/10/22 20:02 119 H 18 94 High Flow Nasal Cannula O2 Flow Rate FiO2 12/11/22 03:22 70 12/11/22 03:21 70 12/11/22 00:00 12/11/22 00:00 12/10/22 23:00 12/11/22 00:00 12/10/22 23:00 70 12/10/22 22:58 70 12/10/22 22:00 12/10/22 22:00 12/10/22 21:00 12/10/22 20:00 12/10/22 20:00 12/10/22 19:00 12/10/22 22:44 40 85 12/10/22 20:02 40 85 Resident Activity Tracking Resident Involvement: Resident Care Provided Care Provided: Adult Hospital Medicine
[2022-12-11] MEDS: PANTOprazole 40 MG TAB PO SCH (08:21)
[2022-12-11] MEDS: predniSONE 20 MG TAB PO SCH (08:22)
[2022-12-11] MEDS: FEXOFENADINE HCL 180 MG TAB PO SCH (08:22)
[2022-12-11] MEDS: ADVANCED PROBIOTIC 1250 MG CAPSULE PO SCH (08:22)
[2022-12-11] MEDS: FLUoxetine HCL 20 MG CAP PO SCH (08:23)
[2022-12-11] MEDS: HYDROXYCHLOROQUINE SULFATE 200 MG TAB PO SCH (08:23)
[2022-12-11] MEDS: VIBEGRON 75 MG TAB PO SCH (08:23)
--- NOTE | 2022-12-11 09:38 | XRay Report ---
XR chest 1V portable CLINICAL HISTORY: Bilateral pneumonitis, severe respiratory distress TECHNIQUE: Single frontal radiograph of the chest was obtained. Comparison: Comparison is made to chest radiograph 12/05/2022 FINDINGS: A port catheter is seen. The cardiomediastinal silhouette is normal. Faint bibasilar airspace opaciti es are seen. Interstitial thickening is again No evidence of pleural effusion or pneumothorax. IMPRESSION: Multifocal airspace opacities are somewhat less prominent than in the prior exam. ACT 112: Negative or not required by law. Electronically signed by: Rajinder Cordova M.D. 12/11/2022 9:36 AM
--- NOTE | 2022-12-11 10:45 | Pulmonology Progress Note ---
Date of Service December 11, 2022 Assessment & Plan (1) History of radiation exposure: (2) Multifocal pneumonia: (3) Diffuse large B cell lymphoma: (4) Abnormal chest CT: Plan CT chest 12/01/2022 personally reviewed: Dense consolidative process appreciated in the right upper lobe Patchy groundglass opacities appreciated bilaterally Elevated right hemidiaphragm No significant mediastinal lymphadenopathy 2D echo 05/12/2022: EF 60-65%, RV normal in size and function -- Acute hypoxic respiratory failure Secondary to multilobar pneumonia Per IDs recommendation, will complete 10-day course of Zosyn by tomorrow which will be discontinued and then continue doxycycline for total of 14 days of treatment. Respiratory bio fire negative for everything on 11/25/2022 as well as 12/01/2022 Procalcitonin negative CRP 8.07 Recent chest x-ray does show improvement to her bilateral opacifications. Patient has a parakeet at home for 10 years Lymphoma itself can give similar finding Last chemo was in August 2022, would consider to be immunosuppressed right now. PJP could present in similar way S/p bronchoscopy 12/03/2022, some anterior tracheal nodularity. Clear secretions. BAL 50% lymphocytes Follow-up cytology as well as micro BAL sent for coccidioidal, blastomycosis, cryptococcal as well as PJP PCR Case was discussed with Dr. Gonzales --History of B-cell lymphoma S/p R-CHOP and radiation Plan: In/out: 690ml/850ml We will repeat chest x-ray tomorrow. Continue with empirically treating the patient with Bactrim till we have negative PJP PCRnegative (12/03/2022). Culture negative for PJP. All other cultures negative except for related sputum growing Summer. Continue with prednisone 40 mg twice daily for 5 followed by 40 mg for 5 followed by 20 mg for 11 days. Completing 21 days of prednisone Continue with pantoprazole 40 mg daily as patient will be on prednisone For her anxiety as well as tachycardia may be low-dose beta-jessica could be thought of. Will defer to primary care. Patient is requiring a lot of oxygen right now. She has been weaned to FiO2 of 85% of the Vapotherm Nalocet FiO2 of 85%. With oxygen saturation 99% will wean FiO2 on the Vapotherm. She is not in any respiratory distress her respirate is still in the high teens to low 20s. Will continue to follow cautiously with low threshold for intubation Would recommend to keep her on the ICU floor due to the tenuous nature of her respiratory status. I have personally spent 38 minutes of critical care time in the direct management of this patient today on 12/10/2022. This is a life/limb threatening event. This includes time spent evaluating patient, direct bedside care, chart review, placing orders, interpretation of diagnostic studies, discussion with consultants, patient, and family members, as well as other required patient management activities. This time is exclusive of all separately billable procedures, and teaching time and separate from and in addition to any other critical care service time. Please note the above document was generated using voice recognition software. It may contain grammatical, syntax or spelling errors. Admission and Anticipated Discharge Date Admission Date: December 01, 2022 Subjective Patient feels she had an uneventful night without any significant complications or problems, no longer significant periods of coughing, today's chest x-ray does show some improvement to both lung whitaker regarding diffuse opacification particularly in the mid and upper lobe regions. IDs input recommends discontinuing Zosyn after tomorrow which would give her 10 days of treatment and to continue doxycycline for total of 14 days. She is still awaiting documentation and finalization of paperwork to be transferred to the LTAC facility in [facility]. Oxygen saturation at 99% this morning on an FiO2 of 85% using the Vapotherm. Review of Systems Review of Systems: All systems reviewed & are unremarkable except as noted in Subjective Physical Exam Constitutional: WD/WN, vitals as above Eyes: PERRL, conjunctivae normal, anicteric sclerae ENMT: external ear and nose normal, oropharynx normal Neck: trachea midline, no thyromegaly Respiratory: Better overall airflow, no coughing, no wheezing, diminished breath sounds at the bases. Chest x-ray does show slight improvement to her bilateral opacifications. Cardiovascular: RRR, no murmur, no edema Gastrointestinal (Abdomen): normal bowel sounds, soft, nontender, no hepatosplenomegaly Musculoskeletal: no cyanosis or clubbing, extremities motor strength 5/5 Skin: no rashes, warm and dry Neurologic: patellar DTR's 2+ bilat, sensation intact and PERRL, EOMI, accommodation nl, no face palsy, no dysarthria Psychiatric: A+Ox3, euthymic affect Results & Data Results & Data Vital Signs (Past 12 Hours) Vital Signs Temp Pulse Pulse Resp BP Pulse Ox O2 Del Method 12/11/22 08:00 116 H 12/11/22 08:00 High Flow Nasal Cannula 12/11/22 07:14 103 H 16 90 High Flow Nasal Cannula 12/11/22 03:22 106 H 24 96 12/11/22 03:21 106 H 24 96 BiPAP 12/11/22 00:00 37.4 C 111 H 24 95 12/11/22 00:00 109/78 12/10/22 23:00 37.3 C 112 H 21 95 12/11/22 00:00 108 H 12/10/22 23:00 103 H 26 H 95 BiPAP 12/10/22 22:58 104 H 26 H 95 12/10/22 22:44 High Flow Nasal Cannula O2 Flow Rate FiO2 12/11/22 08:00 12/11/22 08:00 40 85 12/11/22 07:14 40 85 12/11/22 03:22 70 12/11/22 03:21 70 12/11/22 00:00 12/11/22 00:00 12/10/22 23:00 12/11/22 00:00 12/10/22 23:00 70 12/10/22 22:58 70 12/10/22 22:44 40 85 Laboratory Results Laboratory Results WBC 9.92 K/ul (4.8-10.8) 12/11/22 04:41 RBC 3.98 M/uL (4.20-5.40) L 12/11/22 04:41 Hgb 12.3 g/dl (12.0-16.0) 12/11/22 04:41 Hct 36.5 % (37.0-47.0) L 12/11/22 04:41 MCV 91.7 fL (80.0-100.0) 12/11/22 04:41 MCH 30.9 pg (25.0-34.0) 12/11/22 04:41 MCHC 33.7 g/dL (32.0-36.0) 12/11/22 04:41 RDW Std Deviation 46.4 fL (36.4-46.3) H 12/11/22 04:41 RDW Coeff of Clarence 13.8 % (11.5-14.5) 12/11/22 04:41 Plt Count 285 K/uL (130-400) 12/11/22 04:41 MPV 9.2 fL (9.4-12.4) L 12/11/22 04:41 Immature Gran % (Auto) 0.6 % 12/11/22 04:41 Neut % (Auto) 82.8 % 12/11/22 04:41 Lymph % (Auto) 5.1 % 12/11/22 04:41 [place] % (Auto) 8.2 % 12/11/22 04:41 Eos % (Auto) 3.3 % 12/11/22 04:41 Baso % (Auto) 0.0 % 12/11/22 04:41 Neut # (Auto) 8.21 K/uL (1.40-6.50) H 12/11/22 04:41 Lymph # (Auto) 0.51 K/uL (1.20-3.40) L 12/11/22 04:41 [place] # (Auto) 0.81 K/uL (0.11-0.59) H 12/11/22 04:41 Eos # (Auto) 0.33 K/uL (0.00-0.50) 12/11/22 04:41 Baso # (Auto) 0.00 K/uL (0.00-0.20) 12/11/22 04:41 Immature Gran # (Auto) 0.06 K/uL (0.01-0.20) 12/11/22 04:41 Hypersegmented Neuts 1+ 12/07/22 05:21 ESR 54 mm/hr (0-30) H 12/01/22 19:55 PT 11.4 Seconds (9.0-12.0) 12/01/22 19:55 INR 1.0 (0.9-1.1) 12/01/22 19:55 APTT 29.3 Seconds (21.0-31.0) 12/01/22 19:55 PTT Ratio 1.0 12/01/22 19:55 VBG pH 7.44 (7.36-7.41) H 12/01/22 20:16 VBG pCO2 41 mmHg (38-50) 12/01/22 20:16 VBG pO2 37 mmHg 12/01/22 20:16 VBG HCO3 28 mmol/L 12/01/22 20:16 VBG O2 Saturation < 60.0 % 12/01/22 20:16 VBG Base Excess 3.3 mEq/L 12/01/22 20:16 Sodium 136 mmol/L (136-145) 12/11/22 04:41 Potassium 3.7 mmol/L (3.5-5.1) 12/11/22 04:41 Chloride 101 mmol/L (98-107) 12/11/22 04:41 Carbon Dioxide 29 mmol/L (21-32) 12/11/22 04:41 Anion Gap 6 (3-11) 12/11/22 04:41 BUN 18 mg/dl (6-23) 12/11/22 04:41 Creatinine 0.50 mg/dl (0.6-1.2) L 12/11/22 04:41 Est Cr Clr Drug Dosing 121.2 ml/min 12/11/22 04:41 Est GFR ( Amer) 121.9 ml/min 12/11/22 04:41 Est GFR (Non-Af Amer) 105.2 ml/min 12/11/22 04:41 BUN/Creatinine Ratio 36.0 (10-20) H 12/11/22 04:41 Glucose 111 mg/dl (70-99(Fasting)) H 12/11/22 04:41 POC Glucose 142 mg/dl (70-99) H 12/07/22 11:51 Lactate 1.0 mmol/L (0.4-2.0) 12/01/22 19:55 Calcium 8.8 mg/dl (8.6-10.3) 12/11/22 04:41 Phosphorus 2.7 mg/dl (2.5-4.9) 12/10/22 03:57 Magnesium 2.1 mg/dl (1.7-2.4) 12/11/22 04:41 Total Bilirubin 0.4 mg/dl (0.2-1.0) 12/11/22 04:41 Direct Bilirubin 0.0 mg/dl (0-0.2) 12/01/22 19:55 AST 22 U/L (13-39) 12/11/22 04:41 ALT 44 U/L (7-52) 12/11/22 04:41 Alkaline Phosphatase 65 U/L (34-104) 12/11/22 04:41 Troponin I High Sens 25.8 pg/ml (0-14) H 12/02/22 00:10 C-Reactive Protein 2.60 mg/dl (0-0.5) H 12/11/22 04:41 B-Natriuretic Peptide 34 pg/ml (0-100) 12/03/22 05:26 Total Protein 5.4 gm/dl (6.0-8.3) L 12/11/22 04:41 Albumin 3.3 gm/dl (3.4-5.0) L 12/11/22 04:41 Globulin 2.1 gm/dl (2.5-4.0) L 12/11/22 04:41 Albumin/Globulin Ratio 1.6 (0.9-2) 12/11/22 04:41 Procalcitonin < 0.05 ng/ml (0-0.5) 12/10/22 03:57 Urine Color Yellow 12/01/22 22:15 Urine Appearance Clear (Clear) 12/01/22 22:15 Urine pH 7.0 (4.5-7.5) 12/01/22 22:15 Ur Specific [place] 1.011 (1.000-1.030) 12/01/22 22:15 Urine Protein Negative (Negative) 12/01/22 22:15 Urine Glucose (UA) Negative (Negative) 12/01/22 22:15 Urine Ketones Negative (Negative) 12/01/22 22:15 Urine Blood Negative (Negative) 12/01/22 22:15 Urine Nitrite Negative (Negative) 12/01/22 22:15 Urine Bilirubin Negative (Negative) 12/01/22 22:15 Urine Urobilinogen Negative (Negative) 12/01/22 22:15 Ur Leukocyte Esterase Negative (Negative) 12/01/22 22:15 Fluid Neutrophils % 28 % 12/03/22 09:00 Fluid Lymphocytes % 50 % 12/03/22 09:00 Fluid Eosinophils % 2 % 12/03/22 09:00 Fluid Basophils % 1 % 12/03/22 09:00 Fl Monocyt/Macrophag % 19 % 12/03/22 09:00 Fluid Comment 12/03/22 09:00 Nasal Screen MRSA (PCR) Negative (Negative) 12/02/22 07:28 BAL CD4/CD8 Ratio See Comment 12/03/22 09:00 BAL A.galactomannan Ag Not Detected (Not Detected) 12/03/22 09:00 BAL A.galactomann Index 0.13 (<0.50) 12/03/22 09:00 Stl C. diff Tox B Gene Negative Cdiff Gene (Neg) 12/10/22 13:05 Adenovirus (PCR) Not Detected (NotDetected) 12/01/22 20:05 B. pertussis DNA (PCR) Not Detected (NotDetected) 12/01/22 20:05 B.parapertussis DNA PCR Not Detected (NotDetected) 12/01/22 20:05 C. pneumoniae DNA (PCR) Not Detected (NotDetected) 12/01/22 20:05 Coronavirus OC43 (PCR) Not Detected (NotDetected) 12/01/22 20:05 Coronavirus HKU1 (PCR) Not Detected (NotDetected) 12/01/22 20:05 Coronavirus 229E (PCR) Not Detected (NotDetected) 12/01/22 20:05 SARS-CoV-2 (PCR) Not Detected (NotDetected) 12/01/22 20:05 Coronavirus NL63 (PCR) Not Detected (NotDetected) 12/01/22 20:05 Cryptococcus Source Serum 12/04/22 04:43 Cryptococcal Ag (Latex) Not Detected (Not Detected) 12/04/22 04:43 Human Metapneumovir PCR Not Detected (NotDetected) 12/01/22 20:05 Influenza Type A (PCR) Not Detected (NotDetected) 12/01/22 20:05 Influenza Type B (PCR) Not Detected (NotDetected) 12/01/22 20:05 Urine Legionella Ag SEE NOTE 12/02/22 08:04 M. pneumoniae (PCR) Not Detected (NotDetected) 12/01/22 20:05 Parainfluenza 1 (PCR) Not Detected (NotDetected) 12/01/22 20:05 Parainfluenza 2 (PCR) Not Detected (NotDetected) 12/01/22 20:05 Parainfluenza 3 (PCR) Not Detected (NotDetected) 12/01/22 20:05 Parainfluenza 4 (PCR) Not Detected (NotDetected) 12/01/22 20:05 Pneumocystis Source [place]ONCH [place]AV[place] 12/03/22 09:00 Pneumocyst jirovecii PCR NOT DETECTED 12/03/22 09:00 A. galactomannan Ag Not Detected (Not Detected) 12/04/22 04:43 A. galactomannan Ag Idx 0.05 (<0.50) 12/04/22 04:43 RSV (PCR) Not Detected (NotDetected) 12/01/22 20:05 Entero/Rhino (PCR) Not Detected (NotDetected) 12/01/22 20:05 S.pneumoniae Type 1 IgG <0.3 12/02/22 00:05 S.pneumoniae Type 3 IgG <0.3 12/02/22 00:05 S.pneumoniae Type 4 IgG 0.4 12/02/22 00:05 S.pneumoniae Type 5 IgG <0.3 12/02/22 00:05 S.pneumoniae Type 8 IgG <0.3 12/02/22 00:05 S.pneumoniae 9 (9N) IgG <0.3 12/02/22 00:05 S.pneumon 12 (12F) IgG <0.3 12/02/22 00:05 S.pneumoniae Typ 14 IgG 2.2 12/02/22 00:05 S.pneumon 19 (19F) IgG 10.4 12/02/22 00:05 S.pneumon 23 (23F) IgG 1.9 12/02/22 00:05 S.pneumon 26 (6B) IgG <0.3 12/02/22 00:05 S.pneumon 51 (7F) IgG <0.3 12/02/22 00:05 S.pneumon 56 (18C) IgG 2.7 12/02/22 00:05 S.pneumon 68 (9V) IgG <0.3 12/02/22 00:05 Beta-(1,3)-D-Glucan 40 pg/mL 12/02/22 00:05 B-(1,3)-D-Glucan Intrp NEGATIVE 12/02/22 00:05 Miscellaneous Test See Scanned Report 12/03/22 09:00 Miscellaneous Test See Scanned Report 12/03/22 09:00 Miscellaneous Test 2 Cancelled 12/03/22 09:00 Miscellaneous Test 3 Cancelled 12/03/22 09:00 Miscellaneous Test 4 Cancelled 12/03/22 09:00 Ref Lab Test Result Cancelled 12/03/22 09:00 Impressions Chest CTA 12/01/22 20:59 Exam(s): CTA CHEST IV Amt: 119ml EXAM: CT Angiography Chest With Intravenous Contrast CLINICAL HISTORY: Reason for exam: PE. TECHNIQUE: Axial computed tomographic angiography images of the chest with intravenous contrast. CTDI is 11.87 mGy and DLP is 828.08 mGy-cm. Automated exposure control was utilized for the study. A dose lowering technique was utilized adhering to the principles of ALARA. MIP reconstructed images were created and reviewed. COMPARISON: CT chest 11/24/22 FINDINGS: There is a left chest wall port catheter with tip in the right atrium. There is no thoracic aortic aneurysm or dissection. There is adequate pulmonary artery opacification. Main pulmonary artery is normal in caliber. There is no evidence of acute pulmonary embolism. There is no mediastinal or hilar lymphadenopathy. Enlarged right axillary lymph node is stable from prior exam. Left axillary lymph nodes are normal. Heart size is normal. There is no pericardial effusion. Multifocal consolidative and ground-glass opacities are present, appearing somewhat progressed from prior exam. There is no visible pulmonary mass at this time. There is no pleural effusion or pneumothorax. There is a stable 6 mm hypervascular focus in the right hepatic dome. There is a lytic lesion of T8 with associated pathologic compression fracture. There is also a lytic lesion of the right scapular body with associated pathologic fracture. These findings are stable from prior. Regional skeleton appears otherwise intact. IMPRESSION: 1. No evidence of acute pulmonary embolism. 2. Multifocal ground-glass and consolidative opacities appear slightly progressed from prior exam and are concerning for pneumonia, to include viral pneumonia within the differential diagnosis. Imaging follow-up to resolution is recommended. 3. Stable right axillary lymphadenopathy. 4. 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 5. Stable 6 mm hypervascular focus in the right liver dome, nonspecific. Is recommended prior, six-month follow-up CT may be performed for re- characterization. Electronically signed by: Zahida Larry M.D. 12/01/22 22:43 PM Chest X-Ray 12/11/22 05:00 XR chest 1V portable CLINICAL HISTORY: Bilateral pneumonitis, severe respiratory distress TECHNIQUE: Single frontal radiograph of the chest was obtained. Comparison: Comparison is made to chest radiograph 12/05/2022 FINDINGS: A port catheter is seen. The cardiomediastinal silhouette is normal. Faint bibasilar airspace opacities are seen. Interstitial thickening is again No evidence of pleural effusion or pneumothorax. IMPRESSION: Multifocal airspace opacities are somewhat less prominent than in the prior exam. ACT 112: Negative or not required by law. Electronically signed by: Rajinder Cordova M.D. 12/11/2022 9:36 AM Medications Administered Home Medications Medication Instructions Recorded Confirmed Last Taken fexofenadine 180 mg tablet 180 mg PO QAM 06/10/21 12/01/22 11/30/22 (Gay Allergy) albuterol sulfate 90 mcg/actuation 2 puff inhalation .COMPLEX PRN 01/25/22 12/01/22 Unknown aerosol inhaler (ProAir HFA) shortness of breath or wheezing #8.5 grams hydroxychloroquine 200 mg tablet 200 mg PO DAILY 09/27/22 12/01/22 11/30/22 (Plaquenil) amoxicillin 875 mg-potassium 1 tab PO Q12 12/01/22 12/01/22 12/01/22 clavulanate 125 mg tablet am fluoxetine 40 mg capsule (Prozac) 40 mg PO QAM 12/01/22 12/01/22 11/30/22 hydrochlorothiazide 25 mg tablet 25 mg PO QAM 12/01/22 12/01/22 11/30/22 meloxicam 15 mg tablet 15 mg PO QAM 12/01/22 12/01/22 11/30/22 vibegron 75 mg tablet (Gemtesa) 75 mg PO QAM 12/01/22 12/01/22 11/30/22 Active Medications Generic Name Dose Route Start Last Admin Trade Name Freq PRN Reason Stop Dose Admin Acetaminophen 650 mg 12/02/22 02:40 12/10/22 18:22 Acetaminophen 325 Mg Tab PO 01/01/23 02:39 650 mg Q4H PRN Administration Pain or Fever Albuterol 3 ml 12/02/22 03:00 12/11/22 07:13 Albut/Ipratrop 3mg/0.5mg Neb 3 Ml Vial NEB 01/01/23 02:59 3 ml Q4R SHAYY Administration Protocol Enoxaparin Sodium 40 mg 12/03/22 21:00 12/10/22 21:36 Enoxaparin Inj 40 Mg/0.4 Ml Syr SQ 01/02/23 20:59 40 mg HS SHAYY Administration Fexofenadine HCl 180 mg 12/02/22 09:00 12/11/22 08:22 Fexofenadine Hcl 180 Mg Tab PO 01/01/23 08:59 180 mg QAM SHAYY Administration Fluoxetine HCl 40 mg 12/02/22 09:00 12/11/22 08:23 Fluoxetine Hcl 20 Mg Cap PO 01/01/23 08:59 40 mg QAM SHAYY Administration Hydrochlorothiazide 25 mg 12/02/22 09:00 12/05/22 07:58 Hydrochlorothiazide 25 Mg Tab PO 01/01/23 08:59 25 mg QAM SHAYY Administration Hydroxychloroquine Sulfate 200 mg 12/02/22 09:00 12/11/22 08:23 Hydroxychloroquine Sulfate 200 Mg Tab PO 01/01/23 08:59 200 mg DAILY SHAYY Administration Piperacillin Sod/Tazobactam 120 mls @ 30 mls/hr 12/09/22 16:00 12/11/22 08:20 Sod 4.5 gm/ Dextrose IV 12/11/22 15:59 30 mls/hr Q8H SHAYY Administration Protocol Lactobacillus Acidophilus 2 cap 12/04/22 10:45 12/11/22 08:22 Advanced Probiotic 1250 Mg Capsule PO 01/03/23 10:44 2 cap DAILY SHAYY Administration Melatonin 3 mg 12/10/22 20:49 12/10/22 21:36 Melatonin 3 Mg Tab PO 01/09/23 20:48 3 mg HS PRN Administration Sleep Ondansetron HCl 4 mg 12/02/22 02:40 12/07/22 20:35 Ondansetron Inj 2 Mg/Ml 2 Ml Vial IV 01/01/23 02:39 4 mg Q6H PRN Administration Nausea Pantoprazole Sodium 40 mg 12/04/22 09:00 12/11/22 08:21 Pantoprazole 40 Mg Tab PO 12/24/22 09:01 40 mg DAILY SHAYY Administration Polyethylene Glycol 17 gm 12/02/22 02:40 12/10/22 08:13 Polyethylene (Miralax) 17 Gm Pack PO 01/01/23 02:39 17 gm DAILY PRN Administration Constipation Prednisone 40 mg 12/09/22 09:00 12/11/22 08:22 Prednisone 20 Mg Tab PO 12/13/22 09:01 40 mg DAILY SHAYY Administration Vibegron 75 mg 12/02/22 09:00 12/11/22 08:23 Vibegron 75 Mg Tab PO 01/01/23 08:59 75 mg QAM SHAYY Administration PG Care Time/CCT Total # of Minutes Spent Total Time Spent with Patient: Total time spent is greater than 50% in coordination of care (as documented) at patient's floor/unit and/or counseling patient: Coding Level of Care Code 39145 CRITICAL CARE 1ST 30-74M Diagnoses History of radiation exposure Z92.3 Multifocal pneumonia J18.9 Diffuse large B cell lymphoma C83.[address] R93.89
[2022-12-11] MEDS: DOXYCYCLINE HYCLATE 100 MG CAP PO SCH ×2 (12:02→21:16)
[2022-12-11] MEDS ORDERED: MELATONIN 3 MG TAB PO PRN (16:30)
--- NOTE | 2022-12-11 18:32 | Billing Data ---
Date of Service December 11, 2022 Coding Level of Care Code 34332 SUB INP/OBS CARE
[2022-12-11] MEDS: ENOXAPARIN INJ 40 MG/0.4 ML SYR SQ SCH (21:16)
[2022-12-11] MEDS: MELATONIN 3 MG TAB PO PRN (22:49)
[2022-12-12] MEDS: ALBUT/IPRATROP 3MG/0.5MG NEB 3 ML VIAL NEB SCH ×3 (03:07→11:36)
[2022-12-12 04:38] LABS: Basophils # (auto) 0.01 K/uL (0.00-0.20); Basophils % (auto) 0.1 %; Eosinophils # (auto) 0.25 K/uL (0.00-0.50); Eosinophils % (auto) 2.8 %; Hematocrit (blood only) 36.2 % (37.0-47.0); Hemoglobin 11.9 g/dl (12.0-16.0); Immature Granulocytes # (auto) 0.09 K/uL (0.01-0.20); Lymphocytes # (auto) 0.54 K/uL (1.20-3.40); Mean Corpuscular Hemoglobin 30.6 pg (25.0-34.0); Mean Corpuscular Hgb Conc 32.9 g/dL (32.0-36.0); Mean Corpuscular Volume 93.1 fL (80.0-100.0); Mean Platelet Volume 9.5 fL (9.4-12.4); Monocytes # (auto) 0.74 K/uL (0.11-0.59); Monocytes % (auto) 8.2 %; Neutrophils # (auto) 7.43 K/uL (1.40-6.50); Neutrophils % (auto) 81.9 %; Platelet Count 294 K/uL (130-400); RDW Coefficient of Variation 13.9 % (11.5-14.5); RDW Standard Deviation 46.6 fL (36.4-46.3); Red Blood Count 3.89 M/uL (4.20-5.40); White Blood Count 9.06 K/ul (4.8-10.8)
[2022-12-12 04:55] LABS: Albumin Globulin Ratio 1.6 (0.9-2); Albumin Level 3.4 gm/dl (3.4-5.0); BUN Creatinine Ratio 32.7 (10-20); Bilirubin,Total 0.3 mg/dl (0.2-1.0); C Reactive Protein 1.66 mg/dl (0-0.5); Calcium 8.7 mg/dl (8.6-10.3); Est GFR (African American) 122.7 ml/min; Est GFR (Non-African American) 105.9 ml/min; Globulin 2.1 gm/dl (2.5-4.0); Potassium 3.5 mmol/L (3.5-5.1); Total Protein 5.5 gm/dl (6.0-8.3)
--- NOTE | 2022-12-12 06:48 | Hospitalist Progress Note ---
Date of Service December 12, 2022 Assessment & Plan (1) Multifocal pneumonia: Plan: 62 y/o female with a PMHx of B-cell lymphoma s/p chemo and radiation therapy, HTN, OAB, and arthritis presented with hypoxia likely in the setting of multifocal pneumonia admitted for further workup and IV abx now s/p bronchoscopy with slight subjective improvement, but continued significant oxygen requirement. #Multifocal PNA #Sepsis POA CTA chest and x-ray favor pneumonia. Viral BioFire negative, Pro-Jerry negative. Patient is immunocompromised as she has B-cell lymphoma. Higher risk of abnormal pathogens - broad work up indicated. Blood cultures negative x 48H. Legionella urine ab negative. BAL with rare danelle species. More likely to be a contaminant. Fungal blood cultures, pending if positive will begin antifungal treatment. Patient is not neutropenic so treatment with an echinocandin such as caspofungin would be appropriate. Cytology from bronchoscopy with Moderate chronic active pneumonitis with many histiocytes, no malignant cells. Pathology without fungal organisms, mycobacterial organisms. * Elevated temp of 38 C yesterday evening, temperature has ranged from 37.6-37.8 this afternoon * Will continue trending CRP, Procal for now * Considering patient is not clinically worsening with this temp, will continue to monitor but would consider repeat CT chest if respiratory status worsens in addition to fever Abx: Azithromycin 12/01 x1 Cefepime 12/01 x1 +Zosyn 12/01 - will receive last dose today (12/11) +Doxy 12/01 - ongoing Bactrim 12/03 - stopped on 12/08/22 PJP PCR negative Consults: Pulm consult - upgraded to ICU status after bronchoscopy, downgraded to PCU 12/04 ID consulted Plan: Fungal blood cultures - continue to remain without growth to date Crypto ag, aspergillosis ag pending Plan to trend CRP, procal- if continue to remain stable would consider stopping antibiotics in the next few days. If questionable would consider repeat CT. Oxygen requirement has remained stable, plan for transfer to LTAC pending insurance #Acute hypoxic respiratory failure Patient with significant oxygen requirement. Patient on 40L HFNC with 100% FiO2. If worsening respiratory status, patient has stated that she would want intubation if needed. Recommend that she remain on the ICU floor at this time even though she is PCU status. Supplemental oxygen as needed, DuoNebs every 4 hours Continue prednisone 40 mg twice daily for 5 followed by 40 mg for 5 followed by 20 mg for 11 days. Completing 21 days of prednisone Continue with pantoprazole 40 mg daily while on prednisone Outpatient pulm f/u Continue to wean oxygen as tolerated #Diarrhea Resolved #Anemia Initial hemoglobin of 14.6 in the ED. 10.9 on 12/09. Hemoglobin remains stable at this time. Most likely dilutional effect. No signs or symptoms of an acute bleed. Continue to monitor #Demand ischemia Troponin peaked at 31.3. No signs and symptoms of ACS #Electrolyte Abnormalities Electrolytes monitored and repleted as indicated during hospital stay #Diffuse B Cell Lymphoma #History of chemoradiation therapy Stable. Follows with Dr. Donahue #Arthritis Stable on hydroxychloroquine - continue. Will do Tylenol instead of NSAIDs while inpatient. #HTN Patient on HCTZ at home. Was hypotensive during hospital stay and HCTZ was held. Restarted as patient HDS. Code status: full DVT ppx: Lovenox SQ QD GI ppx: Pantoprazole in setting of steroid use FENGI: Regular (2) Diffuse large B cell lymphoma: (3) Abnormal chest CT: (4) RANDY (stress urinary incontinence, female): (5) Hypertension: (6) Arthritis: (7) Sepsis: (8) History of radiation exposure: Admission and Anticipated Discharge Date Admission Date: December 01, 2022 Review of Systems Review of Systems: As per above Physical Exam Physical Exam: Constitutional: well-appearing, no acute distress HEENT: NCAT, no conjunctival injection CV: regular rhythm, no murmur appreciated, extremities well-perfused Resp: CTABL, no wheezes/rales/rhonchi appreciated, no increased work of breathing MSK: no gross deformities appreciated Skin: warm, dry, no rash appreciated Neuro: alert, oriented, no focal neurologic deficit appreciated Results & Data Results & Data Vital Signs (Past 12 Hours) Vital Signs Temp Pulse Pulse Resp BP Pulse Ox O2 Del Method 12/12/22 06:00 37.5 C 104 H 42 H 95 12/12/22 06:00 105/70 12/12/22 05:00 37.4 C 106 H 32 H 94 12/12/22 04:00 37.4 C 104 H 25 H 93 12/12/22 04:00 113/81 12/12/22 03:00 37.4 C 102 H 27 H 94 12/12/22 02:00 37.3 C 108 H 23 95 12/12/22 02:00 117/84 12/12/22 01:00 37.3 C 105 H 27 H 92 12/12/22 00:00 37.3 C 108 H 29 H 94 12/12/22 00:00 135/111 H 12/12/22 04:16 High Flow Nasal Cannula 12/12/22 03:09 108 H 25 H 94 12/11/22 23:07 109 H 27 H 91 12/11/22 23:00 37.5 C 109 H 26 H 89 L 12/11/22 22:00 117/76 12/11/22 23:06 112 H 12/11/22 22:20 111 H 21 94 High Flow Nasal Cannula 12/11/22 22:13 High Flow Nasal Cannula 12/11/22 22:00 37.4 C 112 H 26 H 90 12/11/22 21:00 37.5 C 114 H 21 94 12/11/22 20:00 37.7 C H 114 H 22 93 12/11/22 20:00 117/82 12/11/22 19:00 37.8 C H 113 H 29 H 96 12/11/22 19:35 114 H 18 96 High Flow Nasal Cannula O2 Flow Rate FiO2 12/12/22 06:00 12/12/22 06:00 12/12/22 05:00 12/12/22 04:00 12/12/22 04:00 12/12/22 03:00 12/12/22 02:00 12/12/22 02:00 12/12/22 01:00 12/12/22 00:00 12/12/22 00:00 12/12/22 04:16 30 75 12/12/22 03:09 60 12/11/22 23:07 60 12/11/22 23:00 12/11/22 22:00 12/11/22 23:06 12/11/22 22:20 30 75 12/11/22 22:13 30 70 12/11/22 22:00 12/11/22 21:00 12/11/22 20:00 12/11/22 20:00 12/11/22 19:00 12/11/22 19:35 35 75
[2022-12-12] MEDS: DOXYCYCLINE HYCLATE 100 MG CAP PO SCH (08:19)
[2022-12-12] MEDS: PANTOprazole 40 MG TAB PO SCH (08:20)
[2022-12-12] MEDS: ADVANCED PROBIOTIC 1250 MG CAPSULE PO SCH (08:20)
[2022-12-12] MEDS: VIBEGRON 75 MG TAB PO SCH (08:20)
[2022-12-12] MEDS: FLUoxetine HCL 20 MG CAP PO SCH (08:20)
[2022-12-12] MEDS: HYDROXYCHLOROQUINE SULFATE 200 MG TAB PO SCH (08:21)
[2022-12-12] MEDS: FEXOFENADINE HCL 180 MG TAB PO SCH (08:21)
[2022-12-12] MEDS: predniSONE 20 MG TAB PO SCH (08:21)
--- NOTE | 2022-12-12 10:45 | Discharge Summary ---
Date of Service December 12, 2022 Admission HPI Per Admitting Provider 62 y/o female with a PMHx of B-cell lymphoma, HTN, OAB, arthritis on hydrochloroquine presents to the ED with progressively worsening SOB and hypoxia. Patient with 3 weeks of progressively worsening shortness of breath and intermittent fevers. Patient was treated for a presumed URI with 5 days of azithromycin prior to a vacation. CXR at that time did not reveal a pneumonia. At that time she had a cough and fevers. After her vacation her symptoms worsened and she was treated with Augmentin started 11/24. At that time a CT Chest was done which was consistent with pneumonia. In the ED: Patient was tachycardic 144, tachypneic 28, febrile at 38.2, and hypoxic to 83%. She was started on 6L NC and oxygenation improved to 92%. She met SIRs criteria thus fluid resuscitated and antibiotics were started. Labs notable for elevated ESR 54 and CRP 8.07. HsTrop slightly elevated at 31.3. Otherwise labs were mostly unremarkable. BioFire negative. Blood cultures pending. CTA without large change from CT Chest 11/24/22. Still concerning for pneumonia with slight progression of ground glass opacities. No signs of VTE. Of note patient has been undergoing treated for B-cell lymphoma. Patient was found to have lytic lesions in the right scapula and at the level of T8 with an associated compression fracture Patient was treated with chemotherapy and radiation therapy. Patient completed treatment in August 2022. Upon my interview patient is with continued SOB. She reports that it feels tight for her to take deep breaths. In addition she has difficulty catching her breath. Has been having intermittent fevers in addition to the progressively worsening shortness of breathin since this started three weeks ago. She denies any dysuria, change in bowel habits, CP, leg swelling, easy bruising, or other symptoms. Principal Diagnosis Acute Hypoxic Respiratory Failure secondary to multifocal pneumonia Discharge Exam Constitutional: well-appearing, no acute distress HEENT: NCAT, no conjunctival injection CV: regular rhythm, no murmur appreciated, extremities well-perfused Resp: CTABL, no wheezes/rales/rhonchi appreciated, no increased work of breathing MSK: no gross deformities appreciated Skin: warm, dry, no rash appreciated Neuro: alert, oriented, no focal neurologic deficit appreciated Discharge Data Allergies Allergy/AdvReac Type Severity Reaction Status Date / Time No Known Drug Allergies Allergy Unknown Verified 11/01/22 14:37 Consultations 12/01/22 22:29 ED Decision to Admit Stat 12/01/22 23:19 Consult Pulmonology Stat 12/03/22 12:20 Consult Infectious Diseases Routine 12/12/22 09:15 Burn CD for patient Routine Procedures Performed Operation Date: 12/03/22 08:30 <No data on this case meets the specified criteria> Ordered Studies 12/01/22 20:59 CT angio chest PE protocol Stat Laboratory Results WBC 9.06 K/ul (4.8-10.8) 12/12/22 04:04 RBC 3.89 M/uL (4.20-5.40) L 12/12/22 04:04 Hgb 11.9 g/dl (12.0-16.0) L 12/12/22 04:04 Hct 36.2 % (37.0-47.0) L 12/12/22 04:04 MCV 93.1 fL (80.0-100.0) 12/12/22 04:04 MCH 30.6 pg (25.0-34.0) 12/12/22 04:04 MCHC 32.9 g/dL (32.0-36.0) 12/12/22 04:04 RDW Std Deviation 46.6 fL (36.4-46.3) H 12/12/22 04:04 RDW Coeff of Clarence 13.9 % (11.5-14.5) 12/12/22 04:04 Plt Count 294 K/uL (130-400) 12/12/22 04:04 MPV 9.5 fL (9.4-12.4) 12/12/22 04:04 Immature Gran % (Auto) 1.0 % 12/12/22 04:04 Neut % (Auto) 81.9 % 12/12/22 04:04 Lymph % (Auto) 6.0 % 12/12/22 04:04 [place] % (Auto) 8.2 % 12/12/22 04:04 Eos % (Auto) 2.8 % 12/12/22 04:04 Baso % (Auto) 0.1 % 12/12/22 04:04 Neut # (Auto) 7.43 K/uL (1.40-6.50) H 12/12/22 04:04 Lymph # (Auto) 0.54 K/uL (1.20-3.40) L 12/12/22 04:04 [place] # (Auto) 0.74 K/uL (0.11-0.59) H 12/12/22 04:04 Eos # (Auto) 0.25 K/uL (0.00-0.50) 12/12/22 04:04 Baso # (Auto) 0.01 K/uL (0.00-0.20) 12/12/22 04:04 Immature Gran # (Auto) 0.09 K/uL (0.01-0.20) 12/12/22 04:04 Hypersegmented Neuts 1+ 12/07/22 05:21 ESR 54 mm/hr (0-30) H 12/01/22 19:55 PT 11.4 Seconds (9.0-12.0) 12/01/22 19:55 INR 1.0 (0.9-1.1) 12/01/22 19:55 APTT 29.3 Seconds (21.0-31.0) 12/01/22 19:55 PTT Ratio 1.0 12/01/22 19:55 VBG pH 7.44 (7.36-7.41) H 12/01/22 20:16 VBG pCO2 41 mmHg (38-50) 12/01/22 20:16 VBG pO2 37 mmHg 12/01/22 20:16 VBG HCO3 28 mmol/L 12/01/22 20:16 VBG O2 Saturation < 60.0 % 12/01/22 20:16 VBG Base Excess 3.3 mEq/L 12/01/22 20:16 Sodium 137 mmol/L (136-145) 12/12/22 04:04 Potassium 3.5 mmol/L (3.5-5.1) 12/12/22 04:04 Chloride 101 mmol/L (98-107) 12/12/22 04:04 Carbon Dioxide 29 mmol/L (21-32) 12/12/22 04:04 Anion Gap 7 (3-11) 12/12/22 04:04 BUN 16 mg/dl (6-23) 12/12/22 04:04 Creatinine 0.49 mg/dl (0.6-1.2) L 12/12/22 04:04 Est Cr Clr Drug Dosing 123.0 ml/min 12/12/22 04:04 Est GFR ( Amer) 122.7 ml/min 12/12/22 04:04 Est GFR (Non-Af Amer) 105.9 ml/min 12/12/22 04:04 BUN/Creatinine Ratio 32.7 (10-20) H 12/12/22 04:04 Glucose 111 mg/dl (70-99(Fasting)) H 12/12/22 04:04 POC Glucose 142 mg/dl (70-99) H 12/07/22 11:51 Lactate 1.0 mmol/L (0.4-2.0) 12/01/22 19:55 Calcium 8.7 mg/dl (8.6-10.3) 12/12/22 04:04 Phosphorus 2.7 mg/dl (2.5-4.9) 12/10/22 03:57 Magnesium 2.0 mg/dl (1.7-2.4) 12/12/22 04:04 Total Bilirubin 0.3 mg/dl (0.2-1.0) 12/12/22 04:04 Direct Bilirubin 0.0 mg/dl (0-0.2) 12/01/22 19:55 AST 20 U/L (13-39) 12/12/22 04:04 ALT 51 U/L (7-52) 12/12/22 04:04 Alkaline Phosphatase 68 U/L (34-104) 12/12/22 04:04 Troponin I High Sens 25.8 pg/ml (0-14) H 12/02/22 00:10 C-Reactive Protein 1.66 mg/dl (0-0.5) H 12/12/22 04:04 B-Natriuretic Peptide 34 pg/ml (0-100) 12/03/22 05:26 Total Protein 5.5 gm/dl (6.0-8.3) L 12/12/22 04:04 Albumin 3.4 gm/dl (3.4-5.0) 12/12/22 04:04 Globulin 2.1 gm/dl (2.5-4.0) L 12/12/22 04:04 Albumin/Globulin Ratio 1.6 (0.9-2) 12/12/22 04:04 Procalcitonin < 0.05 ng/ml (0-0.5) 12/12/22 04:04 Urine Color Yellow 12/01/22 22:15 Urine Appearance Clear (Clear) 12/01/22 22:15 Urine pH 7.0 (4.5-7.5) 12/01/22 22:15 Ur Specific [place] 1.011 (1.000-1.030) 12/01/22 22:15 Urine Protein Negative (Negative) 12/01/22 22:15 Urine Glucose (UA) Negative (Negative) 12/01/22 22:15 Urine Ketones Negative (Negative) 12/01/22 22:15 Urine Blood Negative (Negative) 12/01/22 22:15 Urine Nitrite Negative (Negative) 12/01/22 22:15 Urine Bilirubin Negative (Negative) 12/01/22 22:15 Urine Urobilinogen Negative (Negative) 12/01/22 22:15 Ur Leukocyte Esterase Negative (Negative) 12/01/22 22:15 Fluid Neutrophils % 28 % 12/03/22 09:00 Fluid Lymphocytes % 50 % 12/03/22 09:00 Fluid Eosinophils % 2 % 12/03/22 09:00 Fluid Basophils % 1 % 12/03/22 09:00 Fl Monocyt/Macrophag % 19 % 12/03/22 09:00 Fluid Comment 12/03/22 09:00 Nasal Screen MRSA (PCR) Negative (Negative) 12/02/22 07:28 BAL CD4/CD8 Ratio See Comment 12/03/22 09:00 BAL A.galactomannan Ag Not Detected (Not Detected) 12/03/22 09:00 BAL A.galactomann Index 0.13 (<0.50) 12/03/22 09:00 Stl C. diff Tox B Gene Negative Cdiff Gene (Neg) 12/10/22 13:05 Adenovirus (PCR) Not Detected (NotDetected) 12/01/22 20:05 B. pertussis DNA (PCR) Not Detected (NotDetected) 12/01/22 20:05 B.parapertussis DNA PCR Not Detected (NotDetected) 12/01/22 20:05 C. pneumoniae DNA (PCR) Not Detected (NotDetected) 12/01/22 20:05 Coronavirus OC43 (PCR) Not Detected (NotDetected) 12/01/22 20:05 Coronavirus HKU1 (PCR) Not Detected (NotDetected) 12/01/22 20:05 Coronavirus 229E (PCR) Not Detected (NotDetected) 12/01/22 20:05 SARS-CoV-2 (PCR) Not Detected (NotDetected) 12/01/22 20:05 Coronavirus NL63 (PCR) Not Detected (NotDetected) 12/01/22 20:05 Cryptococcus Source Serum 12/04/22 04:43 Cryptococcal Ag (Latex) Not Detected (Not Detected) 12/04/22 04:43 Human Metapneumovir PCR Not Detected (NotDetected) 12/01/22 20:05 Influenza Type A (PCR) Not Detected (NotDetected) 12/01/22 20:05 Influenza Type B (PCR) Not Detected (NotDetected) 12/01/22 20:05 Urine Legionella Ag SEE NOTE 12/02/22 08:04 M. pneumoniae (PCR) Not Detected (NotDetected) 12/01/22 20:05 Parainfluenza 1 (PCR) Not Detected (NotDetected) 12/01/22 20:05 Parainfluenza 2 (PCR) Not Detected (NotDetected) 12/01/22 20:05 Parainfluenza 3 (PCR) Not Detected (NotDetected) 12/01/22 20:05 Parainfluenza 4 (PCR) Not Detected (NotDetected) 12/01/22 20:05 Pneumocystis Source BRONCH LAVAGE 12/03/22 09:00 Pneumocyst jirovecii PCR NOT DETECTED 12/03/22 09:00 A. galactomannan Ag Not Detected (Not Detected) 12/04/22 04:43 A. galactomannan Ag Idx 0.05 (<0.50) 12/04/22 04:43 RSV (PCR) Not Detected (NotDetected) 12/01/22 20:05 Entero/Rhino (PCR) Not Detected (NotDetected) 12/01/22 20:05 S.pneumoniae Type 1 IgG <0.3 12/02/22 00:05 S.pneumoniae Type 3 IgG <0.3 12/02/22 00:05 S.pneumoniae Type 4 IgG 0.4 12/02/22 00:05 S.pneumoniae Type 5 IgG <0.3 12/02/22 00:05 S.pneumoniae Type 8 IgG <0.3 12/02/22 00:05 S.pneumoniae 9 (9N) IgG <0.3 12/02/22 00:05 S.pneumon 12 (12F) IgG <0.3 12/02/22 00:05 S.pneumoniae Typ 14 IgG 2.2 12/02/22 00:05 S.pneumon 19 (19F) IgG 10.4 12/02/22 00:05 S.pneumon 23 (23F) IgG 1.9 12/02/22 00:05 S.pneumon 26 (6B) IgG <0.3 12/02/22 00:05 S.pneumon 51 (7F) IgG <0.3 12/02/22 00:05 S.pneumon 56 (18C) IgG 2.7 12/02/22 00:05 S.pneumon 68 (9V) IgG <0.3 12/02/22 00:05 Beta-(1,3)-D-Glucan 40 pg/mL 12/02/22 00:05 B-(1,3)-D-Glucan Intrp NEGATIVE 12/02/22 00:05 Miscellaneous Test See Scanned Report 12/03/22 09:00 Miscellaneous Test See Scanned Report 12/03/22 09:00 Miscellaneous Test 2 Cancelled 12/03/22 09:00 Miscellaneous Test 3 Cancelled 12/03/22 09:00 Miscellaneous Test 4 Cancelled 12/03/22 09:00 Ref Lab Test Result Cancelled 12/03/22 09:00 Impressions Chest CTA 12/01/22 20:59 Exam(s): CTA CHEST IV Amt: 119ml EXAM: CT Angiography Chest With Intravenous Contrast CLINICAL HISTORY: Reason for exam: PE. TECHNIQUE: Axial computed tomographic angiography images of the chest with intravenous contrast. CTDI is 11.87 mGy and DLP is 828.08 mGy-cm. Automated exposure control was utilized for the study. A dose lowering technique was utilized adhering to the principles of ALARA. MIP reconstructed images were created and reviewed. COMPARISON: CT chest 11/24/22 FINDINGS: There is a left chest wall port catheter with tip in the right atrium. There is no thoracic aortic aneurysm or dissection. There is adequate pulmonary artery opacification. Main pulmonary artery is normal in caliber. There is no evidence of acute pulmonary embolism. There is no mediastinal or hilar lymphadenopathy. Enlarged right axillary lymph node is stable from prior exam. Left axillary lymph nodes are normal. Heart size is normal. There is no pericardial effusion. Multifocal consolidative and ground-glass opacities are present, appearing somewhat progressed from prior exam. There is no visible pulmonary mass at this time. There is no pleural effusion or pneumothorax. There is a stable 6 mm hypervascular focus in the right hepatic dome. There is a lytic lesion of T8 with associated pathologic compression fracture. There is also a lytic lesion of the right scapular body with associated pathologic fracture. These findings are stable from prior. Regional skeleton appears otherwise intact. IMPRESSION: 1. No evidence of acute pulmonary embolism. 2. Multifocal ground-glass and consolidative opacities appear slightly progressed from prior exam and are concerning for pneumonia, to include viral pneumonia within the differential diagnosis. Imaging follow-up to resolution is recommended. 3. Stable right axillary lymphadenopathy. 4. 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 5. Stable 6 mm hypervascular focus in the right liver dome, nonspecific. Is recommended prior, six-month follow-up CT may be performed for re- characterization. Electronically signed by: Zahida Larry M.D. 12/01/22 22:43 PM Chest X-Ray 12/11/22 05:00 XR chest 1V portable CLINICAL HISTORY: Bilateral pneumonitis, severe respiratory distress TECHNIQUE: Single frontal radiograph of the chest was obtained. Comparison: Comparison is made to chest radiograph 12/05/2022 FINDINGS: A port catheter is seen. The cardiomediastinal silhouette is normal. Faint bibasilar airspace opacities are seen. Interstitial thickening is again No evidence of pleural effusion or pneumothorax. IMPRESSION: Multifocal airspace opacities are somewhat less prominent than in the prior exam. ACT 112: Negative or not required by law. Electronically signed by: Rajinder Cordova M.D. 12/11/2022 9:36 AM Hospital Course (1) Multifocal pneumonia: 62 y/o female with a PMHx of B-cell lymphoma s/p chemo and radiation therapy, HTN, OAB, and arthritis presented with hypoxia likely in the setting of multifocal pneumonia admitted for further workup and IV abx now s/p bronchoscopy with slight subjective improvement, but continued significant oxygen requirement. #Multifocal PNA #Sepsis POA CTA chest and x-ray favor pneumonia. Viral BioFire negative, Pro-Jerry negative. Patient is immunocompromised as she has B-cell lymphoma. Higher risk of abnormal pathogens - broad work up indicated. Blood cultures negative x 48H. Legionella urine ab negative. BAL with rare danelle species. More likely to be a contaminant. Fungal blood cultures,were negative. Cytology from bronchoscopy with Moderate chronic active pneumonitis with many histiocytes, no malignant cells. Pathology without fungal organisms, mycobacterial organisms. * Elevated temp of 38 C on 12/12 evening, temperature has ranged from 37.6-37.8 t his afternoon. Have been trendinf procal/CRP. Procal<0.05 and CRP trending down. * Considering patient is not clinically worsening with this temp, will continue to monitor but would consider repeat CT chest if respiratory status worsens in addition to fever Abx: Azithromycin 12/01 x1 Cefepime 12/01 x1 +Zosyn 12/01 - 12/11 +Doxy 12/01 - total course of 14 days, last dose 12/15/22 Bactrim 12/03 - stopped on 12/08/22 PJP PCR negative #Acute hypoxic respiratory failure Patient with significant oxygen requirement. Patient on 30L HFNC with 70% FiO2 and has been slowly been able to wean. Was requiring BiPap overnight, but overnight 12/11 just required high flow NC Supplemental oxygen as needed, DuoNebs every 4 hours Continue prednisone 40 mg twice daily for 5 followed by 40 mg for 5 followed by 20 mg for 11 days. She is currently on day 9, so will need 40mg on 12/13, followed by 11 days of 20mg. Continue with pantoprazole 40 mg daily while on prednisone Outpatient pulm f/u Continue to wean oxygen as tolerated #Anemia Initial hemoglobin of 14.6 in the ED. 10.9 on 12/09. Hemoglobin remains stable at this time. Most likely dilutional effect. No signs or symptoms of an acute bleed. Continue to monitor #Demand ischemia Troponin peaked at 31.3. No signs and symptoms of ACS #Electrolyte Abnormalities Electrolytes monitored and repleted as indicated during hospital stay #Diffuse B Cell Lymphoma #History of chemoradiation therapy Stable. Follows with Dr. Donahue #Arthritis Stable on hydroxychloroquine - continue. Will do Tylenol instead of NSAIDs while inpatient. #HTN Patient on HCTZ at home. Was hypotensive during hospital stay and HCTZ was held. Restarted as patient HDS. Diet: Regular Code: Full VTE Prophylaxis: Lovenox Lines: Nair catheter, Med Port (2) Diffuse large B cell lymphoma: (3) Abnormal chest CT: (4) RANDY (stress urinary incontinence, female): (5) Hypertension: (6) Arthritis: (7) Sepsis: (8) History of radiation exposure: Total Time Total Time Spent Total Time Spent (In Minutes): <30 Discharge Plan Discharge Items Patient Disposition: Transfer to LTAC Reason For Visit: HYPOXIA Discharge Diagnosis: Acute Hypoxemic Repository Failure- Pneumonia Activity: Per Instructions section Non-emergency contact: Primary Care Provider Call non-emergency contact if: you have any medication questions and your symptoms worsen Follow-up/Referrals: Fabiana Nina MD [Primary Care Provider] - Diet: Regular Addtl Attending Provider Instructions: 62 y/o female with a PMHx of B-cell lymphoma s/p chemo and radiation therapy, HTN, OAB, and arthritis presented with hypoxia likely in the setting of multifocal pneumonia admitted for further workup and IV abx now s/p bronchoscopy with slight subjective improvement, but continued significant oxygen requirement. #Multifocal PNA #Sepsis POA CTA chest and x-ray favor pneumonia. Viral BioFire negative, Pro-Jerry negative. Patient is immunocompromised as she has B-cell lymphoma. Higher risk of abnormal pathogens - broad work up indicated. Blood cultures negative x 48H. Legionella urine ab negative. BAL with rare danelle species. More likely to be a contaminant. Fungal blood cultures,were negative. Cytology from bronchoscopy with Moderate chronic active pneumonitis with many histiocytes, no malignant cells. Pathology without fungal organisms, mycobacterial organisms. * Elevated temp of 38 C on 12/12 evening, temperature has ranged from 37.6-37.8 this afternoon. Have been trendinf procal/CRP. Procal<0.05 and CRP trending down. * Considering patient is not clinically worsening with this temp, will continue to monitor but would consider repeat CT chest if respiratory status worsens in addition to fever Abx: Azithromycin 12/01 x1 Cefepime 12/01 x1 +Zosyn 12/01 - 12/11 +Doxy 08/23 - total course of 14 days, last dose 12/15/22 Bactrim 12/03 - stopped on 12/08/22 PJP PCR negative #Acute hypoxic respiratory failure Patient with significant oxygen requirement. Patient on 30L HFNC with 70% FiO2 and has been slowly been able to wean. Was requiring BiPap overnight, but overnight 12/11 just required high flow NC Supplemental oxygen as needed, DuoNebs every 4 hours Continue prednisone 40 mg twice daily for 5 followed by 40 mg for 5 followed by 20 mg for 11 days. She is currently on day 9, so will need 40mg on 12/13, followed by 11 days of 20mg. Continue with pantoprazole 40 mg daily while on prednisone Outpatient pulm f/u Continue to wean oxygen as tolerated #Anemia Initial hemoglobin of 14.6 in the ED. 10.9 on 12/09. Hemoglobin remains stable at this time. Most likely dilutional effect. No signs or symptoms of an acute bleed. Continue to monitor #Demand ischemia Troponin peaked at 31.3. No signs and symptoms of ACS #Electrolyte Abnormalities Electrolytes monitored and repleted as indicated during hospital stay #Diffuse B Cell Lymphoma #History of chemoradiation therapy Stable. Follows with Dr. Donahue #Arthritis Stable on hydroxychloroquine - continue. Will do Tylenol instead of NSAIDs while inpatient. #HTN Patient on HCTZ at home. Was hypotensive during hospital stay and HCTZ was held. Restarted as patient HDS. Pending Studies at Discharge: No Stand-Alone Forms: My [facility] Skilled Items Patient informed of condition?: Yes DNR: No Discharge Level of Care: Other Communicable Disease: No Discharge Prognosis: Stable Lines: Mid-Line Urinary Catheter: Yes Medications and DC Order Prescriptions: New acetaminophen 325 mg Tablet 650 mg PO Q4H PRN (Reason: pain) 30 Days Qty: 30 0RF doxycycline hyclate 100 mg Capsule 100 mg PO BID 3 Days Qty: 6 0RF ipratropium-albuterol 0.5 mg-3 mg(2.5 mg base)/3 mL Solution For Nebulization 3 ml NEB Q4R 30 Days Qty: 90 0RF polyethylene glycol 3350 [Miralax] 17 gram Powder In Packet 17 g PO DAILY PRN (Reason: constipation) 30 Days Qty: 14 0RF prednisone 20 mg Tablet 40 mg PO DAILY 11 Days Qty: 22 0RF Rx Instructions: 40 mg x 1 day followed by 20 mg for 11 days pantoprazole 40 mg Tablet,Delayed Release (Dr/Ec) 40 mg PO DAILY Qty: 20 0RF enoxaparin [Lovenox] 40 mg/0.4 mL Syringe 40 mg subcut HS 30 Days Qty: 12 0RF Advanced Probiotic 625 mg (10 billion cell) Capsule 2 cap PO DAILY 30 Days Qty: 60 0RF Continued hydroxychloroquine [Plaquenil] 200 mg tablet 200 mg PO DAILY albuterol sulfate [ProAir HFA] 90 mcg/actuation HFA aerosol inhaler 2 puff inhalation .COMPLEX PRN (Reason: shortness of breath or wheezing) Qty: 8.5 3RF Rx Instructions: 2 puff inhalation q4-6 hrs PRN; fexofenadine [Gay Allergy] 180 mg tablet 180 mg PO QAM fluoxetine [Prozac] 40 mg capsule 40 mg PO QAM hydrochlorothiazide 25 mg tablet 25 mg PO QAM Gemtesa 75 mg tablet 75 mg PO QAM Discontinued meloxicam 15 mg tablet 15 mg PO QAM amoxicillin-pot clavulanate 875-125 mg tablet 1 tab PO Q12 Rx Instructions: take for 10 days Discharge Orders: Discharge Order (Routine); Ordered 12/12/22 Ordered By: Viri Peralta Admission Data Admit Date/Time: 12/01/22 23:33 Attending Provider: Benoit Grubbs Admit Provider: Vee Kim Primary Care Provider: Fabiana Nina Other Providers: Destiny Yoo ; Linh Bruce ; Corina Cotter ; Blue Parada ; Jennifer Kraft ; Drew Brooks ; Chantal Chilel ; Carleen Hurtado ; Nell Wagner ; Karl Gonzales ; Gloria Aguirre Other Interventions: Discharge Summary Assessment (RN) Last Done: 12/12/22 10:53 Supervising Physician Co-Signing Physician Notes I personally examined the patient and verified all ward points of history and exam, discussed case, and agree with decision making with Dr Peralta Feeling good and generally brighter, down to 70% FiO2, low-grade fevers discussedshe notes she feels better, she did note that nursing wondered if it was a probe issue, given that checking with a different device usually lead to a normal temperature. Vitals noted, in general she is awake and alert appears and despite high flow NC @ 70% she looks surprisingly NAD. breathing unlabored no conversational dyspnea good effort no accessory muscle use. No focal neurodeficits. Pneumonia, severe hypoxiacontinue antibiotics and supportive care. still requiring significant FiO2 but showing improvement, appreciate pulmonary input, doing better w PO, for LTAC today. appreciate ID input - stop Zosyn, low-grade temps noted, but the fact that she is feeling better and brighter looks better, her FiO2 is coming down are all reassuring, continue to trend CRP which is reassuringly low right now. DVT prophylaxisLovenox otherwise as above
--- NOTE | 2022-12-12 10:57 | Pulmonology Progress Note ---
Date of Service December 12, 2022 Assessment & Plan (1) History of radiation exposure: (2) Multifocal pneumonia: (3) Diffuse large B cell lymphoma: (4) Abnormal chest CT: Plan CT chest 12/01/2022 personally reviewed: Dense consolidative process appreciated in the right upper lobe Patchy groundglass opacities appreciated bilaterally Elevated right hemidiaphragm No significant mediastinal lymphadenopathy 2D echo 05/12/2022: EF 60-65%, RV normal in size and function -- Acute hypoxic respiratory failure Secondary to multilobar pneumonia Per IDs recommendation, completed 10-day course of Zosyn and will continue doxycycline for total of 14 days of treatment.( till 12/15/2022) Respiratory bio fire negative for everything on 11/25/2022 as well as 12/01/2022 Procalcitonin negative CRP 8.07 Recent chest x-ray does show improvement to her bilateral opacifications. Patient has a parakeet at home for 10 years Lymphoma itself can give similar finding Last chemo was in August 2022, would consider to be immunosuppressed right now. PJP could present in similar way S/p bronchoscopy 12/03/2022, some anterior tracheal nodularity. Clear secretions. BAL 50% lymphocytes Follow-up cytology as well as micro BAL sent for coccidioidal, blastomycosis, cryptococcal as well as PJP PCR Case was discussed with Dr. Gonzales --History of B-cell lymphoma S/p R-CHOP and radiation Plan: In/out: 2770ml/5451ml We will repeat chest x-ray tomorrow. Continue with empirically treating the patient with Bactrim till we have negati ve PJP PCRnegative (12/03/2022). Culture negative for PJP. All other cultures negative except for related sputum growing Summer. Continue with prednisone 40 mg twice daily for 5 followed by 40 mg for 5 followed by 20 mg for 11 days. Completing 21 days of prednisone Continue with pantoprazole 40 mg daily as patient will be on prednisone For her anxiety as well as tachycardia may be low-dose beta-jessica could be thought of. Will defer to primary care. Patient is requiring a lot of oxygen right now. She has been weaned to FiO2 of 85% of the Vapotherm Nalocet FiO2 of 85%. With oxygen saturation 99% will wean FiO2 on the Vapotherm. She is not in any respiratory distress her respirate is still in the high teens to low 20s. Will continue to follow cautiously with low threshold for intubation Would recommend to keep her on the ICU floor due to the tenuous nature of her respiratory status. I have personally spent 35 minutes of critical care time in the direct managemen t of this patient today on 12/12/2022. This is a life/limb threatening event. This includes time spent evaluating patient, direct bedside care, chart review, placing orders, interpretation of diagnostic studies, discussion with consultants, patient, and family members, as well as other required patient management activities. This time is exclusive of all separately billable procedures, and teaching time and separate from and in addition to any other critical care service time. Please note the above document was generated using voice recognition software. It may contain grammatical, syntax or spelling errors. Admission and Anticipated Discharge Date Admission Date: December 01, 2022 Subjective Patient in good spirits as always, able to wean FiO2 now down to 70%. Still finishing and completing paperwork for eventual transfer to LTAC facility in [facility]. She reports no new complaints or problems overnight or this morning Review of Systems Review of Systems: All systems reviewed & are unremarkable except as noted in Subjective Physical Exam Constitutional: WD/WN, vitals as above Eyes: PERRL, conjunctivae normal, anicteric sclerae ENMT: external ear and nose normal, oropharynx normal Neck: trachea midline, no thyromegaly Respiratory: Somewhat better respiratory airflow with some diminishment to breath sounds at the bases. No wheezing no cough. Breathing comfortably now on an FiO2 of 70% on the Vapotherm Cardiovascular: RRR, no murmur, no edema Gastrointestinal (Abdomen): normal bowel sounds, soft, nontender, no hepatosplenomegaly Musculoskeletal: no cyanosis or clubbing, extremities motor strength 5/5 Skin: no rashes, warm and dry Neurologic: patellar DTR's 2+ bilat, sensation intact and PERRL, EOMI, accommodation nl, no face palsy, no dysarthria Psychiatric: A+Ox3, euthymic affect Results & Data Results & Data Vital Signs (Past 12 Hours) Vital Signs Temp Pulse Pulse Resp BP Pulse Ox O2 Del Method 12/12/22 08:00 103 H 12/12/22 08:00 High Flow Nasal Cannula 12/12/22 07:05 108 H 16 96 High Flow Nasal Cannula 12/12/22 06:00 37.5 C 104 H 42 H 95 12/12/22 06:00 105/70 12/12/22 05:00 37.4 C 106 H 32 H 94 12/12/22 04:00 37.4 C 104 H 25 H 93 12/12/22 04:00 113/81 12/12/22 03:00 37.4 C 102 H 27 H 94 12/12/22 02:00 37.3 C 108 H 23 95 12/12/22 02:00 117/84 12/12/22 01:00 37.3 C 105 H 27 H 92 12/12/22 00:00 37.3 C 108 H 29 H 94 12/12/22 00:00 135/111 H 12/12/22 04:16 High Flow Nasal Cannula 12/12/22 03:09 108 H 25 H 94 12/11/22 23:07 109 H 27 H 91 12/11/22 23:00 37.5 C 109 H 26 H 89 L 12/11/22 23:06 112 H O2 Flow Rate FiO2 12/12/22 08:00 12/12/22 08:00 30 70 12/12/22 07:05 30 75 12/12/22 06:00 12/12/22 06:00 12/12/22 05:00 12/12/22 04:00 12/12/22 04:00 12/12/22 03:00 12/12/22 02:00 12/12/22 02:00 12/12/22 01:00 12/12/22 00:00 12/12/22 00:00 12/12/22 04:16 30 75 12/12/22 03:09 60 12/11/22 23:07 60 12/11/22 23:00 12/11/22 23:06 Laboratory Results Laboratory Results WBC 9.06 K/ul (4.8-10.8) 12/12/22 04:04 RBC 3.89 M/uL (4.20-5.40) L 12/12/22 04:04 Hgb 11.9 g/dl (12.0-16.0) L 12/12/22 04:04 Hct 36.2 % (37.0-47.0) L 12/12/22 04:04 MCV 93.1 fL (80.0-100.0) 12/12/22 04:04 MCH 30.6 pg (25.0-34.0) 12/12/22 04:04 MCHC 32.9 g/dL (32.0-36.0) 12/12/22 04:04 RDW Std Deviation 46.6 fL (36.4-46.3) H 12/12/22 04:04 RDW Coeff of Clarence 13.9 % (11.5-14.5) 12/12/22 04:04 Plt Count 294 K/uL (130-400) 12/12/22 04:04 MPV 9.5 fL (9.4-12.4) 12/12/22 04:04 Immature Gran % (Auto) 1.0 % 12/12/22 04:04 Neut % (Auto) 81.9 % 12/12/22 04:04 Lymph % (Auto) 6.0 % 12/12/22 04:04 [place] % (Auto) 8.2 % 12/12/22 04:04 Eos % (Auto) 2.8 % 12/12/22 04:04 Baso % (Auto) 0.1 % 12/12/22 04:04 Neut # (Auto) 7.43 K/uL (1.40-6.50) H 12/12/22 04:04 Lymph # (Auto) 0.54 K/uL (1.20-3.40) L 12/12/22 04:04 [place] # (Auto) 0.74 K/uL (0.11-0.59) H 12/12/22 04:04 Eos # (Auto) 0.25 K/uL (0.00-0.50) 12/12/22 04:04 Baso # (Auto) 0.01 K/uL (0.00-0.20) 12/12/22 04:04 Immature Gran # (Auto) 0.09 K/uL (0.01-0.20) 12/12/22 04:04 Hypersegmented Neuts 1+ 12/07/22 05:21 ESR 54 mm/hr (0-30) H 12/01/22 19:55 PT 11.4 Seconds (9.0-12.0) 12/01/22 19:55 INR 1.0 (0.9-1.1) 12/01/22 19:55 APTT 29.3 Seconds (21.0-31.0) 12/01/22 19:55 PTT Ratio 1.0 12/01/22 19:55 VBG pH 7.44 (7.36-7.41) H 12/01/22 20:16 VBG pCO2 41 mmHg (38-50) 12/01/22 20:16 VBG pO2 37 mmHg 12/01/22 20:16 VBG HCO3 28 mmol/L 12/01/22 20:16 VBG O2 Saturation < 60.0 % 12/01/22 20:16 VBG Base Excess 3.3 mEq/L 12/01/22 20:16 Sodium 137 mmol/L (136-145) 12/12/22 04:04 Potassium 3.5 mmol/L (3.5-5.1) 12/12/22 04:04 Chloride 101 mmol/L (98-107) 12/12/22 04:04 Carbon Dioxide 29 mmol/L (21-32) 12/12/22 04:04 Anion Gap 7 (3-11) 12/12/22 04:04 BUN 16 mg/dl (6-23) 12/12/22 04:04 Creatinine 0.49 mg/dl (0.6-1.2) L 12/12/22 04:04 Est Cr Clr Drug Dosing 123.0 ml/min 12/12/22 04:04 Est GFR ( Amer) 122.7 ml/min 12/12/22 04:04 Est GFR (Non-Af Amer) 105.9 ml/min 12/12/22 04:04 BUN/Creatinine Ratio 32.7 (10-20) H 12/12/22 04:04 Glucose 111 mg/dl (70-99(Fasting)) H 12/12/22 04:04 POC Glucose 142 mg/dl (70-99) H 12/07/22 11:51 Lactate 1.0 mmol/L (0.4-2.0) 12/01/22 19:55 Calcium 8.7 mg/dl (8.6-10.3) 12/12/22 04:04 Phosphorus 2.7 mg/dl (2.5-4.9) 12/10/22 03:57 Magnesium 2.0 mg/dl (1.7-2.4) 12/12/22 04:04 Total Bilirubin 0.3 mg/dl (0.2-1.0) 12/12/22 04:04 Direct Bilirubin 0.0 mg/dl (0-0.2) 12/01/22 19:55 AST 20 U/L (13-39) 12/12/22 04:04 ALT 51 U/L (7-52) 12/12/22 04:04 Alkaline Phosphatase 68 U/L (34-104) 12/12/22 04:04 Troponin I High Sens 25.8 pg/ml (0-14) H 12/02/22 00:10 C-Reactive Protein 1.66 mg/dl (0-0.5) H 12/12/22 04:04 B-Natriuretic Peptide 34 pg/ml (0-100) 12/03/22 05:26 Total Protein 5.5 gm/dl (6.0-8.3) L 12/12/22 04:04 Albumin 3.4 gm/dl (3.4-5.0) 12/12/22 04:04 Globulin 2.1 gm/dl (2.5-4.0) L 12/12/22 04:04 Albumin/Globulin Ratio 1.6 (0.9-2) 12/12/22 04:04 Procalcitonin < 0.05 ng/ml (0-0.5) 12/12/22 04:04 Urine Color Yellow 12/01/22 22:15 Urine Appearance Clear (Clear) 12/01/22 22:15 Urine pH 7.0 (4.5-7.5) 12/01/22 22:15 Ur Specific [place] 1.011 (1.000-1.030) 12/01/22 22:15 Urine Protein Negative (Negative) 12/01/22 22:15 Urine Glucose (UA) Negative (Negative) 12/01/22 22:15 Urine Ketones Negative (Negative) 12/01/22 22:15 Urine Blood Negative (Negative) 12/01/22 22:15 Urine Nitrite Negative (Negative) 12/01/22 22:15 Urine Bilirubin Negative (Negative) 12/01/22 22:15 Urine Urobilinogen Negative (Negative) 12/01/22 22:15 Ur Leukocyte Esterase Negative (Negative) 12/01/22 22:15 Fluid Neutrophils % 28 % 12/03/22 09:00 Fluid Lymphocytes % 50 % 12/03/22 09:00 Fluid Eosinophils % 2 % 12/03/22 09:00 Fluid Basophils % 1 % 12/03/22 09:00 Fl Monocyt/Macrophag % 19 % 12/03/22 09:00 Fluid Comment 12/03/22 09:00 Nasal Screen MRSA (PCR) Negative (Negative) 12/02/22 07:28 BAL CD4/CD8 Ratio See Comment 12/03/22 09:00 BAL A.galactomannan Ag Not Detected (Not Detected) 12/03/22 09:00 BAL A.galactomann Index 0.13 (<0.50) 12/03/22 09:00 Stl C. diff Tox B Gene Negative Cdiff Gene (Neg) 12/10/22 13:05 Adenovirus (PCR) Not Detected (NotDetected) 12/01/22 20:05 B. pertussis DNA (PCR) Not Detected (NotDetected) 12/01/22 20:05 B.parapertussis DNA PCR Not Detected (NotDetected) 12/01/22 20:05 C. pneumoniae DNA (PCR) Not Detected (NotDetected) 12/01/22 20:05 Coronavirus OC43 (PCR) Not Detected (NotDetected) 12/01/22 20:05 Coronavirus HKU1 (PCR) Not Detected (NotDetected) 12/01/22 20:05 Coronavirus 229E (PCR) Not Detected (NotDetected) 12/01/22 20:05 SARS-CoV-2 (PCR) Not Detected (NotDetected) 12/01/22 20:05 Coronavirus NL63 (PCR) Not Detected (NotDetected) 12/01/22 20:05 Cryptococcus Source Serum 12/04/22 04:43 Cryptococcal Ag (Latex) Not Detected (Not Detected) 12/04/22 04:43 Human Metapneumovir PCR Not Detected (NotDetected) 12/01/22 20:05 Influenza Type A (PCR) Not Detected (NotDetected) 12/01/22 20:05 Influenza Type B (PCR) Not Detected (NotDetected) 12/01/22 20:05 Urine Legionella Ag SEE NOTE 12/02/22 08:04 M. pneumoniae (PCR) Not Detected (NotDetected) 12/01/22 20:05 Parainfluenza 1 (PCR) Not Detected (NotDetected) 12/01/22 20:05 Parainfluenza 2 (PCR) Not Detected (NotDetected) 12/01/22 20:05 Parainfluenza 3 (PCR) Not Detected (NotDetected) 12/01/22 20:05 Parainfluenza 4 (PCR) Not Detected (NotDetected) 12/01/22 20:05 Pneumocystis Source [place] 12/03/22 09:00 Pneumocyst jirovecii PCR NOT DETECTED 12/03/22 09:00 A. galactomannan Ag Not Detected (Not Detected) 12/04/22 04:43 A. galactomannan Ag Idx 0.05 (<0.50) 12/04/22 04:43 RSV (PCR) Not Detected (NotDetected) 12/01/22 20:05 Entero/Rhino (PCR) Not Detected (NotDetected) 12/01/22 20:05 S.pneumoniae Type 1 IgG <0.3 12/02/22 00:05 S.pneumoniae Type 3 IgG <0.3 12/02/22 00:05 S.pneumoniae Type 4 IgG 0.4 12/02/22 00:05 S.pneumoniae Type 5 IgG <0.3 12/02/22 00:05 S.pneumoniae Type 8 IgG <0.3 12/02/22 00:05 S.pneumoniae 9 (9N) IgG <0.3 12/02/22 00:05 S.pneumon 12 (12F) IgG <0.3 12/02/22 00:05 S.pneumoniae Typ 14 IgG 2.2 12/02/22 00:05 S.pneumon 19 (19F) IgG 10.4 12/02/22 00:05 S.pneumon 23 (23F) IgG 1.9 12/02/22 00:05 S.pneumon 26 (6B) IgG <0.3 12/02/22 00:05 S.pneumon 51 (7F) IgG <0.3 12/02/22 00:05 S.pneumon 56 (18C) IgG 2.7 12/02/22 00:05 S.pneumon 68 (9V) IgG <0.3 12/02/22 00:05 Beta-(1,3)-D-Glucan 40 pg/mL 12/02/22 00:05 B-(1,3)-D-Glucan Intrp NEGATIVE 12/02/22 00:05 Miscellaneous Test See Scanned Report 12/03/22 09:00 Miscellaneous Test See Scanned Report 12/03/22 09:00 Miscellaneous Test 2 Cancelled 12/03/22 09:00 Miscellaneous Test 3 Cancelled 12/03/22 09:00 Miscellaneous Test 4 Cancelled 12/03/22 09:00 Ref Lab Test Result Cancelled 12/03/22 09:00 Impressions Chest CTA 12/01/22 20:59 Exam(s): CTA CHEST IV Amt: 119ml EXAM: CT Angiography Chest With Intravenous Contrast CLINICAL HISTORY: Reason for exam: PE. TECHNIQUE: Axial computed tomographic angiography images of the chest with intravenous contrast. CTDI is 11.87 mGy and DLP is 828.08 mGy-cm. Automated exposure control was utilized for the study. A dose lowering technique was utilized adhering to the principles of ALARA. MIP reconstructed images were created and reviewed. COMPARISON: CT chest 11/24/22 FINDINGS: There is a left chest wall port catheter with tip in the right atrium. There is no thoracic aortic aneurysm or dissection. There is adequate pulmonary artery opacification. Main pulmonary artery is normal in caliber. There is no evidence of acute pulmonary embolism. There is no mediastinal or hilar lymphadenopathy. Enlarged right axillary lymph node is stable from prior exam. Left axillary lymph nodes are normal. Heart size is normal. There is no pericardial effusion. Multifocal consolidative and ground-glass opacities are present, appearing somewhat progressed from prior exam. There is no visible pulmonary mass at this time. There is no pleural effusion or pneumothorax. There is a stable 6 mm hypervascular focus in the right hepatic dome. There is a lytic lesion of T8 with associated pathologic compression fracture. There is also a lytic lesion of the right scapular body with associated pathologic fracture. These findings are stable from prior. Regional skeleton appears otherwise intact. IMPRESSION: 1. No evidence of acute pulmonary embolism. 2. Multifocal ground-glass and consolidative opacities appear slightly progressed from prior exam and are concerning for pneumonia, to include viral pneumonia within the differential diagnosis. Imaging follow-up to resolution is recommended. 3. Stable right axillary lymphadenopathy. 4. 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 5. Stable 6 mm hypervascular focus in the right liver dome, nonspecific. Is recommended prior, six-month follow-up CT may be performed for re- characterization. Electronically signed by: Zahida Larry M.D. 12/01/22 22:43 PM Chest X-Ray 12/11/22 05:00 XR chest 1V portable CLINICAL HISTORY: Bilateral pneumonitis, severe respiratory distress TECHNIQUE: Single frontal radiograph of the chest was obtained. Comparison: Comparison is made to chest radiograph 12/05/2022 FINDINGS: A port catheter is seen. The cardiomediastinal silhouette is normal. Faint bibasilar airspace opacities are seen. Interstitial thickening is again No evidence of pleural effusion or pneumothorax. IMPRESSION: Multifocal airspace opacities are somewhat less prominent than in the prior exam. ACT 112: Negative or not required by law. Electronically signed by: Rajinder Cordova M.D. 12/11/2022 9:36 AM Medications Administered Home Medications Medication Instructions Recorded Confirmed Last Taken fexofenadine 180 mg tablet 180 mg PO QAM 06/10/21 12/01/22 11/30/22 (Gay Allergy) albuterol sulfate 90 mcg/actuation 2 puff inhalation .COMPLEX PRN 01/25/22 12/01/22 Unknown aerosol inhaler (ProAir HFA) shortness of breath or wheezing #8.5 grams hydroxychloroquine 200 mg tablet 200 mg PO DAILY 09/27/22 12/01/22 11/30/22 (Plaquenil) fluoxetine 40 mg capsule (Prozac) 40 mg PO QAM 12/01/22 12/01/22 11/30/22 hydrochlorothiazide 25 mg tablet 25 mg PO QAM 12/01/22 12/01/22 11/30/22 vibegron 75 mg tablet (Gemtesa) 75 mg PO QAM 12/01/22 12/01/22 11/30/22 L.acidop,casei,lactis,rham-B.lact,jonnathan 2 cap PO DAILY 30 days #60 caps 12/12/22 Unknown 625 mg (10 billion cell) capsule (Advanced Probiotic) acetaminophen 325 mg tablet 650 mg PO Q4H PRN pain 30 days #30 09/03/23 Unknown tabs doxycycline hyclate 100 mg capsule 100 mg PO BID 3 days #6 caps 12/12/22 Unknown enoxaparin 40 mg/0.4 mL 40 mg (0.4 mL) subcut HS 30 days 12/12/22 Unknown subcutaneous syringe (Lovenox) #12 mL ipratropium 0.5 mg-albuterol 3 mg 3 ml NEB Q4R 30 days #90 mL 12/12/22 Unknown (2.5 mg base)/3 mL nebulization soln pantoprazole 40 mg tablet,delayed 40 mg PO DAILY #20 tabs 12/12/22 Unknown release polyethylene glycol 3350 17 gram 17 g PO DAILY PRN constipation 30 12/12/22 Unknown oral powder packet (Miralax) days #14 ea prednisone 20 mg tablet 40 mg PO DAILY 11 days #22 tabs 12/12/22 Unknown Active Medications Generic Name Dose Route Start Last Admin Trade Name Freq PRN Reason Stop Dose Admin Acetaminophen 650 mg 12/02/22 02:40 12/10/22 18:22 Acetaminophen 325 Mg Tab PO 01/01/23 02:39 650 mg Q4H PRN Administration Pain or Fever Albuterol 3 ml 12/02/22 03:00 12/12/22 07:05 Albut/Ipratrop 3mg/0.5mg Neb 3 Ml Vial NEB 01/01/23 02:59 3 ml Q4R SHAYY Administration Protocol Doxycycline Hyclate 100 mg 12/11/22 10:30 12/12/22 08:19 Doxycycline Hyclate 100 Mg Cap PO 12/16/22 10:29 100 mg BID SHAYY Administration Enoxaparin Sodium 40 mg 12/03/22 21:00 12/11/22 21:16 Enoxaparin Inj 40 Mg/0.4 Ml Syr SQ 01/02/23 20:59 40 mg HS SHAYY Administration Fexofenadine HCl 180 mg 12/02/22 09:00 12/12/22 08:21 Fexofenadine Hcl 180 Mg Tab PO 01/01/23 08:59 180 mg QAM SHAYY Administration Fluoxetine HCl 40 mg 12/02/22 09:00 12/12/22 08:20 Fluoxetine Hcl 20 Mg Cap PO 01/01/23 08:59 40 mg QAM SHAYY Administration Hydrochlorothiazide 25 mg 12/02/22 09:00 12/05/22 07:58 Hydrochlorothiazide 25 Mg Tab PO 01/01/23 08:59 25 mg QAM SHAYY Administration Hydroxychloroquine Sulfate 200 mg 12/02/22 09:00 12/12/22 08:21 Hydroxychloroquine Sulfate 200 Mg Tab PO 01/01/23 08:59 200 mg DAILY SHAYY Administration Lactobacillus Acidophilus 2 cap 12/04/22 10:45 12/12/22 08:20 Advanced Probiotic 1250 Mg Capsule PO 01/03/23 10:44 2 cap DAILY SHAYY Administration Melatonin 3 mg 12/10/22 20:49 12/11/22 22:49 Melatonin 3 Mg Tab PO 01/09/23 20:48 3 mg HS PRN Administration Sleep Ondansetron HCl 4 mg 12/02/22 02:40 12/07/22 20:35 Ondansetron Inj 2 Mg/Ml 2 Ml Vial IV 01/01/23 02:39 4 mg Q6H PRN Administration Nausea Pantoprazole Sodium 40 mg 12/04/22 09:00 12/12/22 08:20 Pantoprazole 40 Mg Tab PO 12/24/22 09:01 40 mg DAILY SHAYY Administration Polyethylene Glycol 17 gm 12/02/22 02:40 12/10/22 08:13 Polyethylene (Miralax) 17 Gm Pack PO 01/01/23 02:39 17 gm DAILY PRN Administration Constipation Prednisone 40 mg 12/09/22 09:00 12/12/22 08:21 Prednisone 20 Mg Tab PO 12/13/22 09:01 40 mg DAILY SHAYY Administration Vibegron 75 mg 12/02/22 09:00 12/12/22 08:20 Vibegron 75 Mg Tab PO 01/01/23 08:59 75 mg QAM SHAYY Administration PG Care Time/CCT Total # of Minutes Spent Total Time Spent with Patient: Total time spent is greater than 50% in coordination of care (as documented) at patient's floor/unit and/or counseling patient: Coding Level of Care Code 37094 CRITICAL CARE 1ST 30-74M Diagnoses History of radiation exposure Z92.3 Multifocal pneumonia J18.9 Diffuse large B cell lymphoma C83.[address] R93.89
--- NOTE | 2022-12-12 13:31 | Billing Data ---
Date of Service December 12, 2022 Coding Level of Care Code 42983 IN/OBS DISCH 30 MIN/LESS
[2022-12-14] MEDS ORDERED: predniSONE 20 MG TAB PO SCH (09:00)
== END 2022-12-12 12:04 | DRG 853 ==
LOC: ED 19:28 → SUATTDRO 23:33 → EDINP 23:33 → 2S 12-02 02:41 → 1E 12-03 08:43